=== PATIENT | female | born 1970 | race Caucasian/White ===

== ENCOUNTER 2016-05-10 11:31 | Emergency (ER) | payer OTHER ==
[2016-05-10 13:21] VITALS: BP 160/85
--- NOTE | 2016-05-10 14:03 | UC ---
Lower Extremity/Ankle HPI - HPI Summary HPI Summary: Approx 0930 today pt spilled boiling broth onto L foot. Now area is red, swollen , painful, and blistered. - History of Current Complaint Chief Complaint: UCSkin Stated Complaint: BURN TO TOP OF FOOT Time Seen by Provider: 05/10/16 13:41 Hx Obtained From: Patient Hx Last Menstrual Period: ablation ?: No Onset/Duration: Sudden Onset Severity Initially: Moderate Severity Currently: Moderate Aggravating Factor(s): Other - touch Alleviating Factor(s): Rest Able to Bear Weight: Yes Related History: Occupational Injury - Allergies/Home Medications Allergies/Adverse Reactions: Allergies Allergy/AdvReac Type Severity Reaction Status Date / Time Aspirin Allergy Nausea Verified 05/10/16 13:23 Atomoxetine [From Strattera] Allergy See Comment Verified 05/10/16 13:23 Home Medications: Home Medications Gabapentin [Neurontin 800 mg tab] 800 mg PO 05/10/16 [History] Lurasidone HCl [Latuda] 60 mg PO 05/10/16 [History] Metoprolol Succinate XL TAB* [Toprol XL TAB*] 25 mg PO DAILY 05/10/16 [History Confirmed 05/10/16] PMH/Surg Hx/FS Hx/Imm Hx Endocrine History Of: Denies: Diabetes, Thyroid Disease Cardiovascular History Of: Reports: Cardiac Disorders - heart palpatations Denies: Hypertension Respiratory History Of: Denies: COPD, Asthma GI/ History Of: Reports: Ulcer - gerd Cancer History Of: Denies: Breast Cancer - Surgical History Surgical History: Yes Surgery Procedure, Year, and Place: right hip dislocation - pins in place 1980. left elbow dislocation - 3 surgeries fell off horse. bunion surgery right toe. [facility] - Family History Known Family History: Positive: Hypertension - Social History Occupation: Employed Full-time Lives: With Family Alcohol Use: Weekly Substance Use Type: None Smoking Status (MU): Heavy Every Day Tobacco Smoker Amount Used/How Often: 1ppd - Immunization History Most Recent Tetanus Shot: 2014 Review of Systems Constitutional: Negative Skin: Other - redness, swelling, burn Eyes: Negative ENT: Negative Respiratory: Negative Cardiovascular: Negative Gastrointestinal: Negative Genitourinary: Negative Motor: Negative Neurovascular: Negative Musculoskeletal: Negative Neurological: Negative Psychological: Negative All Other Systems Reviewed And Are Negative: Yes Physical Exam Triage Information Reviewed: Yes Appearance: Well-Appearing, Obese Vital Signs: Initial Vital Signs Temp 98.1 F 05/10/16 13:15 Pulse 69 05/10/16 13:15 Resp 20 05/10/16 13:15 BP 160/85 05/10/16 13:15 Pulse Ox 98 05/10/16 13:15 Vital Signs Reviewed: Yes Eye Exam: Normal Eyes: Positive: Conjunctiva Clear ENT Exam: Normal ENT: Positive: Normal ENT inspection, Hearing grossly normal, Pharynx normal, TMs normal Dental Exam: Normal Neck exam: Normal Neck: Positive: Supple, Nontender, No Lymphadenopathy Respiratory Exam: Normal Respiratory: Positive: Chest non-tender, Lungs clear, Normal breath sounds, No respiratory distress, No accessory muscle use Cardiovascular Exam: Normal Cardiovascular: Positive: RRR, No Murmur Musculoskeletal Exam: Normal Musculoskeletal: Positive: Strength Intact, ROM Intact Neurological Exam: Normal Psychological Exam: Normal Skin Exam: Other - Approx 10cm x 6cm burn to L foot. See pic. Skin intact, single blister intact. Lower Extremity Course/Dx - Differential Dx/Diagnosis Provider Diagnoses: L foot burn Discharge - Discharge Plan Condition: Stable Disposition: HOME Prescriptions: Ibuprofen TAB* [Motrin TAB* 600 MG] 600 mg PO Q8H PRN #30 tab PRN Reason: Pain Mupirocin 2% OINT* [Bactroban 2 % Oint*] 1 applic TOPICAL BID #1 tube Patient Education Materials: Superficial Burn (ED) Forms: *Work Release Referrals: Gerardo Ruiz MD [Primary Care Provider] - Additional Instructions: Please change your dressings twice daily. When you change a dressing, wash the wound gently with tepid soapy water an d apply a thin layer of bactroban ointment. If you have increasing redness, pain, foul drainage, or if you cannot wear a shoe after two days, please return here for re-check. Images Feet (Multiple View): 1 - red, swollen skin 2 - 1.5cm blister with clear fluid
== END 2016-05-10 14:13 | disposition home or self-care (01) ==
LOC: UCEAST 11:31
DX: T25.222A Burn of second degree of left foot, initial encounter (principal); X12.XXXA Contact with other hot fluids, initial encounter; Y93.9 Activity, unspecified; Y92.9 Unspecified place or not applicable; Y99.0 Civilian activity done for income or pay; Z88.6 Allergy status to analgesic agent; Z88.1 Allergy status to other antibiotic agents; F17.210 Nicotine dependence, cigarettes, uncomplicated
CPT/HCPCS: 99213; G0463

== ENCOUNTER 2016-11-17 17:05 | Inpatient (IN) | payer OTHER ==
[2016-11-17] MEDS ORDERED: Aspirin EC TAB* 325 MG PO ONE (18:23)
[2016-11-17 18:48] LABS: Hematocrit 49 % (35-47); Hemoglobin 16.2 g/dl (12.0-16.0); Mean Corpuscular HGB Conc 33 g/dl (31-36); Mean Corpuscular Hemoglobin 32 pg (27-31); Mean Corpuscular Volume 95 fL (80-97); Mean Platelet Volume 10 um3 (7.4-10.4); Red Blood Count 5.11 10^6/ul (4.0-5.4); Red Cell Distribution Width 13 % (10.5-15); White Blood Count 10.1 10^3/ul (3.5-10.8)
[2016-11-17 19:01] LABS: Albumin 4.1 g/dL (3.2-5.2); BUN/Creatinine Ratio 12.7 (8-20); Calcium 9.5 mg/dL (8.6-10.3); EGFR African American 113.5 (>60); EGFR Non-African American 88.2 (>60); Globulin 2.8 g/dL (2-4); Magnesium 2.2 mg/dL (1.9-2.7); Potassium 3.7 mmol/L (3.5-5.0); Total Bilirubin 0.7 mg/dL (0.2-1.0); Total Protein 6.9 g/dL (6.4-8.9)
[2016-11-17 19:06] LABS: Troponin I 0.06 ng/mL (<0.04)
--- NOTE | 2016-11-17 19:11 | RAD ---
INDICATION: Chest pain COMPARISON: Chest x-ray dated November 02, 2013 TECHNIQUE: Single AP portable view of the chest was obtained. FINDINGS: Image quality is compromised due to the relative inferiority of a portable chest x-ray. The heart and mediastinum exhibit normal size and contour. The lungs are grossly clear. There is no evidence of a large pleural effusion. Visualized bones are normal for the patient's age. IMPRESSION: No radiographic evidence for acute cardiopulmonary abnormality on this portable chest x-ray.
[2016-11-17 19:23] LABS: TSH (Thyroid Stimulating Horm) 1.01 mcIU/mL (0.34-5.60)
[2016-11-17 19:51] LABS: Urine Bacteria Absent (Absent); Urine Bilirubin Negative (Negative); Urine Glucose Negative (Negative); Urine Nitrite Negative (Negative)
[2016-11-17] MEDS ORDERED: PRAVASTATIN 10 MG PO SCH (21:00)
[2016-11-17] MEDS ORDERED: Metoprolol Succinate XL TAB* 50 MG PO SCH (21:00)
[2016-11-17] MEDS: Nicotine PATCH 21 MG/24 HR* PATCH TRANSDERM SCH (21:25)
[2016-11-17] MEDS: Enoxaparin(*) 100 MG/ML SYR SUBCUT SCH (21:27)
[2016-11-17] MEDS: Nitroglycerin 2% OINT* 1 GM PAK TOPICAL SCH (21:28)
[2016-11-17] MEDS: Gabapentin CAP(*) 300 MG PO SCH (22:45)
[2016-11-17] MEDS: Omeprazole CAP* 20 MG PO SCH (22:46)
--- NOTE | 2016-11-18 00:23 | HP ---
HISTORY AND PHYSICAL:* ADDENDUM: Ms. Stanley is a 46-year-old female with a history of symptomatic PVCs, under the care of Dr. Martins from Cardiology. The PVC had been treated and controlled with Toprol XL. The patient presents today with history and complains of intermittent chest pain, sometime exertional and sometimes not. The patient's EKG is unchanged from prior, but her troponin is 0.06. Since her symptoms are concerning for unstable angina, she is going to be admitted to telemetry monitoring floor. Lovenox anticoagulation is going to be instituted. We will also consult the Cardiology. For further details of the patient's presentation and plan, please see history and physical dictated by Catracho Wooten on 11/17/16, with which I agree. [id number]/CPS #: [id number] MTDD
--- NOTE | 2016-11-18 00:31 | HP ---
ATTENDING ADDENDUM NOW INCLUDED ON THIS REPORT CC: Dr. Ruiz; Dr. Xavier * HISTORY AND PHYSICAL: DATE OF ADMISSION: 11/17/16 PRIMARY CARE PROVIDER: Dr. Ruiz. CONSULTING GERIATRIC PHYSICIAN: Dr. Xavier. ATTENDING PROVIDER: Dr. Opal Pineda * (DICTATED BY CATRACHO REMY NP) CHIEF COMPLAINT: Chest pain. HISTORY OF PRESENT ILLNESS: Mrs. Stanley is a 46-year-old female patient. She has a history of bipolar ADHD, GERD, hyperlipidemia, and hypertension. She is a smoker and she has a family history of coronary artery disease. She comes in today, says in the last couple of months she has had progressive and worsening in duration and frequency of chest pain and it is described as a tightness in the center of her chest, at times associated with nausea and also having radiation into both arms. In addition to this, also she says the duration of frequency has been increasing. She says the pain comes with exertion at times as well and also she has noticed in the last couple of weeks it is waking her up at bedtime and at night and she has been having nonexertional along with exertional chest tightness and heaviness. She was concerned today because around 2 in the morning she had an episode, it lasted 3 to 5 minutes. She called her primary this morning, went in and sought an appointment. While there, noted that she did have some subtle EKG changes. In addition to this, with her risk factors there was concern this may represent unstable angina and she was sent to the hospital. She denies any fevers, no cough, no abdominal pain. She denies having any nausea or vomiting. There is some nausea with the pain. No shortness of breath and no recent fevers, chills , or any calf or leg tenderness, or any recent trips or travel. She came to the ER, she was evaluated. Because of her story, obviously troponins were checked and this was elevated at 0.06. We were asked to evaluate for admission. PAST MEDICAL HISTORY: Significant for: 1. Bipolar. 2. ADHD. 3. GERD. 4. Hyperlipidemia. 5. Hypertension. PAST SURGICAL HISTORY: 1. The patient has had a cholecystectomy. 2. ORIF of the right hip. 3. She has had bunionectomy on the right foot. HOME MEDICATIONS: 1. Gabapentin 600 mg daily. 2. Nexium 40 mg daily. 3. Pravachol 10 mg daily. 4. Metoprolol XL 50 mg p.o. at bedtime. ALLERGIES TO MEDICATIONS: Include ASPIRIN, although that is more of an intolerance, it does cause GI discomfort. She is also allergic to STRATTERA. FAMILY HISTORY: Her mother was a diabetic, she had an MRI in her 40s. In addition to this, her mother had an open heart surgery in her 40s. Father had a history of colon cancer. SOCIAL HISTORY: She is a pack a day smoker for about 30 years. She occasionally drinks alcohol. Surrogate decision maker is her fiance. REVIEW OF SYSTEMS: There is no documented fever. She denied having any significant weight change. There was no double vision. She denies having any ear discharge. There was no rhinorrhea, no sore throat, no thyroid enlargement. She denied having chest pain currently, but she does have some per my HPI. There is no shortness of breath, no abdominal pain. There was nausea. No dysuria, no frequency, no loss of consciousness, no pruritus, and no skin ulcerations. Review of 14 systems completed, all others negative. PHYSICAL EXAMINATION GENERAL: At this time, Ms. Stanley is a 46-year-old female patient. She is morbidly obese, she is sitting in the ER stretcher. She does not appear to be in any acute distress. VITAL SIGNS: Blood pressure 128/72, pulse 74, respirations 20, O2 sat 95%, and temperature 97.5. HEENT: Head atraumatic and normocephalic. Eyes; EOMs are intact. Sclerae anicteric, not pale. NECK: Supple. Throat; oral mucosa appears to be moist, no oropharyngeal erythema. LUNGS: Clear to auscultation bilaterally. No wheezes, rales, or rhonchi. HEART: Sounds S1 and S2. Regular rate and rhythm. No murmurs, rubs, or gallops. ABDOMEN: Soft, flat, and nontender. Bowel sounds present. EXTREMITIES: Pulses were 2+ throughout. Able to move all 4 extremities with 5/ 5 strength. NEUROLOGIC: The patient is awake, alert, is oriented x3. Tongue midline. Collar Shaper Operator were equal. She had no gross focal deficits. The skin was grossly intact. LABORATORY DATA/DIAGNOSTIC STUDIES: Today revealed a WBC of 10.1, RBC of 5.11 , hemoglobin 16.2, hematocrit 49, platelet count of 189,000. The PTT was 29.7. D- dimer less than 200. Sodium 138, potassium 2.7, chloride of 108, bicarb 20 , BUN 9, creatinine of 0.71, glucose 90, lactic 1.5, calcium 9.5. Total mag 2.2 , total bili 0.7, AST 19, ALT 19, alk phos 71, troponin 0.06. CK-MB was 3.8, CK was 82. BNP 194, albumin 4.1. Urine showed trace ketones, 1+ blood, 1+ rbc. She did have an EKG obtained today as well which revealed a normal sinus rhythm. It did show a heart rate of 72. She did have some T-wave inversion in lead 3 and aVF and some depression in II, III and aVF. No ST-elevations were noted. I did review it to her previous EKG, she has had that inversion in lead 3 but not in aVF and she has had depression in II, III, and aVF in the past. Old medical records were reviewed. She did have that chest x-ray today as well, which showed no acute cardiopulmonary abnormality. Old medical records reviewed. ASSESSMENT AND PLAN: Mrs. Stanley is a 46-year-old female patient coming into the ER today with complaints of chest discomfort. On evaluation today, it was noted she had an indeterminate troponin. She will be admitted under inpatient status for: 1. Chest pain. I am concerned that the patient may have unstable angina. She has got several risk factors. Her story is concerning, so my plan is to go ahead and make her n.p.o. after midnight, beta-andriy. She actually takes her Toprol XL at bedtime, so I am going to give her that now. I will go ahead and put her on nitrates, give her a shot of Lovenox b.i.d., n.p.o. after midnight and have Cardiology evaluate and see if we should do a stress test or cath in the morning. I did cycle her troponins. In addition to this, we will get an echo and I am going to get an EKG probably around 10 o'clock tonight to make sure with the beta- andriy, the changes are improving and are not getting any worse at least, and we will continue to follow her closely. 2. Bipolar disorder and attention deficit hyperactivity disorder. Continue supportive care. 3. Gastroesophageal reflux disease. PPI therapy. 4. Hyperlipidemia. We will check lipid panel in the morning. 5. Hypertension. Continue her beta-andriy. 6. DVT prophylaxis. She will be on Lovenox, therapeutic dosing. 7. Code status, full code. 8. Fluids, electrolytes, and nutrition. She can have a heart-healthy diet and n.p.o. after midnight. 9. Tobacco abuse. I did order a nicotine patch. TIME SPENT: On the admission was approximately 60 minutes, greater than half the time spent [id number] with the patient obtaining my history and physical, other half the time spent going over the plan of care with the patient and implementing the plan of care. I discussed the plan of care with my attending, Dr. Pineda, who is in agreement. CATRACHO REMY NP ADDENDUM: Ms. Stanley is a 46-year-old female with a history of symptomatic PVCs, under the care of Dr. Martins from Cardiology. The PVC had been treated and controlled with Toprol XL. The patient presents today with history and complains of intermittent chest pain, sometime exertional and sometimes not. The patient's EKG is unchanged from prior, but her troponin is 0.06. Since her symptoms are concerning for unstable angina, she is going to be admitted to telemetry monitoring floor. Lovenox anticoagulation is going to be instituted. We will also consult the Cardiology. For further details of the patient's presentation and plan, please see history and physical dictated by Catracho Remy NP on 11/17/16, with which I agree. OPAL PINEDA MD [id number]/CPS #: [id number]/CPS #: [id number] YVROSE
[2016-11-18] MEDS: Nitroglycerin 2% OINT* 1 GM PAK TOPICAL SCH (04:56)
[2016-11-18] MEDS ORDERED: Acetaminophen TAB* 325 MG PO PRN (04:57)
[2016-11-18] MEDS ORDERED: Nitro Patch/OINT Remove PATCH OFF SCH ×2 (05:00→21:00)
[2016-11-18 05:06] LABS: Hematocrit 44 % (35-47); Hemoglobin 14.9 g/dl (12.0-16.0); Mean Corpuscular HGB Conc 34 g/dl (31-36); Mean Corpuscular Hemoglobin 32 pg (27-31); Mean Corpuscular Volume 95 fL (80-97); Mean Platelet Volume 10 um3 (7.4-10.4); Red Blood Count 4.68 10^6/ul (4.0-5.4); Red Cell Distribution Width 13 % (10.5-15); White Blood Count 10.7 10^3/ul (3.5-10.8)
[2016-11-18 05:15] LABS: BUN/Creatinine Ratio 16.9 (8-20); Calcium 9.4 mg/dL (8.6-10.3); EGFR African American 103.3 (>60); EGFR Non-African American 80.4 (>60); HDL Cholesterol 38.6 mg/dL; Potassium 3.4 mmol/L (3.5-5.0)
--- NOTE | 2016-11-18 08:56 | ED ---
Afia Nguyen Claudia, scribed for Darrius Medina MD on 11/17/16 at 1826 . HPI Chest Pain - HPI Summary HPI Summary: 46 year old female presents to [facility] with chief complaints of CP. Pt states that she has been having intermittent episodes of mid-sternal CP for the past few weeks. She describes it as a pressure. Pt notes that the pain occurs during exertion and even wakes her up in the middle of the night. Pt notes the pain is a 6/10 during episodes and she notes associated Sx of SOB.Pt denies any skin diaphoresis accompanying the Sx. Pt notes that she is currently asymptomatic but went to Dr. Holden's office today and he noted an abnormality on her EKG bringing her to the ED. Pt does not take any aspirin daily and did not take any aspiring today. - History of Current Complaint Chief Complaint: EDChestWallPain Hx Obtained From: Patient Onset/Duration: Started Days Ago, Still Present Timing: Intermittent Pain Intensity: 0 Pain Scale Used: 0-10 Numeric Chest Pain Location: Mid Sternal Chest Pain Radiates: No Character: Pressure/Squeezing Aggravating Factor(s): Nothing Alleviating Factor(s): Nothing Associated Signs and Symptoms: Positive: Chest Pain, Shortness of Breath - Allergy/Home Medications Allergies/Adverse Reactions: Allergies Allergy/AdvReac Type Severity Reaction Status Date / Time Atomoxetine [From Strattera] Allergy See Comment Verified 05/10/16 13:23 PMH/Surg Hx/FS Hx/Imm Hx Previously Healthy: Yes Endocrine/Hematology History: Denies: Hx Diabetes, Hx Thyroid Disease Cardiovascular History: Denies: Hx Hypertension Respiratory History: Denies: Hx Asthma, Hx Chronic Obstructive Pulmonary Disease (COPD) GI History: Reports: Hx Ulcer - gerd Neurological History: Denies: Other Neuro Impairments/Disorders - Surgical History Surgery Procedure, Year, and Place: right hip dislocation - pins in place 1980. left elbow dislocation - 3 surgeries fell off horse. bunion surgery right toe. [facility] Infectious Disease History: No Infectious Disease History: Denies: Hx Hepatitis, Hx Human Immunodeficiency Virus (HIV), Traveled Outside the [place] in Last 30 Days - Family History Known Family History: Positive: Hypertension - Social History Occupation: Employed Full-time Lives: Alone Alcohol Use: Weekly Hx Substance Use: No Substance Use Type: Reports: None Hx Tobacco Use: Yes Smoking Status (MU): Heavy Every Day Tobacco Smoker Amount Used/How Often: 1ppd Review of Systems Constitutional: Negative Negative: Skin Diaphoresis Eyes: Negative ENT: Negative Cardiovascular: Negative Negative: Chest Pain Respiratory: Negative Negative: Shortness Of Breath Gastrointestinal: Negative Genitourinary: Negative Musculoskeletal: Negative Skin: Negative Neurological: Negative Psychological: Normal All Other Systems Reviewed And Are Negative: Yes Physical Exam - Summary Physical Exam Summary: VITAL SIGNS: Reviewed. GENERAL: Patient is a well-developed and nourished female who is lying comfortable in the stretcher. Patient is not in any acute respiratory distress. HEAD AND FACE: No signs of trauma. No ecchymosis, hematomas or skull depressions. No sinus tenderness. EYES: PERRLA, EOMI x 2, No injected conjunctiva, no nystagmus. EARS: Hearing grossly intact. Ear canals and tympanic membranes are within normal limits. MOUTH: Oropharynx within normal limits. NECK: Supple, trachea is midline, no adenopathy, no JVD, no carotid bruit, no c- spine tenderness, neck with full ROM. CHEST: Symmetric, no tenderness at palpation LUNGS: Clear to auscultation bilaterally. No wheezing or crackles. CVS: Regular rate and rhythm, S1 and S2 present, no murmurs or gallops appreciated. ABDOMEN: Soft, non-tender. No signs of distention. No rebound no guarding, and no masses palpated. Bowel sounds are normal. EXTREMITIES: FROM in all major joints, no edema, no cyanosis or clubbing. NEURO: Alert and oriented x 3. No acute neurological deficits. Speech is normal and follows commands. SKIN: Dry and warm Triage Information Reviewed: Yes Vital Signs On Initial Exam: Initial Vitals Temp Pulse Resp BP Pulse Ox 97.5 F 80 18 114/55 94 11/17/16 17:08 11/17/16 17:08 11/17/16 17:08 11/17/16 17:08 11/17/16 17:08 Vital Signs Reviewed: Yes - Micki Coma Scale Coma Scale Total: 15 Diagnostics - Vital Signs Vital Signs Temp Pulse Resp BP Pulse Ox 11/17/16 18:00 73 22 127/73 92 11/17/16 17:38 75 11/17/16 17:30 123/68 11/17/16 17:12 77 16 93 11/17/16 17:11 111/69 11/17/16 17:08 97.5 F 80 18 114/55 94 - Laboratory Lab Results: Lab Results 11/17/16 11/17/16 11/17/16 Range/Units 18:33 18:33 18:33 WBC 10.1 (3.5-10.8) 10^3/ul RBC 5.11 (4.0-5.4) 10^6/ul Hgb 16.2 H (12.0-16.0) g/dl Hct 49 H (35-47) % MCV 95 (80-97) fL MCH 32 H (27-31) pg MCHC 33 (31-36) g/dl RDW 13 (10.5-15) % Plt Count 189 (150-450) 10^3/ul MPV 10 (7.4-10.4) um3 Neut % (Auto) 66.6 (38-83) % Lymph % (Auto) 25.0 (25-47) % [place] % (Auto) 6.7 (1-9) % Eos % (Auto) 1.2 (0-6) % Baso % (Auto) 0.5 (0-2) % Absolute Neuts (auto) 6.7 (1.5-7.7) 10^3/ul Absolute Lymphs (auto) 2.5 (1.0-4.8) 10^3/ul Absolute Monos (auto) 0.7 (0-0.8) 10^3/ul Absolute Eos (auto) 0.1 (0-0.6) 10^3/ul Absolute Basos (auto) 0 (0-0.2) 10^3/ul Absolute Nucleated RBC 0.01 10^3/ul Nucleated RBC % 0.1 APTT 29.7 (26.0-36.3) seconds D-Dimer, Quantitative < 200 (Less Than 230) ng/mL Sodium 138 (133-145) mmol/L Potassium 3.7 (3.5-5.0) mmol/L Chloride 108 (101-111) mmol/L Carbon Dioxide 20 L (22-32) mmol/L Anion Gap 10 (2-11) mmol/L BUN 9 (6-24) mg/dL Creatinine 0.71 (0.51-0.95) mg/dL Est GFR ( Amer) 113.5 (>60) Est GFR (Non-Af Amer) 88.2 (>60) BUN/Creatinine Ratio 12.7 (8-20) Glucose 90 (70-100) mg/dL Lactic Acid (0.5-2.0) mmol/L Calcium 9.5 (8.6-10.3) mg/dL Magnesium 2.2 (1.9-2.7) mg/dL Total Bilirubin 0.70 (0.2-1.0) mg/dL AST 19 (13-39) U/L ALT 19 (7-52) U/L Alkaline Phosphatase 71 (34-104) U/L Total Creatine Kinase 82 (10-223) U/L CK-MB (CK-2) 3.8 (0.6-6.3) ng/mL Troponin I 0.06 H* (<0.04) ng/mL B-Natriuretic Peptide ( - 100) pg/mL Total Protein 6.9 (6.4-8.9) g/dL Albumin 4.1 (3.2-5.2) g/dL Globulin 2.8 (2-4) g/dL Albumin/Globulin Ratio 1.5 (1-3) TSH 1.01 (0.34-5.60) mcIU/mL Urine Color Urine Appearance Urine pH (5-9) Ur Specific [place] (1.010-1.030) Urine Protein (Negative) Urine Ketones (Negative) Urine Blood (Negative) Urine Nitrate (Negative) Urine Bilirubin (Negative) Urine Urobilinogen (Negative) Ur Leukocyte Esterase (Negative) Urine WBC (Auto) (Absent) Urine RBC (Auto) (Absent) Ur Squamous Epith Cells (Absent) Urine Bacteria (Absent) Urine Glucose (Negative) 11/17/16 11/17/16 11/17/16 Range/Units 18:33 18:33 19:25 WBC (3.5-10.8) 10^3/ul RBC (4.0-5.4) 10^6/ul Hgb (12.0-16.0) g/dl Hct (35-47) % MCV (80-97) fL MCH (27-31) pg MCHC (31-36) g/dl RDW (10.5-15) % Plt Count (150-450) 10^3/ul MPV (7.4-10.4) um3 Neut % (Auto) (38-83) % Lymph % (Auto) (25-47) % [place] % (Auto) (1-9) % Eos % (Auto) (0-6) % Baso % (Auto) (0-2) % Absolute Neuts (auto) (1.5-7.7) 10^3/ul Absolute Lymphs (auto) (1.0-4.8) 10^3/ul Absolute Monos (auto) (0-0.8) 10^3/ul Absolute Eos (auto) (0-0.6) 10^3/ul Absolute Basos (auto) (0-0.2) 10^3/ul Absolute Nucleated RBC 10^3/ul Nucleated RBC % APTT (26.0-36.3) seconds D-Dimer, Quantitative (Less Than 230) ng/mL Sodium (133-145) mmol/L Potassium (3.5-5.0) mmol/L Chloride (101-111) mmol/L Carbon Dioxide (22-32) mmol/L Anion Gap (2-11) mmol/L BUN (6-24) mg/dL Creatinine (0.51-0.95) mg/dL Est GFR ( Amer) (>60) Est GFR (Non-Af Amer) (>60) BUN/Creatinine Ratio (8-20) Glucose (70-100) mg/dL Lactic Acid 1.5 (0.5-2.0) mmol/L Calcium (8.6-10.3) mg/dL Magnesium (1.9-2.7) mg/dL Total Bilirubin (0.2-1.0) mg/dL AST (13-39) U/L ALT (7-52) U/L Alkaline Phosphatase (34-104) U/L Total Creatine Kinase (10-223) U/L CK-MB (CK-2) (0.6-6.3) ng/mL Troponin I (<0.04) ng/mL B-Natriuretic Peptide 194 H ( - 100) pg/mL Total Protein (6.4-8.9) g/dL Albumin (3.2-5.2) g/dL Globulin (2-4) g/dL Albumin/Globulin Ratio (1-3) TSH (0.34-5.60) mcIU/mL Urine Color Yellow Urine Appearance Clear Urine pH 5.0 (5-9) Ur Specific [place] 1.027 (1.010-1.030) Urine Protein Negative (Negative) Urine Ketones Trace H (Negative) Urine Blood 1+ H (Negative) Urine Nitrate Negative (Negative) Urine Bilirubin Negative (Negative) Urine Urobilinogen Negative (Negative) Ur Leukocyte Esterase Negative (Negative) Urine WBC (Auto) Absent (Absent) Urine RBC (Auto) 1+(3-5/hpf) H (Absent) Ur Squamous Epith Cells Present H (Absent) Urine Bacteria Absent (Absent) Urine Glucose Negative (Negative) Result Diagrams: 11/18/16 04:45 11/18/16 04:45 Lab Statement: Any lab studies that have been ordered have been reviewed, and results considered in the medical decision making process. - EKG 17:32 Cardiac Rate: NL EKG Rhythm: Sinus Rhythm - 72 beats/min ST Segment: Non-Specific - some elevated ST in V4, V5, V6 and inverted T in 3 Chest Pain Course/Dx - Course Course Of Treatment: 46 year old female presents to [facility] with chief complaints of CP. Pt states that she has been having intermittent episodes of mid-sternal CP for the past few weeks. She describes it as a pressure. Pt notes that the pain occurs during exertion and even wakes her up in the middle of the night. Pt notes the pain is a 6/10 during episodes and she notes associated Sx of SOB.Pt denies any skin diaphoresis accompanying the Sx. Pt notes that she is currently asymptomatic but went to Dr. Holden's office today and he noted an abnormality on her EKG bringing her to the ED. Pt does not take any aspirin daily and did not take any aspiring today. Assessment/Plan: Patient was sent from Dr. Woodward office for a work up for Chest pain. EKG shows ST depressions in V4 to V6. In the ED course an IV access was obtained. Patient was placed in a cardiac exercise physiologist. She was given ASA and held the nitroglycerin and BB since patient is asymptomatic. I will sign out the patient to Dr. Leon to f/u test results and and possible admission to the hospitalist services to r/o ACS. She is hemodynamically stable and she is A+O X 3. - Chest Pain Differential Diagnosis/HQI/PQRI: Acute [place], ACS, Angina, CHF, Chest Wall, GI Disease, Lower Respiratory Infection - Diagnoses Provider Diagnoses: Chest pain r/o ACS. Discharge - Discharge Plan Condition: Stable Disposition: ADMITTED TO [facility] Discharge Disposition Comment: Sign-out to Dr. Leon waiting CXR and bloodwork The documentation as recorded by the Afia amaya Claudia accurately reflects the service I personally performed and the decisions made by , Darrius Medina MD.
[2016-11-18] MEDS: Enoxaparin(*) 100 MG/ML SYR SUBCUT SCH (09:03)
[2016-11-18] MEDS: Aspirin Low Dose CHEW TAB* 81 MG PO SCH (09:05)
[2016-11-18] MEDS ORDERED: NS 0.45% 1000 ML BAG* 1,000 ML IV SCH (10:00)
[2016-11-18] MEDS ORDERED: diPHENhydraMINE PO* 50 MG PO ONE (10:00)
[2016-11-18] MEDS ORDERED: Diazepam TAB(*) 5 MG PO ONE (10:00)
[2016-11-18] MEDS ORDERED: Heparin 2 UNITS/ML IVPREMIX* 3,000 ML IV ONE (10:12)
[2016-11-18] MEDS ORDERED: fentaNYL* 50 MCG/ML 2 ML VIAL (100 MCG VIAL) ONE (10:12)
[2016-11-18] MEDS ORDERED: Midazolam* 1 MG/ML 5 ML VIAL (5 MG) ONE (10:12)
[2016-11-18] MEDS ORDERED: Lidocaine 1% INJ* 10 MG/ML 30 ML SDV ONE (10:13)
[2016-11-18] MEDS ORDERED: Iohexol 350 (CONTRAST) 200 ML MDV IV ONE ×2 (10:13→12:15)
[2016-11-18] MEDS ORDERED: Ticagrelor* 90 MG TAB PO ONE (11:50)
[2016-11-18] MEDS ORDERED: Heparin(*) 1000 UNIT/ML 10 ML VIAL CATH LAB IV ONE (11:50)
[2016-11-18] MEDS ORDERED: Heparin 2 UNITS/ML IVPREMIX* 1,000 ML IV ONE (11:52)
[2016-11-18] MEDS ORDERED: nitroGLYCERIN DRIP* 250 ML ONE (11:56)
[2016-11-18] MEDS ORDERED: Nitroglycerin TAB 0.4 MG* 0.4 MG TAB SL PRN (12:40)
[2016-11-18] MEDS ORDERED: NS 0.9% 1000 ML* 1,000 ML IV SCH (12:45)
--- NOTE | 2016-11-18 13:09 | PN ---
Subjective Date of Service: 11/18/16 Interval History: Patient seen early afternoon after cath. No complaints. Still a bit drowsy from medications. Family History: Unchanged from Admission Social History: Unchanged from Admission Past Medical History: Unchanged from Admission Objective Active Medications: Acetaminophen (Tylenol Tab*) 650 mg PO Q4H PRN Aspirin (Aspirin Low Dose Tab*) 81 mg PO DAILY [facility] Atorvastatin Calcium (Lipitor*) 80 mg PO 1700 SIDDHARTHA Gabapentin (Neurontin Cap(*)) 600 mg PO BEDTIME [facility] Sodium Chloride (Ns 0.9% 1000 Ml*) 1,000 mls @ 100 mls/hr IV .per rate SIDDHARTHA Metoprolol Succinate (Toprol Xl Tab*) 50 mg PO BEDTIME [facility] Nicotine (Nicotine Patch 21 Mg/24 Hr*) 1 patch TRANSDERM 2100 [facility] Nitroglycerin (Nitroglycerin Tab 0.4 Mg*) 0.4 mg SL Q5M PRN Omeprazole (Prilosec Cap*) 20 mg PO BEDTIME [facility] Pharmacy Profile Note (Nitro Patch/Oint Remove*) 1 note PATCH OFF 2100 [facility] Ticagrelor (Brilinta*) 90 mg PO BID [facility] Vital Signs 11/17/16 11/17/16 11/17/16 20:30 21:00 21:29 Temperature Pulse Rate 74 92 90 Respiratory 23 17 18 Rate Blood Pressure 128/72 159/77 (mmHg) O2 Sat by Pulse 95 98 96 Oximetry 11/18/16 11/18/16 11/18/16 00:45 03:24 07:25 Temperature 98.3 F 97.7 F Pulse Rate 72 63 Respiratory 16 20 20 Rate Blood Pressure 121/65 111/64 (mmHg) O2 Sat by Pulse 95 94 Oximetry Oxygen Devices in Use Now: None Appearance: Middle-aged, obese, F, laying in bed in NAD Eyes: No Scleral Icterus Ears/Nose/Mouth/Throat: Mucous Membranes Moist Neck: NL Appearance and Movements; NL JVP Respiratory: Symmetrical Chest Expansion and Respiratory Effort, Clear to Auscultation Cardiovascular: NL Sounds; No Murmurs; No JVD, RRR Abdominal: NL Sounds; No Tenderness; No Distention Lymphatic: No Cervical Adenopathy Extremities: No Edema, - - R groin dressing c/d/i Skin: No Rash or Ulcers Neurological: Alert and Oriented x 3 Result Diagrams: 11/18/16 04:45 11/18/16 04:45 Assess/Plan/Problems-Billing Assessment: Unstable angina in a 46 yo F with hx of HTN, HLD, bipolar disorder, GERD, ADHD - Patient Problems (1) Unstable angina Current Visit: Yes Comment: Appreciate cardiology assistance, s/p PCI to RCA. Continue Toprol, Atorvastatin 80 mg, Ticagrelor and ASA. Monitor in ICU overnight. (2) GERD (gastroesophageal reflux disease) Current Visit: Yes Comment: Continue PPI (3) HLD (hyperlipidemia) Current Visit: Yes Comment: Continue statin (4) HTN (hypertension) Current Visit: Yes Comment: Continue Metoprolol (5) DVT prophylaxis Current Visit: Yes Comment: Lovenox SQ
--- NOTE | 2016-11-18 13:43 | CONS ---
CC: Dr. Martins; Dr. Abbott; Dr. Ruiz; Dr. Xavier CARDIOLOGY CONSULTATION: DATE OF CONSULT: 11/18/16 SPECIAL EFFECTS ARTIST: Dr. Martins HISTORY OF PRESENT ILLNESS: I was asked by hospitalist service to see this 46-year- old female elsy ent who was transferred from Dr. Ruiz's office by ambulance yesterday after she had an episode of symptoms of chest pain. The patient had significant risk factors for coronary artery disease includ ing obesity, systemic arterial hypertension, significant hyperlipidemia, and hypertriglyceridemia, c urrent tobacco consumption and family history of coronary artery disease, premature in her mom who h ad CABG in the past, and also questionable history of sleep apnea. The patient has been having on a nd off symptoms of chest pain for about 2 to 3 months, exertional, and now they are at rest. They l ast about 3 to 5 minutes and then go away. She had no jaw pain. No nausea, no vomiting. No arm pa in. In the hospital after placement of nitroglycerin, she felt better and it did help. Her troponi n peaked at 0.07. Her EKG showed nonspecific EKG changes with T- wave inversions in lead III. She is chest pain free at the moment. She had no orthopnea. No PND. No history of congestive heart fa ilure. She had a history of palpitations followed up with Dr. Martins in the past, on metoprolol harjinder atment, beta andriy. She had no history of myocardial infarction or coronary artery disease docum ented in the past. PAST MEDICAL HISTORY: Include obesity, systemic arterial hypertension, hyperlipidemia, hypertriglyc eridemia, possible sleep apnea, history of bipolar disorder, gastroesophageal reflux disease, hyper tension, history of ORIF of the right hip and history of cholecystectomy, history of surgery on t he right foot. PAST SURGICAL HISTORY: As mentioned above. MEDICATIONS: At the present time: 1. Tylenol 650 mg p.o. q. 4 hours. 2. Aspirin 81 mg daily. 3. Lovenox 100 mg subcu q. 12 hours. 4. Toprol 50 mg once daily. 5. Nicotine patch daily. 6. Nitroglycerin 0.5 inch topical q. 8 hours. 7. Omeprazole 20 mg daily. ALLERGIES: She gives no known allergies. FAMILY HISTORY: Mother had a history of coronary artery disease, CABG in her 40s. SOCIAL HISTORY: She is . She has one kid, doing well. She is a smoker for the 30 years, 1 p ack per day. She gives occasional drinking. No history of illicit drug use. She is and li ves with her . REVIEW OF SYSTEMS: On review of all other systems, she gives no tachycardia, no palpitations, no sy ncope, no swelling in the lower extremities. Her review of all other systems are essentially negati ve. PHYSICAL EXAM: On exam, she is chest pain free. She is not in acute distress. Vital Signs: Blood pressure is 111/64, pulse is 63, respiratory rate 20, temperature 97.7. Head and Neck exam: Normoc ephalic and atraumatic Head, eyes, ears, nose and throat: Essentially benign. Neck: Supple. JVP is not elevated. No carotid bruits. No masses in the neck appreciated. Chest: Clear to auscultat ion. No rales, no wheeze. No added sounds appreciated. Heart: Normal, regular, S1 and S2, no add ed sounds, no gallops, no rubs. Abdomen: Benign, soft, positive bowel sounds. Extremities: No ed chinmay. No cyanosis. No clubbing. Skin Exam: Normal. Psych: Normal affect and mood. ASSOCIATE CONSULTING ENGINEER: No foc al deficits appreciated. DIAGNOSTIC STUDIES/LAB DATA: EKG showed normal sinus rhythm with T-wave inversion in lead III. Her labs, white blood cell 10.7, hemoglobin 14.9, hematocrit 44, platelets 175. Her D-dimer is less than 200. Her sodium 136, potassium 3.4, chloride 106, BUN 13, creatinine 0.77. Her troponin bk d at 0.07. Her BNP 194. Her triglycerides 494, cholesterol 190. HDL 38.6. Her chest x-ray was reported to have no active cardiopulmonary disease. IMPRESSION: The patient is a 46-year-old female with significant risk factors for coronary artery d isease on presentation with: 1. Symptoms of chest pain very concerning for ischemic heart disease and abnormally troponin peaked at 0.07 and nonspecific EKG abnormality. 2. Systemic arterial hypertension. 3. Significant hyperlipidemia and hypertriglyceridemia. 4. Obesity. 5. Long use of tobacco consumption and still doing so. 6. Possible obstructive sleep apnea. 7. Abnormal EKG as described. 8. Family history of coronary artery disease, premature in her mom who had coronary artery bypass g minoing. PLAN/RECOMMENDATIONS: I am very concerned about this patient's symptoms for coronary artery disease based on her symptoms of chest pain, abnormal troponin, abnormal EKG and significant risk factors a nd comorbidities. I do recommend to proceed with left cardiac catheterization to evaluate her coron niles anatomy. Benefits and risks were discussed with the patient. She is willing to proceed. Any fur ther recommendations will be based on the results of the cardiac catheterization. Meanwhile, we dis cussed today at length her risk factors and attempts to lose weight and quitting smoking. We will o btain an echo to evaluate her left ventricular systolic function, wall motion, and occult valvular d isease. I answered all her concerns and questions up to her satisfaction. Thank you very much for asking us to participate in the care of this patient. [id number]/[facility] #: [id number]
[2016-11-18] MEDS ORDERED: Enoxaparin(*) 40 MG/0.4 ML SYR SUBCUT SCH (14:00)
--- NOTE | 2016-11-18 14:31 | ECHO ---
Patient: MAURO STORM [facility] Rec#: [id number] : 1970 Date: 11/18/2016 Age: 46y Height: 170.18 cm / 67.0 in Weight: 107.05 kg / 235.9 lbs Sex: F BSA: 2.17 Room#: 443 Admit Date#: 11/17/2016 Type: Inpatient Referring: Catracho Wooten NP Reading: Jose Carlos Abbott MD Associate Director Career Services: Cintia Mcmillan,AGNESCS,RDMS CC: Gerardo Ruiz MD Transthoracic Echocardiogram Indication: CP, HTN BP: 121/65 HR: 61 Rhythm: NSR with PVCs Findings History: HTN, HLD, smoker Technical Comments: The study quality is fair. The study is technically limited due to the patient's smoking history. Completed 1035 Left Ventricle: The left ventricular chamber size is normal. Moderate concentric left ventricular hypertrophy is observed. There is a prominent septal knuckle. The estimated ejection fraction is 55-60%. There is an E to A reversal in the mitral valve flow pattern suggestive of diastolic dysfunction. Left Atrium: The left atrial chamber size is normal. Right Ventricle: The right ventricular chamber size and systolic function are within normal limits. Right Atrium: The right atrial cavity size is normal. Aortic Valve: The aortic valve is trileaflet. Systolic excursion of the aortic valve is normal. There is no evidence of aortic regurgitation. There is no evidence of aortic stenosis. Mitral Valve: The mitral valve leaflets appear normal. There is no evidence of mitral regurgitation. There is no evidence of mitral stenosis. Tricuspid Valve: The tricuspid valve leaflets are normal. There is a physiologic tricuspid regurgitation. Unable to estimate the right ventricular systolic pressure. Pulmonic Valve: There is no evidence of pulmonic valve thickening. There is no evidence of pulmonic regurgitation. Pericardium: There is no significant pericardial effusion. Aorta: The aortic root appears normal. There is no dilatation of the aortic arch. Pulmonary Artery: The main pulmonary artery is not well visualized. Venous: The inferior vena cava appears normal in size. There is a greater than 50% respiratory change in the inferior vena cava dimension. Summary: There was not any prior study for comparison. Conclusions The left ventricular chamber size is normal. Moderate concentric left ventricular hypertrophy is observed. There is a prominent septal knuckle. The estimated ejection fraction is 55-60%. There is an E to A reversal in the mitral valve flow pattern suggestive of diastolic dysfunction. There is a physiologic tricuspid regurgitation. Unable to estimate the right ventricular systolic pressure. Measurements Name Value Normal Range RVIDd (AP) 2D 2.8 cm (0.9 - 2.6) RVDdMajor (2D) 3.4 cm (2.2 - 4.4) RAd ISD 4CH 3.2 cm (3.4 - 4.9) RA (A4C)W 3.2 cm (2.9 - 4.6) IVSd (2D) 1.5 cm (0.6 - 1) LVPWd (2D) 1.5 cm (0.6 - 1) LVIDd (2D) 3.7 cm (3.6 - 5.4) LVIDs (2D) 2.6 cm - LV FS (2D) 28 % (25 - 45) Aortic Annulus 2.3 cm (1.4 - 2.6) Ao root diameter (2D) 2.9 cm (2.1 - 3.5) Ascending Ao 3.4 cm (2.1 - 3.4) Aortic arch 3.3 cm (1.8 - 3.4) LA dimension (AP) 2D 4.6 cm (2.3 - 3.8) LAd ISD 4CH 4.7 cm (2.9 - 5.3) LA ISD 4CH W 4 cm (2.5 - 4.5) Name Value Normal Range LA ESV SP 4CH (A/L) 40.58 ml - LA ESV SP 2CH (A/L) 61.42 ml - LA ESV BP (A/L) 51.39 ml - LA ESV BP (A/L) index 24 ml/m2 - LA ESV SP 4CH (MOD) 38.33 ml - LA ESV SP 2CH (MOD) 58.9 ml - Name Value Normal Range MV E-wave Vmax 0.7 m/sec - MV deceleration time 250 msec - MV A-wave Vmax 0.9 m/sec - MV E:A ratio 0.8 ratio - P. vein S-wave Vmax 0.5 m/sec - P. vein D-wave Vmax 0.3 m/sec - P. vein S:D Vmax ratio 1.3 ratio - P. vein A-wave duration 129 msec - Name Value Normal Range AV Vmax 1.8 m/sec - AV VTI 37 cm - AV peak gradient 13 mmHg - AV mean gradient 7 mmHg - LVOT Vmax 1.6 m/sec - LVOT VTI 36 cm - LVOT peak gradient 10 mmHg - LVOT mean gradient 6.4 mmHg - Name Value Normal Range RAP 8 mmHg - IVC diameter 1.5 cm - Name Value Normal Range PV Vmax 0.9 m/sec - PV peak gradient 3.2 mmHg -
[2016-11-18] MEDS ORDERED: oxyCODONE/Acetamin 5/325 MG* TAB PO PRN (16:57)
[2016-11-18] MEDS ORDERED: Atorvastatin* 80 MG TAB PO SCH (17:00)
[2016-11-18] MEDS ORDERED: Metoprolol Succinate XL TAB* 25 MG PO SCH (21:00)
[2016-11-18] MEDS: Ticagrelor* 90 MG TAB PO SCH (21:28)
[2016-11-18] MEDS: Gabapentin CAP(*) 300 MG PO SCH (21:29)
[2016-11-18] MEDS: Omeprazole CAP* 20 MG PO SCH (21:29)
[2016-11-18] MEDS: Nicotine PATCH 21 MG/24 HR* PATCH TRANSDERM SCH (21:29)
--- NOTE | 2016-11-19 03:47 | CATH ---
CC: Dr. Ruiz; Dr. Abbott * STENT REPORT: DATE OF PROCEDURE: 11/18/16 - ROOM #IICU-107 PRIMARY CARE PHYSICIAN: Dr. Ruiz. SWITCH CLEANER: Dr. Abbott. PROCEDURES: 1. Diagnostic catheterization by Dr. Abbott. 2. Stent placement, RCA 2.5 x 12 LAURA, Dr. Trevino. HISTORY: A 46-year-old woman with ACS/non-ST elevation infarct presenting with rest pain, troponin rise to 0.07. Diagnostic catheterization by Dr. Abbott demonstrated 90% RCA continuation stenosis after the acute marginal branch. I was asked to evaluate for intervention. Her MEMO score is 3. PROCEDURE: For the diagnostic portion, see Dr. Abbott's report. For PCI, medications: 1. Heparin 7000 units IV. 2. Brilinta 180 mg p.o. 3. IV Versed. 4. IV fentanyl. 5. Nitroglycerin 200 mcg IC after stent deployment. GUIDING CATHETER: 6-FR 4 wire, GENERAL MEDICAL MERATEi 14, used to deploy a 2.5 x 12 Synergy drug- eluting stent in the RCA continuation. The stent jailed the acute marginal branch, which supplies a portion of the distal inferior septum. Stent was deployed at 16 atmospheres 18 seconds, postdilated with a 2.5 x 12 NC balloon 16 atmospheres 18 seconds. As the ostial stenosis of the acute marginal branch jailed by the stent was unimproved after IC nitroglycerin, the wire was redirected, the NC balloon was used to dilate the ostium of the acute marginal branch through the side of the stent, 6 atmospheres for 15 seconds. HEMODYNAMICS: See Dr. Abbott's report. Final BP 118/70. ANGIOGRAPHY: For the diagnostic portion, see Dr. Abbott's report. The RCA is dominant, moderate, with proximal insignificant stenosis in its proximal half. The acute marginal branch supplies the distal half of the inferior septum , the acute marginal branch has a 90% stenosis beginning at the acute marginal branch. The PDA is very small followed by a very small posterolateral, feeds the basilar portion of the inferior wall. After stent deployment and post dilatation, dilatation through the side of the stent into the acute marginal branch, flow is MEMO 3, there is no dissection or loss of branches. There is no residual stenosis. Right common femoral artery sheath entry is in segment 2. CONCLUSION: 1. Single vessel disease, RCA with excellent angiographic result with drug- eluting stent placement. 2. Successful Angio-Seal right common femoral artery. [id number]/[facility] #: [id number] YVROSE
[2016-11-19 05:40] LABS: Hematocrit 43 % (35-47); Hemoglobin 14.2 g/dl (12.0-16.0); Mean Corpuscular HGB Conc 33 g/dl (31-36); Mean Corpuscular Hemoglobin 32 pg (27-31); Mean Corpuscular Volume 94 fL (80-97); Mean Platelet Volume 10 um3 (7.4-10.4); Red Cell Distribution Width 13 % (10.5-15); White Blood Count 11.2 10^3/ul (3.5-10.8)
[2016-11-19 05:51] LABS: BUN/Creatinine Ratio 13.8 (8-20); Calcium 9.1 mg/dL (8.6-10.3); EGFR African American 125.7 (>60); EGFR Non-African American 97.7 (>60); Potassium 3.6 mmol/L (3.5-5.0)
--- NOTE | 2016-11-19 07:16 | CATH ---
CC: Dr. Ruiz; Hospitalist Service; Dr. Abbott CARDIAC CATHETERIZATION REPORT: DATE OF PROCEDURE: 11/18/16 PROCEDURES: Left cardiac catheterization, selective coronary angiography, left ventriculography. INDICATIONS: The patient is a 46-year-old female patient who presented with symptoms of chest pain very concerning for unstable angina. She does have significant risk factors for CAD, including syst emic arterial hypertension, significant hyperlipidemia, and hypertriglyceridemia, obesity, family hi story of premature coronary artery disease, current tobacco consumption, and questionable obstructiv e sleep apnea. She had abnormal troponin and it did go up to 0.07 and nonspecific EKG changes with T-wave inversions actually in lead III. She was further referred for a cardiac catheterization base d on the above to evaluate her coronary anatomy. DESCRIPTION OF PROCEDURE: After informed written consent had been obtained, the patient was brought in to the cardiac catheterization lab, where the right femoral region was prepped and draped in the usual sterile fashion. 1% Xylocaine was used for local anesthesia. Next, the right femoral artery was entered and a 6-Argentine sheath placed into the right femoral artery. Through the right femoral arterial sheath, a 6-Argentine JL4 catheter was advanced over the arch of the aorta, left coronary enga ged, and left coronary arteriography performed. This catheter was removed and a 6-Argentine JR4 cathet er was advanced over the arch of the aorta, right coronary engaged, and right coronary arteriography performed. This catheter was removed and a 6-Argentine pigtail catheter was advanced over the arch of the aorta into left ventriculography where left ventriculography was performed, but there were tech nical difficulties in completing the left ventriculogram. At this point, I discussed the findings w oma Trevino from the interventional cardiology services, who currently reviewed them. Please ref er to a separate report for further intervention with angioplasty and stenting of the RCA as per Dr. Trevino. HEMODYNAMICS: The aortic pressure is 147/77 mmHg, left ventricle is 145 with an LVEDP of 10 mmHg. Left main coronary artery: The left main coronary artery was a good caliber vessel. It gave rise t o left anterior descending artery and circumflex coronary artery. The left main was free of any sig nificant disease. Left anterior descending artery: The left anterior descending artery was a good caliber vessel and it gave rise to good caliber vessel diagonal branches. The proximal LAD has probably up to about 40 % to 50% noncritical disease. Circumflex coronary artery: The circumflex coronary artery was a large caliber vessel. It was codo minant and was free of any significant disease. Right coronary artery: The right coronary artery was a good caliber vessel. It has, in the mid seg ment, severe stenosis of 99% stenosis with normal MEMO III flow. Left ventriculography: Left ventriculography was performed in the standard CUEVAS projection. There w as some technical difficulty with the injector, but overall EF appears to be from the initial inject ion 50% to 55%. CONCLUSION: 1. Severe and critical 99% stenosis of the mid right coronary artery. 2. Low normal left ventricular systolic function with EF of 50% to 55%. 3. Please refer to separate report as per Dr. Trevino for further intervention with angioplasty and stenting of the right coronary artery. [id number]/[facility] #: [id number]
[2016-11-19] MEDS: Ticagrelor* 90 MG TAB PO SCH (08:34)
[2016-11-19] MEDS: Aspirin Low Dose CHEW TAB* 81 MG PO SCH (08:34)
[2016-11-19] MEDS ORDERED: Gemfibrozil TAB* 600 MG PO SCH (09:00)
--- NOTE | 2016-11-19 09:01 | PN ---
Subjective Date of Service: 11/19/16 Interval History: Patient had some bradycardia yesterday afternoon after recovering from cath. Metoprolol was initially decreased and then held altogether. She had some groin pain as well. This morning she states she feels well. No chest pain, SOB. Groin pain improved. Anxious for discharge. HR currently in 80s Family History: Unchanged from Admission Social History: Unchanged from Admission Past Medical History: Unchanged from Admission Objective Active Medications: Acetaminophen (Tylenol Tab*) 650 mg PO Q4H PRN Aspirin (Aspirin Low Dose Tab*) 81 mg PO DAILY SIDDHARTHA Atorvastatin Calcium (Lipitor*) 80 mg PO 1700 SIDDHARTHA Gabapentin (Neurontin Cap(*)) 600 mg PO BEDTIME SIDDHARTHA Gemfibrozil (Lopid Tab*) 600 mg PO BID SIDDHARTHA Nicotine (Nicotine Patch 21 Mg/24 Hr*) 1 patch TRANSDERM 2100 SIDDHARTHA Nitroglycerin (Nitroglycerin Tab 0.4 Mg*) 0.4 mg SL Q5M PRN Omeprazole (Prilosec Cap*) 20 mg PO BEDTIME SIDDHARTHA Oxycodone/Acetaminophen (Percocet 5/325 Tab*) 1 tab PO Q4H PRN Ticagrelor (Brilinta*) 90 mg PO BID [facility] Vital Signs 11/18/16 11/18/16 11/18/16 13:15 13:30 13:45 Temperature Pulse Rate 62 65 59 Respiratory 16 15 15 Rate Blood Pressure 111/79 116/74 127/68 (mmHg) O2 Sat by Pulse 92 95 92 Oximetry 11/18/16 11/18/16 11/18/16 14:00 14:30 14:41 Temperature Pulse Rate 60 52 53 Respiratory 16 13 21 Rate Blood Pressure 127/76 117/96 140/83 (mmHg) O2 Sat by Pulse 93 98 98 Oximetry 11/18/16 11/18/16 11/18/16 15:00 15:30 15:42 Temperature 98.1 F Pulse Rate 51 51 Respiratory 20 23 Rate Blood Pressure 147/112 134/97 (mmHg) O2 Sat by Pulse 96 97 Oximetry 11/18/16 11/18/16 11/18/16 16:00 16:30 17:00 Temperature Pulse Rate 49 53 56 Respiratory 21 19 14 Rate Blood Pressure 135/90 146/64 136/74 (mmHg) O2 Sat by Pulse 96 96 97 Oximetry 0711/18/16 11/18/16 17:30 18:00 19:00 Temperature Pulse Rate 89 Respiratory 19 24 Rate Blood Pressure 121/57 (mmHg) O2 Sat by Pulse 100 Oximetry 11/18/16 11/18/16 11/18/16 19:01 19:04 19:30 Temperature Pulse Rate 92 59 Respiratory 19 33 18 Rate Blood Pressure 162/151 (mmHg) O2 Sat by Pulse 100 95 Oximetry 11/18/16 11/18/16 11/18/16 19:32 20:00 20:30 Temperature 97.1 F Pulse Rate 60 73 58 Respiratory 14 21 16 Rate Blood Pressure 154/74 132/88 148/96 (mmHg) O2 Sat by Pulse 96 99 92 Oximetry 11/18/16 11/18/16 11/18/16 21:00 21:30 22:00 Temperature Pulse Rate 59 65 67 Respiratory 17 20 17 Rate Blood Pressure 169/94 152/82 147/85 (mmHg) O2 Sat by Pulse 93 94 96 Oximetry 11/18/16 11/18/16 11/18/16 22:04 22:30 23:00 Temperature Pulse Rate 72 61 55 Respiratory 17 14 16 Rate Blood Pressure 155/102 132/76 (mmHg) O2 Sat by Pulse 96 96 95 Oximetry 11/18/16 11/19/16 11/19/16 23:30 00:00 00:01 Temperature 97 F Pulse Rate 52 63 61 Respiratory 13 17 17 Rate Blood Pressure 126/90 127/73 (mmHg) O2 Sat by Pulse 92 92 92 Oximetry 11/19/16 11/19/16 11/19/16 00:30 01:00 01:30 Temperature Pulse Rate 54 55 57 Respiratory 10 11 15 Rate Blood Pressure 134/79 144/66 132/72 (mmHg) O2 Sat by Pulse 94 96 94 Oximetry 11/19/16 11/19/16 11/19/16 02:00 02:30 03:00 Temperature Pulse Rate 53 52 50 Respiratory 12 15 16 Rate Blood Pressure 136/72 128/73 142/76 (mmHg) O2 Sat by Pulse 93 93 94 Oximetry 11/19/16 11/19/16 11/19/16 03:30 04:00 04:01 Temperature 97.3 F Pulse Rate 58 50 51 Respiratory 19 16 15 Rate Blood Pressure 131/79 141/81 (mmHg) O2 Sat by Pulse 93 95 94 Oximetry 11/19/16 11/19/16 11/19/16 04:30 05:00 05:30 Temperature Pulse Rate 50 52 68 Respiratory 17 16 17 Rate Blood Pressure 139/77 136/81 140/92 (mmHg) O2 Sat by Pulse 95 95 99 Oximetry 11/19/16 11/19/16 11/19/16 06:00 06:30 07:00 Temperature Pulse Rate 51 56 49 Respiratory 19 12 17 Rate Blood Pressure 127/56 132/76 141/70 (mmHg) O2 Sat by Pulse 96 96 96 Oximetry 11/19/16 11/19/16 08:00 08:04 Temperature Pulse Rate 63 65 Respiratory 15 17 Rate Blood Pressure 139/67 (mmHg) O2 Sat by Pulse 98 97 Oximetry Oxygen Devices in Use Now: None Appearance: Middle-aged, F, sitting in chair in NAD Eyes: No Scleral Icterus Ears/Nose/Mouth/Throat: Mucous Membranes Moist Neck: NL Appearance and Movements; NL JVP Respiratory: Symmetrical Chest Expansion and Respiratory Effort, Clear to Auscultation Cardiovascular: NL Sounds; No Murmurs; No JVD, RRR Abdominal: NL Sounds; No Tenderness; No Distention Lymphatic: No Cervical Adenopathy Extremities: - - R groin with some mild ecchymoses, otherwise appears c/d/i Skin: No Rash or Ulcers Neurological: Alert and Oriented x 3 Result Diagrams: 11/19/16 05:25 11/19/16 05:25 Assess/Plan/Problems-Billing Assessment: Unstable angina in a 46 yo F with hx of HTN, HLD, bipolar disorder, GERD, ADHD - Patient Problems (1) Unstable angina Current Visit: Yes Comment: NSTEMI. Appreciate cardiology assistance, s/p LAURA to RCA on 11/18. Continue Atorvastatin 80 mg, Ticagrelor and ASA. Will add Gemfibrozil for hyperTG. Metoprolol held last night, HRs seem better today, will monitor over the next few hours and likely discharge on 25 mg Toprol (1/2 home dose) (2) GERD (gastroesophageal reflux disease) Current Visit: Yes Comment: Continue PPI (3) HLD (hyperlipidemia) Current Visit: Yes Comment: Continue statin (4) HTN (hypertension) Current Visit: Yes Comment: Metoprolol held as above. BPs OK for the most part (5) DVT prophylaxis Current Visit: Yes Comment: Lovenox SQ
[2016-11-19 12:22] VITALS: BP 123/72
--- NOTE | 2016-11-20 11:00 | DS ---
CC: Dr. Ruiz; Dr. Abbott DISCHARGE SUMMARY: DATE OF ADMISSION: 11/17/16 DATE OF DISCHARGE: 11/19/16 PRIMARY CARE PROVIDER: Dr. Ruiz. CONSULTANTS DURING HOSPITALIZATION: Dr. Abbott, Cardiology; Dr. Trevino, Cardiology PRINCIPAL DISCHARGE DIAGNOSES: 1. Non-ST elevation myocardial infarction. 2. Coronary artery disease. 3. Right coronary artery occlusion status post drug-eluting stent placement. 4. Hyperlipidemia. 5. Hypertriglyceridemia. SECONDARY DIAGNOSES: 1. Bipolar disorder. 2. Attention deficit hyperactivity disorder. 3. Gastroesophageal reflux disease. 4. Hypertension. DISCHARGE MEDICATION REGIMEN: 1. Aspirin 81 mg by mouth daily. 2. Toprol-XL 25 mg by mouth at bedtime. 3. Gabapentin 600 mg by mouth at bedtime. 4. Esomeprazole 40 mg by mouth at bedtime. 5. Ticagrelor 90 mg by mouth 2 times daily. 6. Nitroglycerin 0.4 mg sublingual every 5 minutes as needed for angina. 7. Nicotine patch 21 mg transdermal daily. 8. Gemfibrozil 600 mg by mouth 3 times daily. 9. Atorvastatin 80 mg by mouth daily. STUDIES DURING THE HOSPITALIZATION: Chest x-ray. The patient had radiographs with evidence for acu te cardiopulmonary abnormality on this portable chest x-ray, transthoracic echocardiogram, moderate concentric LVH, normal left ventricular chamber size, prominent septal knuckle. Estimated ejection fraction is 55% to 60%. There is an E to A reversal in the mitral valve flow pattern suggestive of d iastolic dysfunction. There is a physiologic tricuspid regurgitation, unable to estimate the right ventricular systolic pressure. Cardiac catheterization done by Dr. Abbott showed severe and crit ical 99% stenosis of the mid right coronary artery, low normal left ventricular systolic function. At this point, Dr. Trevino came in to perform the intervention with the placement of a drug-eluting s tent to the RCA. HISTORY OF PRESENT ILLNESS AND HOSPITAL SUMMARY: Please see the full history and physical of Catracho draper NP, for details. Mrs. Stanley is a 46-year-old female with a past medical history as above who presents with progressive chest pain associated with exertion as well as nausea and radiation d own the arms. The patient had an initial troponin of 0.06 with repeat at 0.07. Cardiology was cons ulted as the patient's story was concerning and she was initially started on therapeutic Lovenox and nitrates. The patient was taken to the slab lifting engineer and as above Dr. Abbott performed the diagnosti c portion of the catheterization, which showed a significant occlusion in the RCA. At this point, Alexy Trevino came in and placed a drug-eluting stent in the RCA. The patient was monitored in the ICU for 24 hours the following day. She did have some bradycardia overnight and her metoprolol was held . However, the next day, heart rates were mostly in the 70s and 80s, and she will be discharged on half her previous home dose of metoprolol, which will be 25 mg at bedtime. She was started on high- dose atorvastatin, aspirin and ticagrelor. She was also started on gemfibrozil as she had triglycer ides of 494. The patient will be discharged home to follow up with Dr. Abbott as well as with he r PCP Dr. Ruiz as an outpatient. TIME SPENT: Total time spent on this discharge 35 minutes. This is the summary of the hospitalization, please see the full medical record for further details. [id number]/[facility] #: [id number]
== END 2016-11-19 12:15 | disposition home or self-care (01) | DRG 174 ==
LOC: ED 17:05 → MEDTELE 20:05 → ICU 11-18 13:01 → OBSVTOIN 11-18 13:12
PROVIDERS: ADMIT Internal Medicine; ATTEND Hospitalist
PROC: B2101ZZ Fluoroscopy of Single Coronary Artery using Low Osmolar Contrast (ICD-10-PCS; 2016-11-18)
PROC: B2111ZZ Fluoroscopy of Multiple Coronary Arteries using Low Osmolar Contrast (ICD-10-PCS; 2016-11-18)
PROC: 4A023N7 Measurement of Cardiac Sampling and Pressure, Left Heart, Percutaneous Approach (ICD-10-PCS; 2016-11-18)
PROC: B2151ZZ Fluoroscopy of Left Heart using Low Osmolar Contrast (ICD-10-PCS; 2016-11-18)
PROC: 027034Z Dilation of Coronary Artery, One Artery with Drug-eluting Intraluminal Device, Percutaneous Approach (ICD-10-PCS; principal; 2016-11-18 10:00)
DX: I21.4 Non-ST elevation (NSTEMI) myocardial infarction (principal); E66.01 Morbid (severe) obesity due to excess calories; I10 Essential (primary) hypertension; I25.110 Atherosclerotic heart disease of native coronary artery with unstable angina pectoris; K21.9 Gastro-esophageal reflux disease without esophagitis; F17.210 Nicotine dependence, cigarettes, uncomplicated; R40.2412 Glasgow coma scale score 13-15, at arrival to emergency department; F31.9 Bipolar disorder, unspecified; F90.9 Attention-deficit hyperactivity disorder, unspecified type; E78.5 Hyperlipidemia, unspecified; E78.1 Pure hyperglyceridemia; R00.1 Bradycardia, unspecified; G89.29 Other chronic pain; I07.1 Rheumatic tricuspid insufficiency; M54.9 Dorsalgia, unspecified; Z79.82 Long term (current) use of aspirin; Z88.8 Allergy status to other drugs, medicaments and biological substances; Z82.49 Family history of ischemic heart disease and other diseases of the circulatory system; Z72.89 Other problems related to lifestyle; Z90.49 Acquired absence of other specified parts of digestive tract; Z88.6 Allergy status to analgesic agent; Z83.3 Family history of diabetes mellitus; Z80.0 Family history of malignant neoplasm of digestive organs; Z68.37 Body mass index [BMI] 37.0-37.9, adult
CPT/HCPCS: 36415; 71010; 80048; 80053; 80061; 81003; 81015; 82550; 82553; 83036; 83605; 83735; 83880; 84443; 84484; 85025; 85379; 85730; 93005; 93306; 93458; A9270-GY; C1725; C1769; C1876; C1887; C9600-RC; G0378; J1644; J1650; J2001; J2250; J3010

== ENCOUNTER 2017-04-23 21:15 | Emergency (ER) | payer OTHER ==
--- NOTE | 2017-04-23 22:41 | ED ---
Upper Extremity Pain - HPI Summary HPI Summary: 46M presents with left arm injury today. She tripped and hit her arm against her against a picnic table. She has full ROM of her arm. She has ecchymosis of left arm. She is on eliquis. She denies any numbness or tingling. She denies any previous injury to the area. She has abrasion to her knee but is able to ambulate on them. She is right handed. She works at [employer]. - History of Current Complaint Chief Complaint: EDExtremityUpper Stated Complaint: LT ARM INJURY Time Seen by Provider: 04/23/17 21:26 Hx Last Menstrual Period: ablation - Allergies/Home Medications Allergies/Adverse Reactions: Allergies Allergy/AdvReac Type Severity Reaction Status Date / Time Atomoxetine [From Strattera] Allergy See Comment Verified 04/23/17 21:21 PMH/Surg Hx/FS Hx/Imm Hx Endocrine/Hematology History: Denies: Hx Diabetes, Hx Thyroid Disease Cardiovascular History: Denies: Hx Hypertension Respiratory History: Denies: Hx Asthma, Hx Chronic Obstructive Pulmonary Disease (COPD) GI History: Reports: Hx Ulcer - gerd, Other GI Disorders - Diverticulitis Sensory History: Denies: Hx Contacts or Glasses, Hx Hearing Aid Opthamlomology History: Denies: Hx Contacts or Glasses Neurological History: Denies: Other Neuro Impairments/Disorders Psychiatric History: Reports: Hx Anxiety, Hx Depression - Surgical History Surgery Procedure, Year, and Place: right hip dislocation - pins in place 1980. left elbow dislocation - 3 surgeries fell off horse. bunion surgery right toe. [place] - Immunization History Immunizations Up to Date: No Infectious Disease History: No Infectious Disease History: Denies: Hx Hepatitis, Hx Human Immunodeficiency Virus (HIV), Traveled Outside the US in Last 30 Days - Family History Known Family History: Positive: Hypertension - Social History Alcohol Use: Weekly Hx Substance Use: No Substance Use Type: Reports: None Hx Tobacco Use: Yes Smoking Status (MU): Heavy Every Day Tobacco Smoker Type: Cigarettes Amount Used/How Often: 1ppd Review of Systems Negative: Fever Negative: Chest Pain Negative: Shortness Of Breath Positive: Myalgia - left forearm Positive: Bruising All Other Systems Reviewed And Are Negative: Yes Physical Exam Triage Information Reviewed: Yes Vital Signs On Initial Exam: Initial Vitals Temp Pulse Resp BP Pulse Ox 97.0 F 84 14 144/76 98 04/23/17 21:18 04/23/17 21:18 04/23/17 21:18 04/23/17 21:18 04/23/17 21:18 Vital Signs Reviewed: Yes Appearance: Positive: Well-Appearing Skin: Positive: Warm, Dry, Other - ecchymosis of left forearm near elbow Head/Face: Positive: Normal Head/Face Inspection Eyes: Positive: Normal, Conjunctiva Clear Respiratory/Lung Sounds: Positive: Clear to Auscultation, Breath Sounds Present Cardiovascular: Positive: Normal, RRR Musculoskeletal: Positive: Strength/ROM Intact - left arm, Other - good pulses, tenderness left forearm near elbow, sensation intact, good excellence coach strength, capillary refill<2 secs Neurological: Positive: Normal Psychiatric: Positive: Normal - Micki Coma Scale Coma Scale Total: 15 Diagnostics - Vital Signs Vital Signs Temp Pulse Resp BP Pulse Ox 04/23/17 21:18 97.0 F 84 14 144/76 98 - Laboratory Lab Statement: Any lab studies that have been ordered have been reviewed, and results considered in the medical decision making process. - Radiology forearm Xray Interpretation: No Acute Changes Radiology Interpretation Completed By: ED Physician Course/Dx - Course Course Of Treatment: 46M presents with left arm injury today. She tripped and hit her arm against her against a picnic table. She has full ROM of her arm. She has ecchymosis of left arm. She is on eliquis. She denies any numbness or tingling. She denies any previous injury to the area. She has abrasion to her knee but is able to ambulate on them. She is right handed. She works at [employer]. on exam has ecchymosis of left forearm near elbow, neurovascular intact. full ROM. xray normal. will treat with RICE. patient understand and agrees with plan. - Diagnoses Differential Diagnosis/HQI/PQRI: Positive: Contusion, Fracture (Closed), Sprain Provider Diagnoses: Contusion of left forearm Discharge - Discharge Plan Condition: Good Disposition: HOME Patient Education Materials: Contusion in Adults (ED) Forms: *Work Release Referrals: Gerardo Ruiz MD [Primary Care Provider] - Additional Instructions: Take Tylenol every 6 hours for pain Ice, elevate Apply compression to the area Return to ED if develop any new or worsening symptoms
[2017-04-23 22:58] VITALS: BP 125/67
--- NOTE | 2017-04-24 07:43 | RAD ---
HISTORY: Fall, left arm pain, bruising COMPARISONS: None VIEWS: 2, Frontal and lateral views of the left forearm FINDINGS: BONE DENSITY: Normal. BONES: There is no displaced fracture. JOINTS: There is no arthropathy. ALIGNMENT: There is no dislocation. SOFT TISSUES: There is soft tissue swelling along the radial aspect of the proximal forearm consistent with the history of bruising. OTHER FINDINGS: None. IMPRESSION: SOFT TISSUE SWELLING. NO ACUTE OSSEOUS INJURY. IF SYMPTOMS PERSIST, RECOMMEND REPEAT IMAGING.
== END 2017-04-23 23:01 | disposition home or self-care (01) ==
LOC: ED 21:15
DX: S50.12XA Contusion of left forearm, initial encounter (principal); W18.40XA Slipping, tripping and stumbling without falling, unspecified, initial encounter; W22.8XXA Striking against or struck by other objects, initial encounter; Y92.9 Unspecified place or not applicable; F17.210 Nicotine dependence, cigarettes, uncomplicated; Z88.8 Allergy status to other drugs, medicaments and biological substances
CPT/HCPCS: 99281

== ENCOUNTER 2017-05-30 05:28 | Emergency (ER) | payer OTHER ==
[2017-05-30] MEDS ORDERED: Ibuprofen TAB* 800 MG PO ONE (05:50)
[2017-05-30] MEDS ORDERED: Amoxicillin PO (*) 250 MG CAP PO ONE (05:51)
[2017-05-30] MEDS ORDERED: Albuterol/Ipratropium NEB.SOL* Albuterol 2.5 MG/Ipratropium 0.5 MG 3 ML INH ONE (06:12)
[2017-05-30] MEDS ORDERED: Albuterol 2.5 MG/3 ML NEB.SOL* (0.083%) INH ONE (06:13)
--- NOTE | 2017-05-30 06:53 | ED ---
Jazmin Nugyen Edward, scribed for Beulah Phan MD on 05/30/17 at 0550 . Respiratory - HPI Summary HPI Summary: 46 y/o female presents to the ED c/o cough starting 4 days ago. Not aggravated or alleviated with anything. Associated sx: ear ache aggravated with cough, rhinorrhea, subjective fevers at nights and body aches. - History of Current Complaint Chief Complaint: EDEarPain Stated Complaint: COUGH, EAR PAIN Time Seen by Provider: 05/30/17 05:35 Hx Obtained From: Patient Onset/Duration: Lasting Days Pain Intensity: 6 Character: Cough (Nonproductive) Aggravating Factor(s): Nothing Alleviating Factor(s): Nothing Associated Signs and Symptoms: Fever - subjective, Nasal Congestion - Allergy/Home Medications Allergies/Adverse Reactions: Allergies Allergy/AdvReac Type Severity Reaction Status Date / Time Atomoxetine [From Strattera] Allergy See Comment Verified 04/23/17 21:21 PMH/Surg Hx/FS Hx/Imm Hx Previously Healthy: No Endocrine/Hematology History: Denies: Hx Diabetes, Hx Thyroid Disease Cardiovascular History: Denies: Hx Hypertension Respiratory History: Denies: Hx Asthma, Hx Chronic Obstructive Pulmonary Disease (COPD) GI History: Reports: Hx Ulcer - gerd, Other GI Disorders - Diverticulitis Sensory History: Denies: Hx Contacts or Glasses, Hx Hearing Aid Opthamlomology History: Denies: Hx Contacts or Glasses Neurological History: Denies: Other Neuro Impairments/Disorders Psychiatric History: Reports: Hx Anxiety, Hx Depression - Surgical History Surgery Procedure, Year, and Place: right hip dislocation - pins in place 1980. left elbow dislocation - 3 surgeries fell off horse. bunion surgery right toe. [place] Infectious Disease History: No Infectious Disease History: Denies: Hx Hepatitis, Hx Human Immunodeficiency Virus (HIV), Traveled Outside the US in Last 30 Days - Family History Known Family History: Positive: Hypertension - Social History Alcohol Use: Weekly Hx Substance Use: No Substance Use Type: Reports: None Hx Tobacco Use: Yes Smoking Status (MU): Heavy Every Day Tobacco Smoker Type: Cigarettes Amount Used/How Often: 1ppd Review of Systems Positive: Fever Eyes: Negative Positive: Ear Ache, Nasal Discharge - rhinorrhea Cardiovascular: Negative Positive: Cough Gastrointestinal: Negative Genitourinary: Negative Positive: Myalgia - body aches Skin: Negative Neurological: Negative Psychological: Normal All Other Systems Reviewed And Are Negative: Yes Physical Exam - Summary Physical Exam Summary: ITAL SIGNS: Reviewed. GENERAL: Patient is a well-developed and nourished female who is lying comfortable in the stretcher. Patient is not in any acute respiratory distress. HEAD AND FACE: No signs of trauma. No ecchymosis, hematomas or skull depressions. No sinus tenderness. EYES: PERRLA, EOMI x 2, No injected conjunctiva, no nystagmus. EARS: Hearing grossly intact. Hyperaemia of R TM. MOUTH: Oropharynx within normal limits. NECK: Supple, trachea is midline, no adenopathy, no JVD, no carotid bruit, no c- spine tenderness, neck with full ROM. CHEST: Symmetric, no tenderness at palpation LUNGS: Clear to auscultation bilaterally. No wheezing or crackles. CVS: Regular rate and rhythm, S1 and S2 present, no murmurs or gallops appreciated. ABDOMEN: Soft, non-tender. No signs of distention. No rebound no guarding, and no masses palpated. Bowel sounds are normal. EXTREMITIES: FROM in all major joints, no edema, no cyanosis or clubbing. NEURO: Alert and oriented x 3. No acute neurological deficits. Speech is normal and follows commands. SKIN: Dry and warm Triage Information Reviewed: Yes Vital Signs On Initial Exam: Initial Vitals Temp Pulse Resp BP Pulse Ox 97.8 F 61 22 152/86 97 05/30/17 05:31 05/30/17 05:31 05/30/17 05:31 05/30/17 05:31 05/30/17 05:31 Vital Signs Reviewed: Yes Diagnostics - Vital Signs Vital Signs Temp Pulse Resp BP Pulse Ox 05/30/17 05:31 97.8 F 61 22 152/86 97 - Laboratory Lab Statement: Any lab studies that have been ordered have been reviewed, and results considered in the medical decision making process. Disposition - Course Assessment/Plan: 46 y/o female presents c/o cough and ear ache for 4 days. Influenza A and B negative. Pt will be d/c home with f/u with PCP. - Diagnoses Provider Diagnoses: Left otitis media, Viral syndrome Discharge - Discharge Plan Condition: Stable Disposition: HOME Patient Education Materials: Ear Infection (ED), Viral Syndrome (ED) Referrals: Gerardo Ruiz MD [Primary Care Provider] - 4 Days (PLEASE F/U IN 3-5 DAYS) Additional Instructions: Return to the ED for return or worsening of symptoms The documentation as recorded by the Jazmin amaya Edward accurately reflects the service I personally performed and the decisions made by me, Beulah Phan MD.
[2017-05-30] MEDS ORDERED: Albuterol HFA INHALER* 8 gm MDI INH SCH (07:00)
[2017-05-30 07:17] VITALS: BP 137/82
== END 2017-05-30 07:15 | disposition home or self-care (01) ==
LOC: ED 05:28
DX: H66.92 Otitis media, unspecified, left ear (principal); B34.9 Viral infection, unspecified; F17.210 Nicotine dependence, cigarettes, uncomplicated; Z88.8 Allergy status to other drugs, medicaments and biological substances
CPT/HCPCS: 87502; 94640; 94760; 99283; A9270-GY

== ENCOUNTER → 2017-06-17 08:17 | Day surgery (SDC) | payer OTHER ==
[~2017-06-17 08:17] MED LIST: Adenosine* 3 MG/ML VIAL ONE; Diazepam TAB(*) 5 MG ONE; Heparin 2 UNITS/ML IVPREMIX* 2,000 ML IV ONE; Heparin(*) 1000 UNIT/ML 10 ML VIAL CATH LAB IV ONE; Iohexol 350 (CONTRAST) 200 ML MDV IV ONE; Lidocaine 1% INJ* 10 MG/ML 30 ML SDV ONE; Midazolam* 1 MG/ML 10 ML VIAL (10 MG) ONE; NS 0.9% 1000 ML* 1,000 ML IV SCH; VERAPAMIL 2.5 MG/ML 2 ML VIAL ** 5 mg/2 ml ONE; diPHENhydraMINE PO* 25 MG ONE; fentaNYL* 50 MCG/ML 2 ML VIAL (100 MCG VIAL) ONE; nitroGLYCERIN DRIP* 25,000 MCG/250 ML BTL ONE
--- NOTE | 2017-06-23 11:40 | CATH ---
CC: Dr. Ruiz; Dr. Martins CATH REPORT: DATE OF PROCEDURE: 06/17/17 PRIMARY CARE PHYSICIAN: Dr. Ruiz. LEAD MAN OVER ALL DIES IN PATTERN SHOP: Dr. Martins. PROCEDURE: Right radial artery access, bilateral selective coronary cineangiography, FFR RCA. HISTORY: A 46-year-old woman with previous non-ST elevation infarct November 2016, treated with a 2.5 x 12 drug-eluting stent in the RCA, jailing the acute marginal branch which supplies the portion of the distal inferior PDA. She was referred for repeat angiography because of recurrence of functional cl ass 1 to 2 angina for the past 3 to 4 weeks. PROCEDURE ACCESS: Right radial artery, sheath 6F Slender. MEDICATIONS: 1. Subcu lidocaine. 2. IV Versed. 3. IV fentanyl. 4. Heparin 3000 units. 5. Verapamil 3 mg. 6. Nitroglycerin 300 mcg IA. 4-FFR RCA, IC nitroglycerin 200 mcg followed by adenosine 100 mcg, 100 mcg. DIAGNOSTIC CATHETER: 5F TIG4, 5FL3.5. FFR RCA performed using a 6FR guide, a 14 comet pressure wire after IC nitroglycerin, and with boluses of 100 mcg of adenosine x2. HEMODYNAMICS: Initial BP 135/76. FFR RCA through the stented segment 0.89. Pull back to the guide confirmed 0 difference. ANGIOGRAPHY: RCA: The RCA is moderate, dominant, has a 30% stenosis before the acute margin, the ac feliciano marginal branch is large, supplies a distal portion of the PDA. The RCA continuation which has t he previously placed stent has a 30% to 40% fairly focal in-stent restenosis before it supplies a sma ll PDA and a small posterolateral continuation, there is a short stump consistent with distal postero lateral occlusion which in retrospect was present on the film, 11/25/16. Left main: The left main is normal. LAD: The LAD is moderate, extends to the apex, it again has a 30% to 40% stenosis at the origin of a large first diagonal, it is followed by a moderate second diagonal, mid and distal LAD has minor lum inal irregularity without significant stenosis. Circumflex: The circumflex is not dominant, it is moderate with a moderate marginal and ends with a moderate posterolateral, the circumflex has no significant stenosis. There are left to distal right collaterals from the distal circumflex with a filling of 2 very small posterolateral branches. CONCLUSION: 1. Single vessel disease. RCA with distal RCA occlusion in retrospect, present in 2017, although no t well visualized. 2. Mild in-stent restenosis with insignificant FFR. There is no angiographic compromise of the acut e marginal branch continuation. RECOMMENDATION: Continue medical management. [id number]/[facility] #: [id number]
== END | disposition home or self-care (01) ==
LOC: CHICATH 08:17
PROVIDERS: ATTEND Internal Medicine Cardiovascular Disease
DX: I25.119 Atherosclerotic heart disease of native coronary artery with unspecified angina pectoris (principal); T82.855A Stenosis of coronary artery stent, initial encounter; Z72.0 Tobacco use; I25.2 Old myocardial infarction; E78.5 Hyperlipidemia, unspecified; E66.8 Other obesity; I10 Essential (primary) hypertension; I49.3 Ventricular premature depolarization; J44.9 Chronic obstructive pulmonary disease, unspecified; Z95.5 Presence of coronary angioplasty implant and graft
CPT/HCPCS: 93454; 99156; 99157; A9270-GY; C1887; J0153; J1644; J2250; J3010

== ENCOUNTER 2017-09-20 23:42 | Emergency (ER) | payer OTHER ==
[2017-09-21 01:10] VITALS: BP 142/78
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
== END 2017-09-21 01:09 | disposition home or self-care (01) ==
LOC: ED 23:42
DX: R45.851 Suicidal ideations (principal); F32.9 Major depressive disorder, single episode, unspecified; F17.210 Nicotine dependence, cigarettes, uncomplicated; Z88.8 Allergy status to other drugs, medicaments and biological substances
CPT/HCPCS: 99283

== ENCOUNTER 2017-10-27 06:08 | Day surgery (SDC) | payer OTHER ==
--- NOTE | 2017-10-14 21:52 | HP ---
HISTORY AND PHYSICAL: DATE OF SURGERY: 10/27/17 DATE OF OFFICE VISIT: 10/14/17 SURGEON: Marya Chadwick MD * (DICTATED BY FATOUMATA COUCH) PROCEDURE: Left knee arthroscopy with partial lateral meniscectomy, possible chondroplasty, and possible synovectomy. CHIEF COMPLAINT: Left knee pain. HISTORY OF PRESENT ILLNESS: Ms. Stanley is a 46-year-old female with continued complaints of left knee pain and MRI confirms a lateral meniscus tear. She has elected to proceed with surgery. PAST MEDICAL HISTORY: History of an [place], COPD, GERD, hypertension, ADHD, anxiety. PAST SURGICAL HISTORY: Cardiac cath with stent placement, right hip pinning, left elbow surgery, right foot ORIF, cholecystectomy, tubal ligation, left knee arthroscopy, removal of an IUD and endometrial ablation. CURRENT MEDICATIONS: 1. Amlodipine 5 mg daily. 2. Aspirin 81 mg daily. 3. Nitroglycerin as needed. 4. Brilinta 90 mg twice a day. 5. Nexium 40 mg q.h.s. 6. Gabapentin 600 mg q.h.s. 7. Atorvastatin calcium 80 mg daily. 8. Metoprolol 25 mg 1 tab in the morning 2 tabs at night. ALLERGIES: STRATTERA, NICORETTE FAMILY HISTORY: Coronary artery disease and cancer. SOCIAL HISTORY: She is a 46-year-old female. She lives with her partner. She smokes a pack a day. She denies use of drugs. Uses occasional alcohol. REVIEW OF SYSTEMS: A complete 14-point review of systems was reviewed with the patient, positive for palpitations, COPD, and GERD. Denies history of DVT, PE, hepatitis HIV, or anesthesia problems. PHYSICAL EXAMINATION GENERAL: Well-developed, well-nourished, in no acute distress. VITAL SIGNS: Height 5 feet 4 inches tall, weighs 223 pounds, her blood pressure is 128/82, her heart rate is 68. HEENT: Normocephalic, atraumatic. NECK: Supple. No palpable lymph nodes. PULMONARY: The lungs are clear to auscultation bilaterally. CARDIO: Regular rate and rhythm. Strong S1, S2. ABDOMEN: Soft, nontender, nondistended. NEUROLOGIC: She is alert and oriented x3. Cranial nerves II through XII are intact. MUSCULOSKELETAL: Lower extremity edema; the skin is intact. There are no open wounds or abrasions. She has some tenderness along the lateral joint line, positive , Kade's, 525 degrees of flexion. She is distally neurovascularly intact. ASSESSMENT AND PLAN: Ms. Stanley is a 46-year-old female with complaints of left knee pain and MRI confirms a lateral meniscus tear. She has elected to proceed with left knee arthroscopy with partial lateral meniscectomy, possible chondroplasty, and possible synovectomy. The surgery is scheduled for 10/27/[address] Chadwick discussed the risks and benefits of the surgery at today's visit and all of her questions were answered. She will follow with Dr. Chadwick 2 weeks after the surgery and her harmonic analyst has recommended she stop the Brilinta 1 week prior to the surgery. We have also recommended she stop the aspirin 1 week prior to the surgery. FATOUMATA COUCH [id number]/[facility] #: [id number] [facility]
[~2017-10-27 06:08] MED LIST changes: -Adenosine* 3 MG/ML VIAL ONE; +Buffered Lidocaine 0.9% SYRIN* 5 ML/SYR SYRINGE INTRADERM ONE; +Dexamethasone IV* 4 MG/ML 1 ML (4 MG) IV SLOW PU ONE; -Diazepam TAB(*) 5 MG ONE; -Heparin 2 UNITS/ML IVPREMIX* 2,000 ML IV ONE; -Heparin(*) 1000 UNIT/ML 10 ML VIAL CATH LAB IV ONE; -Iohexol 350 (CONTRAST) 200 ML MDV IV ONE; -Lidocaine 1% INJ* 10 MG/ML 30 ML SDV ONE; -Midazolam* 1 MG/ML 10 ML VIAL (10 MG) ONE; -NS 0.9% 1000 ML* 1,000 ML IV SCH; +Ondansetron ODT TAB* 4 MG PO ONE; -VERAPAMIL 2.5 MG/ML 2 ML VIAL ** 5 mg/2 ml ONE; -diPHENhydraMINE PO* 25 MG ONE; -fentaNYL* 50 MCG/ML 2 ML VIAL (100 MCG VIAL) ONE; -nitroGLYCERIN DRIP* 25,000 MCG/250 ML BTL ONE
[2017-10-27] MEDS ORDERED: Dexamethasone IV* 4 MG/ML 1 ML (4 MG) ONE (06:15)
[2017-10-27] MEDS ORDERED: Ondansetron ODT TAB* 4 MG ONE (06:15)
[2017-10-27] MEDS ORDERED: ceFAZolin 2 GM PREMIX (*) 2 GM/50 ML BAG IVPB ONE (06:15)
[2017-10-27] MEDS ORDERED: methylPREDNISolone ACETATE 80* 80 MG/ML 1 ML VIAL ONE (06:50)
[2017-10-27] MEDS ORDERED: EPINEPHRINE 1 MG/ML 1 ML VIAL ONE (06:50)
[2017-10-27] MEDS ORDERED: Bupivacaine 0.5% SDV PF* 30ML VIAL ONE (06:51)
[2017-10-27] MEDS ORDERED: Phenylephrine INJ* 10 MG/ML 1 ML VIAL (10 MG) ONE (07:05)
[2017-10-27] MEDS ORDERED: Lidocaine 2% PF * 5 ML VIAL ONE (07:05)
[2017-10-27] MEDS ORDERED: Propofol* 10 MG/ML 20 ML BTL IV PUSH ONE (07:19)
[2017-10-27] MEDS ORDERED: Chloroprocaine 2%* 20 ML VIAL ONE (07:19)
[2017-10-27] MEDS ORDERED: fentaNYL* 50 MCG/ML 2 ML VIAL (100 MCG VIAL) ONE (07:22)
[2017-10-27] MEDS ORDERED: Midazolam* 1 MG/ML 5 ML VIAL (5 MG) ONE (07:22)
[2017-10-27] MEDS ORDERED: Ondansetron INJ* 2 MG/ML VIAL IV PRN (07:55)
[2017-10-27] MEDS ORDERED: Naloxone* 0.4 MG/ML 1 ML VIAL IV PRN (07:55)
[2017-10-27] MEDS ORDERED: fentaNYL* 50 MCG/ML 2 ML VIAL (100 MCG VIAL) IV PRN (07:55)
[2017-10-27] MEDS ORDERED: oxyCODONE/Acetamin 5/325 MG* TAB PO PRN (07:55)
[2017-10-27] MEDS ORDERED: DiMENhydriNATE IV* 50 MG/ML VIAL IV PUSH PRN (07:55)
[2017-10-27] MEDS ORDERED: oxyCODONE/Acetamin 5/325 MG* TAB ONE (09:32)
[2017-10-27 09:50] VITALS: BP 130/75
--- NOTE | 2017-10-28 13:20 | OP ---
OPERATIVE REPORT: DATE OF OPERATION: 10/27/17 DATE OF : 68 SURGEON: Marya Chadwick MD SLABBER: FATOUMATA Pollock. Ms. Cottrell did help throughout the procedure with preparation of the leg, wound retraction, manipulation of the knee and wound closure. ANESTHESIOLOGIST: Dr. Aj. ANESTHESIA: Spinal. PRE-OP DIAGNOSIS: Left knee lateral meniscal tear, moderate osteoarthritis. POST-OP DIAGNOSIS: Left knee lateral meniscal tear, severe patellofemoral and lateral compartment arthritis. OPERATIVE PROCEDURE: Left knee arthroscopy with partial lateral meniscectomy and patellofemoral chondroplasty. COMPLICATIONS: None. SPECIMENS: None. ESTIMATED BLOOD LOSS: Less than 25 cc. BRIEF HISTORY/INDICATIONS: Ms. Stanley is a 46-year-old female who had a fall in April twisting her left knee. She continued to have left knee pain, swelling and mechanical symptoms despite conservative treatment. She elected to undergo left knee arthroscopy with partial lateral meniscectomy after an MRI confirmed lateral meniscal tear. The patient was in severe pain and electively stopped her Brilinta against the advice of Dr. Martins. She understood the increased risk of cardiovascular complications and clotting complications, but wished to proceed with the knee arthroscopy. Informed consent was obtained from the patient. She understood the risks of surgery included, but were not limited to, bleeding, infection, damage to nearby structures, continued pain, need for further surgery, re-tear of the meniscus, progression of arthritis, stroke, heart attack, blood clot, and . She wished to proceed. INTRAOPERATIVE FINDINGS: Intraoperatively, the patient had a linear tear in the white-red zone of the lateral meniscus involving the posterior 50%. She had grade 3 and 4 Out[place]bridge cartilage changes in the medial and lateral compartment with significant cartilage fraying and flapping on the patellofemoral compartment. DESCRIPTION OF PROCEDURE: Ms. Stanley was identified in the preanesthesia unit. Her left lower extremity was marked as the correct operative side. Informed consent was signed and placed in the chart. The patient was taken to the operating room and placed under spinal anesthesia. Left lower extremity was prepped and draped in the usual sterile fashion. Preop time-out was made to correctly identify the patient's side and site. Appropriate perioperative antibiotics were given within 1 hour of incision. A 1.5 cm lateral portal incision was made with #15 blade and carried down through the capsule. A trocar was introduced. As soon as the light and water sources were turned on, there was immediate visualization of the suprapatellar pouch. A tour of the knee joint was performed. Suprapatellar pouch showed no obvious abnormality. Patellofemoral compartment showed cartilage fraying and flapping in the medial and lateral patellar facet. Medial gutter showed no loose body or plica. Medial compartment showed no obvious meniscal tear. There were minimal degenerative changes. The ACL was intact. PCL was intact. The knee was placed in a figure-of- four position. Linear tear in the posterior portion of the lateral meniscus did displace anteriorly into the joint. There was a significant amount of exposed subchondral bone along the lateral tibial plateau , which had grade 3 and 4 Outerbridge cartilage changes. Lateral gutter had no loose body or obvious abnormality. Under direct visualization, a medial portal incision was made with a #15-blade. A probe was introduced and a second tour of the knee joint was performed. No additional findings were noted. Shaver and radiofrequency ablation wand were used to excise some anterior inflammatory tissue to improve visualization. Straight biter and shaver were used to perform partial lateral meniscectomy in the white-red zone. A smooth border of the meniscus was obtained. Radiofrequency ablation wand was used to further smooth the edge of the meniscus. Further probing of the meniscus showed no additional tears. Next, the radiofrequency ablation wand was used to perform chondroplasty in a conservative fashion in the patellofemoral joint. Any frayed or flapped cartilage was carefully smoothed. The knee was copiously irrigated with sterile saline. All instruments were removed. An intraarticular injection of 80 mg of Depo-Medrol and 6 cc of 0.25% Marcaine was placed in the knee joint. The patient's incisions were covered with Xeroform, 4x4s, and Webril. Dano wrap and cold pack were placed over this. The patient's anesthesia was reversed without difficulty. She was taken to the PACU in stable condition. Intended weightbearing will be weightbearing as tolerated. Intended DVT prophylaxis will be full dose aspirin twice a day. [id number]/[facility] #: [id number] [facility]OSPITALAlexy
== END 2017-10-27 09:53 | disposition home or self-care (01) ==
LOC: OR 06:08
PROVIDERS: ATTEND Orthopaedic Surgery Adult Reconstructive Orthopaedic Surgery
DX: S83.282A Other tear of lateral meniscus, current injury, left knee, initial encounter (principal); M17.12 Unilateral primary osteoarthritis, left knee; J44.9 Chronic obstructive pulmonary disease, unspecified; I10 Essential (primary) hypertension; F17.210 Nicotine dependence, cigarettes, uncomplicated; Z79.82 Long term (current) use of aspirin; Z88.8 Allergy status to other drugs, medicaments and biological substances; X58.XXXA Exposure to other specified factors, initial encounter
CPT/HCPCS: 81025; A9270-GY; J0690; J1040; J1100; J2250; J2400; J2704; J3010

== ENCOUNTER 2018-04-27 13:58 | Emergency (ER) | payer SELFPAY ==
--- OUTSIDE RECORDS SUMMARY | 2018-04-27 14:03 | XMS REPORT | Continuity of Care Document ---
:1970 External Reference #:[id number] Author Name Clau Langford Care Team Providers Name Role Phone Gerardo Ruiz MD Primary Care Physician Unavailable Payers Type Date Identification Numbers Payment Provider Subscriber Effective: Policy Number: [id number] [employer] Aria Stanley 2005 Medicaid PayID: [id number] [address] [address] [place] [address] Advance Directives Description No Information Available Problems Date Description Provider Status Onset: 10/08/2014 Sciatica Naun Mattson M.D. Active Onset: 10/08/2014 Enthesopathy of hip region Naun Mattson M.D. Active Onset: 08/15/2017 Localized, primary osteoarthritis of Marya Chadwick M.D. Active the pelvic region and thigh Onset: 08/15/2017 Localized, primary osteoarthritis Marya Chadwick M.D. Active Onset: 09/16/2017 Acute meniscal tear, lateral, posterior Marya Chadwick M.D. Active horn Family History Date Family Member(s) Problem(s) Comments General Heart Disease General Diabetes General Cancer Father general Her father of lung/colon cancer at the age of 68. Her mother was a smoker and had bypass surgery at the age of 44 and of heart problems at the age of 73. 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 Start: Unknown current cigarette smoker Tobacco Use Start: Unknown Current Cigarette Smoker 1 Pack Daily Smoking Status Reviewed: 04/03/18 Current Cigarette Smoker 1 Pack Daily ETOH Use Drinks 3 Alcoholic Beverages Per Week Tobacco Use Start: Unknown Patient is a current 1 pack x day smoker, smokes every day Recreational Drug Use Denies Drug Use Exercise Type/Frequency Does not exercise active at work Allergies, Adverse Reactions, Alerts Date Description Reaction Status Severity Comments 07/22/2015 Strattera Agitated Active per patient 07/22/2015 Nicorette Stomach ache Active Gum - per patient 10/08/2014 Aspirin stomach Inactive per patient Medications Medication Date Status Form Strength Qnty SIG Indications Ordering Provider Metoprolol 04/03 Active Tablets ER 50mg 180ta 1 by mouth Sharad Barahona Succinate ER 24HR bs twice daily Eliezer, DO FACC Meloxicam 12/02 Active Tablets 15mg 30tab 1 by mouth M25.462 Marya s every day Florentino Chadwick Amlodipine 03/08 Active Tablets 5mg 90tab 1 by mouth Sharad Barahona Beserma s every day Eliezer, DO FACC Aspirin 12/15 Active Chewtabs 81mg 120un 1 tablet Sharad Barahona its chewable by Eliezer, mouth daily DO FACC in the morning Nitroglycerin 11/19 Active Tablets Sub 0.4mg 25tab 1 sl q5mins Sharad Barahona s x3 as Eliezer, needed for DO FACC chest pain Nexium Active 40mg 1 po at Unknown /0000 bedtime Gabapentin Active Tablets 600mg 1 tablet po Unknown /0000 at bedtime Atorvastatin Active Tablets 80mg 90tab take 1 Sharad Barahona / s tablet by Eliezer, mouth once DO FACC daily Percocet 10/26 Hx Tablets 5-325mg 45tab 1-2 by Marya s mouth every Farrukh, - 6 hours as M.D. 04/02 needed pain Aspirin 10/26 Hx Tablets 325mg 28tab take 1 by Marya s mouth twice Farrukh, - a day for M.D. 03/22 two weeks Nicotrol 12/15 Hx Inhaler 10mg 168un Use every 2 Sharad Barahona its hours as Eliezer, - needed for DO FACC 06/16 craving Fish Oil 12/15 Hx Capsules 1000mg 120ca take 3 E78.5 Sharad Meade- ps capsules Eliezer, - daily DO FACC 06/14 Aspirin Low Dose 11/19 Hx Tablet 81mg 1 tablet Efrain chewable po Andrea, - daily Am 12/15 Gemfibrozil 11/19 Hx Tablets 600mg take 1 tablet by Andrea, - mouth twice 12/15 Brilinta 11/19 Hx Tablets 90mg 90tab take 1 Sharad Berry. s tablet by Eliezer, - mouth twice DO [facility] 10/10 a Ra Nicotine 11/19 Hx Patches 21mg/24HR 28uni apply 1 Sharad S. 24HR ts patch Eliezer, - occasionall DO [facility] 06/24 Metoprolol 10/26 Hx Tablets ER 50mg 90tab 1 by mouth I49.3 Sharad S. Succinate ER /2015 24HR s every night Eliezer, - DO [facility] 11/24 Metoprolol 09/08 Hx Tablets ER 25mg 30tab 1 by mouth I49.3 Sharad S. Succinate ER 24HR s every day Eliezer, - DO [facility] 10/26 Diltiazem CD 07/28 Hx Caps ER 120mg 30cap 1 by mouth I49.3 Sharad S. /2015 24HR s every day Martins, - DO [facility] 10/26 Gabapentin 10/08 Hx Capsules 300mg 40cap 1 by mouth s q Cristina Mattson M.D. 01/29 Flexeril 08/21 Hx Tablets 10mg 40tab 1 po tid Shimon s prCristina CortésDMichael 05/09 Robaxin-750 07/17 Hx Tablets 750mg 40tab 1-2 po q 8 s hrs prCristina Cortés muscle Bronwyn.DMichael 05/09 Pravastatin 00/00 Hx 10mg once daily Unknown Sodium /0000 - 11/24 Concerta Hx 72mg Unknown /0000 - 07/21 Trazodone HCL Hx 50mg 1-2 tablets Unknown /0000 at bedtime - 11/24 Tramadol HCL 00 Hx Tablet 50mg 1-2 tab at Unknown /0000 bedtime for - pain 11/24 Fluticasone Hx Suspension 50mcg/Act 2 sprays Unknown Propionate /0000 each - nostril 09/07 daily as /2016 needed Ibuprofen Hx Tablets 800mg by mouth Unknown /0000 three times - a day as 11/24 Cyclobenzaprine Hx Tablets 10mg one by Unknown HCL /0000 mouth three - times a day 05/30 as needed /2015 spasm Lorazepam Hx Tablets 0.5mg 1 tablet Unknown /0000 bid as - needed 05/30 Bupropion HCL ER Hx Tablets ER 150mg 1 by mouth Unknown (SR) /0000 12HR twice a day - 05/30 Fluoxetine HCL Hx Capsules 20mg 1 tablet po Nitin, / daily Cristina Thompson MD 11/24 Latuda Hx Tablets 40mg 1 tablet po Nitin, daily Cristina Thompson MD 11/24 Metoprolol Hx Tablets ER 25mg 270ta take 1 Sharad S. Succinate ER /0000 24HR bs tablet tab Martins, - in in the DO FACC 04/03 and 2 tabs in pm. Aspirin Hx Tablets 81mg 1 by mouth Unknown /0000 every day - 04/02 Medications Administered in Office Medication Date Status Form Strength Qnty SIG Indications Ordering Provider Depomedrol Administered Injection Marya 40MG Micky Chadwick M.D. Depomedrol Administered Injection Marya 40MG 018 Florentino Chadwick Depomedrol Administered Injection Marya 40MG Micky Chadwick M.D. Depomedrol Administered Injection Marya 40MG Micky Chadwick M.D. Immunizations Description No Information Available Vital Signs Date Vital Result Comment 04/03/2018 3:58pm Height 66.5 inches 5'6.50" Weight 224.00 lb BP Systolic Sitting 130 mmHg LA LG cuff BP Diastolic Sitting 90 mmHg LA LG cuff BP Systolic Standing 130 mmHg LA Lg cuff BP Diastolic Standing 84 mmHg LA Lg cuff Respiratory Rate 18 /min BMI (Body Mass Index) 35.6 kg/m2 Ejection Fraction 55-60% 11/18/16 echo 02/13/2018 2:39pm Height 66.5 inches 5'6.50" Weight 220.00 lb BP Systolic 108 mmHg BP Diastolic 64 mmHg Body Temperature 97.5 F BMI (Body Mass Index) 35.0 kg/m2 12/30/2017 3:16pm Height 66.5 inches 5'6.50" Heart Rate 67 /min BP Systolic 120 mmHg BP Diastolic 84 mmHg Respiratory Rate 18 /min Body Temperature 97.6 F Pain Level 5 12/02/2017 11:15am Height 66.5 inches 5'6.50" Weight 220.00 lb BP Systolic 138 mmHg BP Diastolic 88 mmHg Body Temperature 99.1 F BMI (Body Mass Index) 35.0 kg/m2 11/16/2017 12:25pm Height 66.5 inches 5'6.50" Weight 220.00 lb BP Systolic 138 mmHg BP Diastolic 84 mmHg Body Temperature 97.6 F Pain Level 7 BMI (Body Mass Index) 35.0 kg/m2 11/14/2017 11:52am Height 66.5 inches 5'6.50" Heart Rate 68 /min BP Systolic Sitting 112 mmHg BP Diastolic Sitting 78 mmHg Respiratory Rate 16 /min Body Temperature 98.1 F Pain Level 2 2017 10:33am Height 66.5 inches 5'6.50" Weight 225.00 lb Heart Rate 61 /min BP Systolic 112 mmHg BP Diastolic 72 mmHg Body Temperature 97.6 F BMI (Body Mass Index) 35.8 kg/m2 10/14/2017 8:34am Height 64.25 inches 5'4.25" Weight 223.00 lb Heart Rate 68 /min BP Systolic 128 mmHg BP Diastolic 82 mmHg BMI (Body Mass Index) 38.0 kg/m2 10/10/2017 3:20pm Height 64.25 inches 5'4.25" Weight 220.50 lb w/shoes Heart Rate 70 /min BP Systolic Sitting 128 mmHg Lue reg cuff BP Diastolic Sitting 90 mmHg Lue reg cuff BP Systolic Standing 120 mmHg Lue reg cuff BP Diastolic Standing 90 mmHg Lue reg cuff Respiratory Rate 18 /min BMI (Body Mass Index) 37.6 kg/m2 09/16/2017 2:42pm Height 64.25 inches 5'4.25" Weight 225.00 lb BP Systolic 131 mmHg BP Diastolic 76 mmHg Respiratory Rate 15 /min Pain Level 4 BMI (Body Mass Index) 38.3 kg/m2 08/15/2017 10:27am Height 64.25 inches 5'4.25" Weight 226.00 lb Heart Rate 61 /min BP Systolic 120 mmHg BP Diastolic 90 mmHg Respiratory Rate 20 /min Body Temperature 97.1 F Pain Level 8 BMI (Body Mass Index) 38.5 kg/m2 06/24/2017 1:19pm Height 64.25 inches 5'4.25" Weight 229.00 lb with shoes Heart Rate 66 /min BP Systolic Sitting 102 mmHg Rue lrg cuff BP Diastolic Sitting 64 mmHg Rue lrg cuff BP Systolic Standing 108 mmHg Rue lrg cuff BP Diastolic Standing 66 mmHg Rue lrg cuff Respiratory Rate 16 /min BMI (Body Mass Index) 39.0 kg/m2 Ejection Fraction 55-60% 11/18/2016-echo 06/15/2017 10:59am Height 64.25 inches 5'4.25" Weight 226.00 lb shoes Heart Rate 76 /min BP Systolic Sitting 130 mmHg Rue lg cuff BP Diastolic Sitting 90 mmHg Rue lg cuff BP Systolic Standing 122 mmHg Rue lg cuff BP Diastolic Standing 88 mmHg Rue lg cuff Respiratory Rate 16 /min BMI (Body Mass Index) 38.5 kg/m2 Ejection Fraction 97% at room air 12/15/2016 2:00pm Height 64.25 inches 5'4.25" Weight 237.00 lb with shoes Heart Rate 64 /min BP Systolic Sitting 122 mmHg Rue lrg cuff BP Diastolic Sitting 80 mmHg Rue lrg cuff BP Systolic Standing 120 mmHg Rue lrg cuff BP Diastolic Standing 80 mmHg Rue lrg cuff Respiratory Rate 16 /min BMI (Body Mass Index) 40.4 kg/m2 Ejection Fraction 55-60% 11/18/2016-echo 11/25/2016 11:23am Height 64.25 inches 5'4.25" Weight 238.31 lb with shoes Heart Rate 58 /min BP Systolic Sitting 126 mmHg Lue reg cuff BP Diastolic Sitting 80 mmHg Lue reg cuff Respiratory Rate 17 /min BMI (Body Mass Index) 40.6 kg/m2 07/19/2016 2:46pm Height 64.25 inches 5'4.25" Weight 236.00 lb with shoes Heart Rate 64 /min BP Systolic Sitting 120 mmHg Rue lg cuff BP Diastolic Sitting 84 mmHg Rue lg cuff BP Systolic Standing 118 mmHg Rue lg cuff BP Diastolic Standing 80 mmHg Rue lg cuff Respiratory Rate 17 /min BMI (Body Mass Index) 40.2 kg/m2 Ejection Fraction >70% date 08/12/15 ECHO 01/20/2016 11:43am Height 64.25 inches 5'4.25" Weight 290.00 lb with shoes Heart Rate 60 /min BP Systolic Sitting 102 mmHg Ra lrg cuff BP Diastolic Sitting 64 mmHg Ra lrg cuff BP Systolic Standing 102 mmHg Ra lrg cuff BP Diastolic Standing 66 mmHg Ra lrg cuff Respiratory Rate 18 /min BMI (Body Mass Index) 49.4 kg/m2 Ejection Fraction >70% 08/12/15 10/27/2015 3:45pm Height 64.25 inches 5'4.25" Weight 239.00 lb with shoes Heart Rate 64 /min BP Systolic Sitting 100 mmHg Ra lg cuff BP Diastolic Sitting 70 mmHg Ra lg cuff BP Systolic Standing 114 mmHg Ra lg cuff BP Diastolic Standing 72 mmHg Ra lg cuff BMI (Body Mass Index) 40.7 kg/m2 09/24/2015 1:51pm Height 64.25 inches 5'4.25" Weight 243.00 lb with shoes Heart Rate 72 /min BP Systolic Sitting 110 mmHg Ra lrg cuff BP Diastolic Sitting 76 mmHg Ra lrg cuff BP Systolic Standing 112 mmHg Ra lrg cuff BP Diastolic Standing 76 mmHg Ra lrg cuff BMI (Body Mass Index) 41.4 kg/m2 Ejection Fraction >70% echo 08/12/15 09/09/2015 11:24am Height 64.25 inches 5'4.25" Weight 247.31 lb with shoes Heart Rate 72 /min BP Systolic Sitting 128 mmHg LA lrg cuff BP Diastolic Sitting 92 mmHg LA lrg cuff BP Systolic Standing 132 mmHg LA lrg cuff BP Diastolic Standing 92 mmHg LA lrg cuff Respiratory Rate 17 /min O2 % BldC Oximetry 97 % Room air BMI (Body Mass Index) 42.1 kg/m2 Ejection Fraction > 70% 08/12/15 07/29/2015 10:36am Height 64.25 inches 5'4.25" Weight 243.00 lb w/o shoes Heart Rate 92 /min BP Systolic 138 mmHg Rue, lg cuff BP Diastolic 90 mmHg Rue, lg cuff BP Systolic Sitting 144 mmHg Lue, lg cuff BP Diastolic Sitting 90 mmHg Lue, lg cuff BP Systolic Standing 134 mmHg Lue BP Diastolic Standing 94 mmHg Lue Respiratory Rate 18 /min O2 % BldC Oximetry 95 % on Ra BMI (Body Mass Index) 41.4 kg/m2 03/13/2015 4:16pm Height 67 inches 5'7" Weight 225.00 lb Pain Level 4 BMI (Body Mass Index) 35.2 kg/m2 01/29/2015 3:45pm Height 67 inches 5'7" Weight 225.00 lb Pain Level 6 BMI (Body Mass Index) 35.2 kg/m2 10/08/2014 9:35am Height 67 inches 5'7" Weight 225.00 lb Heart Rate 80 /min BP Systolic 137 mmHg BP Diastolic 78 mmHg BMI (Body Mass Index) 35.2 kg/m2 Results Test Date Facility Test Result H/L Range Note Basic Metabolic 06/15/2017 [facility] Sodium 139 mmol/L N 133- [address] [place] [address] [phone] Potassium 4.0 mmol/L N 3.5-5.0 Chloride 105 mmol/L N 101-111 Co2 Carbon Dioxide 27 mmol/L N 22-32 Anion Gap 7 mmol/L N 2-11 Glucose 93 mg/dL N 70-100 Blood Urea Nitrogen 10 mg/dL N 6-24 Creatinine 0.73 mg/dL N 0.51-0.95 BUN/Creatinine Ratio 13.7 N 8-20 Calcium 9.6 mg/dL N 8.6-10.3 Egfr Non- 85.5 >60 Egfr 109.9 >60 1 Inr/Protime 06/15/2017 [facility] Inr 0.79 N 0.77-1.[address] [place] [address] [phone] CBC Auto Diff 06/15/2017 [facility] White Blood 9.5 10^3/uL N 3.5-10.[address] [place] [address] [phone] Red Blood Count 4.87 10^6/uL N 4.0-5.4 Hemoglobin 15.3 g/dL N 12.0-16.0 Hematocrit 45 % N 35-47 Mean Corpuscular Volume 92 fL N 80-97 Mean Corpuscular Hemoglobin 32 pg High 27-31 Mean Corpuscular HGB Conc 34 g/dL N 31-36 Red Cell Distribution Width 13 % N 10.5-15 Platelet Count 225 10^3/uL N 150-450 Mean Platelet Volume 10 um3 N 7.4-10.4 Abs Neutrophils 6.6 10^3/uL N 1.5-7.7 Abs Lymphocytes 1.9 10^3/uL N 1.0-4.8 Abs Monocytes 0.7 10^3/uL N 0-0.8 Abs Eosinophils 0.2 10^3/uL N 0-0.6 Abs Basophils 0.1 10^3/uL N 0-0.2 Abs Nucleated RBC 0 10^3/uL Granulocyte % 69.8 % N 38-83 Lymphocyte % 19.9 % Low 25-47 Monocyte % 7.6 % N 1-9 Eosinophil % 2.0 % N 0-6 Basophil % 0.7 % N 0-2 Nucleated Red Blood Cells % 0.1 Cath Panel 06/15/2017 [facility] Partial Thrombo 33.0 N 26.0- [address] [place] [address] [phone] Laboratory 03/30/2017 [facility] Hemoglobin A1c 5.3 % N 4.0- 5.6 2 test finding (Glyco HGB) [place] [address] [phone] Lipid Profile 03/30/2017 [facility] Triglycerides 129 mg/dL 3 (Trig/Chol/HDL DRIVE ) [place] [address] [phone] Cholesterol 130 mg/dL 4 HDL Cholesterol 48.3 mg/dL 5 LDL Cholesterol 56 mg/dL 6 Basic Metabolic Panel 09/08/2015 [facility] Sodium 136 mmol/L N [address] [place] [address] [phone] Potassium 3.8 mmol/L N 3.5-5.0 Chloride 106 mmol/L N 101-111 Co2 Carbon Dioxide 22 mmol/L N 22-32 Anion Gap 8 mmol/L N 2-11 Glucose 91 mg/dL N 70-100 Blood Urea Nitrogen 11 mg/dL N 6-24 Creatinine 0.88 mg/dL N 0.51-0.95 BUN/Creatinine Ratio 12.5 N 8-20 Calcium 9.1 mg/dL N 8.6-10.3 Egfr Non- 69.5 N >60 Egfr 89.4 N >60 7 1 Because ethnic data is not always readily available, this report includes an eGFR for both -Americans and non- Americans. The National Kidney Disease Education Program (NKDEP) does not endorse the use of the MDRD equation for patients that are not between the ages of 18 and 70, are , have extremes of body size, muscle mass, or nutritional status, or are non- or non-. According to the National Kidney Foundation, irrespective of diagnosis, the stage of the disease is based on the level of kidney function: Stage Description GFR(mL/min/1.73 m(2)) 1 Kidney damage with normal or decreased GFR 90 2 Kidney damage with mild decrease in GFR 60-89 3 Moderate decrease in GFR 30-59 4 Severe decrease in GFR 15-29 5 Kidney failure <15 (or dialysis) 2 Therapeutic target for the treatment of diabetes mellitus patients is <7% HBA1C, and in selective patients <6.0%. Please refer to [place] [employer] Association diabetic care guidelines for further information. 3 Desirable: <150 Borderline High: 150-199 High: 200-499 Very High: >500 4 Desirable: <200 Borderline High: 200-239 High: >239 5 Low: <40 Desirable: 40-60 High: >60 6 Desirable: <100 Near Optimal: 100-129 Borderline High: 130-159 High: 160-189 Very High: >189 7 Because ethnic data is not always readily available, this report includes an eGFR for both -Americans and non- Americans. The National Kidney Disease Education Program (NKDEP) does not endorse the use of the MDRD equation for patients that are not between the ages of 18 and 70, are , have extremes of body size, muscle mass, or nutritional status, or are non- or non-. According to the National Kidney Foundation, irrespective of diagnosis, the stage of the disease is based on the level of kidney function: Stage Description GFR(mL/min/1.73 m(2)) 1 Kidney damage with normal or decreased GFR 90 2 Kidney damage with mild decrease in GFR 60-89 3 Moderate decrease in GFR 30-59 4 Severe decrease in GFR 15-29 5 Kidney failure <15 (or dialysis) Procedures Date Code Description Status 04/03/2018 06400 EKG Tracing & Interpretation Completed 02/13/2018 Inj/Aspir Major JT Or Bursa W/ US Completed 12/30/2017 02173 Inject/Drain Joint/Bursa Major W/O US Completed 11/16/201741281 Inj/Aspir Major JT Or Bursa W/ US Completed 10/27/2017 93007 Arthroscopy,Knee,Meniscectomy Medial Or Lateral Completed 10/27/2017 48106 Arthroscopy,Knee,Meniscectomy Medial Or Lateral Completed 10/10/2017 70759 EKG Tracing & Interpretation Completed 08/15/201720284 Injection Single Tendon Origin/Insertion Completed 06/24/2017 57841 EKG Tracing & Interpretation Completed 06/17/2017 00193 Intravascular Blood Flow Velocity Completed 06/17/2017 57149 Cath PLMT&NJX L Ventriculog Img S&I Completed 06/15/2017 72553 EKG Tracing & Interpretation Completed 11/25/2016 28187 EKG Tracing & Interpretation Completed 11/18/2016 22015 Left Heart Cath. Incl S/I Coronaries, Angio S/I V Gram If Completed Done 11/18/2016 42252 ECHO Transthorasic Realtime 2D W Doppler & Color Flow Hosp Completed 11/18/2016 58586 Revascularization Acute Total/Subtotal Occlusion Completed 07/19/2016 44104 EKG Tracing & Interpretation Completed 10/23/2015 99551 Holter Monitor Review (24 hr)dr review & interp only Completed 10/21/2015 50915 ECG Monitor/Recording W/Visual Superimposition Scanning Completed 08/12/2015 02896 ECHO Transthoracic, Real-Time 2D With Doppler And Color Completed Flow 07/29/2015 68513 EKG Tracing & Interpretation Completed 07/15/2015 30806 Holter Monitor Review (24 hr)dr martino & interp only Completed 10/23/2010 39307 EKG, Interpretation Only Completed Encounters Type Date Location Provider Dx Diagnosis Office Visit 10/10/2017 [facility] Sharad Barahona Z01.810 Encounter for 3:40p Of Yulia Martins DO FACMelanie preprocedural cardiovascular examination I25.2 Old myocardial infarction 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 M.D. lat mensc, current injury, left knee, subs M22.42 Chondromalacia patellae, left knee W19.xxxA Unspecified fall, initial encounter M25.562 Pain in left knee M25.462 Effusion, left knee M17.12 Unilateral primary osteoarthritis, left knee Office Visit 08/15/2017 9:45a [facility]opedic Services Marya Chadwick, M25.562 Pain in left Of [facility]. M.D. knee M25.462 Effusion, left knee M25.552 Pain in left hip M25.551 Pain in right hip M16.11 Unilateral primary osteoarthritis, right hip M16.12 Unilateral primary osteoarthritis, left hip M17.12 Unilateral primary osteoarthritis, left knee M70.62 Trochanteric bursitis, left hip M70.61 Trochanteric bursitis, right hip Office Visit 06/24/2017 1:40p [facility] Sharad S. I25.119 Athscl heart Of Yulia Martins, DO disease of FAC [place] cor art w unsp ang pctrs I25.2 Old myocardial infarction Z72.0 Tobacco use E78.5 Hyperlipidemia, unspecified I10 Essential (primary) hypertension I49.3 Ventricular premature depolarization E66.8 Other obesity Office Visit 06/15/2017 11:20a [facility] Sharad S. I25.119 Athscl heart Of Yulia Martins, DO disease of FACC [place] cor art w unsp ang pctrs Office Visit 12/15/2016 2:20p [facility] Sharad S. I25.2 Old myocardial Of Yulia Martins, DO infarction FAC I25.10 Athscl heart disease of [place] coronary artery w/o ang pctrs I10 Essential (primary) hypertension Z72.0 Tobacco use E78.5 Hyperlipidemia, unspecified Office Visit 11/25/2016 11:30a [facility] Qutaybeh S. I21.4 Non-St elevation Of Yulia Abbott M.D. (Nstemi) myocardial infarction E78.5 Hyperlipidemia, unspecified I10 Essential (primary) hypertension Z72.0 Tobacco use E66.9 Obesity, unspecified I25.10 Athscl heart disease of [place] coronary artery w/o ang pctrs Office Visit 11/19/2016 12:56p [facility] Qutaybeh S. I25.10 Athscl heart Florentino Abbott disease of [place] coronary artery w/o ang pctrs Z72.0 Tobacco use Office Visit 11/19/2016 10:08a [facility] Andrea I21.4 Non-St elevation Assoc,juan manuel Zuniga MD (Nstemi) Hospitalists myocardial infarction E78.5 Hyperlipidemia, unspecified I10 Essential (primary) hypertension Z72.0 Tobacco use Office Visit 11/18/2016 12:35p [facility] Quindraybeh S. R07.9 Chest pain, Cardiology Florentino Abbott unspecified R79.89 Other specified abnormal findings of blood chemistry R94.31 Abnormal electrocardiogram [ECG] [EKG] I10 Essential (primary) hypertension E78.5 Hyperlipidemia, unspecified Z72.0 Tobacco use Z82.49 Family hx of ischem heart dis and oth dis of the circ sys Office Visit 11/18/2016 11:02a [facility] Cynthiaybdestiny S. R07.9 Chest pain, Cardiology Florentino Abbott unspecified I25.10 Athscl heart disease of [place] coronary artery w/o ang pctrs Office Visit 11/18/2016 10:08a [facility] Andrea Zuniga, I20.0 Unstable angina Assocjuan manuel MD Hospitalists E78.5 Hyperlipidemia, unspecified I10 Essential (primary) hypertension Z72.0 Tobacco use Office Visit 11/17/2016 10:07a [facility] Edenilson R20.0 Anesthesia of Assoc,juan manuel Wooten N.P[employer] skin Hospitalists E78.5 Hyperlipidemia, unspecified I10 Essential (primary) hypertension Z72.0 Tobacco use Office Visit 07/19/2016 2:40p Fam Orourke SMichael I49.3 Ventricular Cardiology Of Martins, DO premature [employer] FACC depolarization Office Visit 01/20/2016 11:45a Fam Barahona I49.3 Ventricular Cardiology Of Martins, DO premature [employer] FACC depolarization Office Visit 10/27/2015 4:00p Fam Barahona I49.3 Ventricular Cardiology Of Martins, DO premature [employer] FACC depolarization Office Visit 09/24/2015 2:00p Fam Barahona I49.3 Ventricular Cardiology Of Martins, DO premature [employer] FACC depolarization Office Visit 09/09/2015 11:20a [facility] Sharad Barahona I49.3 Ventricular Cardiology Of Eliezer, DO premature [employer] FACC depolarization F17.210 Nicotine dependence, cigarettes, uncomplicated Office Visit 07/29/2015 11:20a [facility] Sharad Barahona I49.3 Ventricular Cardiology Of Eliezer, DO premature [employer] FACC depolarization E87.6 Hypokalemia F17.210 Nicotine dependence, cigarettes, uncomplicated Office Visit 03/13/2015 4:15p Orthopedic Naun Mattson, M54.31 Sciatica , right Services Of Florentino side C.M.[facility]. Office Visit 01/29/2015 3:45p Orthopedic Chichi M54.31 Sciatica, right Services Of IMER [place] side [facility]. M70.61 Trochanteric bursitis, right hip Office Visit 10/08/2014 9:00a Orthopedic Services Naun Mattson, 724.3 Sciatica Of [facility].M.[facility]. Florentino 726.5 Enthesopathy Of Hip Region Office Visit 08/21/2009 9:15a Neurosurgery Shimon Bello 847.0 Sprains & Services Of Florentino Sánchez Neck 723.1 Cervicalgia Office Visit 07/17/2009 1:30p Neurosurgery Shimon Bello 847.0 Sprains & Services Of Florentino Sánchez Neck Office Visit 06/18/2009 9:45a Neurosurgery Shimon Bello 847.0 Sprains & Services Of Florentino Sánchez Neck Plan of Treatment Future Appointment(s):05/19/2018 2:30 pm - Marya Chadwick M.D. at [facility]04/03/2018 - Sharad Martins, DO FACCI25.119 Atherosclerotic heart disease of [place] coronary artery withComments:Go back to taking over the counter fish oil for the high triglyceride levels. Increase the metoprolol from 25 mg in the morning/50 mg at night to 50 mg twice a day. I sent a new prescription to your pharmacy.Follow up:f/u 1 yearI25.2 Old myocardial zaeuysbcvhL01.5 Hyperlipidemia, gqjoumafsyjF68.0 Tobacco useI49.3 Ventricular premature depolarization
[2018-04-27 14:22] VITALS: BP 117/69
--- NOTE | 2018-04-27 14:48 | UC ---
Upper Extremity HPI - History of Current Complaint Chief Complaint: UCUpperExtremity Stated Complaint: SHOULDER PAIN Time Seen by Provider: 04/27/18 14:20 Hx Last Menstrual Period: pt states she had an ablasion and has the esure in place Pain Intensity: 9 - Allergies/Home Medications Allergies/Adverse Reactions: Allergies Allergy/AdvReac Type Severity Reaction Status Date / Time atomoxetine [From Strattera] AdvReac See Comment Verified 04/27/18 14:22 nicotine [From Nicorette] AdvReac GI Upset Verified 04/27/18 14:22 Home Medications: Home Medications Acetaminophen [Qc Acetaminophen 8 Hours] 650 mg PO BID 04/27/18 [History Confirmed 04/27/18] Ibuprofen 800 mg PO DAILY 04/27/18 [History Confirmed 04/27/18] PMH/Surg Hx/FS Hx/Imm Hx - Surgical History Surgical History: Yes Surgery Procedure, Year, and Place: right hip dislocation - pins in place 1980. left elbow dislocation - 3 surgeries fell off horse. bunion surgery right toe. [facility]. HEART STENT 11/2016 - Family History Known Family History: Positive: Hypertension - Social History Alcohol Use: Weekly Substance Use Type: None Smoking Status (MU): Heavy Every Day Tobacco Smoker Type: Cigarettes Amount Used/How Often: 1ppd Length of Time of Smoking/Using Tobacco: since age 13 Have You Smoked in the Last Year: Yes - Immunization History Most Recent Tetanus Shot: 2014 Physical Exam Vital Signs: Initial Vital Signs Temp 97.5 F 04/27/18 14:12 Pulse 64 04/27/18 14:12 Resp 16 04/27/18 14:12 BP 117/69 04/27/18 14:12 Pulse Ox 97 04/27/18 14:12 Discharge - Sign-Out/Discharge Documenting (check all that apply): Patient Departure All imaging exams completed and their final reports reviewed: No Studies - Discharge Plan Condition: Good Disposition: HOME Patient Education Materials: Shoulder Bursitis (ED) Forms: *Work Release Referrals: Gerardo Ruiz MD [Primary Care Provider] - Additional Instructions: Please follow up with your orthopedist if not improving. - Billing Disposition and Condition Condition: GOOD Disposition: Home
== END 2018-04-27 14:56 | disposition home or self-care (01) ==
LOC: UCEAST 13:58
DX: M25.519 Pain in unspecified shoulder (principal); F17.210 Nicotine dependence, cigarettes, uncomplicated; Z88.8 Allergy status to other drugs, medicaments and biological substances; Z88.5 Allergy status to narcotic agent
CPT/HCPCS: 99212; G0463

== ENCOUNTER 2018-06-13 00:46 | Emergency (ER) | payer SELFPAY ==
[2018-06-13 00:53] VITALS: BP 121/76
--- OUTSIDE RECORDS SUMMARY | 2018-06-13 00:58 | XMS REPORT | Continuity of Care Document ---
:1970 External Reference #:[id number] Author Name Lyric Langford Care Team Providers Name Role Phone Gerardo Ruiz MD Primary Care Physician Unavailable Payers Type Date Identification Numbers Payment Provider Subscriber Policy Number: [id number] [employer] Aria Stanley PayID: [id number] [address] [address] [place] [address] Effective: 2005 Policy Number: [place] Medicaid Aria Stanley [id number] Expires: 2018 PayID: [id number] [address] [address] [place] [address] Advance Directives Description No Information Available Problems [...] Smoker 1 Pack Daily Smoking Status Reviewed: 05/26/18 Current Cigarette Smoker 1 Pack Daily ETOH [...] ER 50mg 180ta 1 by mouth Sharad S. Succinate ER /2017 24HR bs twice daily Martins, DO FACC Meloxicam 12/02 Active Tablets 15mg 30tab 1 by mouth M25.462 Marya s every day Florentino Chadwick Amlodipine 03/08 Active Tablets 5mg 90tab 1 by mouth Sharad SMichael Besylate s every day Martins, DO FACC Aspirin 12/15 Active Chewtabs 81mg 120un 1 tablet Sharad S. its chewable by Martins, mouth daily DO FACC in the morning Nitroglycerin 11/19 Active Tablets Sub 0.4mg 25tab 1 sl q5mins Sharad S. s x3 as Eliezer, needed for DO FACC chest pain Nexium Active 40mg 1 po at Unknown /0000 bedtime Gabapentin Active Tablets 600mg 1 tablet po Unknown /0000 at bedtime Atorvastatin Active Tablets 80mg 90tab take 1 Sharad SMichael Calcium / s tablet by Martins, mouth once DO FACC daily Percocet 10/26 Hx Tablets 5-325mg 45tab 1-2 by Marya s mouth every Farrukh, - 6 hours as M.D. 04/02 needed pain Aspirin 10/26 Hx Tablets 325mg 28tab take 1 by Marya s mouth twice Farrukh, - a day for M.D. 03/22 two weeks Nicotrol 12/15 Hx Inhaler 10mg 168un Use every 2 Sharad S. its hours as Eliezer, - needed for DO FACC 06/16 cigarette craving Fish Oil 12/15 Hx Capsules 1000mg 120ca take 3 E78.5 Sharad SMichael Burp- ps capsules Eliezer, - daily DO [facility] 06/14 Aspirin Low Dose 11/19 Hx Tablet 81mg 1 tablet chewable po Andrea, - daily Am 12/15 Gemfibrozil 11/19 Hx Tablets 600mg take 1 tablet by Andrea, - mouth twice 12/15 Brilinta 11/19 Hx Tablets 90mg 90tab take 1 Sharad Barahona s tablet by Eliezer, - mouth twice DO [facility] 10/10 Ra Nicotine 11/19 Hx Patches 21mg/24HR 28uni apply 1 Sharad Berry. 24HR ts patch Eliezer, - occasionall DO [facility] 06/24 Metoprolol 10/26 Hx Tablets ER 50mg 90tab 1 by mouth I49.3 Sharad S. Succinate ER /2015 24HR s every night Eliezer, - DO [facility] 11/24 Metoprolol 09/08 Hx Tablets ER 25mg 30tab 1 by mouth I49.3 Sharad S. Succinate ER /2015 24HR s every day Eliezer, - DO [facility] 10/26 Diltiazem CD 07/28 Hx Caps ER 120mg 30cap 1 by mouth I49.3 Sharad S. /2015 24HR s every day Martins, - DO [facility] 10/26 Gabapentin 10/08 Hx Capsules 300mg 40cap 1 by mouth s qCristina Munoz M.D. 01/29 Flexeril 08/21 Hx Tablets 10mg 40tab 1 po tid s prCristina Cortés M.D. 05/09 Robaxin-750 07/17 Hx Tablets 750mg 40tab 1-2 po q 8 s hrs prCristina Cortés M.D. 05/09 Pravastatin 00/00 Hx 10mg once daily Unknown Sodium /0000 - 11/24 Concerta 00 Hx 72mg Unknown /0000 - 07/21 Trazodone HCL 00/00 Hx 50mg 1-2 tablets Unknown /0000 at bedtime - 11/24 Tramadol HCL 00 Hx Tablet 50mg 1-2 tab at Unknown /0000 bedtime for - pain 11/24 Fluticasone Hx Suspension 50mcg/Act 2 sprays Unknown Propionate /0000 each - nostril 09/07 daily as needed Ibuprofen Hx Tablets 800mg by mouth Unknown /0000 three times - a day as 11/24 Cyclobenzaprine Hx Tablets 10mg one by Unknown HCL /0000 mouth three - times a day 05/30 as spasm Lorazepam Hx Tablets 0.5mg 1 tablet Unknown /0000 bid as - needed 05/30 Bupropion HCL ER 00 Hx Tablets ER 150mg 1 by mouth Unknown (SR) /0000 12HR twice a day - 05/30 Fluoxetine HCL Hx Capsules 20mg 1 tablet po Nitin, /0000 daily Cristina Thompson MD 11/24 Latuda Hx Tablets 40mg 1 tablet po Nitin, /0000 daily Cristina Thompson MD 11/24 Metoprolol Hx Tablets ER 25mg 270ta take 1 Sharad S. Succinate ER /0000 24HR bs tablet tab Martins, - in in the DO FACC 04/03 morning and 2 tabs in pm. Aspirin Hx Tablets 81mg 1 by mouth Unknown /0000 every day - 04/02 Medications Administered in Office Medication Date Status Form Strength Qnty SIG Indications Ordering Provider Depomedrol Administered Injection Marya 40MG 019 Florentino Chadwick Depomedrol Administered Injection Marya 40MG Micky Chadwick M.D. Depomedrol Administered Injection Marya 40MG Micky Chadwick M.D. Depomedrol Administered Injection Marya 40MG Micky Chadwick M.D. Depomedrol Administered Injection Marya 40MG Micky Chadwick M.D. Immunizations Description No Information Available Vital Signs Date Vital Result Comment 05/26/2018 3:26pm Height 66.5 inches 5'6.50" Heart Rate 60 /min BP Systolic 128 mmHg BP Diastolic 68 mmHg Body Temperature 98.0 F Pain Level 5 05/19/2018 1:09pm Height 66.5 inches 5'6.50" Weight 221.00 lb BP Systolic 138 mmHg BP Diastolic 86 mmHg Pain Level 10 BMI (Body Mass Index) 35.1 kg/m2 04/03/2018 3:58pm Height 66.5 inches 5'6.50" Weight [...] Result H/L Range Note Basic Metabolic 06/15/2017 [facility] Sodium 139 mmol/L N 133- [address] [place] [address] [phone] Potassium 4.0 mmol/L N 3.5-5.0 Chloride 105 mmol/L N 101-111 Co2 Carbon Dioxide 27 mmol/L N 22-32 Anion Gap 7 mmol/L N 2-11 Glucose 93 mg/dL N 70-100 Blood Urea Nitrogen 10 mg/dL N 6-24 Creatinine 0.73 mg/dL N 0.51-0.95 BUN/Creatinine Ratio 13.7 N 8-20 Calcium 9.6 mg/dL N 8.6-10.3 Egfr Non- 85.5 >60 Egfr 109.9 >60 1 Inr/Protime 06/15/2017 [facility] Inr 0.79 N 0.77-1.[address] [place] [address] [phone] CBC Auto Diff 06/15/2017 [facility] White Blood 9.5 10^3/uL N 3.5-10.[address] [place] [address] [phone] Red Blood Count 4.87 10^6/uL N 4.0-5.4 [...] Blood Cells % 0.1 Cath Panel 06/15/2017 [facility] Partial Thrombo 33.0 N 26.0- 36.[address] [place] [address] [phone] Laboratory 03/30/2017 [facility] Hemoglobin A1c 5.3 % N 4.0- 5.6 2 test finding [address] (Glyco HGB) [place] [address] [phone] Lipid Profile 03/30/2017 [facility] Triglycerides 129 mg/dL 3 (Trig/Chol/HDL [address] ) [place] [address] [phone] Cholesterol 130 mg/dL 4 HDL Cholesterol 48.3 mg/dL 5 LDL Cholesterol 56 mg/dL 6 Basic Metabolic Panel 09/08/2015 [facility] Sodium 136 mmol/L N 133-[address] [place] [address] [phone] Potassium 3.8 mmol/L N 3.5-5.0 Chloride 106 [...] in selective patients <6.0%. Please refer to [employer] diabetic care guidelines for further [...] (or dialysis) Procedures Date Code Description Status 05/19/2018 Inject/Drain Joint/Bursa Major W/O US Completed 04/03/2018 53235 EKG Tracing & Interpretation Completed 02/13/2018 Inj/Aspir Major JT Or Bursa W/ US Completed 12/30/2017 Inject/Drain Joint/Bursa Major W/O US Completed 11/16/201755532 Inj/Aspir Major JT Or Bursa W/ US Completed 10/27/2017 51747 Arthroscopy,Knee,Meniscectomy Medial Or Lateral Completed 10/27/2017 99723 Arthroscopy,Knee,Meniscectomy Medial Or Lateral Completed 10/10/2017 99325 EKG Tracing & Interpretation Completed 08/15/201724236 Injection Single Tendon Origin/Insertion Completed 06/24/2017 29740 EKG Tracing & Interpretation Completed 06/17/2017 56330 Intravascular Blood Flow Velocity Completed 06/17/2017 43324 Cath PLMT&NJX L Ventriculog Img S&I Completed 06/15/2017 77645 EKG Tracing & Interpretation Completed 11/25/2016 89979 EKG Tracing & Interpretation Completed 11/18/2016 95609 Left Heart Cath. Incl S/I Coronaries, Angio S/I V Gram If Completed Done 11/18/2016 61270 ECHO Transthorasic Realtime 2D W Doppler & Color Flow Hosp Completed 11/18/2016 51099 Revascularization Acute Total/Subtotal Occlusion Completed 07/19/2016 88057 EKG Tracing & Interpretation Completed 10/23/2015 62479 Holter Monitor Review (24 hr)dr martino & alexp only Completed 10/21/2015 81871 ECG Monitor/Recording W/Visual Superimposition Scanning Completed 08/12/2015 45245 ECHO Transthoracic, Real-Time 2D With Doppler And Color Completed Flow 07/29/2015 56458 EKG Tracing & Interpretation Completed 07/15/2015 30355 Holter Monitor Review (24 hr)dr martino & alexp only Completed 10/23/2010 43580 EKG, Interpretation Only Completed Encounters Type Date Location Provider Dx Diagnosis Office Visit 04/03/2018 [facility] Sharad Martins, I25.119 Athscl heart 4:00p Of [facility] DO FACC disease of [place] cor art w unsp ang pctrs I25.2 Old myocardial infarction E78.5 Hyperlipidemia, unspecified Z72.0 Tobacco use I49.3 Ventricular premature depolarization Office Visit 10/10/2017 [place] Sharad Barahona Z01.810 Encounter for 3:40p Cardiology Tanya Martins, preprocedural [facility] cardiovascular examination I25.2 Old myocardial infarction 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 [...] bursitis, right hip Office Visit 06/24/2017 1:40p [place] Felicity Barahona I25.119 Athscl heart Of [facility] DO Eliezer disease of [facility] [place] cor art w unsp ang pctrs I25.2 Old myocardial infarction Z72.0 Tobacco use E78.5 Hyperlipidemia, unspecified I10 Essential (primary) hypertension I49.3 Ventricular premature depolarization E66.8 Other obesity Office Visit 06/15/2017 11:20a [facility] Sharad S. I25.119 Athscl heart Of Yulia Martins, DO disease of [facility] [place] cor art w unsp ang pctrs Office Visit 12/15/2016 2:20p [facility] Sharad S. I25.2 Old myocardial Of Yulia Martins, DO infarction FAC I25.10 Athscl heart disease of [place] coronary artery w/o ang pctrs I10 Essential (primary) hypertension Z72.0 Tobacco use E78.5 Hyperlipidemia, unspecified Office Visit 11/25/2016 11:30a [facility] Qutaybeh S. I21.4 Non-St elevation Of Yulia Abbott M.D. ([facility]) myocardial infarction E78.5 Hyperlipidemia, unspecified I10 Essential (primary) hypertension Z72.0 Tobacco use E66.9 Obesity, unspecified I25.10 Athscl heart disease of [place] coronary artery w/o ang pctrs Office Visit 11/19/2016 12:56p [facility] Qutaybeh S. I25.10 Athscl heart Florentino Abbott disease of [place] coronary artery w/o ang pctrs Z72.0 Tobacco use Office Visit 11/19/2016 10:08a [facility] Andrea I21.4 Non-St elevation Assoc,juan manuel Zuniga MD ([facility]) Hospitalists myocardial infarction E78.5 Hyperlipidemia, unspecified I10 Essential (primary) hypertension Z72.0 Tobacco use Office Visit 11/18/2016 12:35p [place] Qutaybeh S. R07.9 Chest pain, Felicity Abbott M.D. unspecified R79.89 Other specified abnormal findings of blood chemistry R94.31 Abnormal electrocardiogram [ECG] [EKG] I10 Essential (primary) hypertension E78.5 Hyperlipidemia, unspecified Z72.0 Tobacco use Z82.49 Family hx of ischem heart dis and oth dis of the circ sys Office Visit 11/18/2016 11:02a [place] Qutaybeh S. R07.9 Chest pain, Felicity Abbott M.D. unspecified I25.10 Athscl heart disease of [place] coronary artery w/o ang pctrs Office Visit 11/18/2016 10:08a [facility] Andrea Zuniga, I20.0 Unstable angina Assoc,juan manuel [facility] Hospitalists E78.5 Hyperlipidemia, unspecified I10 Essential (primary) hypertension Z72.0 Tobacco use Office Visit 11/17/2016 10:07a [facility] Edenilson R20.0 Anesthesia of Assebenezer,Jillian Richardson Hospitalists E78.5 Hyperlipidemia, unspecified I10 Essential (primary) hypertension Z72.0 Tobacco use Office Visit 07/19/2016 2:40p Fam Sharad S. I49.3 Ventricular Cardiology Of Martins, DO premature Online Marketing Director FACC depolarization Office Visit 01/20/2016 11:45a Fam Sharad S. I49.3 Ventricular Cardiology Of Martins, DO premature Online Marketing Director FACC depolarization Office Visit 10/27/2015 4:00p Fam Sharad S. I49.3 Ventricular Cardiology Of Martins, DO premature Online Marketing Director FACC depolarization Office Visit 09/24/2015 2:00p Fam Sharad S. I49.3 Ventricular Cardiology Of Martins, DO premature Online Marketing Director FACC depolarization Office Visit 09/09/2015 11:20a [place] Sharad S. I49.3 Ventricular Cardiology Of Martins, DO premature Online Marketing Director FACC depolarization F17.210 Nicotine dependence, cigarettes, uncomplicated Office Visit 07/29/2015 11:20a Fam Sharad S. I49.3 Ventricular Cardiology Of Martins, DO premature Online Marketing Director FACC depolarization E87.6 Hypokalemia F17.210 Nicotine dependence, cigarettes, uncomplicated Office Visit 03/13/2015 4:15p Orthopedic Naun Mattson M54.31 Sciatica , right Services Of Florentino bocanegra [facility] Office Visit 01/29/2015 3:45p Orthopedic Chichi M54.31 Sciatica, right Services Of IMER Downing [facility].M[facility] M70.61 Trochanteric bursitis, right hip Office Visit 10/08/2014 9:00a Orthopedic Services Naun Mattson, 724.3 Sciatica Of C.MPedro Luis Good 726.5 Enthesopathy Of Hip Region Office Visit 08/21/2009 9:15a Neurosurgery Shimon Bello 847.0 Sprains & Services Of Florentino Sánchez Neck 723.1 Cervicalgia Office Visit 07/17/2009 1:30p Neurosurgery Shimon Bello 847.0 Sprains & Services Of Florentino Sánchez Neck Office Visit 06/18/2009 9:45a Neurosurgery Shimon MMichael 847.0 Sprains & Services Of Florentino Sánchez Neck Plan of Treatment Future Appointment(s):06/12/2018 9:00 am - Marya Chadwick M.D. at [facility]
== END 2018-06-13 02:17 | disposition left against medical advice (07) ==
LOC: ED 00:46
DX: R11.10 Vomiting, unspecified (principal); R07.0 Pain in throat; Z53.21 Procedure and treatment not carried out due to patient leaving prior to being seen by health care provider

== ENCOUNTER 2018-07-01 07:10 | Emergency (ER) | payer SELFPAY ==
[2018-07-01] MEDS ORDERED: Aspirin 81 mg CHEW TAB* 81 MG TAB.CHEW PO ONE (07:22)
[2018-07-01] MEDS ORDERED: Nitroglycerin TAB 0.4 MG* 0.4 MG TAB SL ONE (07:26)
--- NOTE | 2018-07-01 07:29 | ED ---
HPI Chest Pain - HPI Summary HPI Summary: This patient is a 47 year old F who drove herself to [facility] with a chief complaint of constant non-radiating left anterior chest pain accompanied SOB started around 0415 this morning. Pain is 4/10 in severity. Pain is worsened with deep breaths. Patient reports current symptoms feel similar to previous MO in 2017; stents were placed in November 2016. She does not believe her current pain is related to her stomach ulcers. Patient took Nitroglycerin with onset of pain this morning without relief. Patient additionally took 81mg of ASA, as part of her daily routine. Patient currently smokes 1 PPD. FHx is significant for CAD , and MO at age 39 in mother. Patients engineering operations leader is Dr. Martins. Dr. Ruiz is the primary care physician. Pt states she ran out of her metoprolol a few days ago, but now has a new prescription for it, and can go to pick it up. Daily medications include: metoprolol, atorvastatin, gabapentin, nexium, and ASA - History of Current Complaint Chief Complaint: EDChestPainROMI Time Seen by Provider: 07/01/18 07:16 Hx Obtained From: Patient Hx Last Menstrual Period: pt states she had an ablasion and has the esure in place Onset/Duration: Started Hours Ago Time of Onset: 04:15 Timing: Constant Initial Severity: Moderate Current Severity: Moderate Pain Intensity: 4 Pain Scale Used: 0-10 Numeric Chest Pain Location: Left Anterior Chest Pain Radiates: No Character: Heaviness Aggravating Factor(s): Deep Breaths Alleviating Factor(s): Nothing Associated Signs and Symptoms: Positive: Chest Pain, Shortness of Breath Related History: Similar Episode/Dx as: - MO - Allergy/Home Medications Allergies/Adverse Reactions: Allergies Allergy/AdvReac Type Severity Reaction Status Date / Time atomoxetine [From Strattera] AdvReac See Comment Verified 07/01/18 07:15 nicotine [From Nicorette] AdvReac GI Upset Verified 07/01/18 07:15 PMH/Surg Hx/FS Hx/Imm Hx Previously Healthy: No Endocrine/Hematology History: Denies: Hx Diabetes, Hx Thyroid Disease Cardiovascular History: Reports: Hx Coronary Artery Disease - STENT PLACED 2016, Hx Hypertension, Hx Myocardial Infarction Denies: Hx Pacemaker/ICD Respiratory History: Denies: Hx Asthma, Hx Chronic Obstructive Pulmonary Disease (COPD) GI History: Reports: Hx Gastroesophageal Reflux Disease - ON MEDICATION FOR, Hx Irritable Bowel, Hx Ulcer, Other GI Disorders - Diverticulitis History: Denies: Hx Renal Disease Musculoskeletal History: Reports: Hx Arthritis - HIPS, LEFT KNEE Sensory History: Denies: Hx Contacts or Glasses, Hx Hearing Aid Opthamlomology History: Denies: Hx Contacts or Glasses Neurological History: Denies: Other Neuro Impairments/Disorders Psychiatric History: Reports: Hx Anxiety, Hx Depression Denies: Hx Panic Disorder - Surgical History Surgery Procedure, Year, and Place: right hip dislocation - pins in place 1980. left elbow dislocation - 3 surgeries fell off horse. bunion surgery right toe. [facility]. HEART STENT 11/2016 Hx Anesthesia Reactions: No Infectious Disease History: No Infectious Disease History: Denies: Hx Hepatitis, Hx Human Immunodeficiency Virus (HIV), Traveled Outside the [place] in Last 30 Days - Family History Known Family History: Positive: Cardiac Disease, Hypertension, Other - MO in mother at age 40 - Social History Alcohol Use: Weekly Hx Substance Use: No Substance Use Type: Reports: None Hx Tobacco Use: Yes Smoking Status (MU): Heavy Every Day Tobacco Smoker Type: Cigarettes Amount Used/How Often: 1ppd Length of Time of Smoking/Using Tobacco: since age 13 Have You Smoked in the Last Year: Yes Review of Systems Constitutional: Negative Positive: Chest Pain Positive: Shortness Of Breath Gastrointestinal: Negative Positive: no symptoms reported Musculoskeletal: Negative Skin: Negative Neurological: Negative Psychological: Normal All Other Systems Reviewed And Are Negative: Yes Physical Exam - Summary Physical Exam Summary: Appearance: Ill-appearing, moderate pain distress, well-nourished Skin: Warm, color reflects adequate perfusion, dry Head: Normal Head/Face inspection, atraumatic Eyes: Conjunctiva clear ENT: Normal inspection Neck: Supple, no nodes, no JVD Respiratory: Lungs clear, normal breath sounds, SOB at rest Cardio: RRR, No murmur, pulses normal, brisk capillary refill Abdomen: Soft, nontender Bowel sounds: Present Musculoskeletal: Strength Intact/ROM intact, no calf tenderness, no edema, carpopedal spasm in left hand Psychological: Normal Neuro: Alert, muscle tone normal, no focal deficit Triage Information Reviewed: Yes Vital Signs On Initial Exam: Initial Vitals Temp Pulse Resp BP Pulse Ox 97.0 F 96 20 139/87 100 07/01/18 07:13 07/01/18 07:13 07/01/18 07:13 07/01/18 07:13 07/01/18 07:13 Vital Signs Reviewed: Yes Diagnostics - Vital Signs Vital Signs Temp Pulse Resp BP Pulse Ox 07/01/18 07:13 97.0 F 96 20 139/87 100 - Laboratory Result Diagrams: 07/01/18 07:34 07/01/18 07:34 Lab Statement: Any lab studies that have been ordered have been reviewed, and results considered in the medical decision making process. - Radiology CXR Radiology Interpretation Completed By: Radiologist Summary of Radiographic Findings: NO ACTIVE CARDIOPULMONARY DISEASE. ED Physician has reviewed this report. - EKG 0720 Cardiac Rate: NL - 86 BPM EKG Rhythm: Sinus Rhythm ST Segment: Non-Specific Ectopy: None EKG Comparison: No Significant Change - c/w 11/19/16 Summary of EKG Findings: nml AV/IV CT, nml QTc, and nml axis. No acute changes. small Q in lead III, inverted T in lead II and aVF Re-Evaluation - Re-Evaluation First Re-Evaluation Time: 10:37 Change: Improved - Patient is informed of results and upcoming discharge. Patient has 0/10 chest pain. Chest Pain Course/Dx - Course Course Of Treatment: 47 year old F who drove herself to [facility] with a chief complaint of constant non-radiating left anterior chest pain accompanied SOB started around since 0415 this morning. Pain is 4/10 in severity. Pain is worsened with deep breaths. Patient reports current symptoms feel similar to previous MO in 2016; stents were placed in November 2016. She does not believe her current pain is related to her stomach ulcers. Patient took Nitroglycerin with onset of pain this morning without relief. Patient additionally took 81mg of ASA , as part of her daily routine. Patient currently smokes 1 PPD. FHx is significant for CAD, and MO at age 39 in mother. Patient is given 0.4mg of Nitroglycerin and 243mg of ASA, as she already took 81mg prior to arrival.EKG reveals: NSR, nml AV/IV CT, nml QTc, and nml axis. No acute changes. small Q in lead III, inverted T in lead II and aVF. CXR reveals, " NO ACTIVE CARDIOPULMONARY DISEASE." as per radiologist. Bloodwork reveals two troponins both 0.01, D-dimer less than 200, WBC of 13.9, and total bilirubin of 1.4 ( possibly elevated due to Gilbert syndrome). Patient is informed of results and upcoming discharge. Patient has 0/10 chest pain prior to discharge. Patient is instructed to follow up with Dr. Ruiz. Medication, allergies, and nurses notes reviewed. - Chest Pain Differential Diagnosis/HQI/PQRI: ACS, Angina, CHF, GI Disease, Pulmonary Edema, Pulmonary Embolism - Diagnoses Provider Diagnoses: Chest pain Discharge - Sign-Out/Discharge Documenting (check all that apply): Patient Departure - discharge Patient Received Moderate/Deep Sedation with Procedure: No - Discharge Plan Condition: Stable Disposition: HOME Patient Education Materials: Chest Pain (ED) Referrals: Gerardo Ruiz MD [Primary Care Provider] - 2 Days Additional Instructions: We did not find a serious cause for your chest pain today. You were given aspirin to a total of 324mg today. Re-start your metoprolol as directed. RETURN TO THE EMERGENCY DEPARTMENT FOR CHANGING OR WORSENING SYMPTOMS. - Billing Disposition and Condition Condition: STABLE Disposition: Home - Attestation Statements Document Initiated by Scribe: Yes Documenting Scribe: Patricia Motta Provider For Whom Scribe is Documenting (Include Credential): Suzanna Erickson MD Scribe Attestation: Patricia Nguyen, scribed for Suzanna Erickson MD on 07/03/18 at 0108. Scribe Documentation Reviewed: Yes Provider Attestation: The documentation as recorded by the Patricia amaya accurately reflects the service I personally performed and the decisions made by Suzanna carbajal MD Status of Scribe Document: Viewed
[2018-07-01 07:40] LABS: ABS Basophils 0.1 10^3/ul (0-0.2); ABS Eosinophils 0 10^3/ul (0-0.6); ABS Lymphocytes 1.4 10^3/ul (1.0-4.8); ABS Monocytes 0.6 10^3/ul (0-0.8); ABS Neutrophils 11.9 10^3/ul (1.5-7.7); ABS Nucleated RBC 0 10^3/ul; Eosinophil % 0.2 %; Hematocrit 46 % (35-47); Hemoglobin 15.4 g/dl (12.0-16.0); Lymphocyte % 9.8 %; Mean Corpuscular HGB Conc 34 g/dl (31-36); Mean Corpuscular Hemoglobin 31 pg (27-31); Mean Corpuscular Volume 93 fL (80-97); Mean Platelet Volume 9.3 fL (7.4-10.4); Nucleated Red Blood Cells % 0; Platelet Count 223 10^3/ul (150-450); Red Blood Count 4.92 10^6/ul (4.00-5.40); Red Cell Distribution Width 13 % (10.5-15); White Blood Count 13.9 10^3/ul (3.5-10.8)
--- OUTSIDE RECORDS SUMMARY | 2018-07-01 07:47 | XMS REPORT | Continuity of Care Document ---
:1970 External Reference #:[id number] Author Name Tuan Bailey MD Address [facility] [place] [address] Care Team Providers Name Role Phone Gerardo Ruiz MD Care Team Information Manufacturer Unavailable Gerardo Ruiz MD Primary Care Physician Unavailable Payers Date Identification Numbers Payment Provider Subscriber Policy Number: [id number] [facility] Aria Stanley PayID: [id number] [place] [address] Advance Directives Description No Information Available Problems Date Description Provider Status Onset: 02/04/2012 Gastroesophageal reflux disease Mayela TROY Stanley Active Onset: 03/07/2012 Bipolar disorder Zeyad Camarillo MD Active Onset: 06/15/2018 Weight decreased Abby Marley PA-C Active Onset: 06/15/2018 Epigastric pain Abby Marley PA-C Active Onset: 10/03/2014 History of polyp of colon TROY Villasenor Active Onset: 10/03/2014 Digestive symptom TROY Villasenor Active Family History Description No Information Available Social History Type Date Description Comments Sex Unknown ETOH Use Currently consumes alcohol Tobacco Use Start: Unknown Patient is a current smoker, smokes every day Smoking Status Reviewed: 06/15/18 Patient is a current smoker, smokes every day Allergies, Adverse Reactions, Alerts Date Description Reaction Status Severity Comments 06/13/2018 Nicorette Active Medications Medication Date Status Form Strength Qnty SIG Indications Ordering Provider Esomeprazole 06/19/ Active Capsules 20mg 60cap 2 by mouth Tuan Scherer Magnesium 2019 DR dalia every day MD Lynn Sucralfate 06/13/ Active Tablets 1gm 90tab take 1 K21.9 Jeremiah Ruiz 2019 s tablet by MD garcia mouth up to 3 times a day Pantoprazole 06/09/ Active Tablets DR 40mg 30tab 1 by mouth K21.9 Damon Sodium 2019 s every day VINH Culp Westcort 05/05/ Active Ointment 0.2% 30uni apply bid Macie Padron 2017 ts to VIN[facility] choe affected areas prn Ventolin HFA 02/09/ Active Aerosol 108(90Base 8unit take 1-2 J06.9 Damon, 2018 ) mcg/Act s puffs VINH Culp inhaled every 4 hours as needed for wheezing or tightness in the chest Zyrtec Allergy 08/08/ Active Tablets 10mg 30tab take one J01.90 Macie Padron 2017 s tablet per [employer] day prn Gabapentin 12/12/ Active Tablets 600mg 90tab take one M25.559 Nicki Yoder 2014 s tablet by VINH hart mouth up to once a day Concerta / Active Tablets ER 36mg 60tab 1 po bid Unknown 0000 s Toprol XL / Active Tablets ER 25mg 1 po qam Unknown 0000 24HR and 2 po qpm Atorvastatin / Active Tablets 80mg 1 by mouth Unknown Calcium 0000 every day Nitroglycerin / Active Tablets 0.4mg 1 sl as Unknown 0000 Sub needed pain, may repeat q5 min, if no relief after 2, call 911 Aspirin / Active Tablets DR 81mg 1 by mouth Unknown 0000 every day Amlodipine / Active Tablets 5mg 1 by mouth Unknown Besylate 0000 every day Meloxicam / Active Tablets 15mg Unknown 0000 Cholestyramine 11/15/ Hx Packet 4gm 30uni 1 packet Zeyad Arredondo 2014 - daily Marquise KAPOOR 2018 Colyte-Flavor 10/03/ Hx Solution 4L 1unit As 787.99 Suni Alvarado Packs 2014 - Rec s directed Amisaglen, 10/03/ FREIGHT ROUTER-C 2014 Peg 10/03/ Hx Solution 240gm 4000m use as Suni Alvarado 3350/Electrolyte 2014 - Rec l directed Amisano, s 11/15/ FREIGHT ROUTER-C 2014 Tramadol HCL 06/07/ Hx Tablets 50mg 60tab 1-2 at at Nicki Yoder 2014 - s bedtime VINH hart 06/14/ for pain 2018 Trazodone HCL 02/13/ Hx Tablets 50mg 90tab take one Nicki Yoder 2014 - s tablet by VINH hart 10/03/ mouth at 2014 bedtime as directed Nexium 07/11/ Hx Capsules 40mg 30cap 1 po qd Zeyad Arredondo 2012 - DR dalia Camarillo MD 2018 Chantix 03/07/ Hx Tablets 0.5mg X 11 120ta 0.5mg po 305.1 Zeyad Arredondo 2011 - & 1 mg X bs qday for 3 Marquise KAPOOR 09/03/ , then 2014 0.5mg po bid for 4 days, then, 1 mg po bid for 11 weeks Wellbutrin XL / Hx Tablets ER 300mg 1 po qd Unknown 0000 - 24HR 2014 Abilify 00/ Hx Tablets 5mg Daily Unknown 0000 - 2014 Omeprazole / Hx Capsules 20mg 30cap 1 po bid Unknown 0000 - DR gómez 2012 Pravastatin / Hx Tablets 10mg Daily Unknown Sodium 0000 - 2018 Trazodone HCL / Hx Tablets 50mg 50-100 MG Unknown 0000 - AT hs 2018 Immunizations CPT Code Status Date Vaccine Lot # [id number] Given 08/29/2014 Tetanus, Diphtheria Toxoids/Acellular Pertussis Vaccine 7 Or > Vital Signs Date Vital Result Comment 06/15/2018 9:04am Height 66.5 inches 5'6.50" Weight 214.00 lb BP Systolic 121 mmHg BP Diastolic 78 mmHg Heart Rate 75 /min BMI (Body Mass Index) 34.0 kg/m2 11/15/2014 1:30pm Height 67 inches 5'7" Weight 228.00 lb BMI (Body Mass Index) 35.7 kg/m2 10/03/2014 11:12am Height 67 inches 5'7" Weight 228.00 lb BP Systolic 132 mmHg BP Diastolic 70 mmHg Heart Rate 72 /min BMI (Body Mass Index) 35.7 kg/m2 03/07/2012 3:44pm Height 67 inches 5'7" Weight 246.00 lb BP Systolic 128 mmHg BP Diastolic 78 mmHg Heart Rate 84 /min BMI (Body Mass Index) 38.5 kg/m2 02/04/2012 1:35pm Height 67 inches 5'7" Weight 242.00 lb BP Systolic 130 mmHg BP Diastolic 70 mmHg Heart Rate 78 /min BMI (Body Mass Index) 37.9 kg/m2 Results Test Date Facility Test Result H/L Range Note Laboratory test 06/19/2018 [facility] Clotest SEE RESULT 1 finding BELOW Laboratory test 05/05/2018 N2N/CCD Import Absolute 0.03 1 0.01-0.08 finding Basophils Absolute Eos Blood 0.14 1 0.04-0.54 Absolute Lymphocytes 2.33 1 1.18-3.74 Absolute Monocytes BLD Auto 0.67 1 0.24-0.82 Absolute Neutrophils BLD 4.84 1 1.56-6.13 Basophil% 0.4 % 0-1.2 Eos % 1.7 % 0.7-7 Hematocrit (Fma/CMC/CTX) 45.8 % 35-50 Hemoglobin (Fma/CMC/CTX) 15.6 g/dL 12-17 Lymph% 29.0 % 20-52 Mean Corpuscular Hemo Concen 34.1 g/dL 32.2-36 Mean Corpuscular Hemoglobin 31.9 pg 25.6-32.2 Mean Corpuscular Vol 93.7 fL 80-95 Mean Platelet Volume 10.5 fL 8-12.4 Monocytes % 8.3 % 5-12 Neutrophil % 60.2 % 34-70 Platelets 234 10^3/uL 163-400 RBC 4.89 1 3.93-6 RDW-CV 12.0 1 11.6-14.4 WBC 8.04 1 4-10 Laboratory test 11/17/2016 N2N/CCD Import B-Type Natriuretic 194 pg/mL High 2 finding Peptide BNP Creatine Kinase(CK) 82 U/L 10-223 D Dimer Quantitative < 200 ng/mL 3 Lactic Acid 1.5 mmol/L 0.5-2 4 Magnesium 2.2 mg/dL 1.9-2.7 Partial Thrombo Time PTT 29.7 s 26-36.3 TSH (Thyroid Stim Horm) 1.01 mcIU/mL 0.34-5.6 Troponin I 0.06 ng/mL High 5 CBC Auto Diff 11/17/2016 N2N/CCD Import Abs Basophils 0 10^3/uL 0-0.2 Abs Eosinophils 0.1 10^3/uL 0-0.6 Abs Lymphocytes 2.5 10^3/uL 1-4.8 Abs Monocytes 0.7 10^3/uL 0-0.8 Abs Neutrophils 6.7 10^3/uL 1.5-7.7 Abs Nucleated RBC 0.01 10^3/uL Basophil % 0.5 % 0-2 Eosinophil % 1.2 % 0-6 Granulocyte % 66.6 % 38-83 Hematocrit 49 % High 35-47 Hemoglobin 16.2 g/dL High 12-16 Lymphocyte % 25.0 % 25-47 Mean Corpuscular HGB Conc 33 g/dL 31-36 Mean Corpuscular Hemoglobin 32 pg High 27-31 Mean Corpuscular Volume 95 fL 80-97 Mean Platelet Volume 10 um3 7.4-10.4 Monocyte % 6.7 % 1-9 Nucleated Red Blood Cells % 0.1 1 Platelet Count 189 10^3/uL 150-450 Red Blood Count 5.11 10^6/uL 4-5.4 Red Cell Distribution Width 13 % 10.5-15 White Blood Count 10.1 10^3/uL 3.5-10.8 CKMB 11/17/2016 N2N/CCD Import CKMB ng/mL 3.8 ng/mL 0.6-6.3 Comp Metabolic Panel 11/17/2016 N2N/CCD Import Albumin 4.1 g/dL 3.2-5.2 Albumin/Globulin Ratio 1.5 1 1-3 Alkaline Phosphatase 71 U/L 34-104 Alt 19 U/L 7-52 Anion Gap 10 mmol/L 2-11 Ast 19 U/L 13-39 BUN/Creatinine Ratio 12.7 1 8-20 Blood Urea Nitrogen 9 mg/dL 6-24 Calcium 9.5 mg/dL 8.6-10.3 Chloride 108 mmol/L 101-111 Co2 Carbon Dioxide 20 mmol/L Low 22-32 Creatinine 0.71 mg/dL 0.51-0.95 Egfr 113.5 1 6 Egfr Non- 88.2 1 Globulin 2.8 g/dL 2-4 Glucose 90 mg/dL 70-100 Potassium 3.7 mmol/L 3.5-5 Sodium 138 mmol/L 133-145 Total Bilirubin 0.70 mg/dL 0.2-1 Total Protein 6.9 g/dL 6.4-8.9 Urinalysis Profile 11/17/2016 N2N/CCD Import Urine Appearance Clear Urine Bacteria Absent Urine Bilirubin Negative Urine Blood 1+ Abnormal Urine Color Yellow Urine Glucose Negative Urine Ketones Trace Abnormal Urine Leukocytes Negative Urine Nitrite Negative Urine Protein Negative Urine Red Blood Cell 1+(3-5/hpf) Abnormal Urine Specific [place] 1.027 1 1.01-1.03 Urine Squamous Epithelial Cell Present Abnormal Urine Urobilinogen Negative Urine White Blood Cell Absent Urine pH 5.0 1 5-9 CBC Auto Diff 04/12/2015 N2N/CCD Import Abs Basophils 0.2 10^3/uL 0-0.2 Abs Eosinophils 0.1 10^3/uL 0-0.6 Abs Lymphocytes 2.8 10^3/uL 1-4.8 Abs Monocytes 0.7 10^3/uL 0-0.8 Abs Neutrophils 7.6 10^3/uL 1.5-7.7 Abs Nucleated RBC 0 10^3/uL Basophil % 1.4 % 0-2 Eosinophil % 1.1 % 0-6 Granulocyte % 66.7 % 38-83 Hematocrit 47 % 35-47 Hemoglobin 15.2 g/dL 12-16 Lymphocyte % 24.7 % Low 25-47 Mean Corpuscular HGB Conc 33 g/dL 31-36 Mean Corpuscular Hemoglobin 30 pg 27-31 Mean Corpuscular Volume 92 fL 80-97 Mean Platelet Volume 10 um3 7.4-10.4 Monocyte % 6.1 % 1-9 Nucleated Red Blood Cells % 0 1 Platelet Count 206 10^3/uL 150-450 Red Blood Count 5.04 10^6/uL 4-5.4 Red Cell Distribution Width 13 % 10.5-15 White Blood Count 11.5 10^3/uL High 4.8-10.8 Comp Metabolic Panel 04/12/2015 N2N/CCD Import Albumin 4.3 g/dL 3.2-5.2 Albumin/Globulin Ratio 1.7 1 1-3 Alkaline Phosphatase 68 U/L 34-104 Alt 19 U/L 7-52 Anion Gap 7 mmol/L 2-11 Ast 17 U/L 13-39 BUN/Creatinine Ratio 13.3 1 8-20 Blood Urea Nitrogen 11 mg/dL 6-24 Calcium 9.1 mg/dL 8.6-10.3 Chloride 107 mmol/L 101-111 Co2 Carbon Dioxide 23 mmol/L 22-32 Creatinine 0.83 mg/dL 0.51-0.95 Egfr 95.6 1 7 Egfr Non- 74.3 1 Globulin 2.5 g/dL 2-4 Glucose 107 mg/dL High 70-100 Potassium 3.9 mmol/L 3.5-5 Sodium 137 mmol/L 133-145 Total Bilirubin 0.70 mg/dL 0.2-1 Total Protein 6.8 g/dL 6.4-8.9 Laboratory test 11/06/2014 [facility] Surgical Interface Order SEE RESULT BELOW 8 finding Celiac Panel 10/08/2014 [facility] Tissue Transglutaminase IgA <1.2 U/mL N 9 Ab Immunoglobulin A 209 mg/dL N 61 - 356 Celiac Interpretation See Comment N 10 Laboratory test finding 10/08/2014 [facility] Erythrocyte Sed Rate 5 mm/Hr N 0- 14 CBC Auto Diff 10/08/2014 [facility] White Blood Count 9.4 10^3/uL N 4.8-10.8 Red Blood Count 4.81 10^6/uL N 4.0-5.4 Hemoglobin 14.5 g/dL N 12.0-16.0 Hematocrit 43 % N 35-47 Mean Corpuscular Volume 90 fL N 80-97 Mean Corpuscular Hemoglobin 30 pg N 27-31 Mean Corpuscular HGB Conc 33 g/dL N 31-36 Red Cell Distribution Width 15 % N 10.5-15 Platelet Count 213 10^3/uL N 150-450 Mean Platelet Volume 10 um3 N 7.4-10.4 Abs Neutrophils 6.9 10^3/uL N 1.5-7.7 Abs Lymphocytes 1.8 10^3/uL N 1.0-4.8 Abs Monocytes 0.4 10^3/uL N 0-0.8 Abs Eosinophils 0.2 10^3/uL N 0-0.6 Abs Basophils 0.1 10^3/uL N 0-0.2 Abs Nucleated RBC 0.01 10^3/uL N Granulocyte % 73.5 % N 38-83 Lymphocyte % 19.6 % Low 25-47 Monocyte % 4.1 % N 1-9 Eosinophil % 1.8 % N 0-6 Basophil % 1.0 % N 0-2 Nucleated Red Blood Cells % 0.1 N Laboratory test 10/08/2014 [facility] TSH (Thyroid 0.81 ?IU/mL N 0.34-5.60 finding Stimulating Horm) Comp Metabolic Panel 10/08/2014 [facility] Sodium 137 mmol/L N 133-145 Potassium 4.4 mmol/L N 3.5-5.0 Chloride 108 mmol/L N 101-111 Co2 Carbon Dioxide 23 mmol/L N 22-32 Anion Gap 6 mmol/L N 2-11 Glucose 96 mg/dL N 70-100 Blood Urea Nitrogen 17 mg/dL N 6-24 Creatinine 0.78 mg/dL N 0.51-0.95 BUN/Creatinine Ratio 21.8 High 8-20 Calcium 8.9 mg/dL N 8.6-10.3 Total Protein 6.5 g/dL N 6.4-8.9 Albumin 4.2 g/dL N 3.2-5.2 Globulin 2.3 g/dL N 2-4 Albumin/Globulin Ratio 1.8 N 1-3 Total Bilirubin 0.60 mg/dL N 0.2-1.0 Alkaline Phosphatase 71 U/L N 34-104 Alt 12 U/L N 7-52 Ast 11 U/L Low 13-39 Egfr Non- 80.2 N >60 Egfr 103.2 N >60 11 Laboratory test 08/29/2014 N2N/CCD Import C Reactive < 1.00 < 5.00 12, 13 finding Protein mg/L Laboratory test 08/29/2014 N2N/CCD Import LDL, Direct 163 mg/dL High 0- 130 finding Lipid Profile 08/29/2014 N2N/CCD Import Cholesterol 259 mg/dL High 120- 200 HDL Cholesterol 56 mg/dL 30-85 HDL Risk Factor 4.6 CALC High 0.0-4.4 LDL (Calculated) 135 CALC High 0-129 14 Triglycerides 339 mg/dL High 30-200 VLDL Cholesterol 68 mg/dL High 0-50 Nate 12/24/2010 [facility] Z#Other Observations <pending> 1 SEE RESULT BELOW Name: ARIA STANLEY : [address]: Tuan Bailey MD Acct: [id number] Unit: [id number] AGE: 47 Location: ENDO Re06/19/18 SEX: F Status: REG REF SPEC: [id number] LYLY: 06/19/18-113 [facility] DR: Tuan Bailey MD REQ: [id number] RECD: 06/19/18 STATUS: BOBY BENITEZ DR: Gerardo Ruiz MD _ SOURCE: GAS ANTRUM SPDESC: ORDERED: Clotest Procedure Result Reported Site Clotest Final 06/20/18- 46 ML Clotest Negative * ML - Main Lab . END OF REPORT DEPARTMENT OF PATHOLOGY, [address] [place] [address] Harris Yeboah M.D. Director [facility] # [id number] SEE RESULT BELOW Name: ARIA STANLEY : [address]: Tuan Bailey MD Acct: [id number] Unit: [id number] AGE: 47 Location: ENDO Re06/19/18 SEX: F Status: REG REF SPEC: [id number] LYLY: 06/19/18-1134 [facility] DR: Tuan Bailey MD REQ: [id number] RECD: 06/19/18 STATUS: BOBY BENITEZ DR: Gerardo Ruiz MD _ SOURCE: GAS ANTRUM SPDESC: ORDERED: Clotest Procedure Result Reported Site Clotest Final 06/20/18- 46 ML Clotest Negative * ML - Main Lab . END OF REPORT DEPARTMENT OF PATHOLOGY, [address] [place] [address] Harris Yeboah M.D. Director [facility] # [id number] 2 >100 to <200 pg/mL: likely compensated congestive heart failure (CHF) 200 to 400 pg/mL: likely moderate CHF >400 pg/mL: likely moderate to severe CHF 3 Please note: The following may produce a false positive D Dimer test: - Rheumatoid factor greater than 60 IU/ml - Plasma hemoglobin greater than 0.05 gm/dl - Bilirubin greater than 50 mg/dl - Lipids greater than 1000 mg/dl - FDP greater than 20 ug/ml 4 [facility] Severe Sepsis and Septic Shock Management Bundle Measure requires all lactic acids initially measuring >2.0 mmol/L be repeated. 5 Result TnIDx:0.06 Called to [id number] at: 19:06:09 by:[id number] Read back by: [id number] 6 Because ethnic data is not always readily [...] 15-29 5 Kidney failure <15 (or dialysis) 7 Because ethnic data is not always [...] 15-29 5 Kidney failure <15 (or dialysis) 8 SEE RESULT BELOW Name: ARIA STANLEY : [address]: Zeyad Camarillo MD Acct: [id number] Unit: [id number] AGE: 44 Location: ENDO Re11/06/14 SEX: F Status: REG REF SPEC: [id number] LYLY: 11/06/14- SUBM DR: Zeyad Camarillo MD REQ: [id number] RECD: 11/07/14 STATUS: LORRAINE BENITEZ DR: Gerardo Ruiz MD _ ORDERED: LEVEL IV/3 FINAL DIAGNOSIS 1. Colon, cecum, biopsy: -- Tubular adenoma. -- No high grade dysplasia or malignancy. 2. Colon, right, biopsies: -- Large intestinal mucosa with no significant pathologic abnormality. -- No evidence of microscopic/lymphocytic light his, collagenous colitis or other chronic inflammatory bowel process is identified. 3. Colon, 25 cm, biopsy: -- Hyperplastic polyp. CLINICAL HISTORY Screening colonoscopy with change in bowel habits (diarrhea) POST-OPERATIVE DIAGNOSIS Screening colonoscopy into terminal ileum, prep good - 2 polyps removed; sigmoid diverticulosis; biopsies obtained for microscopic colitis GROSS DESCRIPTION 1. The specimen is received in formalin labeled, Biopsy Cecal Polyp, and consists of a 0.5 x 0.3 x 0.2 cm pat polypoid soft tissue fragment, which is inked and submitted entirely in one cassette. 2. The specimen is received in formalin labeled, Biopsies for Microscopic Colitis Right Colon, and consists of a 0.9 x 0.7 x 0.1 cm aggregate of multiple pat irregular soft tissue fragments, which is submitted entirely in one cassette. CONTINUED ON NEXT PAGE * ML=Testing performed at Main Lab DEPARTMENT OF PATHOLOGY, [address] [place] [address] Harris Yeboah M.D. Director [facility] # [id number] RUN DATE: 11/11/14 [facility] LAB LIVE PAGE 2 Patient: ARIA STANLEY [id number] (Continued) GROSS DESCRIPTION (Continued) GROSS DESCRIPTION (Continued) 3. The specimen is received in formalin labeled, Colon Polyp at 25 cm, and consists of two pat irregular soft tissue fragments measuring 0.3 x 0.2 x 0.1 cm and 0.6 x 0.5 x 0.3 cm, which are submitted entirely in one cassette. Signed (signature on file) Harris Yeboah MD 1212 END OF REPORT * ML=Testing performed at Main Lab DEPARTMENT OF PATHOLOGY, [address] [place] [address] Harris Yeboah M.D. Director [facility] # [id number] SEE RESULT BELOW Name: ARIA STANLEY : [address]: Zeyad Camarillo MD Acct: [id number] Unit: [id number] AGE: 44 Location: ENDO Re11/06/14 SEX: F Status: REG REF SPEC: [id number] LYLY: 11/06/14- SUBM DR: Zeyad Camarillo MD REQ: [id number] RECD: 11/07/14 STATUS: LORRAINE BENITEZ DR: Gerardo Ruiz MD _ ORDERED: LEVEL IV/3 FINAL DIAGNOSIS 1. Colon, cecum, biopsy: -- Tubular adenoma. -- No high grade dysplasia or malignancy. 2. Colon, right, biopsies: -- Large intestinal mucosa with no significant pathologic abnormality. -- No evidence of microscopic/lymphocytic light his, collagenous colitis or other chronic inflammatory bowel process is identified. 3. Colon, 25 cm, biopsy: -- Hyperplastic polyp. CLINICAL HISTORY Screening colonoscopy with change in bowel habits (diarrhea) POST-OPERATIVE DIAGNOSIS Screening colonoscopy into terminal ileum, prep good - 2 polyps removed; sigmoid diverticulosis; biopsies obtained for microscopic colitis GROSS DESCRIPTION 1. The specimen is received in formalin labeled, Biopsy Cecal Polyp, and consists of a 0.5 x 0.3 x 0.2 cm pta polypoid soft tissue fragment, which is inked and submitted entirely in one cassette. 2. The specimen is received in formalin labeled, Biopsies for Microscopic Colitis Right Colon, and consists of a 0.9 x 0.7 x 0.1 cm aggregate of multiple pat irregular soft tissue fragments, which is submitted entirely in one cassette. CONTINUED ON NEXT PAGE * ML=Testing performed at Main Lab DEPARTMENT OF PATHOLOGY, [address] [place] [address] Harris Yeboah M.D. Director [facility] # [id number] RUN DATE: 11/11/14 [facility] LAB LIVE PAGE 2 Patient: ARIA STANLEY [id number] (Continued) GROSS DESCRIPTION (Continued) GROSS DESCRIPTION (Continued) 3. The specimen is received in formalin labeled, Colon Polyp at 25 cm, and consists of two pat irregular soft tissue fragments measuring 0.3 x 0.2 x 0.1 cm and 0.6 x 0.5 x 0.3 cm, which are submitted entirely in one cassette. Signed (signature on file) Harris Yeboah MD 1212 END OF REPORT * ML=Testing performed at Main Lab DEPARTMENT OF PATHOLOGY, [address] [place] [address] Harris Yeboah M.D. Director [facility] # [id number] 9 REFERENCE VALUE <4.0 (Negative) Test Performed by: [place] [address] Haul Driver: Jacob Chang II, M.D., Ph.D. 10 Negative serology. Celiac disease unlikely. However, approximately 10% of patients with celiac disease are seronegative. Also, patients who are already adhering to a gluten-free diet may be seronegative. If celiac disease is highly clinically suspected, consider HLA-DQ typing. Test Performed by: [place] [address] Haul Driver: Jacob Chang II, M.D., Ph.D. 11 Because ethnic data is not always readily [...] 15-29 5 Kidney failure <15 (or dialysis) 12 1 SST 13 Acute inflammation: >10.00 14 invalid Procedures Date Code Description Status 11/06/2014 07836 Colonoscopy W/ Snare RM Of Polyp/Tumor/Lesion Completed 11/06/2014 07850 Colonscopy+Biopsy Completed 02/21/2012 43661 EGD- Upper Endoscopy Completed 09/24/2009 84700 Colonoscopy W/ Snare RM Of Polyp/Tumor/Lesion Completed 09/24/2009 68024 Colonscopy+Biopsy Completed Encounters Type Date Location Provider Dx Diagnosis Office Visit 11/15/2014 Gastroenterology Zeyad Camarillo 787.91 Diarrhea 1:30p Eric KAPOOR V12.72 History Personal Colonic Polyps Office Visit 10/03/2014 Gastroenterology Suni Alvarado 787.99 Digestive 11:00a [facility] Symptoms Other V12.72 History Personal Colonic Polyps Office Visit 03/07/2012 Gastroenter[facility] Zeyad Arredondo 530.81 Esophageal 3:30p [facility] MD Reflux 305.1 Tobacco Use Disorder 296.89 Bipolar Disorder [facility] Office Visit 02/04/2012 Gastroenterology Mayela 530.81 Esophageal 1:30p [facility] Plan of Treatment No Information Available
--- OUTSIDE RECORDS SUMMARY | 2018-07-01 07:47 | XMS REPORT | Continuity of Care Document ---
:1970 External Reference #:[id number] Author Name Abby Marley PA-C Address [address] [place] [address] Care Team Providers Name Role Phone Gerardo Ruiz MD Care Team Information Biological Science Technician Fish Unavailable Gerardo Ruiz MD Primary Care Physician Unavailable Payers Date Identification Numbers Payment Provider Subscriber Policy Number: [id number] [facility] Aria Stanley PayID: [id number] [place] [address] Advance Directives Description No Information Available Problems [...] Form Strength Qnty SIG Indications Ordering Provider Sucralfate 06/13/ Active Tablets 1gm 90tab take 1 K21.9 Joseph,Ll 2018 s tablet by MD garcia mouth up to 3 times a day Pantoprazole 06/09/ Active Tablets DR 40mg 30tab 1 by mouth K21.9 DamonBharat 2018 s every day VINH Culp [place] 05/05/ [...] 10mg 30tab take one J01.90 Macie Padron 2018 s tablet per daijaFOOD ADVISER day prn Gabapentin 12/12/ Active Tablets 600mg [...] Alvarado Packs 2014 - Rec s directed Amisano, 10/03/ CRYSTAL SLICER-C 2014 Peg 10/03/ Hx Solution 240gm 4000m use as Suni Alvarado 3350/Electrolyte 2014 - Rec l directed Amisano, s 11/15/ CRYSTAL SLICER-C 2014 Tramadol HCL 06/07/ Hx Tablets 50mg [...] qd Unknown 0000 - 24HR 2014 Abilify / Hx Tablets 5mg Daily Unknown 0000 - 2014 Omeprazole / Hx Capsules 20mg 30cap 1 po bid Unknown 0000 - DR gómez 2012 Pravastatin / Hx Tablets 10mg Daily Unknown Sodium 0000 - 2018 Trazodone HCL / Hx Tablets 50mg 50-100 MG Unknown 0000 - AT hs 2018 Immunizations CPT Code Status Date Vaccine Lot # [id number] Given 08/29/2014 Tetanus, Diphtheria Toxoids/Acellular Pertussis Vaccine [...] Test Result H/L Range Note Laboratory test 05/05/2018 N2N/CCD Import Absolute 0.03 [...] N2N/CCD Import B-Type Natriuretic 194 pg/mL High 1 finding Peptide BNP Creatine Kinase(CK) 82 U/L 10-223 D Dimer Quantitative < 200 ng/mL 2 Lactic Acid 1.5 mmol/L 0.5-2 3 Magnesium 2.2 mg/dL 1.9-2.7 Partial Thrombo Time PTT 29.7 s 26-36.3 TSH (Thyroid Stim Horm) 1.01 mcIU/mL 0.34-5.6 Troponin I 0.06 ng/mL High 4 CBC Auto Diff 11/17/2016 N2N/CCD Import Abs [...] Creatinine 0.71 mg/dL 0.51-0.95 Egfr 113.5 1 5 Egfr Non- 88.2 1 Globulin 2.8 g/dL [...] Red Blood Cell 1+(3-5/hpf) Abnormal Urine Specific [place] 1.027 1 1.01-1.03 Urine Squamous Epithelial Cell [...] Creatinine 0.83 mg/dL 0.51-0.95 Egfr 95.6 1 6 Egfr Non- 74.3 1 Globulin 2.5 g/dL 2-4 Glucose 107 mg/dL High 70-100 Potassium 3.9 mmol/L 3.5-5 Sodium 137 mmol/L 133-145 Total Bilirubin 0.70 mg/dL 0.2-1 Total Protein 6.8 g/dL 6.4-8.9 Laboratory test 11/06/2014 [facility] [place] Order SEE RESULT BELOW 7 finding Celiac Panel 10/08/2014 [facility] [place] Tissue Transglutaminase IgA <1.2 U/mL N 8 Ab Immunoglobulin A 209 mg/dL N 61 - 356 Celiac Interpretation See Comment N 9 Laboratory test finding 10/08/2014 [facility] [place] Erythrocyte Sed Rate 5 mm/Hr N 0- 14 CBC Auto Diff 10/08/2014 [facility] [place] White Blood Count 9.4 10^3/uL N 4.8-10.8 [...] Cells % 0.1 N Laboratory test 10/08/2014 [facility] [place] TSH (Thyroid 0.81 ?IU/mL N 0.34-5.60 finding Stimulating Horm) Comp Metabolic Panel 10/08/2014 [facility] [place] Sodium 137 mmol/L N 133-145 Potassium 4.4 [...] 80.2 N >60 Egfr 103.2 N >60 10 Laboratory test 08/29/2014 N2N/CCD Import C Reactive < 1.00 < 5.00 11, 12 finding Protein mg/L Laboratory test 08/29/2014 N2N/CCD Import LDL, Direct 163 mg/dL High 0- 130 finding Lipid Profile 08/29/2014 N2N/CCD Import Cholesterol 259 mg/dL High 120- 200 HDL Cholesterol 56 mg/dL 30-85 HDL Risk Factor 4.6 CALC High 0.0-4.4 LDL (Calculated) 135 CALC High 0-129 13 Triglycerides 339 mg/dL High 30-200 VLDL Cholesterol 68 mg/dL High 0-50 Nate 12/24/2010 [facility] Z#Other Observations <pending> 1 >100 to <200 pg/mL: likely compensated congestive heart failure (CHF) 200 to 400 pg/mL: likely moderate CHF >400 pg/mL: likely moderate to severe CHF 2 Please note: The following may produce a false positive D Dimer test: - Rheumatoid factor greater than 60 IU/ml - Plasma hemoglobin greater than 0.05 gm/dl - Bilirubin greater than 50 mg/dl - Lipids greater than 1000 mg/dl - FDP greater than 20 ug/ml 3 [place] Severe Sepsis and Septic Shock Management Bundle Measure requires all lactic acids initially measuring >2.0 mmol/L be repeated. 4 Result TnIDx:0.06 Called to [id number] at: 19:06:09 by:[id number] Read back by: [id number] 5 Because ethnic data is not always readily [...] 15-29 5 Kidney failure <15 (or dialysis) 6 Because ethnic data is not always [...] 5 Kidney failure <15 (or dialysis) 7 SEE RESULT BELOW Name: ARIA STANLEY : [address]: Zeyad Camarillo MD Acct: [id number] Unit: [id number] AGE: 44 Location: ENDO Re11/06/14 SEX: F Status: REG REF SPEC: [id number] LYLY: 11/06/14- SUBM DR: Zeyad Camarillo MD REQ: [id number] RECD: 11/07/14 STATUS: LORRAINE BENITEZ DR: Gerardo [...] performed at Main Lab DEPARTMENT OF PATHOLOGY, [address] [place] [address] Harris Yeboah M.D. Director [facility] # [id number] RUN DATE: 11/11/14 [facility] LAB LIVE PAGE 2 Patient: ARIA STANLEY [id number] (Continued) GROSS DESCRIPTION (Continued) GROSS DESCRIPTION (Continued) [...] performed at Main Lab DEPARTMENT OF PATHOLOGY, [address] [place] [address] Harris Yeboah M.D. Director [facility] # [id number] SEE RESULT BELOW Name: ARIA STANLEY : [address]: Zeyad Camarillo MD Acct: [id number] Unit: [id number] AGE: 44 Location: ENDO Re11/06/14 SEX: F Status: REG REF SPEC: [id number] LYLY: 11/06/14- [facility] DR: Zeyad Camarillo MD REQ: [id number] RECD: 11/07/141457 STATUS: LORRAINE BENITEZ DR: Gerardo Ruiz MD [...] performed at Main Lab DEPARTMENT OF PATHOLOGY, [address], [place], [place] [address] Harris Yeboah M.D. Director [facility] # [id number] RUN DATE: 11/11/14 [facility] LAB LIVE PAGE 2 Patient: AISSATOUROBBIEARIA [id number] (Continued) GROSS DESCRIPTION (Continued) GROSS DESCRIPTION (Continued) [...] performed at Main Lab DEPARTMENT OF PATHOLOGY, [address] [place] [address] Harris Yeboah M.D. Director [facility] # [id number] REFERENCE VALUE <4.0 (Negative) Test Performed by: [place] [address] Operations Officer Trust Department: Jacob Chang II, M.D., Ph.D. 9 Negative serology. Celiac disease unlikely. However, approximately 10% of patients with celiac disease are seronegative. Also, patients who are already adhering to a gluten-free diet may be seronegative. If celiac disease is highly clinically suspected, consider HLA-DQ typing. Test Performed by: [place] [address] Operations Officer Trust Department: Jacob Chang II, M.D., Ph.D. 10 Because ethnic data is not always readily [...] 15-29 5 Kidney failure <15 (or dialysis) 11 1 SST 12 Acute inflammation: >10.00 13 invalid Procedures Date Code Description Status 11/06/2014 35554 Colonoscopy W/ Snare RM Of Polyp/Tumor/Lesion Completed 11/06/2014 99384 Colonscopy+Biopsy Completed 02/21/2012 75790 EGD- Upper Endoscopy Completed 09/24/2009 12165 Colonoscopy W/ Snare RM Of Polyp/Tumor/Lesion Completed 09/24/2009 63720 Colonscopy+Biopsy Completed Encounters Type Date Location Provider Dx Diagnosis Office Visit 11/15/2014 Gastroenterology Zeyad Camarillo 787.91 Diarrhea 1:30p [facility] [place] MD V12.72 History Personal Colonic Polyps Office Visit 10/03/2014 Gastroenterology Suni Alvarado 787.99 Digestive 11:00a Associates [facility] Gomez-Melanie Symptoms Other V12.72 History Personal Colonic Polyps Office Visit 03/07/2012 Gastroenterology Zeyad Arredondo 530.81 Esophageal 3:30p Associates Jake Camarillo MD Reflux 305.1 Tobacco Use Disorder 296.89 Bipolar Disorder NEC Office Visit 02/04/2012 Gastroenterology Mayela 530.81 Esophageal 1:30p [facility] Plan of Treatment Future Appointment(s):06/19/2018 10:00 am - Tuan Bailey MD at [facility]06/15/2018 - FATOUMATA Yancey-CK21.9 Gastro-esophageal reflux disease without yrcqawefjmpL99.13 Epigastric painR63.4 Abnormal weight loss
[2018-07-01 07:51] LABS: INR 0.82 (0.77-1.02)
[2018-07-01 07:57] LABS: Albumin 4.3 g/dL (3.2-5.2); Albumin/Globulin Ratio 1.7 (1-3); Calcium 9.7 mg/dL (8.6-10.3); EGFR African American 124.3 (>60); EGFR Non-African American 102.7 (>60); Globulin 2.5 g/dL (2-4); Magnesium 1.9 mg/dL (1.9-2.7); Potassium 3.6 mmol/L (3.5-5.0); Total Bilirubin 1.4 mg/dL (0.2-1.0); Total Protein 6.8 g/dL (6.4-8.9)
[2018-07-01 08:00] LABS: Troponin I 0.01 ng/mL (<0.04)
[2018-07-01 08:02] LABS: CKMB ng/mL 1.6 ng/mL (0.6-6.3)
[2018-07-01 08:31] LABS: T4, Total 6.76 mcg/dL (6.09-12.23)
[2018-07-01 08:35] LABS: TSH (Thyroid Stimulating Horm) 0.82 mcIU/mL (0.34-5.60)
[2018-07-01 11:07] VITALS: BP 128/68
== END 2018-07-01 11:08 | disposition home or self-care (01) ==
LOC: ED 07:10
DX: R07.89 Other chest pain (principal); R06.02 Shortness of breath; I25.10 Atherosclerotic heart disease of native coronary artery without angina pectoris; I25.2 Old myocardial infarction; I10 Essential (primary) hypertension; Z95.5 Presence of coronary angioplasty implant and graft; Z79.82 Long term (current) use of aspirin; K21.9 Gastro-esophageal reflux disease without esophagitis; F41.9 Anxiety disorder, unspecified; F32.9 Major depressive disorder, single episode, unspecified; Z82.49 Family history of ischemic heart disease and other diseases of the circulatory system; F17.210 Nicotine dependence, cigarettes, uncomplicated
CPT/HCPCS: 36415; 71045; 80053; 82550; 82553; 83605; 83735; 83880; 84436; 84443; 84484; 85025; 85379; 85610; 85730; 93005; 99284; A9270-GY

== ENCOUNTER → 2018-07-17 11:38 | Emergency (ER) | payer SELFPAY ==
--- OUTSIDE RECORDS SUMMARY | 2018-07-17 12:12 | XMS REPORT | Continuity of Care Document ---
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 Active Onset: 06/18/2006 Attention deficit hyperactivity Gerardo Ruiz M.D. Active disorder Onset: 06/18/2006 Tobacco user Gerardo Ruiz M.D. Active Onset: 06/18/2006 Gastroesophageal reflux disease Gerardo Ruiz M.D. Active Onset: 11/24/2016 Atherosclerosis of other coronary Gerardo Ruiz M.D. 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 Active thigh Onset: 12/12/2014 Generalized anxiety disorder Gerardo Ruiz M.D. Active Onset: 01/16/2014 Thoracic and lumbosacral neuritis Gerardo Ruiz M.D. Active Onset: 08/23/2011 Acute upper respiratory infection Ángel Senior M.D. 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 Tobacco Use Start: Unknown Current Cigarette Smoker 1/2 Pack Daily Smoking Status Reviewed: 05/05/18 Current Cigarette Smoker 1/2 Pack Daily ETOH Use Rarely consumes alcohol Recreational Drug Use Never Used Drugs Tobacco Use Start: Unknown Heavy tobacco smoker restarted in 2018 due (more than 10 to pain and stress cigarettes/day) Allergies, Adverse Reactions, Alerts Date Description Reaction Status Severity Comments 02/27/2004 Strattera Active Agitation 12/12/2014 Nicorette Active stomach ache Medications Medication Date Status Form Strength Qnty SIG Indications Ordering Provider Benzonatate 07/12 Active Capsules 200mg 30cap take one J20.9 s by mouth Keiry, 3 times [employer] daily as needed for cough Cipro HC 07/12 Active Suspension 0.2-1% 10ml instill 1-2 drops Keiry, right ear [employer] 2 times daily x 7 days Guaifenesin 07/12 Active Tablets 400mg 60tab 1 by J20.9 Kiara s mouth Keiry, twice a [employer] day Sucralfate 06/13 Active Tablets 1gm 90tab take 1 K21.9 Gerardo A. s tablet by Joseph mouth up M.D. 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 HELPER per day prn Gabapentin 12/12 Active Tablets 600mg 90tab take one M25.559 s tablet by Beba mouth up [employer] to once a day Toprol XL Active Tablets ER 25mg 1 po qam Unknown /0000 24HR and 2 po qpm Atorvastatin Active Tablets 80mg 1 by Unknown Calcium /0000 mouth every day Nitroglycerin Active Tablets Sub 0.4mg 1 sl as Unknown /0000 needed pain, may repeat q5 min, if no relief after 2, call [address] 81mg 1 by Unknown /0000 mouth every day Meloxicam Active Tablets 1 by Unknown /0000 mouth every day Amlodipine Active Tablets 5mg 1 by Unknown Besylate /0000 mouth every day Guaifenesin ER 07/12 Hx Tablets ER 1200mg 60tab 1 tab po J20.9 12HR s twice Keiry, - daily [employer] 07/12 Note No Work 06/13 Hx out of Gerardo A. 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 HELPER 06/13 daily needed for cough Levaquin 09/02 Hx Tablets 500mg 7tabs 1 by J01.90 Chari Ramirez /2017 mouth Vito, [employer] OPERATOR HELPER - daily x 7 Augmentin 08/08 Hx Tablets 500-125mg 30tab 1 by Nicki01.90 Chari Ramirez /2017 s mouth Vito, [employer] OPERATOR HELPER - three 09/02 times day Tylenol With 08/08 Hx Tablets 300-30mg 20tab take one M25.562 Chari Ramirez Codeine # s tablet by Vito [employer] OPERATOR HELPER - mouth at 02/06 night needed for pain Prednisone 04/06 Hx Tablets 50mg 5tabs 1 by M79.672 mouth Keiry, - every day [employer] 11/17 Acetaminophen-Co 03/16 Hx Tablets 300-30mg 90tab 1-2 every M79.672 Kiara ho #3 /2016 s 8 hours Keiry, - as needed [employer] 11/17 for pain Prednisone 03/16 Hx Tablets 50mg 5tabs 1 by M79.672 Kiara /2016 mouth Keiry, - every day [employer] 04/05 Amoxicillin/Clav 02/04 Hx Tablets 875-125mg 28tab 1 by Kimberly griggs /2015 s mouth Beba, Potassium - twice a [employer] 03/16 day with /2015 food Cefuroxime 05/15 Hx Tablets 500mg 30tab 1 by J32.0 Gerardo Alexander. Axetil /2015 s mouth Darlow, - twice a M.D. Fluticasone 04/15 Hx Suspension 50mcg/Act 1unit 2 sprays J32.8 Gerardo A. Propionate /2014 s every Darlow, - night at M.D. 04/05 bedtime each nostril Work Note 04/15 Hx pt was J32.8 Enedelia /2014 seen in [facility], - this Afnp-C 04/20 office today, advise no work through 04/20/15 , will return 04/21/15 Amoxicillin/Clav 04/01 Hx Tablets 875-125mg 28tab 1 by J01.90 Kimberly griggs /2014 s mouth Beba, Potassium - twice a [employer] 05/15 day with /2015 food Azithromycin 03/04 Hx Tablets 250mg 6tabs 2 tabs J01.90 Colleen /2014 today, Earth, - then 1 M.D. 04/01 tab daily /2014 for next 4 days Ibuprofen 10/10 Hx Tablets 800mg 1 by Colleen mouth q8 Earth, - hours M.D. 04/05 /2016 times a day with food Cyclobenzaprine 10/10 Hx Tablets 10mg 60tab 1 tab M54.5 Colleen HCL /2014 s three Earth, - times a M.D. 04/05 day as /2016 needed Acetaminophen-Co 10/10 Hx Tablets 300-30mg 60tab 1 tab by M54.5 Colleen ho #3 /2014 s mouth Earth, - every 6 M.D. 05/15 hours needed Excuse 02/15 Hx seen M54.5 Colleen /2014 today Earth, - excuse M.D. 03/04 02/14-02/06 Nicotrol 01/09 Hx Inhaler 10mg 168un 6-16 305.1 Gerardo A. its cartridge Darlow, - s/day M.D. 02/15 for 6-12 weeks, then taper down over 6-12 weeks until discontin ued Nicotine 12/12 Hx Patches 14mg/24HR 30uni apply 305.1 Gerardo A. 24HR ts once a Darlow, - day for 4 M.D. 02/15 weeks, then step down to 7 mg patches Lorazepam 12/12 Hx Tablets 0.5mg 30tab 1 by 300.02 Gerardo A. s mouth two Darlow, - times a M.D. 04/05 day needed for anxiety Bupropion HCL ER 10/31 Hx Tablets ER 150mg 60tab take 1 305.1 Kary (SR) 12HR s tablet by Nena, - mouth Afnp-C 04/05 twice a day 8 hours apart Nicotine 10/31 Hx Gum 4mg 100un 1 piece q Kary Polacrilex its 1-2 hrs x Nena, - 6 wks ( Afnp-C 12/12 at least nine pieces/da y) Pravastatin 09/03 Hx Tablets 10mg 90tab 1 by Gerardo A. Sodium s mouth Darlow, - every day M.D. 11/24 Methylphenidate 06/07 Hx Tablets ER 36mg 60tab 2 by Gerardo A. HCL ER /2014 s mouth Darlow, - every day M.D. 01/09 Tramadol HCL 06/07 Hx Tablets 50mg 60tab 1-2 at at M25.551 Gerardo A. s bedtime Darlow, - for pain M.D. 11/17 Concerta 03/14 Hx 36mg 60uni 2 by Gerardo A. ts mouth Darlow, - every day M.D. 06/07 Trazodone HCL 02/13 Hx Tablets 50mg 90tab take one Gerardo A. s tablet by Joseph, - mouth at M.D. 11/24 bedtime as directed Hydrocodone/Acet 01/28 Hx Tablets 5-325mg 40tab 1 by Gerardo Arredondo aminophen s mouth Joseph, - every 6 M.D. 06/07 hours pain as needed Doxepin HCL 01/17 Hx Capsules 25mg 30cap take one Gerardo A. s capsule Darlow, - by mouth M.D. 01/17 morning Doxepin HCL 01/17 Hx Capsules 10mg 30cap take one Gerardo A s capsule Joseph, - by mouth M.D. 02/13 q Methylphenidate 01/16 Hx Tablets ER 54mg 30tab 1 po qam 314.01 Gerardo A. HCL s as Joseph, - directed M.D. 03/14 Silenor 01/16 Hx Tablets 6mg 30tab 1 po qhs Gerardo A s Joseph, - M.D. 01/17 Medrol Dosepak 01/16 Hx Tablets 4mg 1tabs as 724.4 Gerardo A directed Joseph, - M.D. 02/06 Physical Therapy 01/16 Hx treatment 724.4 Gerardo and Joseph - evaluatio M.D. 01/28 n back pain Physical Therapy 01/31 Hx treatment 726.19 Gerardo A. and Joseph, - evaluatio M.D. 02/21 n shoulder pain Gabapentin 01/31 Hx Capsules 100mg 42cap take one 726.19 Gerardo A. s capsule Darlow, - by mouth M.D. 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 s Cristina Taveras M.D. 11/02 Azithromycin 08/22 Hx Tablets 250mg 6tabs 2 po 465.9 Neal . today and Florentino Senior - 1 po x 4 Nexium 05/[address] 40mg 30cap 1 po qd 536.8 Gerardo A. s Cristina Ruiz M.D. 01/03 Prevacid 05/[address] 30mg 60cap take one 536.8 Gerardo A s (1) Joseph - chepe(dalia Good 05/18 ) mouth one (1) to two (2) daily as directed Copper 03/16 Hx inserted Enedelia IUD--[id number] pp Cristina Ceja 01/31 Protonix 03/[address] 40mg 90tab 1 po qd 536.8 Gerardo A. s Cristina Ruiz M.D. 05/12 Augmentin 08/24 Hx Tablets 500-125mg 20tab one tab 461.0 Ángel . s po bid Florentino Senior - for ten Amoxicillin 05/06 Hx Tablets 875mg 20tab 1 po bid 460 Gerardo AMichael Cristina Barcenas M.D. 05/16 Cipro 08/21 Hx Tablets 500mg 20tab 1 po bid 789.04 Ángel AMichael s for 10 Florentino Senior - days 05/06 Flagyl 08/21 Hx Tablets 500mg 21tab 1 tab po 789.04 Ángel AMichael s tid x 7 Florentino Senior - days 05/06 Medrol Dosepack 05/31 Hx Tablets 4mg 1tabs as Gerardo A. Cristina Castro M.D. 06/12 Limbrel 05/28 Hx Capsules 500mg 60cap 1 po bid Gerardo A. Cristina Barcenas M.D. 05/29 Levaquin 10/15 Hx Tablets 500mg 14tab 1 po qd 009.2 Gerardo A. Cristina Barcenas M.D. 11/05 [id number] Lexapro 07/29 Hx Tablets 20mg 30tab 1 po qd s [facility] 10/15 Of Ambien 01/29 Hx Tablets 10mg 1 PO QHS prn Sleep Doctor - 08/21 Physical Therapy 11/22 Hx treatment Gerardo Alexander. and Cristina Ruiz M.D. 01/29 n shoulder pain Physical Therapy 10/28 Hx treatment 840.4 Gerardo Arredondo and Cristina Ruiz M.D. 11/09 n shoulder pain, possible rotator cuff strain Augmentin 06/18 Hx Tablets 875mg 20tab 1 po bid 461.9 Gerardo Alexander. s with food Cristina Ruiz M.D. 06/28 Nexium 02/10 Hx Capsules 40mg 30cap 1 po qd 536.8 Gerardo A. Cristina Barcenas M.D. 03/03 Ultracet 12/08 Hx Tablets 325mg;37. 30tab 1PO Q4H Rene Villavicencio 5 mg s westleyn Cristina Ladd M.D. 06/18 Klonopin 11/05 Hx Tablets 0.5mg 1 po qd prn [facility] 01/29 Of Augmentin 11/05 Hx Tablets 875mg;125 20tab 1 PO bid Kary 2006 mg s X 10 Days Nena, Cristina Afnp-C 11/15 Prozac 07/30 Hx Capsules 20mg 30cap 1 PO qd s [facility] 06/18 Of Augmentin 07/30 Hx Tablets 875mg;125 28tab 1 po bid Kimberly mg s with food Beba, - x 14D [employer]PER[employer]OR 11/05 Concerta 12/15 Hx Tablets 36mg 0tabs 3 po qd [facility] 03/16 Of [place] 12/15 Hx Capsules 300mg 3 po qd [facility] 03/16 Of Geodon 12/15 Hx Capsules 80mg 2 PO Q hs [facility] 01/29 Of Ibuprofen 12/15 Hx Tablets 600mg 0tabs 1 PO Q6 Hours prn [facility] 11/05 Of Nicoderm CQ 12/15 Hx Patches 21mg/Day 14uni 1 qd for Gerardo ts 2 WKS Cristina Ruiz M.D. 12/27 Nicoderm CQ 12/15 Hx Patches 14mg/Day 14uni Daily Gerardo A. ts After Joseph, - Completin M.DMichael 01/12 g The MG Patch Nicorette 12/15 Hx 30uni chew 1 Gerardo A ts piece of Joseph, - gum q8h M.DMichael 07/30 prn Keflex 08/26 Hx 500mg 20uni 1 po bid Alfonso T. ts Cristina Hill M.D. 12/15 Westcort 08/26 Hx Cream 30gm apply bid Alfonso T. To Sergio - Aldo Good 06/18 Concerta 05/26 Hx 36mg 2 PO qd Gerardo A Cristina Ruiz M.D. 12/15 Wellbutrin XL 05/26 Hx 300mg 30uni 1 po qd Gerardo A Cristina Crawford M.D. 03/16 Augmentin 04/07 Hx 875mg 20uni 1 po bid ts [facility] 04/10 Of Tylenol #3 04/07 Hx 60uni 1 po q4h ts prn [facility] 05/26 Concerta 02/26 Hx 54mg 30uni 1 qam Gerardo A. Cristina Crawford M.D. 05/26 Strattera 02/03 Hx 60mg 30uni 1 po qd Gerardo A Cristina Crawford M.D. 02/26 Depoprovera 07/24 Hx 150mg/ml 0unit 150 MG Im s Q 3 [facility] 12/15 Of Soma 07/24 Hx Tablets 350mg 30tab 1 po tid Enedelia s prn Brenna, - Afnp-C 08/21 Hydrocodone 07/24 Hx 7.5mg/200 20uni one po Kary Bitartrate /2003 mg ts qid for Nena, Ibuprofen - intractab Afnp-C 02/03 le pain Physical Therapy 07/24 Hx treatment Kary and Nena, - evaluatio Afnp-C 07/26 n of right trapezius pain w/ radiculop athy Out Of Work 07/24 Hx will be out of Nena, - work Afnp-C 07/26 until shoulder pain has resolved. Lamictal / Hx Tablets 200mg 1 po qd Unknown /0000 - 11/30 Prozac / Hx Capsules 40mg 1 po qd Unknown /0000 - 03/16 Lorazepam / Hx Tablets 1mg 60tab 1 po qhs Unknown /0000 s prn - 03/16 Wellbutrin XL Hx Tablets ER 150mg 20tab 1 po qd Unknown /0000 24HR s - 03/16 Trazodone HCL 00/ Hx Tablets 100mg 30tab 1 qhs for Unknown /0000 s sleep - 03/16 Abilify 00/00 Hx Tablets 5mg 30tab 1 po qd Unknown /0000 s - 03/16 Abilify 00/00 Hx Tablets 5mg 1 po qd Unknown /0000 - 11/02 Concerta / Hx Tablets ER 36mg 2 po qd Unknown /0000 - 11/02 [place] 00/ Hx Capsules 300mg 3 po qd Unknown Carbonate /0000 - 01/26 Nexium / Hx Packet 40mg 90uni 1 po qd Gerardo A. /0000 Cristina Crawford M.D. 11/02 Trazodone HCL 00/ Hx Tablets 100mg 90tab 1 po qhs Unknown /0000 s prn - 01/16 Gabapentin 00/00 Hx Capsules 300mg 1 by Unknown /0000 mouth at - bedtime. 12/12 Karla Latuda 00/ Hx Tablets 40mg Unknown /0000 - 11/17 Metoprolol Hx Tablets ER 50mg 1 by Unknown Succinate ER /0000 24HR mouth - every day 11/24 Gemfibrozil Hx Tablets 600mg take one tablet by - mouth two 08/08 times day Nicotine Hx Patches 21mg/24HR apply new 24HR patch - daily 02/06 Brilinta Hx Tablets 90mg 1 by mouth - twice a Ibuprofen Hx Tablets 600mg tid - 06/13 Immunizations CPT Code Status Date Vaccine Lot # [id number] Given 08/29/2014 Tdap Tetanus, W Pertussis [id number] Vital Signs Date Vital Result Comment 07/12/2018 11:12am BP Systolic 128 mmHg BP Diastolic 70 mmHg Heart Rate 68 /min Body Temperature 98.4 F Respiratory Rate 16 /min Weight 222.00 lb 06/13/2018 11:32am BP Systolic 136 mmHg BP Diastolic 80 mmHg Heart Rate 78 /min Body Temperature 97.7 F Respiratory Rate 16 /min Height 63.5 inches 5'3.50" Weight 212.00 lb BMI (Body Mass Index) 37.0 kg/m2 05/05/2018 4:15pm BP Systolic 142 mmHg BP Diastolic 96 mmHg Heart Rate 72 /min Body Temperature 98.1 F Respiratory Rate 17 /min Height 63.5 inches 5'3.50" Weight 221.25 lb BMI (Body Mass Index) 38.6 kg/m2 Right Visual Acuity Distance 20/50 Left Visual Acuity Distance 20/25 02/09/2018 3:05pm BP Systolic 128 mmHg BP Diastolic 80 mmHg Heart Rate 78 /min Body Temperature 98.4 F Respiratory Rate 18 /min Height 63.5 inches 5'3.50" Weight 225.38 lb BMI (Body Mass Index) 39.3 kg/m2 10/05/2017 2:33pm BP Systolic 126 mmHg BP Diastolic 82 mmHg Heart Rate 64 /min Body Temperature 97.9 F Respiratory Rate 16 /min Height 63.5 inches 5'3.50" Weight 226.00 lb BMI (Body Mass Index) 39.4 kg/m2 09/02/2017 11:03am BP Systolic 128 mmHg BP Diastolic 76 mmHg Heart Rate 72 /min Body Temperature 98.1 F Respiratory Rate 16 /min Height 63.5 inches 5'3.50" Weight 225.50 lb BMI (Body Mass Index) 39.3 kg/m2 08/08/2017 5:34pm BP Systolic 120 mmHg BP Diastolic 78 mmHg Heart Rate 80 /min Body Temperature 98.7 F Respiratory Rate 18 /min Height 63.5 inches 5'3.50" Weight 227.00 lb BMI (Body Mass Index) 39.6 kg/m2 11/24/2016 3:41pm BP Systolic 110 mmHg BP Diastolic 70 mmHg Heart Rate 56 /min Body Temperature 98.9 F Respiratory Rate 18 /min O2 % BldC Oximetry 98 % Height 63.5 inches 5'3.50" Weight 237.38 lb BMI (Body Mass Index) 41.4 kg/m2 11/17/2016 3:58pm BP Systolic 130 mmHg BP Diastolic 82 mmHg Heart Rate 85 /min Body Temperature 97.7 F Respiratory Rate 18 /min O2 % BldC Oximetry 95 % Height 63.5 inches 5'3.50" Weight 237.38 lb BMI (Body Mass Index) 41.4 kg/m2 04/06/2016 1:00pm BP Systolic 120 mmHg BP Diastolic 84 mmHg Heart Rate 60 /min Body Temperature 98.1 F Respiratory Rate 14 /min Height 63.5 inches 5'3.50" Weight 246.12 lb BMI (Body Mass Index) 42.9 kg/m2 03/16/2016 12:59pm BP Systolic 130 mmHg BP Diastolic 80 mmHg Heart Rate 64 /min Body Temperature 98.0 F Respiratory Rate 18 /min Weight 239.00 lb 07/17/2015 3:28pm BP Systolic 150 mmHg BP Diastolic 90 mmHg Heart Rate 84 /min Body Temperature 98.4 F Respiratory Rate 16 /min Height 63.5 inches 5'3.50" Weight 247.00 lb BMI (Body Mass Index) 43.1 kg/m2 05/15/2015 2:50pm BP Systolic 140 mmHg BP Diastolic 80 mmHg Heart Rate 84 /min Body Temperature 98.4 F Respiratory Rate 16 /min Height 63.5 inches 5'3.50" Weight 245.00 lb BMI (Body Mass Index) 42.7 kg/m2 04/15/2015 3:54pm BP Systolic 158 mmHg BP Diastolic 100 mmHg Heart Rate 84 /min Body Temperature 98.1 F Respiratory Rate 18 /min Height 63.5 inches 5'3.50" Weight 238.00 lb BMI (Body Mass Index) 41.5 kg/m2 04/01/2015 11:30am BP Systolic 140 mmHg BP Diastolic 80 mmHg Heart Rate 72 /min Body Temperature 98.0 F Respiratory Rate 16 /min Height 63.5 inches 5'3.50" Weight 239.00 lb BMI (Body Mass Index) 41.7 kg/m2 03/04/2015 2:36pm BP Systolic 140 mmHg BP Diastolic 94 mmHg Heart Rate 80 /min Body Temperature 98.5 F Respiratory Rate 16 /min Height 63.5 inches 5'3.50" Weight 239.00 lb BMI (Body Mass Index) 41.7 kg/m2 02/15/2015 9:09am BP Systolic 178 mmHg BP Diastolic 104 mmHg Heart Rate 84 /min Body Temperature 98.8 F Respiratory Rate 16 /min Height 63.5 inches 5'3.50" Weight 241.50 lb BMI (Body Mass Index) 42.1 kg/m2 01/09/2015 1:12pm BP Systolic 140 mmHg BP Diastolic 80 mmHg Heart Rate 84 /min Body Temperature 98.7 F Respiratory Rate 16 /min Height 63.5 inches 5'3.50" Weight 235.00 lb BMI (Body Mass Index) 41.0 kg/m2 12/12/2014 2:34pm BP Systolic 142 mmHg BP Diastolic 98 mmHg Heart Rate 84 /min Body Temperature 97.8 F Respiratory Rate 16 /min Height 63.5 inches 5'3.50" Weight 224.50 lb BMI (Body Mass Index) 39.1 kg/m2 10/31/2014 12:57pm BP Systolic 130 mmHg BP Diastolic 80 mmHg Heart Rate 80 /min Body Temperature 99.1 F Respiratory Rate 16 /min Height 63.5 inches 5'3.50" Weight 227.00 lb BMI (Body Mass Index) 39.6 kg/m2 08/29/2014 3:27pm BP Systolic 130 mmHg BP Diastolic 80 mmHg Heart Rate 76 /min Body Temperature 98.4 F Respiratory Rate 20 /min Height 63.5 inches 5'3.50" Weight 223.00 lb BMI (Body Mass Index) 38.9 kg/m2 06/07/2014 2:36pm BP Systolic 142 mmHg BP Diastolic 82 mmHg Heart Rate 76 /min Body Temperature 98.7 F Respiratory Rate 16 /min Height 65 inches 5'5" Weight 226.00 lb BMI (Body Mass Index) 37.6 kg/m2 01/16/2014 1:46pm BP Systolic 140 mmHg BP Diastolic 90 mmHg Heart Rate 72 /min Body Temperature 99.0 F Respiratory Rate 16 /min Height 65 inches 5'5" Weight 219.00 lb BMI (Body Mass Index) 36.4 kg/m2 01/31/2013 2:22pm BP Systolic 150 mmHg BP Diastolic 86 mmHg Heart Rate 72 /min Body Temperature 99.4 F Respiratory Rate 16 /min Height 65 inches 5'5" Weight 233.12 lb BMI (Body Mass Index) 38.8 kg/m2 11/02/2012 6:43pm BP Systolic 130 mmHg BP Diastolic 90 mmHg Heart Rate 80 /min Body Temperature 98.9 F Respiratory Rate 16 /min Height 65 inches 5'5" Weight 241.00 lb BMI (Body Mass Index) 40.1 kg/m2 01/27/2012 11:14am BP Systolic 136 mmHg BP Diastolic 98 mmHg Heart Rate 78 /min Body Temperature 98.7 F Height 65 inches 5'5" Weight 241.00 lb BMI (Body Mass Index) 40.1 kg/m2 08/23/2011 2:59pm BP Systolic 102 mmHg BP Diastolic 70 mmHg Heart Rate 78 /min Body Temperature 99.3 F Height 65 inches 5'5" Weight 243.00 lb BMI (Body Mass Index) 40.4 kg/m2 03/16/2011 11:20am BP Systolic 120 mmHg BP Diastolic 80 mmHg Heart Rate 72 /min Body Temperature 99.0 F Height 65 inches 5'5" Weight 246.00 lb BMI (Body Mass Index) 40.9 kg/m2 11/30/2010 3:32pm BP Systolic 120 mmHg BP Diastolic 80 mmHg Heart Rate 80 /min Body Temperature 98.3 F Respiratory Rate 16 /min Height 65 inches 5'5" Weight 242.00 lb BMI (Body Mass Index) 40.3 kg/m2 08/24/2010 3:30pm BP Systolic 120 mmHg BP Diastolic 80 mmHg Heart Rate 72 /min Body Temperature 98.5 F O2 % BldC Oximetry 97 % Height 65 inches 5'5" Weight 238.00 lb BMI (Body Mass Index) 39.6 kg/m2 05/06/2010 8:10am BP Systolic 140 mmHg BP Diastolic 80 mmHg Heart Rate 72 /min Body Temperature 98.8 F Respiratory Rate 20 /min O2 % BldC Oximetry 96 % Height 65 inches 5'5" Weight 250.00 lb BMI (Body Mass Index) 41.6 kg/m2 08/21/2009 11:45am BP Systolic 142 mmHg BP Diastolic 84 mmHg Heart Rate 84 /min Body Temperature 98.8 F Height 65 inches 5'5" Weight 252.00 lb BMI (Body Mass Index) 41.9 kg/m2 06/10/2009 1:11pm BP Systolic 130 mmHg BP Diastolic 80 mmHg Heart Rate 88 /min Weight 246.00 lb 05/28/2009 4:33pm BP Systolic 160 mmHg BP Diastolic 90 mmHg Heart Rate 72 /min Body Temperature 98.7 F Respiratory Rate 16 /min Weight 249.00 lb 10/15/2008 8:31am BP Systolic 158 mmHg BP Diastolic 90 mmHg Heart Rate 76 /min Body Temperature 98.2 F Respiratory Rate 16 /min Weight 239.00 lb 07/29/2008 8:43am BP Systolic 132 mmHg BP Diastolic 88 mmHg Heart Rate 76 /min Body Temperature 98.2 F Respiratory Rate 16 /min Weight 234.00 lb 01/30/2008 1:10pm BP Systolic 122 mmHg BP Diastolic 80 mmHg Heart Rate 84 /min Body Temperature 99.7 F Respiratory Rate 12 /min Weight 228.00 lb 10/28/2006 1:22pm BP Systolic 128 mmHg BP Diastolic 76 mmHg Heart Rate 66 /min Body Temperature 99.4 F Weight 220.00 lb 09/07/2006 1:12pm BP Systolic 110 mmHg BP Diastolic 60 mmHg Heart Rate 66 /min Body Temperature 99.0 F Respiratory Rate 15 /min 06/18/2006 10:12am BP Systolic 122 mmHg BP Diastolic 80 mmHg Heart Rate 76 /min Weight 228.00 lb 02/10/2006 12:53pm BP Systolic 122 mmHg BP Diastolic 80 mmHg Body Temperature 99.3 F Respiratory Rate 16 /min Weight 226.00 lb 12/08/2005 5:09pm BP Systolic 140 mmHg BP Diastolic 80 mmHg Heart Rate 80 /min Weight 215.00 lb 11/05/2005 3:10pm BP Systolic 113 mmHg BP Diastolic 76 mmHg Heart Rate 88 /min Body Temperature 99.0 F 07/30/2005 3:34pm BP Systolic 116 mmHg BP Diastolic 80 mmHg Heart Rate 72 /min Body Temperature 99.4 F Weight 217.00 lb 02/02/2005 3:21pm BP Systolic 130 mmHg BP Diastolic 80 mmHg Heart Rate 72 /min Weight 212.00 lb 12/15/2004 10:00am BP Systolic 130 mmHg LG Cuff BP Diastolic 80 mmHg LG Cuff Heart Rate 84 /min Body Temperature 99.1 F Weight 220.00 lb 08/26/2004 3:28pm BP Systolic 100 mmHg BP Diastolic 68 mmHg Heart Rate 72 /min Body Temperature 99.7 F Weight 225.00 lb 07/02/2004 11:14am BP Systolic 124 mmHg BP Diastolic 70 mmHg Heart Rate 72 /min Weight 223.00 lb 05/26/2004 11:09am BP Systolic 138 mmHg BP Diastolic 88 mmHg Heart Rate 84 /min Weight 219.00 lb 04/07/2004 11:19am BP Systolic 136 mmHg BP Diastolic 90 mmHg Heart Rate 84 /min Weight 218.00 lb 03/05/2004 4:08pm BP Systolic 140 mmHg BP Diastolic 84 mmHg BP Diastolic Recheck 10 mmHg Heart Rate 94 /min Weight 218.00 lb 02/04/2004 10:59am BP Systolic 120 mmHg BP Diastolic 70 mmHg Heart Rate 82 /min Body Temperature 98.1 F Weight 218.00 lb 08/01/2003 3:06pm BP Systolic 118 mmHg BP Diastolic 80 mmHg Weight 210.00 lb 07/25/2003 9:03am BP Systolic 124 mmHg BP Diastolic 76 mmHg Heart Rate 66 /min Weight 210.00 lb Results Test Date Facility Test Result H/L Range Note Laboratory test 07/01/2018 [facility] B-Type Natriuretic 26 pg/mL <=100 finding Peptide BNP Troponin I 0.01 ng/mL <0.04 1 CBC Auto Diff 07/01/2018 [facility] White Blood Count 13.9 10^3/uL High 3.5- 10.8 Red Blood Count 4.92 10^6/uL N 4.00-5.40 Hemoglobin 15.4 g/dL N 12.0-16.0 Hematocrit 46 % N 35-47 Mean Corpuscular Volume 93 fL N 80-97 Mean Corpuscular Hemoglobin 31 pg N 27-31 Mean Corpuscular HGB Conc 34 g/dL N 31-36 Red Cell Distribution Width 13 % N 10.5-15 Platelet Count 223 10^3/uL N 150-450 Mean Platelet Volume 9.3 fL N 7.4-10.4 Abs Neutrophils 11.9 10^3/uL High 1.5-7.7 Abs Lymphocytes 1.4 10^3/uL N 1.0-4.8 Abs Monocytes 0.6 10^3/uL N 0-0.8 Abs Eosinophils 0 10^3/uL N 0-0.6 Abs Basophils 0.1 10^3/uL N 0-0.2 Abs Nucleated RBC 0 10^3/uL Granulocyte % 85.2 % Lymphocyte % 9.8 % Monocyte % 4.3 % Eosinophil % 0.2 % Basophil % 0.5 % Nucleated Red Blood Cells % 0 Laboratory test finding 07/01/2018 [facility] Lactic Acid 1.6 mmol/L N 0.5-2.0 2 Inr/Protime 07/01/2018 [facility] Inr 0.82 N 0.77-1.02 Laboratory test finding 07/01/2018 [facility] Partial Thrombo Time 32.0 seconds N 26.0-36.3 PTT D Dimer Quantitative < 200 ng/mL N Less Than 230 3 Comp Metabolic Panel 07/01/2018 [facility] Sodium 140 mmol/L N 135-145 Potassium 3.6 mmol/L N 3.5-5.0 Chloride 107 mmol/L N 101-111 Co2 Carbon Dioxide 20 mmol/L Low 22-32 Anion Gap 13 mmol/L High 2-11 Glucose 84 mg/dL N 70-100 Blood Urea Nitrogen 13 mg/dL N 6-24 Creatinine 0.62 mg/dL N 0.51-0.95 BUN/Creatinine Ratio 21.0 High 8-20 Calcium 9.7 mg/dL N 8.6-10.3 Total Protein 6.8 g/dL N 6.4-8.9 Albumin 4.3 g/dL N 3.2-5.2 Globulin 2.5 g/dL N 2-4 Albumin/Globulin Ratio 1.7 N 1-3 Total Bilirubin 1.40 mg/dL High 0.2-1.0 Alkaline Phosphatase 73 U/L N 34-104 Alt 13 U/L N 7-52 Ast 15 U/L N 13-39 Egfr Non- 102.7 >60 Egfr 124.3 >60 4 Laboratory test finding 07/01/2018 [facility] Magnesium 1.9 mg/dL N 1.9-2.7 Creatine Kinase(CK) 48 U/L N 10-223 Troponin I 0.01 ng/mL <0.04 5 CKMB 07/01/2018 [facility] CKMB ng/mL 1.6 ng/mL N 0.6-6.3 Laboratory test finding 07/01/2018 [facility] Thyroxine 6.76 g/dL N 6.09- 12.23 TSH (Thyroid Stim Horm) 0.82 mcIU/mL N 0.34-5.60 Laboratory test 06/19/2018 [facility] Clotest SEE RESULT BELOW 6 finding CBC Electronic ([facility] 05/05/2018 [facility] WBC 8.04 4.0-10.0 New) (607)- - RBC 4.89 3.93-6.0 Hemoglobin ([facility]/CTX) 15.6 g/dL 12.0-17.0 Hematocrit ([facility]/CTX) 45.8 % 35.0-50.0 Mean Corpuscular Vol 93.7 fL 80-95 Mean Corpuscular Hemoglobin 31.9 pg 25.6-32.2 Mean Corpuscular Hemo Concen 34.1 g/dL 32.2-36.0 Platelets 234 10^3/ul 163-400 RDW-CV 12.0 11.6-14.4 Mean Platelet Volume 10.5 fL 8.0-12.4 Absolute Neutrophils BLD 4.84 1.56-6.13 Absolute Lymphocytes 2.33 1.18-3.74 Absolute Monocytes BLD Auto 0.67 0.24-0.82 Absolute Eos Blood 0.14 0.04-0.54 Absolute Basophils 0.03 0.01-0.08 Neutrophil % 60.2 % 34.0-70.0 Lymph% 29.0 % 20.0-52.0 Monocytes % 8.3 % 5.0-12.0 Eos % 1.7 % 0.7-7.0 Basophil% 0.4 % 0-1.2 Laboratory test 05/05/2018 Nath Bassam (a) LDL, Direct 90 mg/dL 0- 130 finding Lipid Profile 05/05/2018 Nath Bassam ([facility]) Cholesterol 151 mg/dL 120- 200 Triglycerides 314 mg/dL High 30-200 HDL Cholesterol 62 mg/dL 30-85 LDL (Calculated) 26 CALC 0-129 VLDL Cholesterol 63 mg/dL High 0-50 HDL Risk Factor 2.4 CALC 0.0-4.4 Laboratory test finding 05/05/2018 Nath Bassam ([facility]) TSH 1.92 mIU/L 0.50-6.00 Comprehensive Metabolic 05/05/2018 Nath Bassam ([facility]) Sodium 143 mEq/L 134-149 Prof Potassium 4.3 mEq/L 3.6-5.5 Chloride 110 mEq/L 94-112 Carbon Dioxide 26 mEq/L 21-32 Glucose 115 mg/dL High 70-105 BUN 14 mg/dL 6-26 Creatinine 0.8 mg/dL 0.6-1.4 BUN/Creat Ratio 17.5 CALC 8.0-36.0 Calcium 9.5 mg/dL 8.6-10.2 Total Protein 7.3 g/dL 6.4-8.3 Albumin 4.9 g/dL 3.8-5.5 Globulin 2.4 g/dL 2.0-4.8 A/G Ratio 2.0 CALC 0.6-2.3 Alk. Phosphatase 68 U/L 30-110 Alt (SGPT) 19 U/L 7-35 Ast (Sgot) 17 U/L 5-34 Total Bilirubin 1.2 mg/dL 0.2-1.3 GFR Non- >60 ml/min/1.73m^ >=60 GFR >60 ml/min/1.73m^ >=60 Laboratory test 05/05/2018 [facility] Cytology Thinprep SEE RESULT 7 finding w/rfx([facility] BELOW Lipid Profile 10/05/2017 Portillo Bassam ([facility]) Cholesterol 150 mg/dL 120- 200 Triglycerides 200 mg/dL 30-200 HDL Cholesterol 58 mg/dL 30-85 LDL (Calculated) 52 CALC 0-129 VLDL Cholesterol 40 mg/dL 0-50 HDL Risk Factor 2.6 CALC 0.0-4.4 Comprehensive Metabolic 10/05/2017 Portillo Bassam ([facility]) Sodium 142 mEq/L 134-149 Prof Potassium 3.9 mEq/L 3.6-5.5 Chloride 110 mEq/L 94-112 Carbon Dioxide 23 mEq/L 21-32 Glucose 101 mg/dL 70-105 BUN 10 mg/dL 6-26 Creatinine 0.8 mg/dL 0.6-1.4 BUN/Creat Ratio 12.5 CALC 8.0-36.0 Calcium 9.5 mg/dL 8.6-10.2 Total Protein 6.6 g/dL 6.4-8.3 Albumin 4.4 g/dL 3.8-5.5 Globulin 2.2 g/dL 2.0-4.8 A/G Ratio 2.0 CALC 0.6-2.3 Alk. Phosphatase 67 U/L 30-110 Alt (SGPT) 13 U/L 7-35 Ast (Sgot) 12 U/L 5-34 Total Bilirubin 1.3 mg/dL 0.2-1.3 GFR Non- >60 ml/min/1.73m^ >=60 GFR >60 ml/min/1.73m^ >=60 CBC Electronic [facility] 10/05/2017 Nath Bassam ([facility]) WBC 8.6 x10^3/UL 4.0- 10.0 RBC 4.54 x10^6/UL 3.93-6.00 HGB 14.3 g/dL 12.0-17.0 HCT 43 % 35-50 MCV 93.8 fL 80.0-95.0 MCH 31.5 pg 25.6-32.2 MCHC 33.6 g/dL 32.2-36.0 RDW-CV 13.0 % 11.6-14.4 PLT 211 x10^3/UL 163-400 MPV 11.1 fL 9.4-12.4 Cezar# 5.83 x10^3/UL 1.56-6.13 Lymph# 1.87 x10^3/UL 1.18-3.74 Mccone# 0.59 x10^3/UL 0.24-0.82 Eos # 0.2 x10^3/UL 0.0-0.5 Baso # 0.04 x10^3/UL 0.01-0.08 Cezar% 68.1 % 34.0-70.0 Lymph % 21.8 % 20.0-52.0 Mccone% 6.9 % 5.0-12.0 Eos% 1.9 % 0.7-7.0 Baso% 0.5 % 0.1-1.2 Rapid Influenza A & B 05/30/2017 [facility] Influenza A Molecular NEGATIVE Negative 8 Molecular Influenza B Molecular NEGATIVE Negative Laboratory test 05/30/2017 [facility] Rapid Influenza A & SEE RESULT 9 finding B Antigen BELOW Ua - Micro (a) 11/24/2016 [facility] Appearance CLEAR (607)- - Color YELLOW Glucose, Urine ([facility]/CTX) NEG Bilirubin NEG Ketones NEG SP Grav 1.020 Blood NEG PH 6.5 Protein NEG Urobil 0.2 Nitrite NEG Leukocytes ([facility]) NEG Hyaline - /Lpf Granular - /Lpf WBC ([facility]) - RBC - Mucus - /Lpf Epith RARE /Lpf # Bacteria - /Hpf Amorphous - /Lpf Crystals, Fluid ([facility]/CTX) - Laboratory test 11/17/2016 [facility] D Dimer Quantitative < 200 ng/mL N Less Than 230 10 finding Urinalysis Profile 11/17/2016 [facility] Urine Color Yellow N Urine Appearance Clear N Urine Specific [place] 1.027 N 1.010-1.030 Urine pH 5.0 N 5-9 Urine Urobilinogen Negative N Negative Urine Ketones Trace Abnormal Negative Urine Protein Negative N Negative Urine Leukocytes Negative N Negative Urine Blood 1+ Abnormal Negative Urine Nitrite Negative N Negative Urine Bilirubin Negative N Negative Urine Glucose Negative N Negative Urine White Blood Cell Absent N Absent Urine Red Blood Cell 1+(3-5/hpf) Abnormal Absent Urine Bacteria Absent N Absent Urine Squamous Epithelial Cell Present Abnormal Absent Laboratory test finding 11/17/2016 [facility] Troponin I 0.06 ng/mL High <0.04 11 TSH (Thyroid Stim Horm) 1.01 mcIU/mL N 0.34-5.60 CKMB 11/17/2016 [facility] CKMB ng/mL 3.8 ng/mL N 0.6-6.3 Laboratory test finding 11/17/2016 [facility] Magnesium 2.2 mg/dL N 1.9-2.7 Creatine Kinase(CK) 82 U/L N 10-223 Comp Metabolic Panel 11/17/2016 [facility] Sodium 138 mmol/L N 133-145 Potassium 3.7 mmol/L N 3.5-5.0 Chloride 108 mmol/L N 101-111 Co2 Carbon Dioxide 20 mmol/L Low 22-32 Anion Gap 10 mmol/L N 2-11 Glucose 90 mg/dL N 70-100 Blood Urea Nitrogen 9 mg/dL N 6-24 Creatinine 0.71 mg/dL N 0.51-0.95 BUN/Creatinine Ratio 12.7 N 8-20 Calcium 9.5 mg/dL N 8.6-10.3 Total Protein 6.9 g/dL N 6.4-8.9 Albumin 4.1 g/dL N 3.2-5.2 Globulin 2.8 g/dL N 2-4 Albumin/Globulin Ratio 1.5 N 1-3 Total Bilirubin 0.70 mg/dL N 0.2-1.0 Alkaline Phosphatase 71 U/L N 34-104 Alt 19 U/L N 7-52 Ast 19 U/L N 13-39 Egfr Non- 88.2 N >60 Egfr 113.5 N >60 12 Laboratory test finding 11/17/2016 [facility] Partial Thrombo Time 29.7 seconds N 26.0-36.3 PTT Lactic Acid 1.5 mmol/L N 0.5-2.0 13 B-Type Natriuretic Peptide BNP 194 pg/mL High 14 CBC Auto Diff 11/17/2016 [facility] White Blood Count 10.1 10^3/uL N 3.5-10.8 Red Blood Count 5.11 10^6/uL N 4.0-5.4 Hemoglobin 16.2 g/dL High 12.0-16.0 Hematocrit 49 % High 35-47 Mean Corpuscular Volume 95 fL N 80-97 Mean Corpuscular Hemoglobin 32 pg High 27-31 Mean Corpuscular HGB Conc 33 g/dL N 31-36 Red Cell Distribution Width 13 % N 10.5-15 Platelet Count 189 10^3/uL N 150-450 Mean Platelet Volume 10 um3 N 7.4-10.4 Abs Neutrophils 6.7 10^3/uL N 1.5-7.7 Abs Lymphocytes 2.5 10^3/uL N 1.0-4.8 Abs Monocytes 0.7 10^3/uL N 0-0.8 Abs Eosinophils 0.1 10^3/uL N 0-0.6 Abs Basophils 0 10^3/uL N 0-0.2 Abs Nucleated RBC 0.01 10^3/uL N Granulocyte % 66.6 % N 38-83 Lymphocyte % 25.0 % N 25-47 Monocyte % 6.7 % N 1-9 Eosinophil % 1.2 % N 0-6 Basophil % 0.5 % N 0-2 Nucleated Red Blood Cells % 0.1 N Lipid Profile 04/06/2016 Portillo Thomas ([facility]) Cholesterol 216 mg/dL High 120-200 Triglycerides 281 mg/dL High 30-200 HDL Cholesterol 49 mg/dL 30-85 LDL (Calculated) 111 CALC 0-129 VLDL Cholesterol 56 mg/dL High 0-50 HDL Risk Factor 4.4 CALC 0.0-4.4 Comprehensive Metabolic 04/06/2016 Nath Bassam ([facility]) Sodium 137 mEq/L 134-149 Prof Potassium 4.4 mEq/L 3.6-5.5 Chloride 99 mEq/L 94-112 Carbon Dioxide 26 mEq/L 21-32 Glucose 105 mg/dL 70-105 BUN 12 mg/dL 6-26 Creatinine 0.7 mg/dL 0.6-1.4 BUN/Creat Ratio 17.1 CALC 8.0-36.0 Calcium 9.2 mg/dL 8.6-10.2 Total Protein 6.7 g/dL 6.4-8.3 Albumin 4.3 g/dL 3.8-5.5 Globulin 2.4 g/dL 2.0-4.8 A/G Ratio 1.8 CALC 0.6-2.3 Alk. Phosphatase 72 U/L 30-110 Alt (SGPT) 24 U/L 7-35 Ast (Sgot) 20 U/L 5-34 Total Bilirubin 0.6 mg/dL 0.2-1.3 GFR Non- >60 ml/min/1.73m^ >=60 GFR >60 ml/min/1.73m^ >=60 Laboratory test 04/06/2016 Nath Bassam (a) LDL, Direct 121 mg/dL 0- 130 finding Hepatic 07/17/2015 Nath Bassam ([facility]) Total Protein 7.2 g/dL 6.4-8.3 Albumin 4.4 g/dL 3.8-5.5 Globulin 2.8 g/dL 2.0-4.8 A/G Ratio 1.6 CALC 0.6-2.3 Alk. Phosphatase 63 U/L 30-110 Alt (SGPT) 16 U/L 7-35 Ast (Sgot) 27 U/L 5-34 Total Bilirubin 0.5 mg/dL 0.2-1.3 Direct Bilirubn 0.2 mg/dL 0.0-0.6 Indirect Bilirubin 0.30 mg/dL 0.10-1.00 Laboratory test finding 04/12/2015 [facility] Culture Throat SEE RESULT BELOW 15 Laboratory test finding 04/12/2015 [facility] Rapid Influenza A & B SEE RESULT BELOW 16 Antigen Rapid Strep A SEE RESULT BELOW 17 Rapid Influenza A & B 04/12/2015 [facility] Influenza A Molecular NEGATIVE N Negative 18 Molecular Influenza B Molecular NEGATIVE N Negative Laboratory test finding 04/12/2015 [facility] Rapid Strep Molecular Negative N Negative 19 Comp Metabolic Panel 04/12/2015 [facility] Sodium 137 mmol/L N 133-145 Potassium 3.9 mmol/L N 3.5-5.0 Chloride 107 mmol/L N 101-111 Co2 Carbon Dioxide 23 mmol/L N 22-32 Anion Gap 7 mmol/L N 2-11 Glucose 107 mg/dL High 70-100 Blood Urea Nitrogen 11 mg/dL N 6-24 Creatinine 0.83 mg/dL N 0.51-0.95 BUN/Creatinine Ratio 13.3 N 8-20 Calcium 9.1 mg/dL N 8.6-10.3 Total Protein 6.8 g/dL N 6.4-8.9 Albumin 4.3 g/dL N 3.2-5.2 Globulin 2.5 g/dL N 2-4 Albumin/Globulin Ratio 1.7 N 1-3 Total Bilirubin 0.70 mg/dL N 0.2-1.0 Alkaline Phosphatase 68 U/L N 34-104 Alt 19 U/L N 7-52 Ast 17 U/L N 13-39 Egfr Non- 74.3 N >60 Egfr 95.6 N >60 20 CBC Auto Diff 04/12/2015 [facility] White Blood Count 11.5 10^3/uL High 4.8- 10.8 Red Blood Count 5.04 10^6/uL N 4.0-5.4 Hemoglobin 15.2 g/dL N 12.0-16.0 Hematocrit 47 % N 35-47 Mean Corpuscular Volume 92 fL N 80-97 Mean Corpuscular Hemoglobin 30 pg N 27-31 Mean Corpuscular HGB Conc 33 g/dL N 31-36 Red Cell Distribution Width 13 % N 10.5-15 Platelet Count 206 10^3/uL N 150-450 Mean Platelet Volume 10 um3 N 7.4-10.4 Abs Neutrophils 7.6 10^3/uL N 1.5-7.7 Abs Lymphocytes 2.8 10^3/uL N 1.0-4.8 Abs Monocytes 0.7 10^3/uL N 0-0.8 Abs Eosinophils 0.1 10^3/uL N 0-0.6 Abs Basophils 0.2 10^3/uL N 0-0.2 Abs Nucleated RBC 0 10^3/uL N Granulocyte % 66.7 % N 38-83 Lymphocyte % 24.7 % Low 25-47 Monocyte % 6.1 % N 1-9 Eosinophil % 1.1 % N 0-6 Basophil % 1.4 % N 0-2 Nucleated Red Blood Cells % 0 N Laboratory test 02/13/2015 [facility] Erythrocyte Sed Rate 3 mm/Hr N 0-14 finding CBC Auto Diff 02/13/2015 [facility] White Blood Count 15.1 10^3/uL High 4.8- 10.8 Red Blood Count 5.10 10^6/uL N 4.0-5.4 Hemoglobin 15.5 g/dL N 12.0-16.0 Hematocrit 47 % N 35-47 Mean Corpuscular Volume 92 fL N 80-97 Mean Corpuscular Hemoglobin 30 pg N 27-31 Mean Corpuscular HGB Conc 33 g/dL N 31-36 Red Cell Distribution Width 13 % N 10.5-15 Platelet Count 245 10^3/uL N 150-450 Mean Platelet Volume 10 um3 N 7.4-10.4 Abs Neutrophils 11.7 10^3/uL High 1.5-7.7 Abs Lymphocytes 2.3 10^3/uL N 1.0-4.8 Abs Monocytes 0.8 10^3/uL N 0-0.8 Abs Eosinophils 0.1 10^3/uL N 0-0.6 Abs Basophils 0.2 10^3/uL N 0-0.2 Abs Nucleated RBC 0 10^3/uL N Granulocyte % 77.5 % N 38-83 Lymphocyte % 15.1 % Low 25-47 Monocyte % 5.6 % N 1-9 Eosinophil % 0.7 % N 0-6 Basophil % 1.1 % N 0-2 Nucleated Red Blood Cells % 0 N Laboratory test finding 02/13/2015 [facility] Lipase 23 U/L N 11.0-82.0 C Reactive Protein < 1.00 mg/L N < 5.00 21 Serum Negative N Negative Comp Metabolic Panel 02/13/2015 [facility] Sodium 134 mmol/L N 133-145 Potassium 4.0 mmol/L N 3.5-5.0 Chloride 102 mmol/L N 101-111 Co2 Carbon Dioxide 22 mmol/L N 22-32 Anion Gap 10 mmol/L N 2-11 Glucose 99 mg/dL N 70-100 Blood Urea Nitrogen 12 mg/dL N 6-24 Creatinine 0.77 mg/dL N 0.51-0.95 BUN/Creatinine Ratio 15.6 N 8-20 Calcium 9.3 mg/dL N 8.6-10.3 Total Protein 7.3 g/dL N 6.4-8.9 Albumin 4.5 g/dL N 3.2-5.2 Globulin 2.8 g/dL N 2-4 Albumin/Globulin Ratio 1.6 N 1-3 Total Bilirubin 0.80 mg/dL N 0.2-1.0 Alkaline Phosphatase 66 U/L N 34-104 Alt 23 U/L N 7-52 Ast 25 U/L N 13-39 Egfr Non- 81.1 N >60 Egfr 104.3 N >60 22 Urinalysis Profile 02/13/2015 [facility] Urine Color Yellow N Urine Appearance Clear N Urine Specific [place] 1.014 N 1.010-1.030 Urine pH 5.0 N 5-9 Urine Urobilinogen Negative N Negative Urine Ketones Negative N Negative Urine Protein Negative N Negative Urine Leukocytes Negative N Negative Urine Blood 1+ Abnormal Negative Urine Nitrite Negative N Negative Urine Bilirubin Negative N Negative Urine Glucose Negative N Negative Urine White Blood Cell Trace(0-5/hpf) N Absent Urine Red Blood Cell 2+(6-10/hpf) Abnormal Absent Urine Bacteria Absent N Absent Urine Squamous Epithelial Cell Present Abnormal Absent Lipid Profile 11/19/2014 Ntah Bassam ([facility]) Cholesterol 182 mg/dL 120- 200 Triglycerides 188 mg/dL 30-200 HDL Cholesterol 46 mg/dL 30-85 LDL (Calculated) 98 CALC 0-129 VLDL Cholesterol 38 mg/dL 0-50 HDL Risk Factor 4.0 CALC 0.0-4.4 Comprehensive Metabolic 11/19/2014 Nath Bassam ([facility]) Sodium 142 mEq/L 134-149 Prof Potassium 4.1 mEq/L 3.6-5.5 Chloride 106 mEq/L 94-112 Carbon Dioxide 27 mEq/L 21-32 Glucose 94 mg/dL 70-105 BUN 14 mg/dL 6-26 Creatinine 0.8 mg/dL 0.6-1.4 BUN/Creat Ratio 17.5 CALC 8.0-36.0 Calcium 9.1 mg/dL 8.6-10.2 Total Protein 6.3 g/dL Low 6.4-8.3 23 Albumin 4.1 g/dL 3.8-5.5 Globulin 2.2 g/dL 2.0-4.8 A/G Ratio 1.9 CALC 0.6-2.3 Alk. Phosphatase 61 U/L 30-110 Alt (SGPT) 17 U/L 7-35 Ast (Sgot) 14 U/L 5-34 Total Bilirubin 0.4 mg/dL 0.2-1.3 Laboratory test 11/06/2014 [facility] Surgical SEE RESULT 24 finding Pathology BELOW Laboratory test 09/25/2014 [facility] Surgical SEE RESULT 25 finding Interface Order BELOW Laboratory test 08/29/2014 [facility] C Reactive < 1.00 mg/L N < 26, 27 finding Protein 5.00 Lipid Profile 08/29/2014 Nath Bassam ([facility]) Cholesterol 259 mg/dL High 120-2 00 Triglycerides 339 mg/dL High 30-200 HDL Cholesterol 56 mg/dL 30-85 LDL (Calculated) 135 CALC High 0-129 28 VLDL Cholesterol 68 mg/dL High 0-50 HDL Risk Factor 4.6 CALC High 0.0-4.4 Laboratory test 08/29/2014 Nath Bassam ([facility]) LDL, Direct 163 mg/dL High 0-130 finding CBC Auto Diff 02/01/2014 [facility] White Blood 7.3 10^3/uL N 4.8-10.8 Count Red Blood Count 5.09 10^6/uL N 4.0-5.4 Hemoglobin 14.1 g/dL N 12.0-16.0 Hematocrit 42 % N 35-47 Mean Corpuscular Volume 83 fL N 80-97 Mean Corpuscular Hemoglobin 28 pg N 27-31 Mean Corpuscular HGB Conc 34 g/dL N 31-36 Red Cell Distribution Width 17 % High 10.5-15 Platelet Count 248 10^3/uL N 150-450 Mean Platelet Volume 9 um3 N 7.4-10.4 Abs Neutrophils 3.7 10^3/uL N 1.5-7.7 Abs Lymphocytes 2.7 10^3/uL N 1.0-4.8 Abs Monocytes 0.6 10^3/uL N 0-0.8 Abs Eosinophils 0.2 10^3/uL N 0-0.6 Abs Basophils 0.1 10^3/uL N 0-0.2 Abs Nucleated RBC 0 10^3/uL N Granulocyte % 50.9 % N 38-83 Lymphocyte % 37.3 % N 25-47 Monocyte % 7.8 % N 1-9 Eosinophil % 3.1 % N 0-6 Basophil % 0.9 % N 0-2 Nucleated Red Blood Cells % 0 N Laboratory test finding 02/01/2014 [facility] Serum Negative N Negative 29 Comp Metabolic Panel 02/01/2014 [facility] Sodium 139 mmol/L N 133-145 Potassium 4.2 mmol/L N 3.7-5.6 Chloride 107 mmol/L N 101-111 Co2 Carbon Dioxide 25 mmol/L N 22-32 Anion Gap 7 mmol/L N 2-11 Glucose 92 mg/dL N 70-100 Blood Urea Nitrogen 10 mg/dL N 6-24 Creatinine 0.88 mg/dL N 0.51-0.95 BUN/Creatinine Ratio 11.4 N 8-20 Calcium 9.1 mg/dL N 8.6-10.3 Total Protein 7.1 g/dL N 6.4-8.9 Albumin 4.3 g/dL N 3.2-5.2 Globulin 2.8 g/dL N 2-4 Albumin/Globulin Ratio 1.5 N 1-3 Total Bilirubin 0.30 mg/dL N 0.2-1.0 Alkaline Phosphatase 62 U/L N 34-104 Alt 13 U/L N 7-52 Ast 16 U/L N 13-39 Egfr Non- 69.8 N >60 Egfr 89.8 N >60 30 Laboratory test finding 02/01/2014 [facility] Acetaminophen < 15 g/mL N 31 Alcohol 127 mg/dL High <10 Salicylate < 2.50 mg/dL N <30 TSH (Thyroid Stimulating Horm) 1.43 IU/mL N 0.34-5.60 Urinalysis Profile 02/01/2014 [facility] Urine Color Straw N Urine Appearance Clear N Urine Specific [place] 1.008 Low 1.010-1.030 Urine pH 6.0 N 5-9 Urine Urobilinogen Negative N Negative Urine Ketones Negative N Negative Urine Protein Negative N Negative Urine Leukocytes Negative N Negative Urine Blood 1+ Abnormal Negative Urine Nitrite Negative N Negative Urine Bilirubin Negative N Negative Urine Glucose Negative N Negative Urine White Blood Cell Trace(0-5/hpf) N Absent Urine Red Blood Cell 1+(3-5/hpf) Abnormal Absent Urine Bacteria 1+ Abnormal Absent Urine Squamous Epithelial Cell Present Abnormal Absent Urine Drug SCR ED 02/01/2014 [facility] Amphetamine Ur Screen None Detected N None Detect & Pain Clinic Barbiturates Urine Screen None Detected N None Detect Benzodiazepine Urine Screen None Detected N None Detect Urine Cannabinoids Screen None Detected N None Detect Urine Cocaine Screen None Detected N None Detect Urine Opiates Screen Presumptive Posi <SEE NOTE> Abnormal None Detect 32 Urine Phencyclidine Screen None Detected N None Detect 33 Urine Culture And 02/01/2014 [facility] Urine Culture (SEE NOTE) 34 Sensitivities CBC Auto Diff 11/02/2013 [facility] White Blood Count 10.9 10^3/uL High 4.8- 10.8 Red Blood Count 5.38 10^6/uL 4.0-5.4 Hemoglobin 13.7 g/dL 12.0-16.0 Hematocrit 41 % 35-47 Mean Corpuscular Volume 77 fL Low 80-97 Mean Corpuscular Hemoglobin 26 pg Low 27-31 Mean Corpuscular HGB Conc 33 g/dL 31-36 Red Cell Distribution Width 18 % High 10.5-15 Platelet Count 269 10^3/uL 150-450 Mean Platelet Volume 9 um3 7.4-10.4 Abs Neutrophils 7.4 10^3/uL 1.5-7.7 Abs Lymphocytes 2.6 10^3/uL 1.0-4.8 Abs Monocytes 0.7 10^3/uL 0-0.8 Abs Eosinophils 0.1 10^3/uL 0-0.6 Abs Basophils 0.1 10^3/uL 0-0.2 Abs Nucleated RBC 0.01 10^3/uL Granulocyte % 67.9 % 38-83 Lymphocyte % 23.9 % Low 25-47 Monocyte % 6.2 % 1-9 Eosinophil % 1.0 % 0-6 Basophil % 1.0 % 0-2 Nucleated Red Blood Cells % 0 Comp Metabolic Panel 11/02/2013 [facility] Sodium 137 mmol/L 133-145 Potassium 3.7 mmol/L 3.7-5.6 Chloride 107 mmol/L 101-111 Co2 Carbon Dioxide 18 mmol/L Low 22-32 Anion Gap 12 mmol/L High 2-11 Glucose 89 mg/dL 70-100 Blood Urea Nitrogen 9 mg/dL 6-24 Creatinine 0.78 mg/dL 0.51-0.95 BUN/Creatinine Ratio 11.5 8-20 Calcium 9.7 mg/dL 8.6-10.3 Total Protein 7.2 g/dL 6.4-8.9 Albumin 4.4 g/dL 3.2-5.2 Globulin 2.8 g/dL 2-4 Albumin/Globulin Ratio 1.6 1-3 Total Bilirubin 1.10 mg/dL High 0.2-1.0 Alkaline Phosphatase 68 U/L 34-104 Alt 12 U/L 7-52 Ast 14 U/L 13-39 Egfr Non- 80.6 >60 Egfr 103.7 >60 35 Laboratory test finding 11/02/2013 [facility] Troponin I 0.00 ng/mL <0.03 36 Serum Negative Negative 37 Cell Morphology 11/02/2013 [facility] Microcytosis 1+ Elliptocyte 1+ Laboratory test 11/02/2013 [facility] D Dimer < 200 ng/mL Less Than 38 finding Quantitative 230 Laboratory test 07/04/2013 [facility] ([facility]) [facility] Lab Test urine hcg finding qual CBC No Diff 05/31/2013 [facility] White Blood Count 10.7 4.8-10.8 10^3/uL Red Blood Count 5.25 10^6/uL 4.0-5.4 Hemoglobin 13.0 g/dL 12.0-16.0 Hematocrit 40 % 35-47 Mean Corpuscular Volume 76 fL Low 80-97 Mean Corpuscular Hemoglobin 25 pg Low 27-31 Mean Corpuscular HGB Conc 33 g/dL 31-36 Red Cell Distribution Width 18 % High 10.5-15 Platelet Count 268 10^3/uL 150-450 Mean Platelet Volume 10 um3 7.4-10.4 Laboratory test 02/20/2013 [facility] ([facility]) [facility] Lab Test urine hcg finding qual Laboratory test 01/09/2013 [facility] Lab Test urine hcg finding qual CBC No Diff 12/06/2012 [facility] White Blood 11.6 10^3/uL High 4.8-10. Count 8 Red Blood Count 4.53 10^6/uL 4.0-5.4 Hemoglobin 9.9 g/dL Low 12.0-16.0 Hematocrit 32 % Low 35-47 Mean Corpuscular Volume 71 fL Low 80-97 Mean Corpuscular Hemoglobin 22 pg Low 27-31 Mean Corpuscular HGB Conc 31 g/dL 31-36 Red Cell Distribution Width 18 % High 10.5-15 Platelet Count 342 10^3/uL 150-450 Mean Platelet Volume 10 um3 7.4-10.4 Laboratory test finding 12/06/2012 [facility] Prolactin 6.36 ng/mL 1.0-25.0 Cell Morphology 12/06/2012 [facility] Microcytosis 1+ Hypochromasia 1+ Tear Drop Cells 1+ Elliptocyte 1+ Laboratory test 12/06/2012 [facility] Pathologist (SEE NOTE) 39 finding Review Inr/Protime 11/03/2012 [facility] Inr 0.82 Low 0.87-0 .97 Laboratory test 11/03/2012 [facility] Activated Partial 29.0 seconds 22.18- finding Thrombo Time 37.18 CBC Electronic 11/02/2012 [facility] WBC 9.8 High 3.6-9. (a) (607)- - 6 RBC 4.98 3.90-5.70 Hemoglobin (Fma/CMC/CTX) 10.8 g/dL Low 12.1 - 17.2 Hematocrit (Fma/CMC/CTX) 34.7 % Low 36.1 - 50.3 Platelets 338 10^3/ul 150-400 Lymph% 32.1 20.5-51.1 Mixed% 3.9 Neutrophils % 64.0 Mean Corpuscular Vol 70 Low 82.2-97.4 Mean Corpuscular Hemoglobin 21.7 Low 27.6-33.3 Mean Corpuscular Hemo Concen 31.1 Low 32.0-36.0 RDW 17.4 High 11.6-13.7 Urine (Fma) 11/02/2012 [facility] Medicine SP Grav >=1.030 (607)- - Urine, (Fma/CMC/CTX) neg Ua - Non Micro (a) 11/02/2012 [facility] Appearance yellow (607)- - Color clear Glucose neg Bilirubin neg Ketones neg SP Grav >=1.030 Blood trace-lysed 40 PH 5.5 Protein neg Urobil 0.2 Nitrite neg Leukocytes (a/CMC/Centrex) neg Laboratory test 11/02/2012 [facility] (a) TSH 1.10 mIU/L 0.50- 6.00 finding Ua - Non Micro (Fma) 03/16/2011 [facility] Medicine Appearance CLEAR (607)- - Color YELLOW Glucose NEG Bilirubin NEG Ketones NEG SP Grav 1.030 Blood MENSES PH 5.5 Protein NEG Urobil 0.2 Nitrite NEG Leukocytes (a/CMC/[facility]) NEG Laboratory test 03/16/2011 [facility] Thin Prep SEE NOTE [address] W/HPV(Lsil/FRANCISCA/Asc) [place], [place] [id number] [phone] CBC Auto Diff 10/22/2010 [facility] White Blood Count 8.6 CUMM 4.8- 10.8 Red Cell Count 4.40 CUMM 4.2-5.4 Hemoglobin 12.3 g/dL 12.0-16.0 Hematocrit 36 % 35-47 Mean Corpuscular Volume 83 um3 79-97 Mean Corpuscular Hemoglob 28 pg 27-31 Mean Corpuscular HGB Cone 34 g/dL 32-36 Redcell Distribution WDTH 15 % 10.5-15 Platelet Count 288 CUMM 150-450 Mean Platelet Volume 9.0 um3 7.4-10.4 Gran % 65.9 % 38-83 Lymph % 24.1 % Low 25-47 Mononuclear % 7.3 % 1-9 Eosinophil % 2.1 % 0-6 Basophil % 0.6 % 0-2 Abs Lymphs 2.1 1.0-4.8 Abs Mononuclear 0.6 0-0.8 Absolute Neutrophil Count 5.7 1.5-7.7 Abs Eosinophils 0.2 0-0.6 Abs Basophils 0.1 0-0.2 Comp Metabolic Panel 10/22/2010 [facility] Sodium 138 mmol/L 135-145 Potassium 4.2 mmol/L 3.5-5.0 Chloride 107 mmol/L 101-111 Co2 (Carbon Dioxide) 24.0 mmol/L 22-32 Anion Gap 7.0 mmol/L 2-11 42 Glucose 90 mg/dL 70-100 BUN 15 mg/dL 6-24 Creatinine 0.88 mg/dL 0.50-1.40 One Over Creatinine 1.10 BUN/Creatinine Ratio 17.0 8-20 Calcium 9.1 mg/dL 8.1-9.9 Total Protein 6.8 GM/DL 6.2-8.1 Albumin 3.9 GM/DL 3.6-5.4 Globulin 2.9 GM/DL 2-4 Albumin/Globulin Ratio 1.3 1-3 Bilirubin Total 1.0 mg/dL 0.4-1.5 43 Alkaline Phosphatase 78 U/L 30-110 Alt (SGPT) 23 U/L 14-54 Ast (Sgot) 25 U/L 12-42 eGFR Non- 71.2 > 60 eGFR 91.5 > 60 44 Laboratory test finding 10/22/2010 [facility] Troponin-I 0 NG/ML 0-0.06 45 BNP Evaluatr 25.0 pg/mL 0-100 Protime 10/22/2010 [facility] Inr 0.89 0.82-1.17 46 Protime 10.4 SEC 10.2-14.8 47 Laboratory test finding 10/22/2010 [facility] PTT (Aptt) 29.7 25.15-38.53 D Dimer Quantitative < 200 NG/ML Less Than 230 48 CKMB 10/22/2010 [facility] CKMB In NG/ML 2.8 NG/ML 0.3-4.0 % CKMB 0 %MB 0-9 49 Laboratory test 10/22/2010 [facility] CK For CKMB 129 U/L 0-170 finding Laboratory test 10/22/2010 [facility] [place] 0.2 mmol/L Low 0.5-1.5 finding Stool Specimen 08/27/2009 [facility] Stool Specimen GREEN 50 Description Description CBC With Manual Diff 08/27/2009 [facility] White Blood Count 8.8 CUMM 4.8-10.8 Red Cell Count 4.60 CUMM 4.2-5.4 Hemoglobin 14.3 g/dL 12.0-16.0 Hematocrit 42 % 35-47 Mean Corpuscular Volume 91 um3 79-97 Mean Corpuscular Hemoglob 31 pg 27-31 Mean Corpuscular HGB Cone 34 g/dL 32-36 Redcell Distribution WDTH 13 % 10.5-15 Platelet Count 278 CUMM 150-450 Mean Platelet Volume 8.9 um3 7.4-10.4 Polysegmented Neutrophil 62 % 38-83 Lymphocyte 21 % Low 25-47 Monocyte 11 % 0-13 Eosenophil 4 % 0-6 Basophil 1 % 0-2 Atypical Lymph 1 % 0-6 Absolute Neutrophil Count 5.4 RBC Morphology NORMAL Comp Metabolic Panel 08/27/2009 [facility] Sodium 135 mmol/L 135-145 Potassium 4.7 mmol/L 3.5-5.0 Chloride 102 mmol/L 101-111 Co2 (Carbon Dioxide) 26.0 mmol/L 22-32 Anion Gap 7.0 mmol/L 2-11 51 Glucose 87 mg/dL 70-100 52 BUN 8 mg/dL 6-24 Creatinine 0.90 mg/dL 0.50-1.40 One Over Creatinine 1.10 BUN/Creatinine Ratio 8.9 8-20 Calcium 9.6 mg/dL 8.1-9.9 53 Total Protein 6.7 GM/DL 6.2-8.1 Albumin 4.2 GM/DL 3.6-5.4 Globulin 2.5 GM/DL 2-4 Albumin/Globulin Ratio 1.7 1-3 Bilirubin Total 1.3 mg/dL 0.4-1.5 54 Alkaline Phosphatase 78 U/L 30-110 Alt (SGPT) 21 U/L 14-54 Ast (Sgot) 23 U/L 12-42 eGFR Non- 74.1 > 60 eGFR 89.6 > 60 55 Laboratory test finding 08/27/2009 [facility] TSH 1.68 MIU/ML 0.34-5.60 C Reactive Protein < 0.5 mg/dL Less Than 0.5 Fecal Lactoferrin 08/27/2009 [facility] Fecal Lactoferrin NEGATIVE BY IMMU 56 (Stool WBC) (Stool WBC) <SEE NOTE> Laboratory test 08/27/2009 [facility] O P: Giardia/Crypto Giardia and cryp 57 finding Screen <SEE NOTE> C. Difficile Toxin A B TEST LIMITATIONS <SEE NOTE> 58 Campylobacter Culture NF 59 Stool Cult Sensitivity NF 60 Shiga Toxin 1 And 2 (Ehec) NEGATIVE BY IMMU <SEE NOTE> 61 Stool Specimen 08/13/2008 [facility] Stool Specimen M^MUCOID^STCON 62 Description Description Comp Metabolic Panel 08/13/2008 [facility] Sodium 137 mmol/L 135-145 Potassium 4.4 mmol/L 3.5-5.0 Chloride 106 mmol/L 101-111 Co2 (Carbon Dioxide) 25.0 mmol/L 22-32 Anion Gap 6.0 mmol/L 2-11 63 Glucose 99 mg/dL 70-100 64 BUN 7 mg/dL 6-24 Creatinine 0.90 mg/dL 0.50-1.40 One Over Creatinine 1.10 BUN/Creatinine Ratio 7.8 Low 8-20 Calcium 9.3 mg/dL 8.1-9.9 65 Total Protein 6.4 GM/DL 6.2-8.1 Albumin 3.9 GM/DL 3.6-5.4 Globulin 2.5 GM/DL 2-4 Albumin/Globulin Ratio 1.6 1-3 Bilirubin Total 1.5 mg/dL 0.4-1.5 Alkaline Phosphatase 81 U/L 30-110 Alt (SGPT) 18 U/L 14-54 Ast (Sgot) 19 U/L 12-42 Laboratory test finding 08/13/2008 [facility] LDH 155 U/L 95-185 C Reactive Protein < 0.5 mg/dL Less Than 0.5 Urinalysis 08/13/2008 [facility] Ua Color YELLOW Appearance-Urine CLEAR Specific [place]-Ur 1.013 1.010-1.030 Esterase-Urine NEGATIVE Negative Nitrite NEGATIVE Negative Jwhykweurkee-Ct-LYR NEGATIVE Negative Protein-Urine NEGATIVE Negative PH-Urine 6.0 5-9 Blood-Urine NEGATIVE Negative Ketones-Urine NEGATIVE Negative Bilirubin-Ur NEGATIVE Negative Glucose-Urine NEGATIVE Negative Laboratory test 08/13/2008 [facility] O P: Giardia/Crypto Giardia and 66 finding Screen cryp <SEE NOTE> CBC With Manual 08/13/2008 [facility] White Blood Count 9.2 CUMM 4.8-10.8 Diff Red Cell Count 4.63 CUMM 4.2-5.4 Hemoglobin 14.4 g/dL 12.0-16.0 Hematocrit 41 % 35-47 Mean Corpuscular Volume 89 um3 79-97 Mean Corpuscular Hemoglob 31 pg 27-31 Mean Corpuscular HGB Cone 35 g/dL 32-36 Redcell Distribution WDTH 14 % 10.5-15 Platelet Count 244 CUMM 150-450 Mean Platelet Volume 9.1 um3 7.4-10.4 Polysegmented Neutrophil 83 % 38-83 Band Neutrophil 1 % 0-8 Lymphocyte 9 % Low 25-47 Monocyte 3 % 0-13 Eosenophil 2 % 0-6 Atypical Lymph 2 % 0-6 Absolute Neutrophil Count 7.7 Anisocytosis SLIGHT Platelet Evaluation LARGE Laboratory test finding 08/13/2008 [facility] Erythrocyte Sed Rate 1 MM/HR 0- 15 Campylobacter NO GROWTH OF CAM <SEE NOTE> 67 Stool Cult Sensitivity PRESUMPTIVE [AER <SEE NOTE> 68 Shiga Toxin 1 And 2 (Ehec) N^NEGATIVE BY IM <SEE NOTE> 69 Ast GN20 08/13/2008 [facility] Ampicillin >=32 R Amikacin <=2 S Ciprofloxacin <=0.25 S Cefazolin 32 R Gentamicin <=1 S Imipenem <=1 S Levofloxacin <=0.25 S Meropenem <=0.25 S Ceftazidime <=1 S Piperacillin/Tazobactam <=4 S Laboratory test 08/13/2008 [facility] Jos 2 Mutation (SEE NOTE) 70 finding Analysis Comprehensive 07/29/2008 [facility] (Fma) Albumin 4.4 g/dL 3.8-5.5 71 Metabolic Prof Alk. Phos. 92 U/L 30-110 Alt (SGPT) 15 U/L 7-35 Ast (Sgot) 13 U/L 5-34 BUN 14 mg/dL 6-26 Calcium 9.8 mg/dL 8.6-10.2 Chloride 102 mEq/L 94-112 Creatinine 0.9 mg/dL 0.6-1.4 Carbon Dioxide 26 mEq/L 21-32 Glucose 90 mg/dL 70-105 Sodium 144 mEq/L 134-149 Total Bilirubin 0.6 mg/dL 0.2-1.3 Total Protein 7.3 g/dL 6.3-8.1 Potassium 4.5 mEq/L 3.6-5.5 Globulin 2.9 g/dL 2.0-4.8 A/G Ratio 1.5 Calc 0.6-2.2 BUN/Creat Ratio 14.6 Calc 8.0-36.0 Complete Blood Count 07/29/2008 [facility] (Fma) WBC 12.2 x10^3/uL High 3.6-9.6 Gran# 10.3 x10^3/uL High 1.5-7.2 Gran% 84.6 % High 42.2-75.2 HCT 42 % 36-50 HGB 14.4 g/dL 12.1-17.2 Lymph# 1.7 x10^3/uL 0.7-4.9 Lymph% 13.6 % Low 20.5-51.1 MCH 30.3 pg 27.6-33.3 MCV 89.1 fL 82.2-97.4 MCHC 34.0 g/dL 33.0-35.5 Mo# 0.2 x10^3/uL 0.1-0.9 Mo% 1.8 % 1.7-9.3 MPV 8.7 fL 7.4-10.4 PLT 258 x10^3/uL 150-400 RBC 4.76 x10^6/uL 3.90-5.70 RDW 12.4 % 11.6-13.7 Lipid Profile 07/29/2008 [facility] ([facility]) Cholesterol 221 mg/dL High 120-200 HDL 54 mg/dL 30-85 Triglycerides 228 mg/dL High 30-200 HDL Risk Factor 4.1 CALC Low 4.2-7.0 LDL (Calculated) 122 CALC 0-129 VLDL (Calculated) 46 mg/dL 0-50 Laboratory test 07/29/2008 [facility] Thomas ([facility]) TSH 1.74 mIU/L 0.50- 6.00 finding Laboratory test 07/29/2008 [facility] [place] 0.60 mmol/L 0.60-1.20 finding [address] [place] [address] [phone] Laboratory test 01/30/2008 [facility] [place] 0.50 mmol/L Low 0.60-1.20 72 finding [address] [place] [address] [phone] Comprehensive 01/30/2008 Portillo Thomas ([facility]) Albumin 4.5 g/dL 3.8-5.5 73 Metabolic Prof Alk. Phos. 63 U/L 30-110 Alt (SGPT) 36 U/L High 7-35 74 Ast (Sgot) 24 U/L 5-34 BUN 12 mg/dL 6-26 Calcium 9.8 mg/dL 8.6-10.2 Chloride 100 mEq/L 94-112 Creatinine 1.1 mg/dL 0.6-1.4 Carbon Dioxide 26 mEq/L 21-32 Glucose 87 mg/dL 70-105 Sodium 138 mEq/L 134-149 Total Bilirubin 0.5 mg/dL 0.2-1.3 Total Protein 7.0 g/dL 6.3-8.1 Potassium 4.3 mEq/L 3.6-5.5 Globulin 2.5 g/dL 2.0-4.8 A/G Ratio 1.8 Calc 0.6-2.2 BUN/Creat Ratio 11.6 Calc 8.0-36.0 Complete Blood Count 01/30/2008 Portillo Thomas ([facility]) WBC 10.8 x10^3/u High 3.6-9.6 Gran# 7.9 x10^3/u High 1.5-7.2 Gran% 73.4 % 42.2-75.2 HCT 40 % 36-50 HGB 13.2 g/dL 12.1-17.2 Lymph# 2.4 x10^3/u 0.7-4.9 Lymph% 22.3 % 20.5-51.1 MCH 29.6 pg 27.6-33.3 MCV 89.7 fL 82.2-97.4 MCHC 33.0 g/dL 33.0-35.5 Mo# 0.5 x10^3/u 0.1-0.9 Mo% 4.3 % 1.7-9.3 MPV 9.1 fL 7.4-10.4 PLT 246 x10^3/u 150-400 RBC 4.45 x10^6/u 3.90-5.70 RDW 14.0 % High 11.6-13.7 Laboratory test finding 09/07/2006 [facility] Quickstrep NEGATIVE Negative (607)- - Throat - Beta Strep Fma NEGATIVE Laboratory test 06/20/2006 [facility] [place] 0.30 mmol/L Low 0.60-1.20 75 finding [address] [place] [id number] [phone] Complete Blood 06/20/2006 Nath Bassam (Fma) WBC 10.8 High 3.6-9.6 Count x10\\S\\3/uL Gran# 7.7 x10\\S\\3/uL High 1.5-7.2 Gran% 70.9 % 42.2-75.2 HCT 42 % 36-50 HGB 14.1 g/dL 12.1-17.2 Lymph# 2.3 x10\\S\\3/uL 0.7-4.9 Lymph% 21.4 % 20.5-51.1 MCH 31.4 pg 27.6-33.3 MCV 92.4 fL 82.2-97.4 MCHC 34.0 g/dL 33.0-35.5 Mo# 0.8 x10\\S\\3/uL 0.1-0.9 Mo% 7.7 % 1.7-9.3 MPV 10.4 fL 7.4-10.4 PLT 250 x10\\S\\3/uL 150-400 RBC 4.49 x10\\S\\6/uL 3.90-5.70 RDW 12.3 % 11.6-13.7 Comprehensive Metabolic 06/20/2006 Nath Bassam ([facility]ma) Albumin 4.6 g/dL 3.8-5.5 Prof Alk. Phos. 66 U/L 30-110 Alt (SGPT) 18 U/L 7-35 Ast (Sgot) 16 U/L 5-34 BUN 13 mg/dL 6-26 Calcium 10.1 mg/dL 8.6-10.2 Chloride 97 mEq/L 94-112 Creatinine 1.0 mg/dL 0.6-1.4 Carbon Dioxide 23 mEq/L 21-32 Glucose 89 mg/dL 70-105 Sodium 138 mEq/L 134-149 Total Bilirubin 0.9 mg/dL 0.2-1.3 Total Protein 7.2 g/dL 6.3-8.1 Potassium 4.0 mEq/L 3.6-5.5 Globulin 2.6 g/dL 2.0-4.8 A/G Ratio 1.7 Calc 0.6-2.2 BUN/Creat Ratio 12.9 Calc 8.0-36.0 Laboratory test 01/27/2006 [facility] Labs CMP;LITHIUM;TSH;CBC See Image finding Report Laboratory test 10/27/2004 [facility] [place] 0.4 mEq/L Low 0.5-1.3 finding (a/CMC/Centr ex) TSH (a/CMC/[facility]) 2.03 0.34-5.60 Comp Metabolic ([facility]) 10/27/2004 [facility] Sodium 139 mmol/L 135-145 Potassium 4.8 mmol/L 3.5-5.0 Chloride 106 mmol/L 101-111 Co2 23.0 mmol/L 22-32 Anion Gap 10.0 mmol/L 2-11 Glucose, Serum (a/CMC/CTX) 97 mg/dL 70-105 BUN (a/CMC/[facility]rex) 7 mg/dL 6-24 Creatinine (a/CMC/CTX) 0.9 mg/dL 0.5-1.4 BUN/Creatinin Ratio 7.8 Low 8-20 Calcium (a/CMC/[facility]) 8.8 mg/dL 8.7-10.2 Total Protein 6.2 GM/DL 6.2-8.1 Albumin (a/CMCC/Centrex) 3.8 3.6-5.4 Globulin 2.4 2-4 A/G Ratio (a/CMC/[facility]) 1.6 1-3 Bilirubin, Total 1.0 mg/dL 0.4-1.5 Alkaline Phosphatase (F/C/CTX) 83 U/L 30-110 Alt (SGPT) (Fma/CMC/[facility]) 15 14-54 Ast (Sgot) (Fma/CMC/[facility]) 18 12-42 CBC Electronic ([facility]) 10/27/2004 [facility] WBC 8.4 CUMM 4.8-10.8 RBC 4.59 CUMM 4.2-5.4 Hemoglobin (Fma/CMC/CTX) 14.5 g/dL 12.0-16.0 Hematocrit (Fma/CMC/CTX) 42 % 35-47 Mean Corpuscular Vol 92 UM3 79-97 Mean Corpuscular Hemaglobin 32 pg High 27-31 Mean Corpuscular Hemo Concen 35 g/dL 32-36 RDW 12 10.5-15 Platelets 251 CUMM 150-450 Mean Platelet Volume 10.2 7.4-10.4 Granulocytes 71.6 % 38-83 Lymphocytes 20.3 % 20-45 Monocytes 5.8 % 1-9 Eosinophil 1.9 0-6 Basophil% 0.4 0-2 Abs Lymphs 1.7 1.0-4.8 Abs Mononuclear 0.5 0-0.8 Abs Grans 6.0 1.5-7.7 Abs Eosinophils 0.2 0-0.6 Abs Basophils 0 0-0.2 CBC 07/02/2004 [facility] RBC 4.78 x10*6 3.8 - 5.3 [address] [place] [address] [phone] Hemoglobin 15.1 g/dL 11.8 - 15.8 Hematocrit 44.1 % 35.0 - 47.0 MCV 92.3 fl 82.0 - 98.0 MCH 31.6 pg 27.5 - 33.5 MCHC 34.2 g/dL 32.0 - 36.0 RDW 12.9 % 11.5 - 14.5 Platelet Count 212 x10*3 130.0 - 400.0 MPV 9.9 fl 6.5 - 10.5 Segmented Neutrophils 71.0 % 44.0 - 74.0 Lymphocytes 21.7 % 15.0 - 45.0 Monocytes 5.8 % 2.0 - 13.0 Eosinophils 1.2 % 0.0 - 6.0 Basophils 0.3 % 0.0 - 2.0 Neutrophil Absolute 6.2 x10*3 1.4 - 7.0 Lymphocytes Absolute 1.9 x10*3 1.0 - 3.4 Monocyte Absolute 0.5 x10*3 0.2 - 1.0 Eosinophil Absolute 0.1 x10*3 0.0 - 0.5 Basophil Absolute 0.0 x10*3 0.0 - 0.2 WBC 8.7 x10*3 4.3 - 10.9 Laboratory test 07/02/2004 [facility] Thyrotropin 1.080 0.35 - finding 28 [facility] (TSH) uIU/ml 5.5 [place] [address] [phone] GFR (Calculated) >60 76 Comprehensive 07/02/2004 [facility] Glucose 95 mg/dL 61.0 - 110.0 Metabolic [address] [place] [address] [phone] BUN 7 mg/dL 4.0 - 18.0 Creatinine, Serum 1.1 mg/dL 0.5 - 1.2 Sodium 142 mmol/L 136.0 - 146.0 Potassium 4.8 mmol/L 3.5 - 5.3 Chloride 110 mmol/L High 98.0 - 107.0 Carbon Dioxide 24 mmol/L 20.0 - 32.0 Albumin 4.5 g/dL 3.5 - 4.7 Protein, Total 7.3 g/dL 6.4 - 8.2 Calcium 9.7 mg/dL 8.4 - 10.6 Alkaline Phosphatase 83 U/L 10.0 - 118.0 Sgot (Ast) 18 U/L 3.0 - 30.0 SGPT (Alt) 15 U/L 7.0 - 40.0 Bilirubin, Total 1.31 mg/dL High 0.3 - 1.2 1 Troponin-I testing on Plasma Separator Tubes (PST) has a known false positive rate of 0.20-0.40%. All positive troponins reflex immediate secondary confirmatory testing. 2 [facility] Severe Sepsis and Septic Shock Management Bundle Measure requires all lactic acids initially measuring >2.0 mmol/L be repeated. 3 Please note: The following may produce a false positive D Dimer test: - Rheumatoid factor greater than 60 IU/ml - Plasma hemoglobin greater than 0.05 gm/dl - Bilirubin greater than 50 mg/dl - Lipids greater than 1000 mg/dl - FDP greater than 20 ug/ml 4 Because ethnic data is not always readily [...] 15-29 5 Kidney failure <15 (or dialysis) 5 Troponin-I testing on Plasma Separator Tubes (PST) has a known false positive rate of 0.20-0.40%. All positive troponins reflex immediate secondary confirmatory testing. 6 SEE RESULT BELOW Name: AISSATOUROBBIEARIA : [address]: Tuan Bailey MD Acct: [id number] Unit: [id number] AGE: 47 Location: ENDO Re06/19/18 SEX: F Status: REG REF SPEC: [id number] LYLY: 06/19/18-[address] [facility] [address]: Tuan Bailey MD REQ: [id number] RECD: 06/19/18 STATUS: BOBY BENITEZ DR: Gerardo Ruiz MD _ SOURCE: GAS ANTRUM SPDESC: ORDERED: Clotest Procedure Result Reported Site Clotest Final 06/20/18- 745 ML Clotest Negative * ML - Main Lab . END OF REPORT DEPARTMENT OF PATHOLOGY, [address] [place] [address] Harris Yeboah M.D. Director [facility] # [id number] 7 SEE RESULT BELOW Name: ARIA STANLEY : [address]: Chari Padron NP Acct: [id number] Unit: [id number] AGE: 47 Location: [facility] Re05/08/18 SEX: F Status: REG REF SPEC: [id number] LYLY: 05/05/[address]: Chari Padron NP REQ: [id number] RECD: 05/08/18 STATUS: SOUT _ ORDERED: TP IMAGE ANALYS, HPV/Thin Prep, HPV 16/18 GENE COMMENTS: [id number] Negative for Intraepithelial lesion or Malignancy Date Time Test Result Flag (u) Normal Range 05/08/18 1702 @ HPV RNA RFLX GE Negative Negative @ @ The high-risk HPV types detected by the assay include: 16, @ 18, 31, 33, 35, 39, 45, 51, 52, 56, 58, 59, 66, and 68. A. Ectocervical/Endocervical Specimen Adequacy: Satisfactory of evaluation Transformation zone component not identified Patient Information: HPV: High risk HPV RNA testing regardless of pap results. HPV 16/18 Genotype Reflex Actual Specimen Date: 05/05/18 LMP If Unknown: 2013 ?: N Post Menopausal?: N Hysterectomy?: N Previous Abnormal Pap Smears?:N Signed by and Reported on: JAKE Rodas(ASCP) 1254 This Pap test was evaluated with the assistance of the TeraFirrmaPrep Test Imaging System. Due to cytologic findings at the venetian blind worker microscope, comprehensive manual rescreening by a Laborer Livestock may be required. The Pap Smear is a screening test designed to aid in the detection of premalignant and malignant conditions of the uterine cervix. It is not a diagnostic procedure and should not be used as the sole means of detecting cervical cancer. Both false- positive and false- negative reports do occur. Depending on your risk status, a Pap smear should be obtained and evaluated every 1-3 years. END OF REPORT DEPARTMENT OF PATHOLOGY, [address] [place] [address] Harris Yeboah M.D. Director [facility] # [id number] Cryptologic Support Specialist: [id number] 9 SEE RESULT BELOW Name: ARIA STANLEY: [address]: Beulah Phan MD Acct: [id number] Unit: [id number] AGE: 46 Location: ED Re05/30/17 SEX: F Status: REG ER SPEC: [id number] LYLY: 05/30/[address]: Beulah Phan MD REQ: [id number] RECD: 05/30/17 STATUS: BOBY BENITEZ DR: Gerardo Ruiz MD _ SOURCE: NASAL SPDESC: ORDERED: Flu A B Request Procedure Result Reported Site Rapid Influenza A B Request Final 05/30/17628 ML Specimen received for Influenza A/B Molecular testing * ML - MAIN LAB ([facility]) . END OF REPORT * ML=Testing performed at Main Lab DEPARTMENT OF PATHOLOGY, [address] [place] [address] Harris Yeboah M.D. Director [facility] # [id number] 10 Please note: The following may produce a false positive D Dimer test: - Rheumatoid factor greater than 60 IU/ml - Plasma hemoglobin greater than 0.05 gm/dl - Bilirubin greater than 50 mg/dl - Lipids greater than 1000 mg/dl - FDP greater than 20 ug/ml 11 Result TnIDx:0.06 Called to [id number] at: 19:06:09 by:[id number] Read back by: [id number] 12 Because ethnic data is not always readily [...] 15-29 5 Kidney failure <15 (or dialysis) 13 [facility] Severe Sepsis and Septic Shock Management Bundle Measure requires all lactic acids initially measuring >2.0 mmol/L be repeated. 14 >100 to <200 pg/mL: likely compensated congestive heart failure (CHF) 200 to 400 pg/mL: likely moderate CHF >400 pg/mL: likely moderate to severe CHF 15 SEE RESULT BELOW Name: ARIA STANLEY : [address]: Joseph Tracey Acct: [id number] Unit: [id number] AGE: 44 Location: ED Re04/12/15 SEX: F Status: DEP ER SPEC: [id number] LYLY: 04/12/15-[address] [facility] [address]: Rocío HAM REQ: [id number] RECD: 04/12/15 STATUS: BOBY BENITEZ DR: Joseph Paz MD _ SOURCE: THROAT SPDESC: ORDERED: Throat Culture Procedure Result Reported Site Throat Culture Final 04/14/15- 927 ML Organism 1 NORMAL BASSAM Quantity 3+ * ML - MAIN LAB ([facility]) . END OF REPORT * ML=Testing performed at Main Lab DEPARTMENT OF PATHOLOGY, [address] [place] [address] Harris Yeboah M.D. Director [facility] # [id number] 16 SEE RESULT BELOW Name: ARIA STANLEY : [address]: Joseph Tracey Acct: [id number] Unit: [id number] AGE: 44 Location: ED Re04/12/15 SEX: F Status: REG ER SPEC: [id number] LYLY: 04/12/[address]: Rocío HAM REQ: [id number] RECD: 04/12/15 STATUS: BOBY BENITEZ DR: Joseph Paz MD _ [facility] ORDERED: Flu A B Request Procedure Result Reported Site Rapid Influenza A B Request Final 04/12/15- 1207 ML Specimen received for Influenza A/B Molecular testing * ML - MAIN LAB ([facility]) . END OF REPORT * ML=Testing performed at Main Lab DEPARTMENT OF PATHOLOGY, [address] [place] [address] Harris Yeboah M.D. Director [facility] # [id number] 17 SEE RESULT BELOW Name: ARIA STANLEY : [address]: Joseph Tracey Acct: [id number] Unit: [id number] AGE: 44 Location: ED Re04/12/15 SEX: F Status: REG ER SPEC: [id number] LYLY: 04/12/[address]: Rocío HAM REQ: [id number] RECD: 04/12/15 STATUS: BOBY BENITEZ DR: Joseph Paz MD _ SOURCE: THROAT SPDESC: ORDERED: Strep A Request Procedure Result Reported Site Rapid Strep A Request Final 04/12/15- 1208 ML Specimen received for Rapid Strep A Molecular testing * ML - MAIN LAB ([facility]) . END OF REPORT * ML=Testing performed at Main Lab DEPARTMENT OF PATHOLOGY, [address] [place] [address] Harris Yeboah M.D. Director [facility] # [id number] 18 Cryptologic Support Specialist: [id number] YASMEEN BOYKIN 19 Cryptologic Support Specialist: [id number] BOYKIN The scientific advisor and regulatory agencies both recommend that a throat culture for beta strep be performed if a Rapid Group A Strep assay yields a negative result. Therefore a culture will be automatically performed on all negative samples. 20 Because ethnic data is not always readily [...] 15-29 5 Kidney failure <15 (or dialysis) 21 Acute inflammation: >10.00 22 Because ethnic data is not always readily [...] 15-29 5 Kidney failure <15 (or dialysis) 23 RESULTS VERIFIED BY REPEAT ANALYSIS 24 SEE RESULT BELOW Name: ARIA STANLEY : [address]: Zeyad Camarillo MD Acct: [id number] Unit: [id number] AGE: 44 Location: ENDO Re11/06/14 SEX: F Status: REG REF SPEC: [id number] LYLY: 11/06/14- SUBM DR: Zeyad Camarillo MD REQ: [id number] RECD: 11/07/141457 STATUS: LORRAINE BENITEZ DR: Gerardo [...] performed at Main Lab DEPARTMENT OF PATHOLOGY, [address] [place] [address] Harris Yeboah M.D. Director [facility] # [id number] RUN DATE: 11/11/14 [facility] LAB LIVE PAGE 2 Patient: ARIA STANLEY [id number] (Continued) GROSS DESCRIPTION (Continued) GROSS DESCRIPTION (Continued) [...] performed at Main Lab DEPARTMENT OF PATHOLOGY, [address] [place] [address] Harris Yeboah M.D. 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 See comment. -- No evidence of neoplasia is identified. Comment: The biopsy demonstrates several nodular foci ranging up to 4 mm which demonstrates dense nodular fibrosis with several large nodular dystrophic calcifications and surrounding areas of xanthogranulomatous inflammation. An area demonstrating hemosiderin deposition indicative of prior hemorrhage is noted in block B. There is no significant epithelial elements associated with these nodular elements and no evidence of a neoplastic process is seen. CLINICAL HISTORY Nodules in right breast PRE-OPERATIVE DIAGNOSIS Right breast density and calcification GROSS DESCRIPTION The specimen is received in formalin labeled, Right Stereotactic Breast Biopsy, and consists of a 3.3 x 2.9 x 0.5 cm aggregate of yellow irregular fibrofatty soft tissue fragments admixed with red-brown blood clot, which is submitted entirely in two cassettes. Signed (signature on file) Harris Yeboah MD [id number] END OF REPORT * ML=Testing performed at Main Lab DEPARTMENT OF PATHOLOGY, [address] [place] [address] Harris Yeboah M.D. Director [facility] # [id number] 26 1 SST 27 Acute inflammation: >10.00 28 invalid 29 This test detects intact HCG only and is indicated for the early detection of . 30 Because ethnic data is not always readily [...] 15-29 5 Kidney failure <15 (or dialysis) 31 Therapeutic concentration: <50 ug/mL Toxic concentration: >120 ug/mL 32 Presumptive Positive 33 The urine specimen was tested at the listed cutoffs: Drug class test level (ng/ml) Amphetamines 300 Barbituates 200 Benzodiazepine metabolites 200 Cocaine metabolites 300 Cannabinoids 25 Opiates 200 Pcp 25 This is a screening procedure. Positive results are not confirmed. Specimen was received without chain of custody. Results should be used for medical purposes only. 34 RUN DATE: 02/03/14 [facility] LAB LIVE PAGE 1 RUN TIME: [id number] [place] [id number] Specimen Inquiry Name: ARIA STANLEY : [address]: Zeyad Flores MD Acct: [id number] Unit: [id number] AGE: 43 Location: ED Re02/01/14 SEX: F Status: DEP ER SPEC: [id number] LYLY: 02/01/[address]: Zeyad Flores MD REQ: [id number] RECD: 02/01/[id number] STATUS: BOBY BENITEZ DR: Gerardo Ruiz MD _ SOURCE: URINE SPDESC: ORDERED: Urine Culture Procedure Result Verified Site Urine Culture Final 02/03/14- 0752 ML Organism 1 NORMAL BASSAM [place] Count 10-25,000 (Moderate) CFU/ML END OF REPORT * ML=Testing performed at Main Lab DEPARTMENT OF PATHOLOGY, [address] [place] [address] Harris Yeboah M.D. Director [facility] # [id number] 35 Because ethnic data is not always readily [...] 15-29 5 Kidney failure <15 (or dialysis) 36 Reference Range and Interpretation: TnI (ng/mL) Interpretation Less Than 0.03 ng/mL Not supportive of diagnosis of DE 0.03 - 0.50 ng/mL Indeterminate: suggest serial studies if clinically indicated. Greater than 0.5 ng/mL Consistent with diagnosis of DE 37 This test detects intact HCG only and is indicated for the early detection of . 38 Please note: The following may produce a false positive D Dimer test: - Rheumatoid factor greater than 60 IU/ml - Plasma hemoglobin greater than 0.05 gm/dl - Bilirubin greater than 50 mg/dl - Lipids greater than 1000 mg/dl - FDP greater than 20 ug/ml 39 CBC and smear reviewed. Microcytic, hypochromic anemia present. Findings consistent with iron deficiency. Reviewed by Kiara Arthur MD 40 no micro per provider 41 [employer]. DEPARTMENT OF PATHOLOGY or Extension 9375 ESTIMATOR PROJECT MANAGER CYTOLOGY REPORT PATIENT: ARIA STANLEY : 1970 AGE: 40 Y SEX: F ACCT: [id number] PROCEDURE DATE: 03/16/2011 DATE RECEIVED: 03/17/2011 REQUESTING PHYSICIAN: ENEDELIA CEJA NP [place] [facility] [id number] PATIENT DATA: [id number] SPECIMEN SUBMITTED: * * (HPVII) THIN PREP W/HPV (LSIL/ASC/FRANCISCA) * * ENDOCERVICAL RELEVANT HISTORY: LMP: 03/08/2011 Prev.normal: 2008 : 1 Para: 1 IUD: Y SPECIMEN ADEQUACY SATISFACTORY FOR EVALUATION, ENDOCERVICAL TRANSFORMATION ZONE COMPONENT PRESENT GENERAL CATEGORIZATION NEGATIVE FOR INTRAEPITHELIAL LESIONS OR MALIGNANCY RECOMMENDATIONS Thin Prep Pap tests are examined with an FDA approved location-guidance system. ADDITIONAL COPIES SENT TO: Screened/Rescreened Electronically Signed Sign Out Date/Time: by: by: BARRIE PRUETT, 03/17/2011 14:17 CT(ASCP) The Pap smear is a screening test designed to aid in the detection of premalignant and malignant conditions of the uterine cervix. It is not a diagnostic procedure and should not be used as the sole means of detecting cervical cancer. Both false-positive and false-negative reports do occur. Performed @ [facility] [address] [place] [address] 42 Anion gap measurement may be of limited value in the presence of any alkalosis, especially in a combined acid base disorder. . 43 A metabolite of Naproxen, O-desmethylnaproxen, has been shown to interfere with the Jendrassik-Daniel method for measuring total bilirubin. Samples from patients who have taken Naproxen have shown spurious elevation in total bilirubin levels. 44 Because ethnic data is not always readily [...] 15-29 5 Kidney failure <15 (or dialysis) 45 New Reference Range and Interpretation effective 02/09/2002 TnI (ng/ml) INTERPRETATION Less Than 0.06 ng/mL NOT SUPPORTIVE OF DIAGNOSIS OF DE 0.06 - 0.50 ng/ml INDETERMINATE: SUGGEST SERIAL STUDIES IF CLINICALLY INDICATED. Greater than 0.5 ng/mL CONSISTENT WITH DIAGNOSIS OF DE . 46 Recommended INR for Patients on Oral Anticoagulants Prophylaxis 2.0 - 3.0 Treatment of thrombosis 2.0 - 3.0 Prevention of embolism 2.0 - 3.0 Prevention of embolism from prosthetic heart valves 2.5 - 3.5 47 DIAGNOSIS,TREATMENT,AND THERAPY MUST BE BASED ON THE INR VALUE ALONE. 48 Please note: The following may produce a false positive D Dimer test: - Rheumatoid factor greater than 60 IU/ml - Plasma hemoglobin greater than 0.05 gm/dl - Bilirubin greater than 50 mg/dl - Lipids greater than 1000 mg/dl - FDP greater than 20 ug/ml . 49 INTERPRETATION %CK-MB < 5% NOT SUPPORTIVE OF DIAGNOSIS OF DE 5 - <10% INDETERMINATE; SUGGEST SERIAL STUDIES IF CLINICALLY INDICATED 10% OR > CONSISTENT WITH DIAGNOSIS OF DE . 50 SOFT NONFORMED 51 Anion gap measurement may be of limited value in the presence of any alkalosis, especially in a combined acid base disorder. . 52 Note change in reference range as of 12/28/07. The change was based on recommendations from the [place] [employer]. 53 Please note change in reference range effective 07 . 54 A metabolite of Naproxen, O-desmethylnaproxen, has been shown to interfere with the Jendrassik-[place] method for measuring total bilirubin. Samples from patients who have taken Naproxen have shown spurious elevation in total bilirubin levels. 55 Because ethnic data is not always readily [...] 15-29 5 Kidney failure <15 (or dialysis) 56 NEGATIVE BY IMMUNOASSAY BROWN SOFT NONFORMED 57 Giardia and cryptosporidium antigen testing performed by immunoassay. If patient is immunocompromised or has traveled to or is from a developing country, a full ova and parasite exam with microscopic (OPMIC) is recommended. All samples will be held one month in case full ova and parasite testing is requested. Contact the Microbiology Department at [phone]. TEST LIMITATIONS: As with all diagnostic procedures, the results obtained should be used in conjunction with other clinical information available the physician. Negative results can occur in samples containing antigen below lower limits of detection of the assay. The use of colonic washes, aspirates or other diluted sample types has not been established and could affect the performance of the assay. Stool samples contaminated with an oily or particulate base (eg. Barium, mineral oil etc.) could interfere with the test and are not recommended. NEGATIVE BY IMMUNOASSAY NEGATIVE BY IMMUNOASSAY 58 TEST LIMITATIONS: The performance of specimens from pediatric patients has not been evaluated. A positive test confirms the presence of toxins A and/or B only. A physician must use the test results in conjunction with other diagnostic procedures and the patient's clinical condition to establish a diagnosis of C.difficile-associated disease. Isolates of C. sordellii may react with this test due to immunological identitiy of the C. sordellii toxins. Two distinct groups have been identified that can harbor C. difficile asymptomatically at very high rates. Colonization rates of up to 50% and higher have been reported in infants and rates of up to 32% in cystic fibrosis patients. NEGATIVE BY IMMUNOASSAY 59 NO GROWTH OF CAMPYLOBACTER AFTER 48 HOURS 60 NEGATIVE FOR THE ENTERIC PATHOGENS - SALMONELLA, SHIGELLA, AEROMONAS, PLESIOMONAS AND YERSINIA. VIBRIO AND E. COLI 0157 NOT ROUTINELY TESTED FOR IN A STOOL CULTURE. PLEASE SUBMIT SAMPLE WITH SPECIFIC REQUEST FOR DESIRED ORGANISM(S). 61 NEGATIVE BY IMMUNOCHROMATOGRAPHIC ASSAY NEGATIVE BY IMMUNOCHROMATOGRAPHIC ASSAY 62 SF^SEMI-FORMED^STFORM 63 Anion gap measurement may be of limited value in the presence of any alkalosis, especially in a combined acid base disorder. . 64 Note change in reference range as of 12/28/07. The change was based on recommendations from the [place] [employer]. 65 Please note change in reference range effective 07 . 66 Giardia and cryptosporidium antigen testing performed by immunoassay. If patient is immunocompromised or has traveled to or is from a developing country, a full ova and parasite exam with microscopic (OPMIC) is recommended. All samples will be held one month in case full ova and parasite testing is requested. Contact the Microbiology Department at [phone]. N^NEGATIVE BY IMMUNOASSAY^CRY N^NEGATIVE BY IMMUNOASSAY^CHRISTOPHER 67 NO GROWTH OF CAMPYLOBACTER AFTER 48 HOURS 68 PRESUMPTIVE [AEROMONAS HYDROPHILA/CAVIAE] CORRECTED RESULT! WRONG RESULT WAS AEROCOCCUS SPECIES VERBAL TO TERRI/DR. DUMONT'S OFFICE BY [facility] at 1040 on 08/16/08. AEROMONAS HYDROPHILA/CAVIAE 69 N^NEGATIVE BY IMMUNOCHROMATOGRAPHIC ASSAY^ST1 N^NEGATIVE BY IMMUNOCHROMATOGRAPHIC ASSAY^ST2 70 Any Gomes M.D., Manager Business Planning LISSETTE Torres, MERON I.DMichael # [id number] Chito Robins M.D., Manager Business Planning [place], [place], CLMARIA A I.D. # [id number] Patient Name: ARIA STANLEY Collection Date: 08/13/2008 Ordering Physician: Treating Physician: Ordering Facility: Medical Record #: Date of ,Sex: Ordering Phys. Not Given Marcio Dumont [facility] [id number] 1970, F Received Date: Report Date: [facility] Ref #: Specimen ID #: 08/14/2008 08/16/2008 [id number] 08/13; OL3 JAK2 V617F Mutation Analysis by Multiplex PCR INTERPRETATION: A JAK2 V617F mutation was not detected. Indication for Study: LEUKOCYTOSIS UNSPECIFIED Specimen Type: Peripheral Blood Comments: A negative result does not rule out the presence of a JAK2 V617F mutation beyond the limitations of this technology. These results should be interpreted in the context of all clinical and laboratory findings. See FISH report [id number] for further information. Analytical Results: Assay Type Detection Parameters Result JAK2 Mutation Analysis V617F Mutation Not Detected at [facility] Janine Cary M.D., Ph.D. Professor Of Industrial Technology [facility] I [address] [place] [address] Page 1 of 2 [facility] Client Services: [phone] I [email or web address] This document contains private and confidential health information protected by state and federal law. If you received this document in error, please call [phone]. Any Gomes M.D., Manager Business Planning LISSETTE Torres, MERON I.DMichael # [id number] Chito Robins M.D., Manager Business Planning AMNA Fisher, MERON I.D. # [id number] Patient Name: ARIA STANLEY Collection Date: 08/13/2008 Ordering Physician: Treating Physician: Ordering Facility: Medical Record #: Date of ,Sex: Ordering Phys. Not Given Marcio Dumont [facility] [id number] 1970, F Received Date: Report Date: LABS Ref #: Specimen ID #: 08/14/2008 08/16/2008 [id number] 08/13; OL3 Methodology: Genomic DNA is extracted from granulocytes that are isolated from the patient specimen by density centrifugation. [id number] mutation is identified by allele specific PCR which amplifies exon 14 of the JAK2 gene that acquires this mutation. The assay utilizes a common reverse unlabeled primer and two labeled forward primers, one of which is a mutant allele-specific forward primer. The other forward primer amplifies a distinct product from both mutant and wild-type alleles and serves as an internal control for the PCR reaction. The products are subjected to fragment analysis by automated capillary electrophoresis. Intended Use: The JAK2 V617F mutation analysis PCR assay is able to detect the presence of a somatic missense mutation which results in a V to F amino acid substitution at codon 617 within the autoinhibitory JH2 domain (pseudokinase domain; exon 14) of the Janus kinase 2 (JAK2) gene. The presence of this mutation is strongly supportive of a diagnosis of Polycythemia Vera (PV), Essential Thrombocythemia (ET), or Idiopathic Myelofibrosis. The V617F mutation has also been detected, although infrequently, in other myeloid disorders such as chronic myelomonocytic leukemia and chronic neutrophilic leukemia. The lower limit of detection of this assay is 10 cells in 100 cells of the isolated granulocyte population. Polymporphisms or other mutations in the region of interest may obscure the detection of the V617F mutation. The results of this study should be interpreted in the context of all clinical and laboratory findings. No therapeutic action should be taken solely based upon these results. References: Solitario Miller L.M., et al. Acquired mutation of the tyrosine kinase JAK2 in human myeloproliferative disorders. Lancet 365:5890-5130/2005. Ananth Leonardo, et al. Activating mutation in the tyrosine kinase JAK2 in polycythemia vera, essential thrombocythemia, and myeloid metaplasia with myelofibrosis. Cancer Cell 7(4):387-397/2005. Maria Elena Jansen and Erlin Schroeder. The [id number] Tyrosine Kinase Mutation in Myeloproliferative Disorders: Status Report and Immediate Implications for Disease Classification and Diagnosis. [facility] Clin Proc 80(7):947-958/2004. C. Maxwell Weaver V., et al. A unique clonal JAK2 mutation leading to constitutive signaling causes polycythemia vera. Nature 434:8114-7605/2004. Disclaimer This Test was performed at [address] [place], [address] This test was developed and has been validated by [facility]. This test is used for clinical purposes. Any image(s) that accompany this report is/are a business office representative image(s) only and should not be used to render a diagnosis. [facility] [address] [facility] [place] [address] Page 2 of 2 [facility] I Client Services: [phone] I [email or web address] This document contains private and confidential health information protected by state and federal law. If you received this document in error, please call [phone]. 71 FASTING 72 1SST 73 FASTING 74 RESULT RECHECKED 75 1 POUR OFF RED TOP TUBE 76 mL/min/1.73m2 . Normal Function or Mild Renal Disease, if clinically at risk: >or=60 Moderately decreased: 30 - 59 Severely decreased: 15 - 29 Renal Failure: <15 . Please note that the MDRD equation requires an additional adjustment for -Americans (multiply the GFR result by 1.210). . Glomerular Filtration Rate (GFR) is estimated based on the MDRD equation, which assumes a steady state for creatinine ([place] Int Med 139/2 137-149, 2003), as recommended by the National Kidney Disease Education Program in conjunction with the National Institutes of Health and the National Kidney Foundation. . Clinical conditions in which it may be necessary to measure GFR by using clearance methods include extremes of age and body size, severe malnutrition or obesity, diseases of skeletal muscle, paraplegia or quadriplegia, vegetarian diet, rapidly changing kidney function, and calculation of the dose of potentially toxic drugs that are excreted by the kidneys. . Procedures Date Code Description Status 05/22/2018 [id number] Mammogram Completed 05/05/2018 60275 Vision Test- screening test of visual acuity, Completed quantitative, bila 10/05/2017 57936 Electrocardiogram Complete Completed 12/02/2016 [id number] Mammogram Completed 11/24/2016 69377 Pulse Oximetry Completed 11/17/2016 37747 Pulse Oximetry Completed 11/17/2016 98895 Electrocardiogram Complete Completed 10/14/2015 [id number] Mammogram Completed 11/06/2014 [id number] Colonoscopy Completed 09/25/2014 [id number] Mammogram Completed 09/19/2014 24931157 Mammogram Completed 11/17/2012 82170580 Mammogram Completed 04/02/2011 [id number] Mammogram Completed 05/06/2010 78037 Pulse Oximetry Completed 09/24/2009 [id number] Colonoscopy Completed 07/29/2008 14796 Destruction-1 Beign Lesion Completed 07/29/2008 08287 Destruction Of Flat Warts Or Molluscum Contagiosum, Completed Milia To 15 02/15/2008 [id number] Mammogram Completed 07/08/2006 [id number] Mammogram Completed Encounters Type Date Location Provider Dx Diagnosis Office Visit 06/13/2018 [facility] Office Gerardo Ruiz, K21.9 Gastro- esophageal 11:30a Florentino reflux disease without esophagitis Office Visit 05/05/2018 Main Office Chari Ramirez M25.511 Pain in right 3:45p Padron, CHAR FILTER OPERATOR HELPER shoulder R21 Rash and other nonspecific skin eruption Z00.01 Encounter for general adult medical exam w abnormal findings Z13.220 Encounter for screening for lipoid disorders Z12.31 Encntr screen mammogram for malignant neoplasm of breast Z12.4 Encounter for screening for malignant neoplasm of cervix F17.210 Nicotine dependence, cigarettes, uncomplicated E78.1 Pure hyperglyceridemia Z71.6 Tobacco abuse counseling Office Visit 02/09/2018 Main Office Suni Reid J06.9 Acute upper 3:00p Damon, CHAR FILTER OPERATOR HELPER respiratory infection, unspecified Office Visit 10/05/2017 [facility] Gerardo Arredondo Z01.818 Encounter for other 2:30p Office Florentino Ruiz preprocedural examination M25.862 Other specified joint disorders, left knee 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 F34.1 Dysthymic disorder K21.9 Gastro-esophageal reflux disease without esophagitis Office Visit 09/02/2017 11:00a Main Office Chari Ramirez J01.90 Acute sinusitis, Padron, CHAR FILTER OPERATOR HELPER unspecified F17.210 Nicotine dependence, cigarettes, uncomplicated Z71.6 Tobacco abuse counseling Office Visit 08/08/2017 5:30p Main Office Chari Ramirez J01.90 Acute sinusitis, Padron, CHAR FILTER OPERATOR HELPER unspecified M25.562 Pain in left knee M79.605 Pain in left leg F17.210 Nicotine dependence, cigarettes, uncomplicated M25.559 Pain in unspecified hip Z71.6 Tobacco abuse counseling Office Visit 11/24/2016 [facility] Gerardo Arredondo I25.790 Atherosclerosis of 3:40p Office Florentino Ruiz CABG w unstable angina pectoris F17.210 Nicotine dependence, cigarettes, uncomplicated R31.29 Other microscopic hematuria Office Visit 11/17/2016 3:50p [facility] Gerardo Arredondo R07.9 Chest pain, Office Florentino Ruiz unspecified Office Visit 04/06/2016 1:00p [facility] Kiara M79.672 Pain in left foot Office [place] Ricci R00.2 Palpitations F17.210 Nicotine dependence, cigarettes, uncomplicated Z13.220 Encounter for screening for lipoid disorders Z00.01 Encounter for general adult medical exam w abnormal findings E78.1 Pure hyperglyceridemia Office Visit 03/16/2016 Danielle Craig M79.672 Pain in left foot 1:00p Office LILLIAN RicciP Office Visit 07/17/2015 Main Office Gerardo Arredondo R00.2 Palpitations 3:30p Florentino Ruiz R79.9 Abnormal finding of blood chemistry, unspecified L98.9 Disorder of the skin and subcutaneous tissue, unspecified Office Visit 05/15/2015 2:50p Main Office Gerardo Arredondo J32.0 Chronic Florentino Ruiz maxillary sinusitis Office Visit 04/15/2015 4:00p [facility] Enedelia 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 M54.5 Low back pain Office Visit 01/09/2015 1:20p Main Office Gerardo Ruiz, 305.1 Tobacco Use M.D. Disorder 300.4 Dysthymic Disorder 719.45 Pain Joint Pelvic Region & Thigh 272.4 Hyperlipidemia Other Unspec Office Visit 12/12/2014 2:20p Main Office Gerardo Ruiz, 305.1 Tobacco Use M.D. Disorder 300.4 Dysthymic Disorder 300.02 Anxiety Disorder Generalized 314.01 Attention Deficit Disorder W/ Hyperactivity 719.45 Pain Joint Pelvic Region & Thigh Office Visit 10/31/2014 1:00p Main Office Kary Barrett, 305.1 Tobacco Use Afnp-C Disorder Office Visit 08/29/2014 3:30p Main Office Gerardo Ruiz, V70.0 Examination General M.D. Medical Routine AT Health Care Facility 314.01 Attention Deficit Disorder W/ Hyperactivity 724.4 Neuritis Or Radiculitis Thoracic Or Lumbosacral Unspec 530.81 Esophageal Reflux 300.4 Dysthymic Disorder V17.3 History Family Ischemic Heart Disease 211.3 Polyp Colon V76.10 Screening For Malignant Neoplasm Breast V06.1 Xcustitdws-Xjdysmr-Hvtzqjvl Combined (DTaP) V06.5 Tetanus Diphtheria (DT) V06.5 Tetanus Diphtheria (DT) 272.0 Hypercholesterolemia Pure 272.1 Hypertriglyceridemia Pure Office Visit 06/07/2014 2:30p Main Office [place] Tipton 787.91 Diarrhea 780.4 Dizziness & Giddiness 719.45 Pain Joint Pelvic Region & Thigh Office Visit 01/16/2014 1:50p [facility] Gerardo Arredondo 314.01 Attention Deficit Florentino Ruiz Disorder W/ Hyperactivity 530.81 Esophageal Reflux 724.4 Neuritis Or Radiculitis Thoracic Or Lumbosacral Unspec 300.4 Dysthymic Disorder Office Visit 01/31/2013 2:30p [facility] Gerardo Arredondo 726.19 Shoulder Florentino Ruiz Disorders Other Spec Office Visit 11/02/2012 6:45p Main Office Gerardo Arredondo 530.81 Esophageal Reflux Florentino Ruiz 626.2 Menstruation Excessive Or Frequent V76.10 Screening For Malignant Neoplasm Breast Office Visit 01/27/2012 [facility] Kary Barrett 530.81 Esophageal Reflux 11:15a Office Afnp-C Office Visit 08/23/2011 Danielle Arredondo 465.9 URI Upper 2:30p Office Florentino Senior Respiratory Infections Acute Unspec Sites Office Visit 03/16/2011 Danielle Mcdaniels V72.[address] Magistrate 11:00a Office Brenna, Examination Afnp-C Office Visit 11/30/2010 Danielle Arredondo 786.59 Pain Chest Other 3:30p Office Florentino Ruiz Office Visit 08/24/2010 Danielle Arredondo 461.0 Sinusitis Acute 3:30p Office Florentino Senior Maxillary Office Visit 05/06/2010 Danielle Arredondo 460 Nasopharyngitis Acute 8:20a Office Florentino Ruiz Office Visit 08/21/2009 Main Office Ángel Arredondo 789.04 Pain Abdominal Left 11:40a Florentino Senior Lower Quadrant Office Visit 06/10/2009 Danielle Mcdaniels 723.1 Cervicalgia 1:15p Office Sola Ceja-C Office Visit 05/28/2009 Danielle Arredondo 723.1 Cervicalgia 4:20p Office Florentino Ruiz Office Visit 10/15/2008 Danielle Arredondo 009.2 Infectious Diarrhea 8:20a Office Florentino Ruiz Office Visit 07/29/2008 Danielle Arredondo 530.81 Esophageal Reflux 8:40a Office Florentino Ruiz 300.4 Dysthymic Disorder 314.01 Attention Deficit Disorder W/ Hyperactivity 305.1 Tobacco Use Disorder V58.69 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 Medication 787.91 Diarrhea 078.12 Plantar Wart Office Visit 01/30/2008 1:10p Main Office Gerardo Ruiz 530.81 Esophageal Reflux Florentino 300.4 Dysthymic Disorder 314.01 Attention Deficit Disorder W/ Hyperactivity 305.1 Tobacco Use Disorder V76.2 Screening Malignant Neoplasm Cervix V76.10 Screening For Malignant Neoplasm Breast V58.69 Medications Skilled Nursing (Current) Use Of Other Medication Office Visit 10/28/2006 1:30p [facility] Office Gerardo Arredondo 840.4 Sprains & Strains Florentino Ruiz Rotator Cuff (Capsule) Office Visit 09/07/2006 1:15p Main Office Enedelia 462 Pharyngitis Acute Hilsdorf, Afnp-C Office Visit 06/18/2006 10:00a Main Office Gerardo Arredondo 461.9 Sinusitis Acute Florentino Ruiz Unspec 300.4 Dysthymic Disorder 314.01 Attention Deficit Disorder W/ Hyperactivity 305.1 Tobacco Use Disorder 530.81 Esophageal Reflux V58.69 Medications Skilled Nursing (Current) Use Of Other Medication V76.2 Screening Malignant Neoplasm Cervix V76.10 Screening For Malignant Neoplasm Breast Office Visit 02/10/2006 1:20p Main Office Gerardo Ruiz, 536.8 Stomach Dyspepsia & M.D. Other Spec Disorders Of Function Office Visit 12/08/2005 5:20p Main Office Rene Villavicencio 784.0 Headache Florentino Ladd Office Visit 11/05/2005 3:00p Main Office Kary Barrett, 784.0 Headache Afnp-C 461.9 Sinusitis Acute Unspec Office Visit 07/30/2005 3:15p Main Office Kimberly Yoder ELECTRICAL PLUMBING SUPERVISOR 461.0 Sinusitis Acute Maxillary Office Visit 02/02/2005 3:00p Main Office Shayna Johnson, 078.19 Viral Warts Spec ELECTRICAL PLUMBING SUPERVISOR-C Other Office Visit 12/15/2004 10:10a Main Office Gerardo Ruiz, 305.1 Tobacco Use M.D. Disorder Office Visit 08/26/2004 3:10p Main Office Alfonso Hill, 461.9 Sinusitis Acute M.D. Unspec 782.1 Rash & Other Nonspec Skin Eruption Office Visit 07/02/2004 11:00a Main Office Gerardo Arredondo 314.01 Maurilio Ruiz M.D. Disorder W/ Hyperactivity 300.4 Dysthymic Disorder Office Visit 05/26/2004 11:20a Main Office Gerardo Arredondo 314.01 Maurilio Ruiz M.D. Disorder W/ Hyperactivity Office Visit 04/07/2004 11:20a Main Office Gerardo Arredondo 314.01 Maurilio Ruiz M.D. Disorder W/ Hyperactivity Office Visit 03/05/2004 4:00p Main Office Gerardo Arredondo 314.01 Maurilio Ruiz M.D. Disorder W/ Hyperactivity Office Visit 02/04/2004 11:00a Main Office Gerardo Arredondo 314.01 Maurilio Ruiz M.D. Disorder W/ Hyperactivity Office Visit 08/01/2003 3:00p Main Office Kary Barrett, 723.1 Cervicalgia Afnp-C 723.4 Cervical Radiculopathy Office Visit 07/25/2003 9:00a Main Office Kary Barrett, 719.41 Pain Joint Afnp-C Shoulder Region 729.2 Neuralgia Neuritis & Radiculitis Unspec Plan of Treatment 07/12/2018 - Kiara Ricci, FNPJ20.9 Acute bronchitis, unspecifiedNew Medication:Benzonatate 200 mg - take one by mouth 3 times daily as needed for coughGuaifenesin 400 mg - 1 by mouth twice a dayGuaifenesin ER 1200 mg - 1 tab po twice dailyComments:Tessalon perles 3 times per dayVentolin inhaler 3 times per day on a schedule, AND up to 3 additional times if you get shortness of breath, coughing fit, tight chestMucinex high dose twice daily-- diarrhea - - Tue/Tue no significant changes, call [facility] if condition changes/worsens in any way
[2018-07-17 14:06] VITALS: BP 117/62
== END | disposition home or self-care (01) ==
LOC: ED 11:38
DX: R05 Cough (principal); Z53.21 Procedure and treatment not carried out due to patient leaving prior to being seen by health care provider
CPT/HCPCS: 99281

== ENCOUNTER 2018-07-18 04:48 | Emergency (ER) | payer SELFPAY ==
[2018-07-18] MEDS ORDERED: Ondansetron INJ* 2 MG/ML VIAL IV ONE (05:55)
[2018-07-18] MEDS ORDERED: Morphine 10 MG/ML VIAL (1 ml) IV ONE (05:56)
[2018-07-18] MEDS ORDERED: NS 0.9% 1000 ML** 1,000 ML IV ONE (05:56)
--- NOTE | 2018-07-18 06:01 | ED ---
Abdominal Pain/Female - HPI Summary HPI Summary: Patient is a 47-year-old female presenting to the ED with a three-day history of worsening LLQ pain. She states the pain began after coughing on Tuesday evening. She endorses this pain is stabbing, nonradiating. She denies any urinary symptoms or back pain. She denies any vaginal discharge or bleeding. She has never been diagnosed with diverticulitis. She was diagnosed with bronchitis last week and is been taking Mucinex, which is been helping her cough. Pain is worse with movement and lying flat, better with rest. She states she has been having a decrease in bowel movements, stating she typically goes 4-5 times per day, however has been only going once per day with very small stools. She denies any urinary symptoms. She denies any fevers, sweats, chills. She denies any chest pain or SOB. History of RI. Medications include metoprolol and atorvastatin. - History of Current Complaint Chief Complaint: EDNauseaVomitDiarrh Stated Complaint: PAIN IN LEFT SIDE OF ABD PER PT Time Seen by Provider: 07/18/18 05:47 Hx Obtained From: Patient Hx Last Menstrual Period: pt states she had an ablasion and has the esure in place ?: No Onset/Duration: Sudden Onset Timing: Constant Severity Initially: Moderate Severity Currently: Moderate Pain Intensity: 8 Pain Scale Used: 0-10 Numeric Location: Discrete At: LLQ Radiates: No Character: Sharp Aggravating Factor(s): Nothing Alleviating Factor(s): Nothing Associated Signs and Symptoms: Positive: Decreased Appetite, Nausea, Vomiting. Negative: Diaphoresis, Fever, Cough, Chest Pain, Back Pain, Constipation, Blood in Stool, Urinary Symptoms - Risk Factors Ectopic Risk Factor: Negative Ovarian Torsion Risk Factor: Reproductive Age Allergies/Adverse Reactions: Allergies Allergy/AdvReac Type Severity Reaction Status Date / Time atomoxetine [From Strattera] AdvReac See Comment Verified 07/01/18 07:15 nicotine [From Nicorette] AdvReac GI Upset Verified 07/01/18 07:15 Home Medications: Home Medications Esomeprazole Magnesium [Nexium 24Hr] 40 mg PO QAM 07/18/18 [History Confirmed ] PMH/Surg Hx/FS Hx/Imm Hx Previously Healthy: Yes Endocrine/Hematology History: Denies: Hx Diabetes, Hx Thyroid Disease Cardiovascular History: Reports: Hx Coronary Artery Disease - STENT PLACED 2016, Hx Hypertension, Hx Myocardial Infarction Denies: Hx Pacemaker/ICD Respiratory History: Denies: Hx Asthma, Hx Chronic Obstructive Pulmonary Disease (COPD) GI History: Reports: Hx Gastroesophageal Reflux Disease - ON MEDICATION FOR, Hx Irritable Bowel, Hx Ulcer, Other GI Disorders - Diverticulitis History: Denies: Hx Renal Disease Musculoskeletal History: Reports: Hx Arthritis - HIPS, LEFT KNEE Sensory History: Denies: Hx Contacts or Glasses, Hx Hearing Aid Opthamlomology History: Denies: Hx Contacts or Glasses Neurological History: Denies: Other Neuro Impairments/Disorders Psychiatric History: Reports: Hx Anxiety, Hx Depression Denies: Hx Panic Disorder - Surgical History Surgery Procedure, Year, and Place: right hip dislocation - pins in place 1980. left elbow dislocation - 3 surgeries fell off horse. bunion surgery right toe. [facility]. HEART STENT 11/2016 Hx Anesthesia Reactions: No - Immunization History Date of Tetanus Vaccine: unk Date of Influenza Vaccine: none Hx Pertussis Vaccination: No Immunizations Up to Date: Yes Infectious Disease History: No Infectious Disease History: Denies: Hx Hepatitis, Hx Human Immunodeficiency Virus (HIV), Traveled Outside the [place] in Last 30 Days - Family History Known Family History: Positive: Cardiac Disease, Hypertension, Other - RI in mother at age 40 - Social History Occupation: Employed Full-time Lives: With Family Alcohol Use: Occasionally Hx Substance Use: No Substance Use Type: Reports: None Hx Tobacco Use: Yes Smoking Status (MU): Heavy Every Day Tobacco Smoker Type: Cigarettes Amount Used/How Often: 1ppd Length of Time of Smoking/Using Tobacco: since age 13 Have You Smoked in the Last Year: Yes Review of Systems Constitutional: Negative Negative: Fever, Chills, Fatigue, Skin Diaphoresis Negative: Blurred Vision Negative: Palpitations, Chest Pain Negative: Shortness Of Breath, Cough Positive: Abdominal Pain, Vomiting, Nausea, Other - small BM - no diarrhea or constipation Genitourinary: Negative Positive: no symptoms reported, see HPI Negative: Arthralgia, Myalgia Negative: Rash, Bruising Neurological: Negative All Other Systems Reviewed And Are Negative: Yes Physical Exam Triage Information Reviewed: Yes Vital Signs On Initial Exam: Initial Vitals Temp Pulse Resp BP Pulse Ox 97.9 F 69 20 141/74 99 07/18/18 04:54 07/18/18 04:54 07/18/18 04:54 07/18/18 04:54 07/18/18 04:54 Vital Signs Reviewed: Yes Appearance: Positive: Well-Appearing, Well-Nourished Skin: Positive: Skin Color Reflects Adequate Perfusion Head/Face: Positive: Normal Head/Face Inspection Eyes: Positive: EOMI, LEIGH, Conjunctiva Clear Neck: Positive: Supple, No Lymphadenopathy Respiratory/Lung Sounds: Positive: Clear to Auscultation, Breath Sounds Present Cardiovascular: Positive: RRR, Pulses are Symmetrical in both Upper and Lower Extremities. Negative: Leg Edema Left, Leg Edema Right Abdomen Description: Positive: Soft, Other: - tenderness to the LLQ. Negative: No Organomegaly, CVA Tenderness (R), CVA Tenderness (L), Distended, Guarding, Hepatomegaly, McBurney's Point Tenderness, Splenomegaly Bowel Sounds: Positive: Hypoactive Musculoskeletal: Positive: Strength/ROM Intact Neurological: Positive: Normal, Sensory/Motor Intact, Alert, Oriented to Person Place, Time, Speech Normal Psychiatric: Positive: Normal, Affect/Mood Appropriate AVPU Assessment: Alert Diagnostics - Vital Signs Vital Signs Temp Pulse Resp BP Pulse Ox 07/18/18 04:54 97.9 F 69 20 141/74 99 - Laboratory Result Diagrams: 07/18/18 06:17 07/18/18 06:17 Lab Statement: Any lab studies that have been ordered have been reviewed, and results considered in the medical decision making process. Abdominal Pain Fem Course/Dx - Course Course Of Treatment: Patient is evaluated for nausea, 1 episode of emesis 2 days ago and worsening LLQ pain 3 days. She states this pain began 3 days ago when coughing. She denies any diarrhea, however has been endorsing small bowel movements one per day x 3 days. Stating, typically she will have 4-5 BM per day. Denies fevers, sweats, chills, SOB or chest pain. Denies urinary sxs or back pain. She is given 4mg Zofran and 2mg morphine as she endorses her pain 5/ 10 discretely located over the LLQ and is non-radiating. She does endorse a feeling of bloating. On physical examination, there is tenderness to the LLQ without tenderness to the other quadrants. No evidence of hernia. Discussed treatment options with patient. CT abd/pelvis obtained: Steatosis. Postcholecystectomy. Normal appendix documented. Moderate diverticulosis of the colon primarily involving the sigmoid segment without findings of acute diverticulitis. Labs obtained which is unremarkable. UA which is also unremarkable. Patient will be discharged home with muscle strain. - Diagnoses Provider Diagnoses: Muscle strain Discharge - Sign-Out/Discharge Documenting (check all that apply): Patient Departure Patient Received Moderate/Deep Sedation with Procedure: No - Discharge Plan Condition: Stable Disposition: HOME Patient Education Materials: Muscle Strain (ED) Referrals: Gerardo Ruiz MD [Primary Care Provider] - Additional Instructions: Moist heat to the area Rest If symptoms worsen, return to the ED - Billing Disposition and Condition Condition: STABLE Disposition: Home
[2018-07-18 06:35] LABS: INR 0.89 (0.77-1.02)
[2018-07-18 06:40] LABS: ABS Basophils 0.1 10^3/ul (0-0.2); ABS Eosinophils 0.1 10^3/ul (0-0.6); ABS Lymphocytes 1.6 10^3/ul (1.0-4.8); ABS Monocytes 0.7 10^3/ul (0-0.8); ABS Neutrophils 8.3 10^3/ul (1.5-7.7); ABS Nucleated RBC 0 10^3/ul; Hematocrit 48 % (35-47); Hemoglobin 15.9 g/dl (12.0-16.0); Lymphocyte % 15.1 %; Mean Corpuscular HGB Conc 33 g/dl (31-36); Mean Corpuscular Hemoglobin 32 pg (27-31); Mean Corpuscular Volume 94 fL (80-97); Mean Platelet Volume 9.5 fL (7.4-10.4); Nucleated Red Blood Cells % 0; Platelet Count 192 10^3/ul (150-450); Red Blood Count 5.04 10^6/ul (4.00-5.40); Red Cell Distribution Width 13 % (10.5-15); White Blood Count 10.8 10^3/ul (3.5-10.8)
[2018-07-18 06:47] LABS: Albumin 4.3 g/dL (3.2-5.2); Albumin/Globulin Ratio 1.7 (1-3); BUN/Creatinine Ratio 15.5 (8-20); C Reactive Protein 2.31 mg/L (<8.01); Calcium 9.1 mg/dL (8.6-10.3); EGFR African American 134.3 (>60); Globulin 2.6 g/dL (2-4); Potassium 3.7 mmol/L (3.5-5.0); Total Protein 6.9 g/dL (6.4-8.9)
[2018-07-18] MEDS ORDERED: Iohexol 300* (CONTRAST) 10 ML SDV IV ONE (06:56)
[2018-07-18 09:26] LABS: Urine Appearance Cloudy; Urine Bacteria Absent (Absent); Urine Bilirubin Negative (Negative); Urine Blood 1+ (Negative); Urine Color Yellow; Urine Glucose Negative (Negative); Urine Ketones Negative (Negative); Urine Nitrite Negative (Negative); Urine Protein Negative (Negative); Urine Red Blood Cell 1+(3-5/hpf) (Absent); Urine Specific Gravity 1.017 (1.010-1.030); Urine Squamous Epithelial Cell Present (Absent); Urine Urobilinogen Negative (Negative); Urine White Blood Cell Trace(0-5/hpf) (Absent)
[2018-07-18 09:38] VITALS: BP 129/65
== END 2018-07-18 09:37 | disposition home or self-care (01) ==
LOC: ED 04:48
DX: S39.011A Strain of muscle, fascia and tendon of abdomen, initial encounter (principal); X58.XXXA Exposure to other specified factors, initial encounter; Y92.9 Unspecified place or not applicable; K57.30 Diverticulosis of large intestine without perforation or abscess without bleeding; I25.10 Atherosclerotic heart disease of native coronary artery without angina pectoris; I25.2 Old myocardial infarction; I10 Essential (primary) hypertension; Z95.5 Presence of coronary angioplasty implant and graft; K21.9 Gastro-esophageal reflux disease without esophagitis; Z88.8 Allergy status to other drugs, medicaments and biological substances; Z91.048 Other nonmedicinal substance allergy status; Z82.49 Family history of ischemic heart disease and other diseases of the circulatory system; F17.210 Nicotine dependence, cigarettes, uncomplicated
CPT/HCPCS: 36415; 74177; 80053; 81003; 81015; 82150; 83605; 83690; 83735; 85025; 85610; 86140; 87086; 96361; 96374; 96375; 99283; J2270; J2405; Q9967

== ENCOUNTER 2018-10-01 12:13 | Emergency (ER) | payer OTHER ==
--- OUTSIDE RECORDS SUMMARY | 2018-10-01 12:19 | XMS REPORT | Continuity of Care Document ---
:1970 External Reference #:[id number] Author Name Nicole Troncoso Care Team Providers Name Role Phone Gerardo Ruiz MD Primary Care Physician Unavailable Payers Date Identification Numbers Payment Provider Subscriber Policy Number: [id number] [employer] Aria Stanley PayID: [id number] [address] [address] [place] [address] Effective: 2005 Policy Number: [place] Medicaid Aria Stanley [id number] Expires: 2018 PayID: [id number] [address] [address] [place] [address] Advance Directives Description No Information Available Problems Active Problems Provider Date Sciatica Naun Mattson M.D. Onset: 10/08/2014 Enthesopathy of hip region Naun Mattson M.D. Onset: 10/08/2014 Localized, primary osteoarthritis of the Marya Chadwick M.D. Onset: 08/15/2017 pelvic region and thigh Localized, primary osteoarthritis Marya Chadwick M.D. Onset: 08/15/2017 Acute meniscal tear, lateral, posterior horn Marya Chadwick M.D. Onset: 2017 Disorder of shoulder Marya Chawdick M.D. Onset: 05/19/2018 Family History Date Family Member(s) Observation Comments General Heart Disease General Diabetes General [...] Smoker 1 Pack Daily Smoking Status Reviewed: 09/01/18 Current Cigarette Smoker 1 Pack Daily ETOH Use Drinks 3 Alcoholic Beverages Per Week Tobacco Use Start: Unknown Patient is a current 1 pack x day smoker, smokes every day Recreational Drug Use Denies Drug Use Exercise Type/Frequency Does not exercise active at work Allergies, Adverse Reactions, Alerts Active Allergies Reaction Severity Comments Date Strattera Agitated per patient 07/22/2015 Nicorette Stomach ache Gum - per patient 07/22/2015 Isosorbide Dinitrate headache 08/10/2018 Inactive Allergies Aspirin stomach per patient 10/08/2014 Medications Active Medications SIG Qnty Indications Ordering Date Provider Chantix Starting use as directed 1tabs Sharad SMichael 08/15/2018 Month Jose A Eliezer, DO FACC 0.5mg X 11 & 1 mg X 42 Tablets Cane use for 1units M16.11 Marya Chadwick, 08/11/2018 [facility] [place].D. knee pain Oxycodone-Acetaminoph 1-2 tabs by mouth 60tabs M19.011 Marya Chadwick, 08/11 en every 12 hours as M.D. 5-325mg Tablets needed for pain Metoprolol Succinate 1 by mouth twice 180tabs Sharad SMichael 04/03/2018 ER daily Eliezer, DO FACC 50mg Tablets ER 24HR Meloxicam 1 by mouth every 30tabs M25.462 Marya Chadwick, 12/02/2017 15mg Tablets day M.D. Amlodipine Besylate 1 by mouth every 90tabs Sharad S. 03/08/2017 5mg day Eliezer, DO FACC Tablets Aspirin 1 tablet chewable 120units Sharad S. 12/15/2016 81mg Chewtabs by mouth daily in Martins, DO FACC the morning Nitroglycerin 1 sl q5mins x3 as 25tabs Sharad SMichael 11/19/2016 0.4mg needed for chest Eliezer, DO FACC Tablets Sub pain Atorvastatin Calcium take 1 tablet by 90tabs Sharad S. mouth once daily Eliezer, DO FACC 80mg Tablets Esomeprazole 2 by mouth every Unknown Magnesium day 20mg Capsules DR History Medications Vascepa take 2 tablets 360caps E78.2 Sharad S. 08/10/2018 - 1gm Capsules twice daily with Martins, DO Unknown meals FACC Isosorbide Mononitrate 1 by mouth every 30tabs Sharad Barahona 08/02/2018 - ER day Martins, DO 08/09/2018 30mg Tablets ER 24HR FACC Cyclobenzaprine HCL take 1 tab by mouth 6tabs Marya Farrukh, 05/26/2018 - 10mg 2 times a day as M.D. 08/09/2018 Tablets needed Tramadol HCL 1 tab three times a 9tabs Marya Farrukh, 05/26/2018 - 50mg Tablets day as needed for M.D. Unknown pain Percocet 1-2 by mouth every 45tabs Marya Farrukh, 10/26/2017 - 5-325mg Tablets 6 hours as needed M.D. 04/02/2018 pain Aspirin take 1 by mouth 28tabs Marya Farrukh, 10/26/2017 - 325mg Tablets twice a day for two M.D. 03/22/2018 weeks Nicotrol Use every 2 hours 168units Sharad Barahona 12/15/2016 - 10mg Inhaler as needed for Martins, DO 06/16/2017 cigarette craving FACC Fish Oil Burp-Less take 3 capsules 120caps E78.5 Sharad Barahona 12/15/2016 - 1000mg daily Martins, DO 06/14/2017 Capsules FACC Aspirin Low Dose 1 tablet chewable Efrain, 11/19/2016 - 81mg po daily Am MD Andrea 12/15/2016 Tablet Gemfibrozil take 1 tablet by Efrain 11/19/2016 - 600mg Tablets mouth twice a day MD Andrea 12/15/2016 Brilinta take 1 tablet by 90tabs Sharad Barahona 11/19/2016 - 90mg Tablets mouth twice a day Martins, DO 10/10/2017 FACC Ra Nicotine apply 1 patch 28units Sharad Barahona 11/19/2016 - 21mg/24HR occasionally Martins, DO 06/24/2017 Patches 24HR FACC Metoprolol Succinate 1 by mouth every 90tabs I49.3 Sharad Barahona 10/27/2015 - ER night Martins, DO 11/24/2016 50mg Tablets ER 24HR FACC Metoprolol Succinate 1 by mouth every 30tabs I49.3 Sharad Barahona 09/09/2015 - ER day 10/27/2015 25mg Tablets ER 24HR FACC Diltiazem CD 1 by mouth every 30caps I49.3 Sharad Barahona 07/29/2015 - 120mg Caps 10/27/2015 ER 24HR FACC Gabapentin 1 by mouth qhs 40caps Naun 10/08/2014 - 300mg Capsules Florentino Mattson 01/29/2015 Flexeril 1 po tid prn 40tabs Shimon Bello 08/21/2009 - 10mg Tablets Florentino Bauer 05/09/2014 Robaxin-750 1-2 po q 8 hrs prn 40tabs Shimon Bello 07/17/2009 - 750mg Tablets muscle spasm Florentino Bauer 05/09/2014 Pantoprazole Sodium take 1 tablet by Unknown - 40mg mouth once daily 08/09/[address] Aspirin 1 by mouth every Unknown - 81mg Tablets day 04/02/2018 Metoprolol Succinate take 1 tablet tab 270tabs Sharad Barahona - ER in in the morning 04/03/2018 25mg Tablets ER 24HR and 2 tabs in pm. FACC Latuda 1 tablet po daily Nitin, - 40mg Tablets MD Jay 11/24/2016 Fluoxetine HCL 1 tablet po daily Nitin, - 20mg MD Jay 11/24/2016 Capsules Bupropion HCL ER (SR) 1 by mouth twice a Unknown - day 05/30/2015 150mg Tablets ER 12HR Lorazepam 1 tablet bid as Unknown - 0.5mg Tablets needed 05/30/2015 Cyclobenzaprine HCL one by mouth three Unknown - 10mg times a day as 05/30/2015 Tablets needed spasm Ibuprofen by mouth three Unknown - 800mg Tablets times a day as 11/24/2016 needed Fluticasone Propionate 2 sprays each Unknown - nostril daily as 09/08/2015 50mcg/Act Suspension needed Gabapentin 1 tablet po at Unknown - 600mg Tablets bedtime Unknown Tramadol HCL 1-2 tab at bedtime Unknown - 50mg Tablet for pain 11/24/2016 Trazodone HCL 1-2 tablets at Unknown - 50mg bedtime 11/24/2016 Concerta Unknown - 72mg 07/22/2015 Pravastatin Sodium once daily Unknown - 10mg 11/24/2016 Nexium 1 po at bedtime Unknown - 40mg 06/11/2018 Medications Administered in Office Medication SIG Qnty Indications Ordering Provider Date Depomedrol 40MG Marya Chadwick M.D. 08/11/2018 Injection Depomedrol 40MG Marya Chadwick M.D. 05/26/2018 Injection Depomedrol 40MG Marya Chadwick M.D. 05/26/2018 Injection Depomedrol 40MG Marya Chadwick M.D. 05/19/2018 Injection Depomedrol 40MG Marya Chadwick M.D. 02/13/2018 Injection Depomedrol 40MG Marya Chadwick M.D. 12/30/2017 Injection Depomedrol 40MG Marya Chadwick M.D. 11/16/2017 Injection Omiomedrol 40MG Marya Chadwick M.D. 08/15/2017 Injection Immunizations Description No Information Available Vital Signs Date Vital Result Comment 09/01/2018 11:30am Height 66.5 inches 5'6.50" Weight 210.00 lb Heart Rate 72 /min BP Systolic 118 mmHg BP Diastolic 70 mmHg Pain Level 5 BMI (Body Mass Index) 33.4 kg/m2 08/11/2018 2:31pm Height 66.5 inches 5'6.50" Weight 245.00 lb Heart Rate 77 /min BP Systolic 158 mmHg BP Diastolic 82 mmHg Body Temperature 98.0 F Pain Level 10 BMI (Body Mass Index) 38.9 kg/m2 08/10/2018 2:16pm Height 66.5 inches 5'6.50" Weight 210.00 lb Heart Rate 74 /min BP Systolic Sitting 110 mmHg lue reg cuff BP Diastolic Sitting 70 mmHg lue reg cuff BP Systolic Standing 108 mmHg lue reg cuff BP Diastolic Standing 70 mmHg lue reg cuff Respiratory Rate 16 /min BMI (Body Mass Index) 33.4 kg/m2 06/12/2018 9:08am Height 66.5 inches 5'6.50" Heart Rate 74 /min BP Systolic Sitting 142 mmHg BP Diastolic Sitting 82 mmHg Pain Level 1 05/26/2018 3:26pm Height 66.5 inches 5'6.50" Heart [...] Date Facility Test Result H/L Range Note Cath Panel 06/15/2017 [facility] Partial 33.0 seconds N 26.0- 36.[address] [place] [address] PTT [phone] CBC Auto Diff 06/15/2017 [facility] White Blood 9.5 10^3/uL N 3.5-10.[address] [place] [address] [phone] Red Blood Count 4.87 10^6/uL N 4.0-5.4 [...] 0-2 Nucleated Red Blood Cells % 0.1 Inr/Protime 06/15/2017 [facility] Inr 0.79 N 0.77-1.02 [address] [place] [address] [phone] Basic Metabolic 06/15/2017 [facility] Sodium 139 mmol/L N 133- 145 Panel [address] [place] [address] [phone] Potassium 4.0 mmol/L N 3.5-5.0 Chloride 105 mmol/L N 101-111 Co2 Carbon Dioxide 27 mmol/L N 22-32 Anion Gap 7 mmol/L N 2-11 Glucose 93 mg/dL N 70-100 Blood Urea Nitrogen 10 mg/dL N 6-24 Creatinine 0.73 mg/dL N 0.51-0.95 BUN/Creatinine Ratio 13.7 N 8-20 Calcium 9.6 mg/dL N 8.6-10.3 Egfr Non- 85.5 >60 Egfr 109.9 >60 1 Laboratory test 03/30/2017 [facility] Hemoglobin A1c 5.3 % N 4.0-5.6 2 finding 101 [facility] ([facility]) [place] [address] [phone] Lipid Profile 03/30/2017 [facility] Triglycerides 129 3 (Trig/Chol/HDL) [address] mg/[place] [address] [phone] Cholesterol 130 mg/dL 4 HDL Cholesterol 48.3 mg/dL 5 LDL Cholesterol 56 mg/dL 6 Basic Metabolic Panel 09/08/2015 [facility] Sodium 136 mmol/L N 133-[address] [place] [address] [phone] Potassium 3.8 mmol/L N 3.5-5.0 Chloride 106 [...] in selective patients <6.0%. Please refer to [employer] diabetic care guidelines for further [...] (or dialysis) Procedures Date Code Description Status 08/14/2018 82591 Treadmill Interp/Report Only Completed 08/14/2018 72030 Stress Test Supervsn W/Out I/R Completed 08/14/2018 00142 Stress Test Completed 08/11/2018 20041 Inject/Drain Joint/Bursa Major W/O US Completed 08/10/2018 45556 EKG Tracing & Interpretation Completed 05/26/201885675 Inj/Aspir Major JT Or Bursa W/ US Completed 05/26/201874805 Inj/Aspir Major JT Or Bursa W/ US Completed 05/19/201811907 Inject/Drain Joint/Bursa Major W/O US Completed 04/03/2018 20380 EKG Tracing & Interpretation Completed 02/13/201872446 Inj/Aspir Major JT Or Bursa W/ US Completed 12/30/2017 95240 Inject/Drain Joint/Bursa Major W/O US Completed 11/16/201745997 Inj/Aspir Major JT Or Bursa W/ US Completed 10/27/2017 15352 Arthroscopy,Knee,Meniscectomy Medial Or Lateral Completed 10/27/2017 63095 Arthroscopy,Knee,Meniscectomy Medial Or Lateral Completed 10/10/2017 47237 EKG Tracing & Interpretation Completed 08/15/201711548 Injection Single Tendon Origin/Insertion Completed 06/24/2017 47568 EKG Tracing & Interpretation Completed 06/17/2017 47243 Intravascular Blood Flow Velocity Completed 06/17/2017 99079 Cath PLMT&NJX L Ventriculog Img S&I Completed 06/15/2017 98936 EKG Tracing & Interpretation Completed 11/25/2016 98579 EKG Tracing & Interpretation Completed 11/18/2016 67347 Left Heart Cath. Incl S/I Coronaries, Angio S/I V Gram If Completed Done 11/18/2016 33217 ECHO Transthorasic Realtime 2D W Doppler & Color Flow Hosp Completed 11/18/2016 91850 Revascularization Acute Total/Subtotal Occlusion Completed 07/19/2016 50825 EKG Tracing & Interpretation Completed 10/23/2015 83420 Holter Monitor Review (24 hr)dr review & interp only Completed 10/21/2015 34459 ECG Monitor/Recording W/Visual Superimposition Scanning Completed 08/12/2015 74273 ECHO Transthoracic, Real-Time 2D With Doppler And Color Completed Flow 07/29/2015 27016 EKG Tracing & Interpretation Completed 07/15/2015 99390 Holter Monitor Review (24 hr)dr review & interp only Completed 10/23/2010 23952 EKG, Interpretation Only Completed Encounters Type Date Location Provider Dx Diagnosis Office Visit 08/11/2018 Orthopedic Marya Chadwick, M25.511 Pain in right 2:30p Services Of [facility] M.D. shoulder S46.011A Strain of musc/tend the rotator cuff of right shoulder, init M19.011 Primary osteoarthritis, right shoulder M16.12 Unilateral primary osteoarthritis, left hip M16.11 Unilateral primary osteoarthritis, right hip M25.551 Pain in right hip M25.552 Pain in left hip Office Visit 08/10/2018 2:20p [facility] Sharad SMichael I25.119 Athscl heart Of [employer]ocks[employer] Helper Martins, DO disease of FACC [place] art w unsp ang pctrs R00.2 Palpitations Z72.0 Tobacco use E78.2 Mixed hyperlipidemia E66.8 Other obesity I10 Essential (primary) hypertension I25.2 Old myocardial infarction Office Visit 06/12/2018 9:00a [facility] Services Marya Chadwick, M25.551 Pain in right Of C.M.A. M.D. hip M25.552 Pain in left hip M16.12 Unilateral primary osteoarthritis, left hip M16.11 Unilateral primary osteoarthritis, right hip Office Visit 05/19/2018 1:00p Orthopedic Marya Chadwick, M25.511 Pain in right Services Of C.M.A. MMichaelDMichael shoulder S46.011A Strain of musc/tend the rotator cuff of right shoulder, init M19.011 Primary osteoarthritis, right shoulder M75.41 Impingement syndrome of right shoulder Office Visit 04/03/2018 4:00p [facility] Sharad Barahona I25.119 Athscl heart Of [facility], DO disease of [facility] [place] art w unsp ang pctrs I25.2 Old myocardial infarction E78.5 Hyperlipidemia, unspecified Z72.0 Tobacco use I49.3 Ventricular premature depolarization Office Visit 10/10/2017 Fam Barahona Z01.810 Encounter for 3:40p Cardiology [facility], DO preprocedural [facility] cardiovascular examination I25.2 Old myocardial infarction I25.119 Athscl heart disease of [place] art w [facility] [place] ang pctrs E78.5 Hyperlipidemia, unspecified I10 Essential (primary) hypertension Z72.0 Tobacco use Office Visit 09/16/2017 2:45p Orthopedic Marya Chadwick, S83.282D Oth tear of Services Of [facility].M.A. MJere lat mensc, current injury, left knee, subs [...] bursitis, right hip Office Visit 06/24/2017 1:40p [facility] Sharad S. I25.119 Athscl heart Of uYlia Levinno, DO disease of FACC [place] art w unsp ang pctrs I25.2 Old myocardial infarction Z72.0 Tobacco use E78.5 Hyperlipidemia, unspecified I10 Essential (primary) hypertension I49.3 Ventricular premature depolarization E66.8 Other obesity Office Visit 06/15/2017 11:20a [facility] Sharad S. I25.119 Athscl heart Of Yulia Levinno, DO disease of FACC [place] art w unsp ang pctrs Office Visit 12/15/2016 2:20p [facility] Sharad S. I25.2 Old myocardial Of Yulia Martins, DO infarction FACC I25.10 Athscl heart disease of [place] coronary artery w/o ang pctrs I10 Essential (primary) hypertension Z72.0 Tobacco use E78.5 Hyperlipidemia, unspecified Office Visit 11/25/2016 11:30a [facility] Qutaybeh S. I21.4 Non-St elevation Of Yulia Abbott M.D. ([facility]) myocardial infarction E78.5 Hyperlipidemia, unspecified I10 Essential (primary) hypertension Z72.0 Tobacco use E66.9 Obesity, unspecified I25.10 Athscl heart disease of [place] coronary artery w/o ang pctrs Office Visit 11/19/2016 10:08a [facility] Andrea I21.4 Non-St elevation Assoc,juan manuel Zuniga MD ([facility]) Hospitalists myocardial infarction E78.5 Hyperlipidemia, unspecified I10 Essential (primary) hypertension Z72.0 Tobacco use Office Visit 11/19/2016 12:56p [facility] Qutaybeh S. I25.10 Athscl heart Florentino Abbott disease of [place] coronary artery w/o ang pctrs Z72.0 Tobacco use Office Visit 11/18/2016 11:02a [facility] Qutaybeh S. R07.9 Chest pain, Cardiology Florentino Abbott unspecified I25.10 Athscl heart disease of [place] coronary artery w/o ang pctrs Office Visit 11/18/2016 12:35p [facility] Qutaybeh S. R07.9 Chest pain, Felicity Abbott M.D. unspecified R79.89 Other specified abnormal findings of blood chemistry R94.31 Abnormal electrocardiogram [ECG] [EKG] I10 Essential (primary) hypertension E78.5 Hyperlipidemia, unspecified Z72.0 Tobacco use Z82.49 Family hx of ischem heart dis and oth dis of the circ sys Office Visit 11/18/2016 10:08a [facility] Andrea Efrain, I20.0 Unstable angina Assjuan manuel sol MD Hospitalists E78.5 Hyperlipidemia, unspecified I10 Essential (primary) hypertension Z72.0 Tobacco use Office Visit 11/17/2016 10:07a [facility] Edenilson R20.0 Anesthesia of Assjuan manuel sol N.P. skin Hospitalists E78.5 Hyperlipidemia, unspecified I10 Essential (primary) hypertension Z72.0 Tobacco use Office Visit 07/19/2016 2:40p [facility] Sharad S. I49.3 Ventricular Cardiology Of Martins, DO premature [employer] FACC depolarization Office Visit 01/20/2016 11:45a [facility] Sharad S. I49.3 Ventricular Cardiology Of Martins, DO premature [employer] Helper FACC depolarization Office Visit 10/27/2015 4:00p [facility] Sharad S. I49.3 Ventricular Cardiology Of Martins, DO premature [employer] Helper FACC depolarization Office Visit 09/24/2015 2:00p [facility] Sharad S. I49.3 Ventricular Cardiology Of Martins, DO premature [employer] Helper FACC depolarization Office Visit 09/09/2015 11:20a [facility] Sharad S. I49.3 Ventricular Cardiology Of Martins, DO premature [employer] Helper FACC depolarization F17.210 Nicotine dependence, cigarettes, uncomplicated Office Visit 07/29/2015 11:20a [facility] Sharad S. I49.3 Ventricular Cardiology Of Martins, DO premature [employer] Helper FACC depolarization E87.6 Hypokalemia F17.210 Nicotine dependence, cigarettes, uncomplicated Office Visit 03/13/2015 4:15p Orthopedic Naun Mattson, M54.31 Sciatica , right Services Of Florentino bocanegra C.M.A. Office Visit 01/29/2015 3:45p Orthopedic Chichi M54.31 Sciatica, right Services Of [facility] [place] C.M.AMichael M70.61 Trochanteric bursitis, right hip Office Visit 10/08/2014 9:00a Orthopedic Services Naun Mattson, 724.3 Sciatica Of C.M.A. M.D. 726.5 Enthesopathy Of Hip Region Office Visit 08/21/2009 9:15a Neurosurgery Shimon Bello 847.0 Sprains & Services Of Florentino Sánchez Neck 723.1 Cervicalgia Office Visit 07/17/2009 1:30p Neurosurgery Shimon Bello 847.0 Sprains & Services Of Florentino Sánchez Neck Office Visit 06/18/2009 9:45a Neurosurgery Shimon Quintanilla7.0 Sprains & Services Of Florentino Sánchez Plan of Treatment Future Appointment(s):03/05/2019 1:00 pm - [facility]/01[facility]2018 - Marya Chadwick M.D.M25.552 Pain in left hipFollow up:Follow up: 6 mthsM25.551 Pain in right hipNew Xrays:Hip Right 2 Views And Pelvis [address]6810 - [address]6834, Ordered: 09/01/18M16.12 Unilateral primary osteoarthritis , left hipM16.11 Unilateral primary osteoarthritis, right hip
--- OUTSIDE RECORDS SUMMARY | 2018-10-01 12:19 | XMS REPORT | Continuity of Care Document ---
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 Gerardo Ruiz MD Primary Care Physician Unavailable Payers Date Identification Numbers Payment Provider Subscriber Policy Number: [id number] [employer] Aria Stanley PayID: [id number] [address] [address] [place] [address] Advance Directives Description No Information Available Problems Active Problems Provider Date Essential hypertension Joseph Hanna MD Onset: 09/06/2018 Anaphylaxis Joseph Hanna MD Onset: 09/06/2018 Family History Date Family Member(s) Observation Comments General No Current Problems Social History Type Date Description Comments Sex Unknown Pets 1 cat Pets 1 dog Tobacco Use Start: Unknown End: Patient is a former smoker quit 6 days ago Unknown Smoking Status Reviewed: 09/06/18 Patient is a former smoker quit 6 days ago Allergies, Adverse Reactions, Alerts Active Allergies Reaction Severity Comments Date Atomoxetine 09/06/2018 Aspirin Greater than 81 mg 09/06/2018 Percocet 09/06/2018 Nicorette 09/06/2018 Medications Active Medications SIG Qnty Indications Ordering Provider Date Isosorbide Mononitrate Unknown ER 30mg Tablets ER 24HR Chantix Starting Month Unknown Jose A 0.5mg X 11 & 1 mg X 42 Tablets Esomeprazole Magnesium Unknown 20mg Capsules DR Aspirin chew and swallow Unknown 81mg Chewtabs 1 tablet by mouth every morning Metoprolol Succinate ER Unknown 50mg Tablets ER 24HR Amlodipine Besylate Unknown 5mg Tablets Atorvastatin Calcium Unknown 80mg Tablets Gabapentin Kay Yoder 600mg Tablets VINH Zaman Nitroglycerin Unknown 0.4mg Tablets Sub Immunizations Description No Information Available Vital Signs Date Vital Result Comment 09/13/2018 9:15am BP Systolic 123 mmHg BP Diastolic 83 mmHg Height 67 inches 5'7" Weight 210.00 lb BMI (Body Mass Index) 32.9 kg/m2 Heart Rate 64 /min Respiratory Rate 17 /min O2 % BldC Oximetry 94 % 09/06/2018 3:10pm BP Systolic 104 mmHg BP Diastolic 70 mmHg Height 67 inches 5'7" Weight 215.00 lb BMI (Body Mass Index) 33.7 kg/m2 Heart Rate 72 /min Respiratory Rate 16 /min Body Temperature 97.1 F O2 % BldC Oximetry 97 % Results Description No Information Available Procedures Description No Information Available Encounters Type Date Location Provider Dx Diagnosis Office Visit 09/06/2018 Fam Hanna, T88.6xxA Anaphyl reaction 3:00p due to advrs eff drug/med prop admin, init Plan of Treatment No Information Available
--- OUTSIDE RECORDS SUMMARY | 2018-10-01 12:19 | XMS REPORT | Continuity of Care Document ---
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 Gerardo Ruiz MD Primary Care Physician Unavailable Payers Date Identification Numbers Payment Provider Subscriber Policy Number: [id number] [employer] Aria Stanley PayID: [id number] [address] [address] [place] [address] Advance Directives Description No Information Available Problems Active Problems Provider Date Essential hypertension Joseph Hanna MD Onset: 09/06/2018 Allergy status to other drugs, medicaments Joseph Hanna MD Onset: and biological substances status Anaphylaxis Joseph Hanna MD Onset: 09/06/2018 Family [...] Tablets Atorvastatin Calcium Unknown 80mg Tablets Gabapentin Beba, Kay 600mg Tablets VINH Zaman Nitroglycerin Unknown 0.4mg [...] O2 % BldC Oximetry 97 % Results Test Date Facility Test Result H/L Range Note Order 09/13/2018 [facility] < pending> ion Procedures Date Code Description Status 09/13/2018 94700 Ingestion Challenge Test Sequential & Incremental Completed Encounters Type Date Location Provider Dx Diagnosis Office Visit 09/13/2018 Fam Hanna, Z88.8 Allergy status to 10:45a oth drug/meds/biol subst status Office Visit 09/06/2018 Fam Hanna, T88.6xxA Anaphyl reaction 3:00p due to advrs eff drug/med prop admin, init Plan of Treatment No Information Available
--- OUTSIDE RECORDS SUMMARY | 2018-10-01 12:19 | XMS REPORT | Continuity of Care Document ---
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 Gerardo Ruiz MD Primary Care Physician Unavailable Payers Date Identification Numbers Payment Provider Subscriber Policy Number: [id number] [employer] Aria Stanley PayID: [id number] [address] [address] [place] [address] Advance Directives Description No Information Available Problems [...] Tablets Atorvastatin Calcium Unknown 80mg Tablets Gabapentin Beba Kay 600mg Tablets VINH Zaman Nitroglycerin Unknown 0.4mg Tablets Sub Immunizations Description No Information Available Vital Signs Date Vital Result Comment 09/06/2018 3:10pm BP Systolic 104 mmHg BP Diastolic 70 mmHg Height 67 inches 5'7" Weight 215.00 lb BMI (Body Mass Index) 33.7 kg/m2 Heart Rate 72 /min Respiratory Rate 16 /min Body Temperature 97.1 F O2 % BldC Oximetry 97 % Results Description No Information Available Procedures Description No Information Available Encounters Type Date Location Provider Dx Diagnosis Office Visit 09/06/2018 [facility] Joseph Hanna, T88.6xxA Anaphyl reaction 3:00p due to advrs eff drug/med prop admin, init Plan of Treatment Future Appointment(s):09/13/2018 9:00 am - Injection 1 at [facility]
--- OUTSIDE RECORDS SUMMARY | 2018-10-01 12:19 | XMS REPORT | Continuity of Care Document ---
:1970 External Reference #:[id number] Author Name Cecile Mercado Care Team Providers Name Role Phone Gerardo Ruiz MD Care Team Information Patient Care Associate Unavailable Gerardo Ruiz MD Primary Care Physician Unavailable Payers Date Identification Numbers Payment Provider Subscriber Policy Number: [id number] [employer] Aria Stanley PayID: [id number] [address] [address] [place] [address] Advance Directives Description No Information Available Problems Active Problems Provider Date Essential hypertension Joseph Hanna MD Onset: 09/06/2018 Family History Description No Information Available Social History Type Date Description Comments Sex Unknown Smoke-Free Home is smoke-free Tobacco Use Start: Unknown End: Unknown Patient is a former smoker Allergies, Adverse Reactions, Alerts Active Allergies Reaction [...] Available Procedures Description No Information Available Encounters Description No Information Available Plan of Treatment No Information Available
[2018-10-01 12:30] VITALS: BP 113/67
--- NOTE | 2018-10-01 13:11 | UC ---
Knee Pain HPI - HPI Summary HPI Summary: 47 y/o female presents to the urgent c/o left knee pain worsening over the past 3 days. Pt reports she has been standing for long periods of time at work and she did a sudden movement and knee pain was triggered. Pt reports Hx of left knee surgery w/ DR Chadwick last year. She did physical therapy and her symptoms improved. However, she thinks she re-injured her knee b/c she can't fully extend or flex her left knee. Pain is 8/10, sharp w/ certain movement, specially below the patella. Pt has been taken Ibuprofen PO and Ultram PO. Last dose taken was this morning around 0500AM. She also states Hx of Rt hip surgery. Pt denies fever, knee redness, calf pain, SOB, chest pain,abdominal pain, N/V/D. - History of Current Complaint Chief Complaint: UCLowerExtremity Stated Complaint: KNEE PAIN Time Seen by Provider: 10/01/18 13:09 Hx Obtained From: Patient Hx Last Menstrual Period: 4 yrs ago ?: No Onset/Duration: Gradual Onset, Lasting Days - 3 days, Still Present, Worse Since - today Severity Initially: Mild Severity Currently: Moderate Pain Intensity: 8 Pain Scale Used: 0-10 Numeric Character: Sharp Aggravating Factor(s): Movement, Prolonged Standing Alleviating Factor(s): Rest, OTC Meds Associated Signs And Symptoms: Positive: Swelling - mild below patella Able to Bear Weight: Yes - Allergies/Home Medications Allergies/Adverse Reactions: Allergies Allergy/AdvReac Type Severity Reaction Status Date / Time isosorbide [From Imdur] Allergy Headache Verified 08/28/18 08:27 atomoxetine [From Strattera] AdvReac See Comment Verified 08/28/18 08:27 nicotine [From Nicorette] AdvReac GI Upset Verified 08/28/18 08:27 PMH/Surg Hx/FS Hx/Imm Hx Previously Healthy: Yes Cardiovascular History: Cardiac Disease, Hypertension, Myocardial Infarction - Surgical History Surgical History: Yes Surgery Procedure, Year, and Place: right hip dislocation - pins in place 1980. left elbow dislocation - 3 surgeries fell off horse. bunion surgery right toe. [facility]. HEART STENT 11/2016 - Family History Known Family History: Positive: Cardiac Disease, Hypertension, Other - SC in mother at age 40 - Social History Occupation: Employed Part-time Lives: With Family Alcohol Use: Weekly Alcohol Amount: 2-3 drinks per week Substance Use Type: None Smoking Status (MU): Former Smoker Type: Cigarettes Amount Used/How Often: 1ppd Length of Time of Smoking/Using Tobacco: since age 13 Have You Smoked in the Last Year: Yes Household Exposure Type: Cigarettes - Immunization History Most Recent Tetanus Shot: 2014 Review of Systems All Other Systems Reviewed And Are Negative: Yes Constitutional: Positive: Negative Skin: Positive: Negative Eyes: Positive: Negative ENT: Positive: Negative Respiratory: Positive: Negative Cardiovascular: Positive: Negative Gastrointestinal: Positive: Negative Genitourinary: Positive: Negative Motor: Positive: Negative Neurovascular: Positive: Negative Musculoskeletal: Positive: Decreased ROM - left knee, Other: - left knee pain Neurological: Positive: Negative Psychological: Positive: Negative Is Patient Immunocompromised?: No Physical Exam - Summary Physical Exam Summary: Vital Signs Reviewed: Yes General: well developed, well nourished female sitting in the examining table w/ o any apparent distress Eyes: Positive: Conjunctiva Clear - PERRLA, EOMI, fundi grossly normal ENT: Positive: Normal ENT inspection, Hearing grossly normal, Pharynx normal, TMs normal Neck: Positive: Supple, Nontender, No Lymphadenopathy Respiratory: Positive: Chest nontender, Lungs clear, Normal breath sounds, No respiratory distress Cardiovascular: Positive: RRR, No Murmur, Pulses Normal, Brisk Capillary Refill Abdomen Description: Positive: Nontender, No Organomegaly, Soft. Negative: CVA Tenderness (R), CVA Tenderness (L) Bowel Sounds: Positive: Present Musculoskeletal: Positive: Strength Intact, No Edema, LF Knee: Pt is able to bear weight and ambulate with limping. No surface trauma, discrete soft tissue swelling bellow the patella, no effusion. No overlying erythema or warmth. The L knee is without obvious asymmetry or deformity when compared with the R knee. Decreased ROM of LF knee due to pain. Positive tenderness to palpation of the patella, no effusion or ballottement. No tenderness over the infrapatellar tendon. Point tenderness over the medial joint line, No tenderness over the medial or lateral tibial plateaus. No tenderness over the proximal fibular head, No tenderness, fullness or mass of the popliteal fossa. No quadriceps tenderness. No laxity of the ACL. PCL, MCL, or LCL. no collateral ligament laxity to valgus or varus stress. Negative Maldonado/Drawer sign. Positive Kade. Distal motor and neurovascular status intact. Neurological Exam: Normal Psychological Exam: Normal Skin Exam: Normal Triage Information Reviewed: Yes Vital Signs: Initial Vital Signs Temp 98.4 F 10/01/18 12:27 Pulse 78 10/01/18 12:27 Resp 17 10/01/18 12:27 BP 113/67 10/01/18 12:27 Pulse Ox 98 10/01/18 12:27 Knee Pain Course/Dx - Course Course Of Treatment: 47 y/o female presents to the urgent c/o left knee pain worsening over the past 3 days. Pt reports she has been standing for long periods of time at work and she did a sudden movement and knee pain was triggered. Pt reports Hx of left knee surgery w/ DR Chadwick last year. She did physical therapy and her symptoms improved. However, she thinks she re-injured her knee b/c she can't fully extend or flex her left knee. Pain is 8/10, sharp w/ certain movement, specially below the patella. Pt has been taken Ibuprofen PO and Ultram PO. Last dose taken was this morning around 0500AM. She also states Hx of Rt hip surgery. Pt denies fever, knee redness, calf pain, SOB, chest pain,abdominal pain, N/V/D. Hx obtained. LF knee X-ray ordered, Impression: no Soft tissue swelling, no acute fracture observed as per radiologist. Pt with possible LF knee Sprain vs Meniscal tear. Pt knee immobilized with a knee immobilizer and advised to use the crutches she has at home to avoid too much weight bearing. Pt advised to continue taken Ibuprofen PO and Tramadol PO for pain. Pt advised RICE, take medication for pain and to f/u with her Orthopedic DR Chadwick in 2-3 days for further evaluation and treatment. D/C instructions explained. Pt understood and agreed and left the clinic ambulating. - Differential Dx/Diagnosis Differential Diagnosis/HQI/PQRI: Contusion, Fracture (Closed), Internal Derangement Of Knee, Patellofemoral Syndrome, Sprain, Strain, Tendonitis, Other - meniscal tear Provider Diagnosis: Left knee pain, Knee sprain Discharge - Sign-Out/Discharge Documenting (check all that apply): Patient Departure - d/C home All imaging exams completed and their final reports reviewed: Yes - Discharge Plan Condition: Stable Disposition: HOME Patient Education Materials: Knee Sprain (ED) Referrals: Gerardo Ruiz MD [Primary Care Provider] - 3 Days Marya Chadwick MD [Medical Doctor] - 2 Days Additional Instructions: 1-Please contineu taking Ibuprofen PO q6-8hrs prns after meals or Tramadol 50mg PO you have at home to alleviate symptoms. 2-Please apply ice, keep your knee immobilized with the knee immobilizer. elevate your knee and avoid standing for long periods of time. 3- Please f/u with your Orthopedic Dr Chadwick in 2-3 days for further management in or your symptoms. - Billing Disposition and Condition Condition: STABLE Disposition: Home - Attestation Statements Provider Attestation: I was available for consult. This patient was seen by the [facility]. The patient was not presented to, seen by, or examined by me. -Bry
== END 2018-10-01 14:18 | disposition home or self-care (01) ==
LOC: UCEAST 12:13
DX: S83.92XA Sprain of unspecified site of left knee, initial encounter (principal); M25.562 Pain in left knee; I10 Essential (primary) hypertension; I25.2 Old myocardial infarction; Z91.09 Other allergy status, other than to drugs and biological substances; Z88.8 Allergy status to other drugs, medicaments and biological substances; Z87.891 Personal history of nicotine dependence; X50.1XXA Overexertion from prolonged static or awkward postures, initial encounter; Y92.9 Unspecified place or not applicable
CPT/HCPCS: 99212; G0463

== ENCOUNTER → 2019-01-10 05:40 | Day surgery (SDC) | payer MEDICAID, OTHER ==
[~2019-01-10 05:40] MED LIST changes: -Buffered Lidocaine 0.9% SYRIN* 5 ML/SYR SYRINGE INTRADERM ONE; +Buffered Lidocaine 1% SYRIN* 1 ML/SYRINGE INTRADERM ONE; +Bupivacaine 0.5% W/EPI SDV* 10 ML VIAL INJ ONE; +Dexamethasone IV* 4 MG/ML 1 ML (4 MG) ONE; +DiMENhydriNATE IV* 50 MG/ML VIAL IV PUSH PRN; +EPINEPHRINE 1 MG/ML 1 ML VIAL ONE; +Famotidine IV* 10 MG/ML 2 ML (20 mg) IV ONE; +Famotidine IV* 10 MG/ML 2 ML (20 mg) ONE; +Glycopyrrolate IV* 0.2 MG/ML 1 ML VIAL ONE; +HYDROcodone/ACETAMIN 5-325 MG* 1 TAB ONE; +HYDROcodone/ACETAMIN 5-325 MG* 1 TAB PO PRN; +Ketorolac INJ* 30 MG/ML 1 ML VIAL IV PRN; +Ketorolac INJ* 30 MG/ML 1 ML VIAL ONE; +Lactated Ringers 1000 ML Bag* 1,000 ML IV SCH; +Lidocaine 2% PF * 5 ML VIAL ONE; +Midazolam* 1 MG/ML 5 ML VIAL (5 MG) ONE; +Naloxone* 0.4 MG/ML 1 ML VIAL IV PRN; +Neostigmine Methylsulfate* 3 MG/3 ML SYRINGE ONE; +Ondansetron INJ* 2 MG/ML VIAL ONE; -Ondansetron ODT TAB* 4 MG PO ONE; +Propofol* 10 MG/ML 20 ML BTL ONE; +ROPIVACAINE 5 MG/ML 30 ML BTL (0.5%) ONE; +Rocuronium* 10 MG/ML VIAL ONE; +ceFAZolin 2 GM in NS PREMIX(*) 2 GM/100 ML BAG IVPB ONE; +fentaNYL* 50 MCG/ML 2 ML VIAL (100 MCG VIAL) IV PRN; +fentaNYL* 50 MCG/ML 2 ML VIAL (100 MCG VIAL) ONE; +oxyCODONE/Acetamin 5/325 MG* TAB PO PRN
[2019-01-10 12:27] VITALS: BP 154/88
--- NOTE | 2019-01-11 23:25 | OP ---
OPERATIVE REPORT: DATE OF OPERATION: 01/10/19 DATE OF : 68 SURGEON: Yony Kyle MD HOMEBOUND TEACHER: FATOUMATA Funes A physician facility assistant was required for the length of procedure for assistance with patient positionin g, retraction, and closure. ANESTHESIOLOGIST: Dr. Lowell Trimble. ANESTHESIA: General anesthesia, regional interscalene block anesthesia. PRE-OP DIAGNOSES: 1. Right shoulder subacromial bursitis and impingement. 2. Right shoulder rotator cuff tendinitis and small full-thickness supraspinatus anterior rotator cu ff tendon tear. 3. Right shoulder acromioclavicular joint osteoarthritis. 4. Right shoulder possible proximal long head biceps tendinosis. POST-OP DIAGNOSES: 1. Right shoulder subacromial bursitis and impingement. 2. Right shoulder rotator cuff tendinitis and medium full-thickness supraspinatus rotator cuff tendo n tear. 3. Right shoulder acromioclavicular joint osteoarthritis. 4. Right shoulder possible proximal long head biceps tendinosis. OPERATIVE PROCEDURE: 1. Right shoulder arthroscopic rotator cuff repair, supraspinatus, with a double row repair. 2. Right shoulder arthroscopic subacromial decompression. 3. Right shoulder arthroscopic distal clavicle resection. 4. Right shoulder arthroscopic tenotomy of long head biceps tendon. 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 Multiple medical problems. The patient failed the f ull spectrum of nonoperative management and opted for surgery. Discussed all appropriate risks and p otential complications of surgery. Discussed treatment of biceps as needed and we decided on release rather than open tenodesis. ANTIBIOTICS: 2 g Ancef IV. IV FLUIDS: 1100 cc of crystalloid. LYYR-BP-SVQZ TIME: 96 minutes. ARTHROSCOPIC FLUID UTILIZED: Not recorded by me. SPECIMEN: None. IMPLANTS: Mitek Healix 5.5-mm suture anchors x2. One started as a triple-loaded anchor, but I used 2 sutures from it. The second started with 2 sutures. I also used a knotless 5.5-mm Mitek Healix an chor for the lateral row. COMPLICATIONS: None. ESTIMATED BLOOD LOSS: Minimal. DESCRIPTION OF PROCEDURE: In preoperative holding, the patient signed a written consent. Operative extremity was marked in the preoperative holding. The patient was taken by Anesthesia into an [facility] preoperative room and had performed a regional interscalene block. The patient was taken to the operating room and placed supine on the operating room table. Sedated a nd intubated. Transferred into the lateral decubitus position on a beanbag. Axillary roll placed. All bony prominences padded. Shaver bag hardened. Right shoulder placed in the appropriate amount of f orward flexion and abduction by longitudinal traction with 15 pounds. The right shoulder was prepped and draped. Surgical time-out was performed. I entered a spinal needle on to the glenohumeral joint from posterior. Infused 30 cc of normal salin e. Made posterior glenohumeral joint portal. I started my diagnostic arthroscopy. No high-grade glenohumeral joint articular cartilage injury not ed. Superior labrum tear noted. Proximal biceps tendinosis noted. No subscapularis tendon injury. Clear full-thickness supraspinatus tear noted with minimal retraction. I established anterior glenohumeral joint portal under direct visualization. Entered arthroscopic sha ines and debrided some rotator cuff interval tissue. Entered a scissors and cut the biceps just off it s origin, long head tendon. I debrided some superior labrum with arthroscopic shaver. I removed instruments and fluid from glenohumeral joint and entered the subacromial space. Entered f rom anterior and posterior. Established posterolateral, lateral, and anterolateral portals under direct visualization. Noted a t ear of the supraspinatus tendon with some minimal retraction. Full-thickness tear. Much of the widt h of the supraspinatus tendon larger than noted on preoperative MRI. I used an arthroscopic shaver to aggressively debride the subacromial bursa. I cleared off the under surface of the acromion with a cautery device. I performed a subacromial decompression by flattening out the curved undersurface of the anterior aspect of the acromion using an arthroscopic bur. I prepared the rotator cuff footprint on bone with a cautery device and then an arthroscopic bur. I placed appropriate plastic cannulas. superolateral to place 1 anchor and then a second anchor into the medial aspect of the footprint of the supraspinatus on the humeral head. I used an antegrad e suture passer to pass all of my medial row sutures before tying any of them down. The first 3 stit ches from anterior to posterior horizontal mattress and the last was a simple stitch. Given the size of the tear, to improve the possibility of healing, I then placed a lateral row anchor using 4 sutures from the medial row. Repair looked excellent. I probed it. I obtained photographs and viewed it from a variety of perspectives. Excellent repair. Cuff sat down anatomically on footpr int. I next moved to the AC joint. I debrided the synovitic tissue about it with a cautery device and the n I used an arthroscopic bur to debride 8 mm at the distal end of the clavicle. Next, we removed fluid and instruments from the subacromial space. I closed the skin incisions with [id number] and 12 stitches using nylon 3-0 suture. Xeroform, 4x4s, ABDs, foam tape. Sling with abduction pillow. DISPOSITION: The patient was discharged home when medically stable after being rosa kened, extubated, and transferred to PACU. The patient was given wound care instructions. Sling and abduction pillow at all times. The patient was written for hydrocodone with acetaminophen to take a s needed for pain. She will follow up in clinic 10 to 14 days postoperatively. [id number]/[facility] #: [id number]
== END | disposition home or self-care (01) ==
LOC: OR 05:40
PROVIDERS: ATTEND Orthopaedic Surgery
DX: M75.41 Impingement syndrome of right shoulder (principal); M75.51 Bursitis of right shoulder; M75.111 Incomplete rotator cuff tear or rupture of right shoulder, not specified as traumatic; M75.21 Bicipital tendinitis, right shoulder; M19.011 Primary osteoarthritis, right shoulder; G89.18 Other acute postprocedural pain; I10 Essential (primary) hypertension; I25.118 Atherosclerotic heart disease of native coronary artery with other forms of angina pectoris; Z87.891 Personal history of nicotine dependence; K21.9 Gastro-esophageal reflux disease without esophagitis; F90.9 Attention-deficit hyperactivity disorder, unspecified type; F41.9 Anxiety disorder, unspecified; Z95.5 Presence of coronary angioplasty implant and graft; I25.2 Old myocardial infarction
CPT/HCPCS: 81025; J0690; J1100; J1885; J2250; J2405; J2704; J2710; J2795; J3010

== ENCOUNTER 2019-06-10 01:09 | Emergency (ER) | payer OTHER ==
[2019-06-10 01:21] VITALS: BP 130/76
--- OUTSIDE RECORDS SUMMARY | 2019-06-10 02:01 | XMS REPORT | Continuity of Care Document ---
:1970 External Reference #:[id number] Author Name Marya Chadwick M.D. (transmitted by agent of provider Phylicia Dorsey) Address [address] [place] [address] Care Team Providers Name Role Phone Gerardo Ruiz MD - Family Care Team Information Clinical Auditor [phone] Medicine Problems Active Problems Provider Date Sciatica Naun Mattson M.D. Onset: 10/08/2014 Enthesopathy of hip region Naun Mattson M.D. Onset: 10/08/2014 Localized, primary osteoarthritis of the Marya Chadwick M.D. Onset: 08/15/2017 pelvic region and thigh Localized, primary osteoarthritis Marya Chadwick M.D. Onset: 08/15/2017 Acute meniscal tear, lateral, posterior horn Marya Chadwick M.D. Onset: 2017 Disorder of shoulder Marya Chadwick M.D. Onset: 05/19/2018 Strain of rotator cuff capsule Marya Chadwick M.D. Onset: 12/06/2018 Social History Type Date Description Comments Sex Unknown Tobacco Use Start: Unknown current cigarette smoker Tobacco Use Start: Unknown Current Cigarette Smoker 1 Pack Daily Smoking Status Reviewed: 05/23/19 Current Cigarette Smoker 1 Pack Daily ETOH Use Drinks 3 Alcoholic Beverages Per Week Recreational Drug Use Denies Drug Use Tobacco Use Start: Unknown End: Patient is a former Unknown smoker Exercise Type/Frequency Does not exercise active at work Allergies, Adverse Reactions, Alerts Active Allergies Reaction Severity Comments Date Strattera Agitated per patient 07/22/2015 Nicorette Stomach ache Gum - per patient 07/22/2015 Isosorbide Dinitrate headache 08/10/2018 Inactive Allergies Aspirin stomach per patient 10/08/2014 Medications Active Medications SIG Qnty Indications Ordering Date Provider Gabapentin take one tablet Sharad S. 01/01/2019 600mg by mouth twice Martins, DO FACC Tablets daily Metoprolol Succinate 1/2 by mouth 90tabs Sharad S. 11/27/2018 ER twice a day Martins, DO FACC 100mg Tablets ER 24HR Cane use for 1units M16.11 Marya Chadwick, 08/11/2018 Misc ambulation - r M.D. knee pain Amlodipine Besylate 1 by mouth every 90tabs Sharad S. 03/08/2017 5mg day Martins, DO FACC Tablets Aspirin 1 tablet chewable 120units Sharad S. 12/15/2016 81mg Chewtabs by mouth daily in Martins, DO FACC the morning Nitroglycerin 1 sl q5mins x3 as 25tabs Sharad S. 11/19/2016 0.4mg needed for chest Martins, DO FACC Tablets Sub pain Atorvastatin Calcium take 1 tablet by 90tabs Sharad S. mouth once daily Martins, DO FACC 80mg Tablets Omeprazole 2 by mouth every Unknown 20mg day Capsules DR History Medications Hydrocodone 1-2 tabs q12 40tabs M25.552 Marya Chadwick, 04/16/2019 - Bitartrate/Acetaminophen hours as M.D. 05/22/2019 5-325mg Tablets needed pain Cyclobenzaprine HCL take 1 tab 14tabs Yony Corrigan 01/12/2019 - 10mg Tablets by mouth MD Saroj 03/21/2019 twice a day as needed Aspirin Adult 1 tab by 28tasun Corrigan 01/10/2019 - 325mg Tablets mouth every MD Saroj 01/10/2019 12 hours for 2 weeks Oxycodone-Acetaminophen 1 tab by 28tasun Corrigan 01/10/2019 - 5-325mg Tablets mouth every MD Saroj 01/10/2019 6 hours as needed for pain Hydrocodone take 1 by 28tasun Viera, 01/10/2019 - Bitartrate/Acetaminophen mouth every 03/21/2019 5-325mg Tablets 4-6 hours as needed for pain Medications Administered in Office Medication SIG Qnty Indications Ordering Provider Date Depomedrol 40MG Marya Chadwick M.D. 03/14/2019 Injection Depomedrol 40MG Marya Chadwick M.D. 03/14/2019 Injection Depomedrol 40MG Marya Chadwick M.D. 10/06/2018 Injection Depomedrol 40MG Marya Chadwick M.D. 08/11/2018 Injection Depomedrol 40MG Marya Chadwick M.D. 05/26/2018 Injection Depomedrol 40MG Marya Chadwick M.D. 05/26/2018 Injection Depomedrol 40MG Marya Chadwick M.D. 05/19/2018 Injection Depomedrol 40MG Marya Chadwick M.D. 02/13/2018 Injection Depomedrol 40MG Marya Chadwick M.D. 12/30/2017 Injection Depomedrol 40MG Marya Chadwick M.D. 11/16/2017 Injection Depomedrol 40MG Marya Chadwick M.D. 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 Inj/Aspir Major JT Or Bursa <pending> W/ US Procedures Date Code Description Status 03/14/2019 Inj/Aspir Major JT Or Bursa W/ US Completed 03/14/2019 Inject/Drain Joint/Bursa Major W/O US Completed 01/10/2019 56008 Arthroscopy Shoulder,W/Rotator Cuff Repair Completed 01/10/2019 13777 Arthroscopy Shoulder,W/Rotator Cuff Repair Completed 01/10/2019 33757 Arthroscopy,Shoulder Decompression Of Subacromial Space Completed W/Acromio 01/10/2019 71724 Arthroscopy,Shoulder Decompression Of Subacromial Space Completed W/Acromio 01/10/2019 19247 Arthroscopy,Shoulder,Distal Claviculectomy Incl Dist Completed Articular SR 01/10/2019 74888 Arthroscopy,Shoulder,Distal Claviculectomy Incl Dist Completed Articular SR 01/02/2019 96032 EKG Tracing & Interpretation Completed 12/01/2018 88718 Holter Monitor Review (24 hr)dr review & interp only Completed 11/30/2018 31442 ECG Monitor/Recording W/Visual Superimposition Scanning Completed 11/29/2018 37203 ECG Monitor/Recording W/Visual Superimposition Scanning Completed Medical Devices Description No Information Available Encounters Type Date Location Provider Dx Diagnosis Office Visit 04/16/2019 [place] [facility], M25.552 Pain in left hip 2:45p at [facility] S70.02xA Contusion of left hip, initial encounter W19.xxxA Unspecified fall, initial encounter M16.12 Unilateral primary osteoarthritis, left hip Office Visit 03/14/2019 10:00a [place] [facility] Chadwick, M25.562 Pain in left at [facility] knee M25.462 Effusion, left knee M17.12 Unilateral primary osteoarthritis, left knee M25.552 Pain in left hip M16.12 Unilateral primary osteoarthritis, left hip Office Visit 01/02/2019 [place] Sharad Barahona Z01.810 Encounter for 10:00a Cardiology Of DO Eliezer preprocedural [facility] cardiovascular examination I25.119 Athscl heart disease of [place] cor art w unsp ang pctrs I25.2 Old myocardial infarction I10 Essential (primary) hypertension E78.5 Hyperlipidemia, unspecified F17.201 Nicotine dependence, unspecified, in remission Office Visit 12/14/2018 Juliann Corrigan M19.011 Primary 10:00a Orthopedics at MD Saroj osteoarthritis, [place] right shoulder M75.41 Impingement syndrome of right shoulder M75.51 Bursitis of right shoulder M75.101 Unsp rotatr-cuff tear/ruptr of right shoulder, not trauma Office Visit 12/06/2018 10:15a [facility] M25.511 Pain in right at [facility] shoulder S46.011A Strain of musc/tend the rotator cuff of right shoulder, init M19.011 Primary osteoarthritis, right shoulder Assessments Date Code Description Provider 05/17/2019 M75.121 Complete rotator cuff tear or rupture of Yony Kyle MD right shoulder, not specified as traumatic 05/17/2019 M75.21 Bicipital tendinitis, right shoulder Yony Kyle MD 04/16/2019 M25.552 Pain in left hip Marya Chadwick M.D. 04/16/2019 S70.02xA Contusion of left hip, initial encounter Marya Chadwick M.D. 04/16/2019 W19.xxxA Unspecified fall, initial encounter Marya Chadwick M.D. 04/16/2019 M16.12 Unilateral primary osteoarthritis, left Marya Chadwick M.D. hip 03/22/2019 M75.121 Complete rotator cuff tear or rupture of Yony Kyle MD right shoulder, not specified as traumatic 03/22/2019 M75.21 Bicipital tendinitis, right shoulder Yony Kyle MD 03/22/2019 Z47.89 Encounter for other orthopedic aftercare Yony Kyle MD 03/14/2019 M25.562 Pain in left knee Marya Chadwick M.D. 03/14/2019 M25.462 Effusion, left knee Marya Chadwick M.D. 03/14/2019 M17.12 Unilateral primary osteoarthritis, left Marya Chadwick M.D. knee 03/14/2019 M25.552 Pain in left hip Marya Chadwick M.D. 03/14/2019 M16.12 Unilateral primary osteoarthritis, left Marya Chadwick M.D. hip 02/22/2019 M75.121 Complete rotator cuff tear or rupture of Yony Kyle MD right shoulder, not specified as traumatic 02/22/2019 M75.21 Bicipital tendinitis, right shoulder Yony Kyle MD 02/22/2019 Z47.89 Encounter for other orthopedic aftercare Yony Kyle MD 01/22/2019 M75.121 Complete rotator cuff tear or rupture of Yony Kyle MD right shoulder, not specified as traumatic 01/22/2019 M75.21 Bicipital tendinitis, right shoulder Yony Kyle MD 01/22/2019 M75.41 Impingement syndrome of right shoulder Yony Kyle MD 01/22/2019 M19.011 Primary osteoarthritis, right shoulder Yony Kyle MD 01/22/2019 Z47.89 Encounter for other orthopedic aftercare Yony Kyle MD 01/10/2019 M75.121 Complete rotator cuff tear or rupture of Yony Kyle MD right shoulder, not specified as traumatic 01/10/2019 M75.121 Complete rotator cuff tear or rupture of [place]OU[place] Funes right shoulder, not specified as traumatic 01/10/2019 M75.21 Bicipital tendinitis, right shoulder Yony Kyle MD 01/10/2019 M75.41 Impingement syndrome of right shoulder FATOUMATA Funes 01/10/2019 M19.011 Primary osteoarthritis, right shoulder Yony Kyle MD 01/10/2019 M75.51 Bursitis of right shoulder FATOUMATA Funes 01/10/2019 M75.41 Impingement syndrome of right shoulder Yony Kyle MD 01/10/2019 M19.011 Primary osteoarthritis, right shoulder FATOUMATA Funes 01/10/2019 M75.51 Bursitis of right shoulder Yony Kyle MD 01/10/2019 M75.21 Bicipital tendinitis, right shoulder FATOUMATA Funes 01/02/2019 Z01.810 Encounter for preprocedural Sharad Martins [facility] cardiovascular examination 01/02/2019 I25.119 Atherosclerotic heart disease of [place] Sharad Martins DO [facility] coronary artery with unspecified angina pectoris 01/02/2019 I25.2 Old myocardial infarction Sharad Martins DO [facility] 01/02/2019 I10 Essential (primary) hypertension Sharad Martins DO [facility] 01/02/2019 E78.5 Hyperlipidemia, unspecified Sharad Martins DO [facility] 01/02/2019 F17.201 Nicotine dependence, unspecified, in Sharad Martins DO [facility] remission 12/14/2018 M19.011 Primary osteoarthritis, right shoulder Yony Kyle MD 12/14/2018 M75.41 Impingement syndrome of right shoulder Yony Kyle MD 12/14/2018 M75.51 Bursitis of right shoulder Yony Kyle MD 12/14/2018 M75.101 Unspecified rotator cuff tear or rupture Yony Kyle MD of right shoulder, not specified as traumatic 12/06/2018 M25.511 Pain in right shoulder Marya Chadwick M.D. 12/06/2018 S46.011A Strain of muscle(s) and tendon(s) of the Marya Chadwick M.D. rotator cuff of right shoulder, initial encounter 12/06/2018 M19.011 Primary osteoarthritis, right shoulder Marya Chadwick M.D. 12/01/2018 R00.2 Palpitations Sharad Martins, DO [facility] 11/30/2018 R00.2 Palpitations Sharad Martins, DO [facility] 11/29/2018 R00.2 Palpitations Nurse Visit IC Plan of Treatment Future Appointment(s):07/04/2019 10:15 am - Marya Chadwick M.D. at [facility]07/19/2019 2:15 pm - Yony Kyle MD at [facility] Functional Status Description No Information Available Mental Status Description No Information Available Referrals Description No Information Available
--- OUTSIDE RECORDS SUMMARY | 2019-06-10 02:01 | XMS REPORT | Continuity of Care Document ---
:1970 External Reference #:[id number] Author Name Marya Chadwick M.D. (transmitted by agent of provider Nicole Troncoso) Address [address] [place] [address] Care Team Providers Name Role Phone eGrardo Ruiz MD - Family Care Team Information Nursery Technician [phone] Medicine Problems Active Problems Provider Date Sciatica [...] Smoker 1 Pack Daily Smoking Status Reviewed: 04/16/19 Current Cigarette Smoker 1 Pack Daily ETOH [...] Medications SIG Qnty Indications Ordering Date Provider Hydrocodone 1-2 tabs q12 40tabs M25.552 Marya Chadwick, 04/16/2019 Bitartrate/Acetaminop hours as needed M.D. hen pain 5-325mg Tablets Gabapentin take one tablet Sharad SMichael 01/01/2019 600mg by mouth twice Martins, DO [...] Unknown 20mg day Capsules DR History Medications Cyclobenzaprine HCL take 1 tab by 14tabs Yony Corrigan 01/12/2019 - 10mg mouth twice a MD Saroj 03/21/2019 Tablets day as needed Aspirin Adult 1 tab by mouth 28tabs Yony Corrigan 01/10/2019 - 325mg Tablets every 12 hours MD Saroj 01/10/2019 for 2 weeks Oxycodone-Acetaminophen 1 tab by mouth 28tabs Yony Corrigan 01/10/2019 - 5-325mg every 6 hours MD Saroj 01/10/2019 Tablets as needed for pain Hydrocodone take 1 by mouth 28tabs Elizabeth Viera MD 01/10/2019 - Bitartrate/Acetaminophen every 4-6 hours 03/21/2019 as needed for 5-325mg Tablets pain Medications Administered in Office Medication SIG [...] Available Vital Signs Date Vital Result Comment 04/16/2019 2:42pm Height 66.5 inches 5'6.50" Weight 230.00 lb Heart Rate 88 /min BP Systolic 134 mmHg BP Diastolic 90 mmHg Body Temperature 99.1 F Pain Level 8 BMI (Body Mass Index) 36.6 kg/m2 03/22/2019 3:21pm Height 66.5 inches 5'6.50" Weight 225.00 lb Heart Rate 72 /min BP Systolic 160 mmHg BP Diastolic 92 mmHg Respiratory Rate 18 /min Pain Level 3 BMI (Body Mass Index) 35.8 kg/m2 Results Test Acquired Date Facility Test Result H/L Range Note Xray 03/14/2019 Automatic Blocker In House Inj/Aspir Major JT Or Bursa <pending> W/ US Procedures Date Code Description Status 03/14/2019 Inj/Aspir Major JT Or Bursa W/ US Completed 03/14/2019 Inject/Drain Joint/Bursa Major W/O US Completed 01/10/2019 80086 Arthroscopy Shoulder,W/Rotator Cuff Repair Completed 01/10/2019 07235 Arthroscopy Shoulder,W/Rotator Cuff Repair Completed 01/10/2019 06653 Arthroscopy,Shoulder Decompression Of Subacromial Space Completed W/Acromio 01/10/2019 71152 Arthroscopy,Shoulder Decompression Of Subacromial Space Completed W/Acromio 01/10/2019 91802 Arthroscopy,Shoulder,Distal Claviculectomy Incl Dist Completed Articular SR 01/10/2019 26736 Arthroscopy,Shoulder,Distal Claviculectomy Incl Dist Completed Articular SR 01/02/2019 08607 EKG Tracing & Interpretation Completed 12/01/2018 91999 Holter Monitor Review (24 hr)dr review & interp only Completed 11/30/2018 56575 ECG Monitor/Recording W/Visual Superimposition Scanning Completed 11/29/2018 95239 ECG Monitor/Recording W/Visual Superimposition Scanning Completed Medical Devices Description No Information Available Encounters Type Date Location Provider Dx Diagnosis Office Visit 03/14/2019 [facility] Marya Chadwick, M25.562 Pain in left knee 10:00a [place] [facility] M25.462 Effusion, left knee M17.12 Unilateral primary osteoarthritis, left knee M25.552 Pain in left hip M16.12 Unilateral primary osteoarthritis, left hip Office Visit 01/02/2019 [place] Sharad Barahona Z01.810 Encounter for 10:00a Cardiology Of DO Eliezer preprocedural [facility] cardiovascular examination I25.119 Athscl heart disease of [place] cor art w unsp ang pctrs I25.2 Old myocardial infarction I10 Essential (primary) hypertension E78.5 Hyperlipidemia, unspecified F17.201 Nicotine dependence, unspecified, in remission Office Visit 12/14/2018 [place] Yony Corrigan M19.011 Primary 10:00a Orthopedics at MD Saroj osteoarthritis, [place] right shoulder M75.41 Impingement syndrome of right shoulder M75.51 Bursitis of right shoulder M75.101 Unsp rotatr-cuff tear/ruptr of right shoulder, not trauma Office Visit 12/06/2018 10:15a [facility] Marya Chadwick, M25.511 Pain in right at [place] [facility] shoulder S46.011A Strain of musc/tend the rotator cuff of right shoulder, init M19.011 Primary osteoarthritis, right shoulder Assessments Date Code Description Provider 04/16/2019 M25.552 Pain in left hip Marya Chadwick M.D. 04/16/2019 M16.12 Unilateral primary osteoarthritis, left Marya Chadwick M.D. hip 04/16/2019 W19.xxxA Unspecified fall, initial encounter Marya Chadwick M.D. 03/22/2019 M75.121 Complete rotator cuff tear or [...] 01/02/2019 Z01.810 Encounter for preprocedural Sharad Martins [facility] cardiovascular examination 01/02/2019 I25.119 Atherosclerotic heart disease of [place] Sharad Martnis, DO [facility] coronary artery with unspecified angina pectoris 01/02/2019 I25.2 Old myocardial infarction Sharad Martins [facility] 01/02/2019 I10 Essential (primary) hypertension Shaard Martins [facility] 01/02/2019 E78.5 Hyperlipidemia, unspecified Sharad Martins [facility] 01/02/2019 F17.201 Nicotine dependence, unspecified, in Sharad Martins [facility] remission 12/14/2018 M19.011 Primary osteoarthritis, right [...] M.D. 12/01/2018 R00.2 Palpitations Sharad Martins, DO [facility] 11/30/2018 R00.2 Palpitations Sharad Martins DO [facility] 11/29/2018 R00.2 Palpitations Nurse Visit IC Plan of Treatment Future Appointment(s):05/07/2019 2:30 pm - Yony Kyle MD at [facility] at [id number]/16/2019 - Marya Chadwick M.D.M25.552 Pain in left hipNew Medication:Hydrocodone Bitartrate/Acetaminophen 5-325 mg - 1-2 tabs q12 hours as needed painNew Xrays:MRI Hip Left W/O, Ordered: 04/16/19Follow up:Follow up: after MRIM16.12 Unilateral primary osteoarthritis, left hipW19.xxxA Unspecified fall, initial encounter Functional Status Description No Information Available Mental Status Description No Information Available Referrals Description No Information Available
== END 2019-06-10 02:10 | disposition left against medical advice (07) ==
LOC: ED 01:09
DX: Z53.21 Procedure and treatment not carried out due to patient leaving prior to being seen by health care provider (principal); S09.90XA Unspecified injury of head, initial encounter; X58.XXXA Exposure to other specified factors, initial encounter; Y92.9 Unspecified place or not applicable
CPT/HCPCS: 99282

== ENCOUNTER 2019-07-22 13:12 | Emergency (ER) | payer OTHER ==
--- OUTSIDE RECORDS SUMMARY | 2019-07-22 15:21 | XMS REPORT | Continuity of Care Document ---
:1970 External Reference #:[id number] Author Name Marya Chadwick M.D. (transmitted by agent of provider Elaine Archer) Address [address] [place] [address] Care Team Providers Name Role Phone Gerardo Ruiz MD - Family Care Team Information Child Care Sitter [phone] Medicine Problems Active Problems Provider Date Sciatica Naun Mattson M.D. Onset: 10/08/2014 Enthesopathy of hip region Naun Mattson M.D. Onset: 10/08/2014 Localized, primary osteoarthritis of the Marya Chadwick M.D. Onset: 08/15/2017 pelvic region and thigh Localized, primary osteoarthritis Marya Chadwick M.D. Onset: 08/15/2017 Disorder of shoulder Marya Chadwick M.D. Onset: 05/19/2018 Strain of rotator cuff capsule Marya Chadwick M.D. Onset: 12/06/2018 Trochanteric bursitis Marya Chadwick M.D. Onset: 07/04/2019 Contusion of left hip, subsequent encounter Marya Chadwick M.D. Onset: 2019 Social History Type Date Description Comments Sex Unknown Tobacco Use Start: Unknown current cigarette smoker Tobacco Use Start: Unknown Current Cigarette Smoker 1 Pack Daily Smoking Status Reviewed: 07/04/19 Current Cigarette Smoker 1 Pack Daily ETOH Use Drinks 3 Alcoholic Beverages Per Week Recreational Drug Use Denies Drug Use Tobacco Use Start: Unknown Patient is a current smoker, smokes some days Exercise Type/Frequency Does not exercise active at [...] needed for pain Hydrocodone take 1 by 28tabs Elizabeth Viera, 01/10/2019 - Bitartrate/Acetaminophen mouth every 03/21/2019 [...] Available Vital Signs Date Vital Result Comment 07/04/2019 10:33am Height 66.5 inches 5'6.50" Weight 240.00 lb stated Heart Rate 72 /min BP Systolic 128 mmHg BP Diastolic 78 mmHg Respiratory Rate 14 /min Body Temperature 98.8 F Pain Level 7 BMI (Body Mass Index) 38.2 kg/m2 05/23/2019 10:22am Height 66.5 inches 5'6.50" Weight 230.00 lb Heart Rate 58 /min BP Systolic Sitting 140 mmHg BP Diastolic Sitting 88 mmHg Respiratory Rate 14 /min Pain Level 4 BMI (Body Mass Index) 36.6 kg/m2 Results Test Acquired Date Facility Test Result H/L Range Note Xray 03/14/2019 [facility] Inj/Aspir Major JT Or Bursa <pending> W/ US Procedures Date Code Description Status 07/04/2019 Inject/Drain Joint/Bursa Major W/O US Completed 03/14/2019 Inj/Aspir Major JT Or Bursa W/ US Completed 03/14/2019 Inject/Drain Joint/Bursa Major W/O US Completed 01/10/2019 19454 Arthroscopy Shoulder,W/Rotator Cuff Repair Completed 01/10/2019 57782 Arthroscopy Shoulder,W/Rotator Cuff Repair Completed 01/10/2019 40472 Arthroscopy,Shoulder Decompression Of Subacromial Space Completed W/Acromio 01/10/2019 82708 Arthroscopy,Shoulder Decompression Of Subacromial Space Completed W/Acromio 01/10/2019 23073 Arthroscopy,Shoulder,Distal Claviculectomy Incl Dist Completed Articular SR 01/10/2019 63421 Arthroscopy,Shoulder,Distal Claviculectomy Incl Dist Completed Articular SR 01/02/2019 08997 EKG Tracing & Interpretation Completed Medical Devices Description No Information Available Encounters Type Date Location Provider Dx Diagnosis Office Visit 05/23/2019 [facility], M25.552 Pain in left hip 10:15a at [facility] S70.02xD Contusion of left hip, subsequent encounter W19.xxxD Unspecified fall, subsequent encounter M16.12 Unilateral primary osteoarthritis, left hip M76.02 Gluteal tendinitis, left hip Office Visit 05/17/2019 [facility] M75.121 Complete 2:45p Orthopedics at [facility] rotatr-cuff Berthold tear/ruptr of r shoulder, not trauma M75.21 Bicipital tendinitis, right shoulder Z47.89 Encounter for other orthopedic aftercare Office Visit 04/16/2019 2:45p [facility] M25.552 Pain in left at [facility] hip S70.02xA Contusion of left hip, initial encounter W19.xxxA Unspecified fall, initial encounter M16.12 Unilateral primary osteoarthritis, left hip Office Visit 03/14/2019 10:00a [facility] M25.562 Pain in left at [facility] knee M25.462 Effusion, left knee M17.12 Unilateral primary osteoarthritis, left knee M25.552 Pain in left hip M16.12 Unilateral primary osteoarthritis, left hip Office Visit 01/02/2019 [facility] Z01.810 Encounter for 10:00a Cardiology Of DO Eliezer preprocedural [facility] cardiovascular examination I25.119 Athscl heart disease of wrangell cor art w unsp ang pctrs I25.2 Old myocardial infarction I10 Essential (primary) hypertension E78.5 Hyperlipidemia, unspecified F17.201 Nicotine dependence, unspecified, in remission Assessments Date Code Description Provider 07/04/2019 M25.552 Pain in left hip Marya Chadwick M.D. 07/04/2019 S70.02xD Contusion of left hip, subsequent Marya Chadwick M.D. encounter 07/04/2019 M16.12 Unilateral primary osteoarthritis, left Marya Chadwick M.D. hip 07/04/2019 M70.62 Trochanteric bursitis, left hip Marya Chadwick M.D. 05/23/2019 M25.552 Pain in left hip Marya Chadwick M.D. 05/23/2019 S70.02xD Contusion of left hip, subsequent Marya Chadwick M.D. encounter 05/23/2019 W19.xxxD Unspecified fall, subsequent encounter Marya Chadwick M.D. 05/23/2019 M16.12 Unilateral primary osteoarthritis, left Marya Chadwick M.D. hip 05/23/2019 M76.02 Gluteal tendinitis, left hip Marya Chadwick M.D. 05/17/2019 M75.121 Complete rotator cuff tear or rupture of Yony Kyle MD right shoulder, not specified as traumatic 05/17/2019 M75.21 Bicipital tendinitis, right shoulder Yony Kyle MD 05/17/2019 Z47.89 Encounter for other orthopedic aftercare Yony Kyle MD 04/16/2019 M25.552 Pain in [...] 01/02/2019 Z01.810 Encounter for preprocedural Sharad Martins [facility] cardiovascular examination 01/02/2019 I25.119 Atherosclerotic heart disease of wrangell Sharad Martins, DO [facility] coronary artery with unspecified angina pectoris 01/02/2019 I25.2 Old myocardial infarction Sharad Levinglen DO [facility] 01/02/2019 I10 Essential (primary) hypertension Sharad Levinglen [facility] 01/02/2019 E78.5 Hyperlipidemia, unspecified Sharad Levinglen [facility] 01/02/2019 F17.201 Nicotine dependence, unspecified, in Sharad Levinno, [facility] remission Plan of Treatment Future Appointment(s):07/19/2019 2:15 pm - Yony Kyle MD at [facility] at [id number]/04/2019 - Marya Chadwick M.D.M25.552 Pain in left hipFollow up:Follow up: As [id number] Contusion of left hip, subsequent oosjlarohR60.12 Unilateral primary osteoarthritis, left hipM70.62 Trochanteric bursitis, left hip Functional Status Description No Information Available Mental Status Description No Information Available Referrals Description No Information Available
[2019-07-22 15:32] VITALS: BP 116/75
--- NOTE | 2019-07-22 16:20 | UC ---
FLU HPI - HPI Summary HPI Summary: patient was feeling well until last evening when she started to rapidly develop fever, fatigue, body aches, and nasal congestion, no better today. started wheezing this am and has "a bad test" if she coughs, although she rarely coughs. Patient was treated for pneumonia 6 mo ago. 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, denies travel and any exposure to people at risk for COVID 19 - History of Current Complaint Chief Complaint: UCGeneralIllness Stated Complaint: RESPIRATORY, COUGH Time Seen by Provider: 07/22/19 15:52 Hx Obtained From: Patient Hx Last Menstrual Period: [email or web address] ?: No Onset/Duration: Sudden Onset Severity Currently: Moderate Severity Initially: Moderate Pain Intensity: 6 Associated Signs & Symptoms: Positive: Fever - Allergy/Home Medications Allergies/Adverse Reactions: Allergies Allergy/AdvReac Type Severity Reaction Status Date / Time oxycodone Allergy Severe itch Verified 07/22/19 15:33 isosorbide [From Imdur] Allergy Mild Headache Verified 07/22/19 15:33 atomoxetine [From Strattera] AdvReac Intermediate See Comment Verified 07/22/19 15:33 nicotine [From Nicorette] AdvReac Mild GI Upset Verified 07/22/19 15:33 Home Medications: Home Medications amLODIPine TAB* [Norvasc 5 mg TAB*] 5 mg PO QAM 06/16/17 [History Confirmed ] Nitroglycerin TAB 0.4 MG* 0.4 mg SL Q5M PRN #15 tab MDD x 3 06/17/17 [Rx Confirmed 07/22/19] Aspirin 81 mg CHEW TAB* 81 mg PO QAM 10/19/17 [History Confirmed 07/22/19] Atorvastatin* [Lipitor 80 MG*] 80 mg PO BEDTIME 10/19/17 [History Confirmed ] Metoprolol Succinate 50 mg PO BID 10/19/17 [History Confirmed 07/22/19] Gabapentin TAB(NF) [Neurontin 600 mg TAB(NF)] 600 mg PO BID 01/02/19 [History Confirmed 07/22/19] Omeprazole CAP (NF) [Prilosec CAP* 20 MG] 20 mg PO BID 01/02/19 [History Confirmed 07/22/19] Varenicline (NF) [Chantix 1 MG TAB (NF)] 1 mg PO BID 01/02/19 [History Confirmed 07/22/19] Albuterol HFA INHALER* [Ventolin HFA Inhaler*] 2 puff INH QID PRN 07/22/19 [ History Confirmed 07/22/19] Azithromyxin JC (NF) [Z-Jc (Zithromax) 250 mg tabs #6] 2 tab PO .TODAY, THEN 1 DAILY #6 tab 07/22/19 [Rx] Oseltamivir Phosphate [Tamiflu] 75 mg PO BID #10 capsule 07/22/19 [Rx] PMH/Surg Hx/FS Hx/Imm Hx Previously Healthy: Yes Endocrine History: Dyslipidemia Cardiovascular History: Hypertension, Myocardial Infarction Respiratory History: Asthma, Bronchitis, Pneumonia - Surgical History Surgical History: Yes Surgery Procedure, Year, and Place: right hip dislocation - pins in place 1980. left elbow dislocation - 3 surgeries fell off horse. bunion surgery right toe and screw placed. [facility]. HEART STENT 11/2016. 01/10/19 RIGHT SHOULDER RTC. left knee meniscus repair 2017. ENDOMETRIAL ABLASION-ESSURE - Family History Known Family History: Positive: Cardiac Disease, Hypertension, Other - DE in mother at age 40 - Social History Occupation: Employed Full-time Lives: With Family Alcohol Use: Weekly Alcohol Amount: 2-3 drinks per week Substance Use Type: None Smoking Status (MU): Former Smoker Type: Cigarettes Amount Used/How Often: 1ppd Length of Time of Smoking/Using Tobacco: since age 13 Have You Smoked in the Last Year: Yes When Did the Patient Quit Smoking/Using Tobacco: 11/01/18 Household Exposure Type: Cigarettes - Immunization History Most Recent Tetanus Shot: 2014 Review of Systems All Other Systems Reviewed And Are Negative: Yes Constitutional: Positive: Fever, Chills, Fatigue Skin: Positive: Negative ENT: Positive: Sore Throat Respiratory: Positive: Other - has had wheezes today -used albuterol inhaler. Negative: Shortness Of Breath, Cough Cardiovascular: Positive: Negative Neurological/Mental Status: Positive: Negative Psychological: Positive: Negative Is Patient Immunocompromised?: No Physical Exam Triage Information Reviewed: Yes Appearance: Well-Appearing, Well-Nourished, Obese Vital Signs: Initial Vital Signs Temp 97.7 F 07/22/19 15:26 Pulse 90 03/15/20 15:26 Resp 22 07/22/19 15:26 BP 116/75 07/22/19 15:26 Pulse Ox 97 07/22/19 15:26 Vital Signs Reviewed: Yes ENT: Positive: Pharyngeal erythema, Nasal congestion Respiratory: Positive: Wheezing - mild expiratory wheezes bilaterally, Other: - no cough on exam. Negative: Respiratory distress Cardiovascular Exam: Normal Cardiovascular: Positive: RRR Neurological Exam: Normal Neurological: Positive: Alert Psychological Exam: Normal Skin Exam: Normal Skin: Negative: Rashes Diagnostics - Radiology No standard instances Radiology Interpretation Completed By: Radiologist Flu Course/Dx - Course Course Of Treatment: Discussed case , HPI, ROS, Exam with DR. Frost who agrees with treatment plan - Differential Dx/Diagnosis Differential Diagnosis/HQI/PQRI: Influenza, Pneumonia, Upper Respiratory Infection Provider Diagnosis: Upper respiratory infection Discharge ED - Sign-Out/Discharge Documenting (check all that apply): Patient Departure All imaging exams completed and their final reports reviewed: Yes - Discharge Plan Condition: Stable Disposition: HOME Prescriptions: Azithromyxin JC (NF) [Z-Jc (Zithromax) 250 mg tabs #6] 2 tab PO .TODAY, THEN 1 DAILY #6 tab Oseltamivir Phosphate [Tamiflu] 75 mg PO BID #10 capsule Patient Education Materials: Upper Respiratory Infection (ED) Forms: *Work Release Referrals: Gerardo Ruiz MD [Primary Care Provider] - 3 Days (if no better) Additional Instructions: rest and drink plenty of fluids start medications today no work for 7 days if your symptoms worsen at any time please return for re-evaluation - Billing Disposition and Condition Condition: STABLE Disposition: Home
[2019-07-22 16:24] LABS: Influenza A Molecular Negative (Negative); Influenza B Molecular Negative (Negative)
== END 2019-07-22 17:39 | disposition home or self-care (01) ==
LOC: UCEAST 13:12
DX: J06.9 Acute upper respiratory infection, unspecified (principal); E78.5 Hyperlipidemia, unspecified; I10 Essential (primary) hypertension; J45.909 Unspecified asthma, uncomplicated; I21.9 Acute myocardial infarction, unspecified; Z79.899 Other long term (current) drug therapy; Z79.82 Long term (current) use of aspirin; Z87.891 Personal history of nicotine dependence; Z88.5 Allergy status to narcotic agent; Z88.8 Allergy status to other drugs, medicaments and biological substances; Z88.6 Allergy status to analgesic agent
CPT/HCPCS: 71046; 87651; 99212; G0463

== ENCOUNTER 2021-03-09 06:03 | Observation (INO) ==
[2021-03-09 08:15] LABS: ABS Eosinophils 0.1 10^3/ul (0-0.6); ABS Monocytes 0.6 10^3/ul (0-0.8); ABS Neutrophils 3.7 10^3/ul (1.5-7.7); Eosinophil % 2.2 %; Hematocrit 41 % (35-47); Mean Corpuscular HGB Conc 34 g/dL (31-36); Mean Corpuscular Hemoglobin 34 pg (27-31); Mean Corpuscular Volume 98 fL (80-97); Mean Platelet Volume 8.9 fL (7.4-10.4); Nucleated Red Blood Cells % 0.1; Platelet Count 200 10^3/uL (150-450); Red Blood Count 4.15 10^6 /uL (3.70-4.87); Red Cell Distribution Width 14 % (10-15); White Blood Count 6.4 10^3/uL (3.5-10.8)
[2021-03-09 08:29] LABS: Albumin 4.1 g/dL (3.2-5.2); Albumin/Globulin Ratio 1.4 (1-3); Calcium 8.9 mg/dL (8.6-10.3); Globulin 2.9 g/dL (2-4); Potassium 3.7 mmol/L (3.5-5.0); Total Bilirubin 0.7 mg/dL (0.2-1.0)
[2021-03-09 08:31] LABS: Troponin I 0.01 ng/mL (<0.03)
[2021-03-09] MEDS ORDERED: Iohexol 350 (CONTRAST) 500 ML MDV IV ONE (11:24)
[2021-03-09] MEDS ORDERED: Albuterol HFA INHALER 8 gm MDI INH PRN (14:15)
[2021-03-09 15:35] LABS: Rapid COVID-19 Molecular Undetected (Undetected)
[2021-03-09] MEDS ORDERED: Furosemide 20 mg/2 ml IV VIAL IV ONE (15:48)
[2021-03-09 16:20] LABS: HDL Cholesterol 65.2 mg/dL
[2021-03-09] MEDS: Heparin 5000 UNITS/ML 1 mL VIAL SUBCUT SCH (19:42)
[2021-03-09] MEDS: buPROPion SR 100 mg TAB.SR PO SCH (19:43)
[2021-03-10] MEDS ORDERED: Aminophylline 25 MG/ML VIAL ONE (07:43)
[2021-03-10] MEDS ORDERED: Regadenoson 0.4 MG/5 ML SYRINGE ONE (07:43)
[2021-03-10] MEDS: Heparin 5000 UNITS/ML 1 mL VIAL SUBCUT SCH (08:18)
[2021-03-10] MEDS: buPROPion SR 100 mg TAB.SR PO SCH (08:19)
[2021-03-10 11:41] VITALS: BP 138/69
== END 2021-03-10 15:00 | disposition home or self-care (01) ==
LOC: ED 06:03 → MEDTELE 06:03
PROVIDERS: ADMIT Hospitalist; ATTEND Hospitalist

== ENCOUNTER 2021-05-18 06:38 | Inpatient (IN) ==
[2021-05-18] MEDS ORDERED: Heparin 1,000 UNIT/ML 10 ml (10,000 UNITS) CATHLAB/DIALYSIS ONE (08:20)
[2021-05-18] MEDS ORDERED: Midazolam 5 mg/5 ml VIAL 1 mg/ml 5 ml VIAL (5 mg) ONE (08:20)
[2021-05-18] MEDS ORDERED: fentaNYL 100 mcg/2 ml 50 MCG/ML VIAL ONE (08:20)
[2021-05-18] MEDS ORDERED: Iohexol 350 (CONTRAST) 200 ML MDV IV ONE (08:21)
[2021-05-18] MEDS ORDERED: nitroGLYCERIN DRIP 25,000 MCG/250 ML BTL ONE (08:21)
[2021-05-18] MEDS ORDERED: Heparin 2 UNITS/ML 1000 mls 2,000 ML IV ONE (08:21)
[2021-05-18] MEDS ORDERED: Lidocaine 1% VIAL 10 MG/ML VIAL ONE (08:21)
[2021-05-18] MEDS ORDERED: niCARdipine 0.1MG/ML IVPREMIX 20 MG/200 ML BAG IV ONE (08:24)
[2021-05-18 11:37] VITALS: BP 112/67
== END 2021-05-18 11:00 | disposition short-term general hospital (02) | DRG 191 ==
LOC: CHICATH 06:38 → MEDTELE 10:45
PROVIDERS: ADMIT Internal Medicine; ATTEND Internal Medicine

== ENCOUNTER 2021-07-10 07:28 | Inpatient (IN) ==
[2021-07-10 08:00] LABS: ABS Basophils 0.1 10^3/ul (0-0.2); ABS Eosinophils 0.4 10^3/ul (0-0.6); ABS Lymphocytes 1.5 10^3/ul (1.0-4.8); ABS Monocytes 0.6 10^3/ul (0-0.8); Eosinophil % 5.5 %; Hematocrit 37 % (35-47); Hemoglobin 11.9 g/dL (12.0-16.0); Lymphocyte % 19.6 %; Mean Corpuscular HGB Conc 32 g/dL (31-36); Mean Corpuscular Hemoglobin 29 pg (27-31); Mean Corpuscular Volume 89 fL (80-97); Mean Platelet Volume 9.4 fL (7.4-10.4); Platelet Count 328 10^3/uL (150-450); Red Cell Distribution Width 19 % (10-15); White Blood Count 7.6 10^3/uL (3.5-10.8)
[2021-07-10 08:10] LABS: INR 1.13 (0.86-1.15)
[2021-07-10 08:38] LABS: ALT 8 U/L (7-52); AST 11 U/L (13-39); Albumin 3.6 g/dL (3.2-5.2); Albumin/Globulin Ratio 1.2 (1-3); Alkaline Phosphatase 129 U/L (35-149); Anion Gap 6 mmol/L (2-11); Blood Urea Nitrogen 8 mg/dL (6-24); CO2 Carbon Dioxide 29 mmol/L (22-32); Chloride 107 mmol/L (101-111); Glucose 74 mg/dL (70-100); Potassium 3.5 mmol/L (3.5-5.0); Sodium 142 mmol/L (135-145); Total Protein 6.6 g/dL (6.4-8.9); eGFR CKD-EPI 105.4 (>60)
[2021-07-10 09:06] LABS: Troponin I 0.01 ng/mL (<0.03)
[2021-07-10 09:07] LABS: C Reactive Protein 37.57 mg/L (<8.01)
[2021-07-10] MEDS ORDERED: NS 0.9% 1000 ml BAG 1,000 ML IV ONE (09:17)
[2021-07-10] MEDS: Heparin 5000 UNITS/ML 1 mL VIAL IV SCH ×2 (09:34→22:19)
[2021-07-10] MEDS: Heparin DRIP 25,000 UNITS BAG 25,000 UNITS/500 ML BAG IV SCH (09:37)
[2021-07-10] MEDS ORDERED: Perflutren Lipid Microsphere 3 ML VIAL ONE (09:41)
[2021-07-10 09:50] LABS: Activated Partial Thrombo Time 32.5 seconds (26.0-38.0)
[2021-07-10] MEDS ORDERED: Umeclidinium 62.5 MDI(NF) MDI INH SCH (10:00)
[2021-07-10] MEDS ORDERED: Albuterol HFA INHALER 8 gm MDI INH PRN (10:36)
[2021-07-10] MEDS ORDERED: Midazolam 5 mg/5 ml VIAL 1 mg/ml 5 ml VIAL (5 mg) ONE (10:50)
[2021-07-10] MEDS ORDERED: Heparin 1,000 UNIT/ML 10 ml (10,000 UNITS) CATHLAB/DIALYSIS ONE (10:50)
[2021-07-10] MEDS ORDERED: Heparin 2 UNITS/ML 1000 mls 2,000 ML IV ONE (10:50)
[2021-07-10] MEDS ORDERED: VERAPAMIL 2.5 MG/ML 2 ML VIAL ** 5 mg/2 ml ONE (10:50)
[2021-07-10] MEDS ORDERED: nitroGLYCERIN DRIP 25,000 MCG/250 ML BTL ONE (10:50)
[2021-07-10] MEDS ORDERED: fentaNYL 100 mcg/2 ml 50 MCG/ML VIAL ONE (10:50)
[2021-07-10] MEDS ORDERED: Lidocaine 1% VIAL 10 MG/ML VIAL ONE (10:50)
[2021-07-10] MEDS ORDERED: Iohexol 350 (CONTRAST) 200 ML MDV IV ONE ×3 (10:51→13:30)
[2021-07-10 10:54] LABS: Magnesium 2.1 mg/dL (1.9-2.7)
[2021-07-10 11:24] LABS: Erythrocyte Sed Rate 2 mm/Hr (0-29)
[2021-07-10] MEDS ORDERED: Bivalirudin 250 MG VIAL ONE (12:02)
[2021-07-10] MEDS ORDERED: Heparin 2 UNITS/ML 1000 mls 1,000 ML IV ONE ×2 (12:54→13:24)
[2021-07-10] MEDS ORDERED: NS 0.9% 1000 ml BAG 1,000 ML IV SCH (14:15)
[2021-07-10 15:35] LABS: ABS Eosinophils 0.3 10^3/ul (0-0.6); ABS Lymphocytes 1.6 10^3/ul (1.0-4.8); ABS Monocytes 0.4 10^3/ul (0-0.8); ABS Neutrophils 4.1 10^3/ul (1.5-7.7); Hematocrit 35 % (35-47); Hemoglobin 11.2 g/dL (12.0-16.0); Mean Corpuscular HGB Conc 32 g/dL (31-36); Mean Corpuscular Hemoglobin 29 pg (27-31); Mean Corpuscular Volume 90 fL (80-97); Mean Platelet Volume 9.4 fL (7.4-10.4); Platelet Count 270 10^3/uL (150-450); Red Blood Count 3.92 10^6 /uL (3.70-4.87); Red Cell Distribution Width 19 % (10-15); White Blood Count 6.5 10^3/uL (3.5-10.8)
[2021-07-10] MEDS ORDERED: hydrALAZINE 20 mg/ml 1 ML Vial IV IV SLOW PU ONE (16:50)
[2021-07-10] MEDS: Isosorbide Mononit ER 60mg TAB PO SCH ×2 (16:58→17:10)
[2021-07-10] MEDS: SPIRIVA Respimat (tiotropium) 2.5 mcg/inh Inhaler INH SCH (18:41)
[2021-07-11 04:44] LABS: ABS Basophils 0.1 10^3/ul (0-0.2); ABS Eosinophils 0.4 10^3/ul (0-0.6); ABS Lymphocytes 1.7 10^3/ul (1.0-4.8); ABS Monocytes 0.6 10^3/ul (0-0.8); ABS Neutrophils 4.8 10^3/ul (1.5-7.7); Eosinophil % 4.7 %; Hematocrit 34 % (35-47); Lymphocyte % 22.4 %; Mean Corpuscular HGB Conc 33 g/dL (31-36); Mean Corpuscular Hemoglobin 29 pg (27-31); Mean Corpuscular Volume 88 fL (80-97); Mean Platelet Volume 9.5 fL (7.4-10.4); Platelet Count 284 10^3/uL (150-450); Red Blood Count 3.85 10^6 /uL (3.70-4.87); Red Cell Distribution Width 19 % (10-15); White Blood Count 7.5 10^3/uL (3.5-10.8)
[2021-07-11] MEDS: SPIRIVA Respimat (tiotropium) 2.5 mcg/inh Inhaler INH SCH (08:30)
[2021-07-11 10:07] VITALS: BP 152/83
[2021-07-11] MEDS: Heparin DRIP 25,000 UNITS BAG 25,000 UNITS/500 ML BAG IV SCH (11:54)
== END 2021-07-11 13:48 | disposition short-term general hospital (02) | DRG 191 ==
LOC: ED 07:28 → EDHOLD 09:55 → AA 11:00 → CHICATH 11:00 → ICU 14:13

== ENCOUNTER 2023-06-17 14:39 | Inpatient (IN) ==
[2023-06-17 17:08] LABS: ABS Basophils 0.1 10^3/uL (0.0-0.1); ABS Eosinophils 0.1 10^3/uL (0.0-0.5); ABS Lymphocytes 1.1 10^3/uL (1.0-4.8); ABS Monocytes 0.4 10^3/uL (0.0-0.9); ABS Neutrophils 7.9 10^3/uL (1.5-7.6); Eosinophil % 0.8 %; Hematocrit 39.9 % (35-45); Hemoglobin 13.8 g/dL (11.5-14.3); Lymphocyte % 11.7 %; Mean Corpuscular Hemoglobin 32.7 pg (27-33); Mean Corpuscular Hgb Conc 34.5 g/dL (31-36); Mean Corpuscular Volume 94.9 fL (80-97); Mean Platelet Volume 9.4 fL (7.5-11.2); Platelet Count 221 10^3/uL (150-450); Red Cell Distribution Width 15.4 % (12-17); White Blood Count 9.6 10^3/uL (3.8-11.8)
[2023-06-17 17:35] LABS: Urine Appearance Clear; Urine Bilirubin Negative (Negative); Urine Blood Negative (Negative); Urine Color Light-Yellow; Urine Glucose Negative (Negative); Urine Ketones Negative (Negative); Urine Nitrite Negative (Negative); Urine Protein Trace (Negative); Urine Specific Gravity 1.009 (1.002-1.030); Urine Urobilinogen Negative (Negative)
[2023-06-17 18:52] LABS: ALT 23 U/L (7-52); Albumin 4.3 g/dL (3.2-5.2); Albumin/Globulin Ratio 1.3 (1-3); Alkaline Phosphatase 109 U/L (35-149); Anion Gap 9 mmol/L (2-16); Blood Urea Nitrogen 8 mg/dL (6-24); C Reactive Protein 5.99 mg/L (<8.01); CO2 Carbon Dioxide 24 mmol/L (22-32); Calcium 9.2 mg/dL (8.6-10.3); Chloride 102 mmol/L (101-111); Creatinine, Serum 0.64 mg/dL (0.51-0.95); Globulin 3.2 g/dL (2-4); Glucose 84 mg/dL (70-100); Lipase 149 U/L (11.0-82.0); Sodium 135 mmol/L (135-145); Total Bilirubin 2.7 mg/dL (0.2-1.0); Total Protein 7.5 g/dL (6.4-8.9); eGFR CKD-EPI 105.6 (>60)
[2023-06-17] MEDS: Iohexol 350 (CONTRAST) 500 ML MDV IV ONE (19:41)
[2023-06-17] MEDS: NS 0.9% 1000 ml BAG 1,000 ML IV ONE (22:18)
[2023-06-17] MEDS: Morphine 4 MG/ML VIAL (1 ml) IV PRN (22:24)
[2023-06-18] MEDS: Morphine 10 MG/ML VIAL (1 ml) IV ONE (00:11)
[2023-06-18] MEDS: Enoxaparin 40 MG/0.4 ML SYR SUBCUT SCH (00:17)
[2023-06-18] MEDS ORDERED: Morphine 2 MG/ML SYRINGE IV PRN (00:51)
[2023-06-18] MEDS: Morphine 4 MG/ML VIAL (1 ml) IV PRN (03:19)
[2023-06-18] MEDS: Lactated Ringers 1000 ml BAG 1,000 ML IV SCH (03:33)
[2023-06-18 03:44] LABS: Potassium Redraw 3.4 mmol/L (3.5-5.0)
[2023-06-18] MEDS: Potassium Chlor 20 meq TAB.ER PO ONE (05:09)
[2023-06-18 07:41] VITALS: BP 147/51
[2023-06-18 08:25] LABS: Hematocrit 35.3 % (35-45); Hemoglobin 12.1 g/dL (11.5-14.3); Mean Corpuscular Hemoglobin 32.5 pg (27-33); Mean Corpuscular Hgb Conc 34.3 g/dL (31-36); Mean Corpuscular Volume 94.8 fL (80-97); Mean Platelet Volume 9.4 fL (7.5-11.2); Platelet Count 154 10^3/uL (150-450); Red Blood Count 3.72 10^6/uL (3.63-4.92); White Blood Count 6.2 10^3/uL (3.8-11.8)
[2023-06-18] MEDS: buPROPion SR 100 mg TAB.SR PO SCH (08:26)
[2023-06-18 08:44] LABS: Albumin 3.5 g/dL (3.2-5.2); Albumin/Globulin Ratio 1.4 (1-3); Calcium 8.5 mg/dL (8.6-10.3); Creatinine, Serum 0.68 mg/dL (0.51-0.95); Globulin 2.5 g/dL (2-4); HDL Cholesterol 52.3 mg/dL; Potassium 3.6 mmol/L (3.5-5.0); eGFR CKD-EPI 104.1 (>60)
== END 2023-06-18 10:54 | disposition short-term general hospital (02) | DRG 282 ==
LOC: ED 14:39 → EDHOLD 22:35
PROVIDERS: ADMIT Internal Medicine; ATTEND Hospitalist